=== PATIENT | female | born 1960 | race Caucasian/White ===

== ENCOUNTER 2022-01-10 19:00 | Inpatient (IN) | payer MEDICAID ==
[~2022-01-10] VITALS: Ht 154.9 cm; Wt 60.8 kg
[~2022-01-10 19:00] MED LIST: AMLO5TAB PO; ASPI-1071 PO; ATOR40TA71 PO; CALC-492 PO; CHOL10006 PO; DIVA-81 PO; LACT-237 PO; LISI40TA13 PO; NICO-687 TOP; OLAN10TA73 PO; PANT-47 PO; SERT-434 PO; TRAM50TA2 PO; TRAZ-251 PO
[2022-01-11 08:00] VITALS: BP 135/74
[2022-01-11] MEDS ORDERED: mag hydrox/Alum hydrox/simeth 30ml oral suspension PO PRN (09:50)
[2022-01-11] MEDS ORDERED: magnesium hydroxide 30ml (MOM) UD suspension PO PRN (09:50)
[2022-01-11] MEDS ORDERED: loperamide 2mg capsule PO PRN (09:50)
[2022-01-11] MEDS ORDERED: acetaminophen 325mg tablet PO PRN ×3 (09:50→20:40)
--- NOTE | 2022-01-11 10:05 | NUR ---
ADMIT NOTE 61 y/o F, originally admitted to [facility] on a 5150 in May 2021 for GD and then LPS conserved. Patient went from ambulatory to a 2 person assist. MRI obtained and recent TIA's and acute infarct were discovered. Patient then transferred to PCU in [facility] so she would be transferred to [facility] for possible shunt placement. Patient returned after all care considered to be outpatient. Patient returned to [facility] 01/10/22. [facility] continues to seek placement. Patient HX: Schizoaffective D/O, ETOH and substance use disorder.
[2022-01-11] MEDS ORDERED: atorvastatin 20mg tablet PO SCH (10:20)
[2022-01-11] MEDS ORDERED: aspirin 81mg, enteric-coated 1 TAB TABLET.DR PO SCH (10:21)
[2022-01-11] MEDS ORDERED: nicotine 21mg patch - 24 hr TD SCH (10:22)
[2022-01-11] MEDS ORDERED: lisinopril 20mg tablet PO SCH (10:23)
[2022-01-11] MEDS ORDERED: cholecalciferol (vitamin D3) 1,000 unit (25mcg) tablet PO SCH (10:24)
[2022-01-11] MEDS: divalproex sod 250mg ER (24-hour) tablet PO SCH ×2 (10:34→20:52)
[2022-01-11] MEDS: calcium carbonate 500mg chew tablet PO SCH ×2 (10:35→20:53)
[2022-01-11] MEDS: pantoprazole 40mg Tablet.DR PO SCH ×2 (10:35→20:52)
[2022-01-11] MEDS: lactose-reduced food (Ensure Enlive) - 237ml bottle PO SCH ×2 (13:44→18:01)
--- NOTE | 2022-01-11 17:10 | NUR ---
Nursing Progress Note: Josey Problem: Pt. is 61 y/o female, originally admitted to [facility] on a 5150 in May 2021 for GD and then LPS conserved. Patient HX: Schizoaffective D/O, ETOH and substance use disorder. Patient went from ambulatory to a 2 person assist. MRI obtained and recent TIA's and acute infarct were discovered. Patient then transferred to PCU in [facility] so she would be transferred to [facility] for possible shunt placement. Patient returned after all care considered to be outpatient. Patient returned to [facility] 01/10/22. Interventions: Medication administration. Maintained a safe and supportive environment, provided clear and simple instructions, provided direction and encouragement regarding performance of ADLs, monitored behaviors and maintained clear boundaries, provided positive reinforcement, and maintained Q15 minute safety checks. Response: Pt. received sleeping, woke to give her medication, but she refused stating, tired Pt. was later awoken with provider at the bedside, she continues to present as lethargic, fatigued, not herself. Pt. has a low grade temp intermittently under 100.0 this shift, poor appetite, and incontinent. Pt. refused wanting to get OOB this shift and was provided extensive assistance with ADLs and required feeding assistance. Pt. took her medications and has been given supplemental fluids and encouraged to eat snacks in between her meals. Pt. has been incontinent her urine is yellow, no odor observed, no c/o dysuria or polyuria found. Plan: Pt needs crisis interruption and stabilization with medication adjustment and monitoring in a safe and therapeutic environment, county currently looking for placement.
[2022-01-11 17:43] LABS: BASOPHILS % (AUTO) 0.5 % (0-1); EOSINOPHILS % (AUTO) 0.1 % (0-6); HEMATOCRIT 38.4 % (35.0-45.0); LYMPHOCYTES # (AUTO) 1.2 X10'3 (1.1-4.8); MEAN CORPUSCULAR HEMOGLOBIN 31.4 PG (27.0-31.0); MEAN CORPUSCULAR VOLUME 92.4 FL (78-98); MEAN PLATELET VOLUME 9.2 FL (7.4-10.4); MONOCYTES # (AUTO) 0.9 X10'3 (0-0.9); NEUTROPHILS # (AUTO) 4.2 X10'3 (1.8-7.7); NEUTROPHILS % (AUTO) 66.4 % (42-75); PLATELET COUNT 236 X10'3 (140-440); RED BLOOD COUNT 4.16 X10'6 (4.20-5.60); RED CELL DISTRIBUTION WIDTH 12.7 % (11.5-14.5); WHITE BLOOD COUNT 6.4 X10'3 (4.5-11.0)
[2022-01-11 18:04] LABS: ALANINE AMINOTRANSFERASE 14 U/L (12-78); ALBUMIN 3.2 G/DL (3.4-5.0); ALBUMIN/GLOBULIN RATIO 0.8 (1.1-1.5); ALKALINE PHOSPHATASE 68 IU/L (46-116); ANION GAP 9 (8-16); ASPARTATE AMINO TRANSFERASE 31 U/L (10-37); BILIRUBIN,TOTAL 0.3 MG/DL (0.1-1.0); BLOOD UREA NITROGEN 35 MG/DL (7-18); BUN/CREATININE RATIO 40.7 (6.6-38.0); CALCIUM 9.8 MG/DL (8.5-10.1); CHLORIDE 99 MMOL/L (99-107); CREATININE 0.86 MG/DL (0.40-0.90); GLUCOSE 99 MG/DL (70-104); POTASSIUM 4.1 MMOL/L (3.5-5.1); SODIUM 137 MMOL/L (135-145); TOTAL CARBON DIOXIDE 29.4 MMOL/L (24-32); TOTAL PROTEIN 7.4 G/DL (6.4-8.2); eGFR 67 ML/MIN
[2022-01-11] MEDS ORDERED: LIDOcaine 2% 10ml TOPICAL JELLY (Urojet) TP ONE (18:45)
[2022-01-11 20:00] VITALS: BP 127/79
[2022-01-11] MEDS ORDERED: ringers solution, lacted 1,000 ML IV ONE (20:40)
[2022-01-11] MEDS ORDERED: ringers solution, lacted 1,000 ML IV SCH (20:40)
[2022-01-11] MEDS ORDERED: CefTRIAXone/D5W-Rocephin 1gm 50 ML IV SCH (20:45)
[2022-01-11] MEDS ORDERED: olanzapine 10mg tablet PO SCH (21:00)
[2022-01-11] MEDS ORDERED: amLODIPine 5mg tablet PO SCH (21:00)
[2022-01-11 21:27] LABS: CREATINE KINASE 351 U/L (26-192); LIPASE 114 U/L (73-393); PHOSPHORUS 4.1 MG/DL (2.3-4.5); VALPROATE 53 UG/ML (50-100)
[2022-01-11 21:51] LABS: COLOR,URINE YELLOW (Yellow); GLUCOSE, URINE NEGATIVE (Neg); KETONES,URINE NEGATIVE (Neg); LEUKOCYTE ESTERASE ,URINE NEGATIVE (Neg); NITRITES, URINE NEGATIVE (Neg); OCCULT BLOOD,URINE MODERATE (Neg); PH,URINE 5.5 (4.8-8.0); PROTEIN,URINE NEGATIVE (Neg); UROBILINOGEN,URINE 0.2 E.U/dL (0.2-1.0)
[2022-01-11 21:57] LABS: UA COLLECTION TYPE FOLEY CATH
--- NOTE | 2022-01-11 21:57 | NUR ---
Pt has had a change in condition, O2 sat 87%, pt weak, unable to stand, positive cough, poor oral intake, hospitalist contacted ordered, stat Cxray, cath placement to obtain U/A and monitor output, Dr Reeder contacted with lab results and he ordered further labs, and bolus 1000ml of lactated ringers, IV was placed in R arm. Pt came back positive for Covid, Dr Reeder ordered to transfer patient to medical floor, nursing wall mirror department supervisor notified.
[2022-01-11 22:01] LABS: BACTERIA,URINE 1+ /HPF (Neg); SQUAMOUS EPITHELIAL CELL,UR FEW /LPF (FEW)
[2022-01-11 22:03] LABS: CLARITY,URINE SLIGHTLY CLOUDY (Clear); MUCUS STRANDS FEW /LPF (Neg); TRANSITIONAL EPI CELLS,URINE FEW /HPF
[2022-01-11 22:40] VITALS: BP 127/79
--- NOTE | 2022-01-12 01:15 | NUR ---
Pt being transferred to surgical at this time, sent with all belongings, message left for conservators office to notify them of transfer.
[2022-01-12] MEDS ORDERED: mineral oil 133ml enema RC PRN (01:20)
[2022-01-12] MEDS ORDERED: ALBUTEROL INHALER 1 PUFF/90 MCG INHALation IH PRN (01:20)
[2022-01-12] MEDS ORDERED: lactulose 20gm/30ml cup PO PRN (01:20)
[2022-01-12] MEDS ORDERED: dexamethasone 4mg/ml inj IV SCH (08:00)
[2022-01-12] MEDS ORDERED: enoxaparin 30mg/0.3ml syringe SUBCUT SCH (08:00)
[2022-01-12] MEDS ORDERED: polyethylene glycol 3350 17gm powd pack PO SCH (21:00)
[2022-01-16] MEDS ORDERED: LOP25T PO (17:07)
[2022-01-16] MEDS ORDERED: APIX5TAB3 PO (17:07)
== END 2022-01-12 01:15 | disposition short-term general hospital (02) | DRG 750 ==
LOC: ADULT MH 19:00
PROVIDERS: ADMIT Psychiatry & Neurology Psychiatry; ATTEND Psychiatry & Neurology Psychiatry
DX: F25.0 Schizoaffective disorder, bipolar type (principal); U07.1 COVID-19; G91.2 (Idiopathic) normal pressure hydrocephalus; E78.5 Hyperlipidemia, unspecified; F17.210 Nicotine dependence, cigarettes, uncomplicated; I10 Essential (primary) hypertension; F12.90 Cannabis use, unspecified, uncomplicated; R50.9 Fever, unspecified; J44.9 Chronic obstructive pulmonary disease, unspecified; K21.9 Gastro-esophageal reflux disease without esophagitis; K59.00 Constipation, unspecified; M85.80 Other specified disorders of bone density and structure, unspecified site; Z59.00 Homelessness unspecified; Z79.899 Other long term (current) drug therapy; Z90.710 Acquired absence of both cervix and uterus; Z91.81 History of falling; Z28.310 Unvaccinated for COVID-19
CPT/HCPCS: 36415; 71045; 80053; 80164; 81001; 82550; 83605; 83690; 84100; 85025; 87040; 87088; 87635; A4314; A4615; C1758; J7120

== ENCOUNTER 2022-01-17 09:44 | Inpatient (IN) | payer MEDICAID ==
[~2022-01-17] VITALS: Ht 160 cm; Wt 67.4 kg
[~2022-01-17 09:44] MED LIST changes: +APIX5TAB3 PO; +LOP25T PO
[2022-01-17 11:15] VITALS: BP 144/66
[2022-01-17] MEDS ORDERED: loperamide 2mg capsule PO PRN (11:15)
[2022-01-17] MEDS ORDERED: mag hydrox/Alum hydrox/simeth 30ml oral suspension PO PRN (11:15)
[2022-01-17] MEDS ORDERED: acetaminophen 325mg tablet PO PRN (11:15)
[2022-01-17] MEDS ORDERED: APIX5TAB3 PO (11:51)
[2022-01-17] MEDS ORDERED: LOP25T PO (11:51)
--- NOTE | 2022-01-17 12:13 | NUR ---
Admit note: Pt admitted today on LPS conservatorship from Telemetry at 1115. Pt is awaiting placement. PT has history of schizoaffective.
[2022-01-17] MEDS: traMADol 50MG tablet PO PRN (12:16)
[2022-01-17] MEDS: lactose-reduced food (Ensure Enlive) - 237ml bottle PO SCH ×2 (12:27→17:59)
[2022-01-17] MEDS: acetaminophen 325mg tablet PO PRN (14:00)
[2022-01-17 19:34] VITALS: BP 98/56
[2022-01-17] MEDS ORDERED: metoprolol tartrate 25mg tablet PO SCH (20:00)
[2022-01-17] MEDS ORDERED: apixaban 5mg tablet PO SCH (20:00)
[2022-01-17] MEDS: calcium carbonate 500mg chew tablet PO SCH (20:00)
[2022-01-17] MEDS: metoprolol tartrate 25mg tablet PO SCH (20:00)
[2022-01-17] MEDS: divalproex sod 250mg ER (24-hour) tablet PO SCH (20:14)
[2022-01-17] MEDS: olanzapine 10mg tablet PO SCH (20:14)
[2022-01-17] MEDS: traZODone 50mg tablet PO PRN (20:14)
[2022-01-17] MEDS: apixaban 5mg tablet PO SCH (20:15)
[2022-01-17] MEDS: pantoprazole 40mg Tablet.DR PO SCH (20:15)
[2022-01-17] MEDS: sertraline 50mg tablet PO SCH (20:15)
[2022-01-17] MEDS: nystatin 15 GM powder TP SCH (20:24)
[2022-01-17] MEDS: amLODIPine 5mg tablet PO SCH (20:26)
[2022-01-17] MEDS: magnesium hydroxide 30ml (MOM) UD suspension PO PRN (20:33)
--- NOTE | 2022-01-18 02:42 | NUR ---
Nursing Progress Note: Problem: Pt admitted on LPS conservatorship from Telemetry. Pt is awaiting placement. PT has history of schizoaffective. Interventions: Medication administration, maintained a safe and supportive environment, provided clear and simple instructions, provided encouragement regarding performance of ADLs, monitored behaviors and maintained clear boundaries, maintained Q15 minute safety checks. Response: Patient is labile and resistive to care at times; compliant with most medication. Amlodipine and Metoprolol held for decreased BP. She refused scheduled Tums and only took half of MOM provided.; patient is unaware of last BM and bowels sounds are hypoactive. She remained in bed throughout this shift; reports feeling upset d/t "being locked up." She is observed sleeping and does not appear to be having difficulty. Plan: Patient requires a safe and supportive environment. No viable plan for discharge at this time; patient is conserved.
--- NOTE | 2022-01-18 07:32 | NUR ---
Malnutrition consult: Pt has been monitored by [facility] since May of this year. She currently does not meet criteria for malnutrition given her PO intake and wt hx since May. Addendum: 01/18/22 at [address] Amended: Links added.
[2022-01-18 07:55] VITALS: BP 110/62
[2022-01-18 08:00] VITALS: BP 122/52
[2022-01-18] MEDS: lisinopril 20mg tablet PO SCH (08:00)
[2022-01-18] MEDS: metoprolol tartrate 25mg tablet PO SCH ×2 (08:00→20:27)
[2022-01-18] MEDS: calcium carbonate 500mg chew tablet PO SCH ×2 (08:00→20:00)
[2022-01-18] MEDS: nystatin 15 GM powder TP SCH ×2 (08:00→20:29)
[2022-01-18] MEDS: lactose-reduced food (Ensure Enlive) - 237ml bottle PO SCH ×3 (08:00→09:59)
[2022-01-18] MEDS: nicotine 21mg patch - 24 hr TD SCH (08:00)
[2022-01-18] MEDS: divalproex sod 250mg ER (24-hour) tablet PO SCH ×2 (09:34→20:27)
[2022-01-18] MEDS: cholecalciferol (vitamin D3) 1,000 unit (25mcg) tablet PO SCH (09:34)
[2022-01-18] MEDS: atorvastatin 20mg tablet PO SCH (09:34)
[2022-01-18] MEDS: apixaban 5mg tablet PO SCH ×2 (09:35→20:27)
[2022-01-18] MEDS: pantoprazole 40mg Tablet.DR PO SCH ×2 (09:35→20:27)
[2022-01-18] MEDS: aspirin 81mg, enteric-coated 1 TAB TABLET.DR PO SCH (09:35)
[2022-01-18] MEDS: traMADol 50MG tablet PO PRN (11:47)
--- NOTE | 2022-01-18 16:34 | NUR ---
Nursing Progress Note: Tamara Problem: Pt admitted on LPS conservatorship from Telemetry. Pt is awaiting placement. PT has history of schizoaffective. Interventions: Medication administration, maintained a safe and supportive environment, provided clear and simple instructions, provided encouragement regarding performance of ADLs, monitored behaviors and maintained clear boundaries, maintained Q15 minute safety checks. Response: Patient received sleeping and woke late this morning. Pt. refused to participate in 1:1 assessment and was extremely labile, and yelling at staff. She was found to have an incontinent episode of a loose BM and required extensive assistance. Pt. was showered and presents with MASD around her rectum and lower vaginal area; barrier cream continues to be applied and pt. is kept clean, dry, and repositioned. She presents as delusional stating I know your screwing his She is hesitant to take her medication and refused some medications randomly. She is agitated and refuses care intermittently. Pt. was given PRN Tramadol for pain with effective results. Pt. continues with generalized weakness BLE and requires a sit to stand lift for all transfers. Pt. continues to have labile outburst toward staff. BP medications were held d/t parameters; Pulse under 60, provider notified. Plan: Patient requires a safe and supportive environment. No viable plan for discharge at this time; patient is conserved.
[2022-01-18 19:23] VITALS: BP 120/87
[2022-01-18] MEDS: olanzapine 10mg tablet PO SCH (20:27)
[2022-01-18] MEDS: traZODone 50mg tablet PO PRN (20:27)
[2022-01-18] MEDS: sertraline 50mg tablet PO SCH (20:27)
[2022-01-18] MEDS: amLODIPine 5mg tablet PO SCH (20:28)
--- NOTE | 2022-01-19 05:27 | NUR ---
Nursing Progress Note: Problem: Pt admitted on LPS conservatorship from Telemetry. Pt is awaiting placement. PT has history of schizoaffective. Interventions: Medication administration, maintained a safe and supportive environment, provided clear and simple instructions, provided encouragement regarding performance of ADLs, monitored behaviors and maintained clear boundaries, maintained Q15 minute safety checks. Response: Patient is pleasant and cooperative with care; compliant with medication. Refused Tums again this shift; PRN Trazodone provided. She remains isolative to her room. Patient requires assistance with restroom needs and brief changes per soiling. She was provided coffee in her room and she refused snacks; observed sleeping and does not appear to be having difficulty. Plan: Patient requires a safe and supportive environment. No viable plan for discharge at this time; patient is conserved.
[2022-01-19] MEDS: divalproex sod 250mg ER (24-hour) tablet PO SCH ×2 (07:50→20:36)
[2022-01-19] MEDS: calcium carbonate 500mg chew tablet PO SCH ×2 (07:50→20:35)
[2022-01-19] MEDS: aspirin 81mg, enteric-coated 1 TAB TABLET.DR PO SCH (07:50)
[2022-01-19] MEDS: apixaban 5mg tablet PO SCH ×2 (07:50→20:36)
[2022-01-19] MEDS: pantoprazole 40mg Tablet.DR PO SCH ×2 (07:50→20:37)
[2022-01-19] MEDS: cholecalciferol (vitamin D3) 1,000 unit (25mcg) tablet PO SCH (07:50)
[2022-01-19] MEDS: nicotine 21mg patch - 24 hr TD SCH (07:51)
[2022-01-19] MEDS: atorvastatin 20mg tablet PO SCH (07:51)
[2022-01-19 08:00] VITALS: BP 125/67
[2022-01-19] MEDS: metoprolol tartrate 25mg tablet PO SCH ×2 (08:00→20:36)
[2022-01-19] MEDS: nystatin 15 GM powder TP SCH ×2 (08:00→20:40)
[2022-01-19] MEDS: lisinopril 20mg tablet PO SCH (08:00)
[2022-01-19] MEDS: lactose-reduced food (Ensure Enlive) - 237ml bottle PO SCH ×3 (08:03→18:41)
[2022-01-19] MEDS: traMADol 50MG tablet PO PRN (10:46)
--- NOTE | 2022-01-19 16:48 | NUR ---
Nursing Progress Note: Tamara Problem: Pt admitted on LPS conservatorship from Telemetry. Pt is awaiting placement. PT has history of schizoaffective. Interventions: Medication administration, maintained a safe and supportive environment, provided clear and simple instructions, provided encouragement regarding performance of ADLs, monitored behaviors and maintained clear boundaries, maintained Q15 minute safety checks. Response: Patient received sleeping and woke for breakfast. Pt. presents upbeat and is cooperative with staff and took her medications without hesitation. Pt. was awake most of the morning and ate breakfast in her room per her request. She denies SI, HI, A/VH and minimizes MH needs. She was OOB most of the morning and became labile, and yelling at staff, she reported pain in her back PRN Tramadol given. Pt. refused to get up or sit up for lunch reporting a lack of appetite. AT 1600 pt. awake and OOB watching tv until dinner was served. BP medications were held d/t parameters; Pulse under 60, provider notified. Plan: Patient requires a safe and supportive environment. No viable plan for discharge at this time; patient is conserved.
[2022-01-19] MEDS: amLODIPine 5mg tablet PO SCH (20:35)
[2022-01-19] MEDS: sertraline 50mg tablet PO SCH (20:35)
[2022-01-19] MEDS: olanzapine 10mg tablet PO SCH (20:36)
[2022-01-19 20:53] VITALS: BP 102/81
--- NOTE | 2022-01-20 04:40 | NUR ---
Nursing Progress Note: Tamara Problem: Pt admitted on LPS conservatorship from Telemetry. Pt is awaiting placement. PT has history of schizoaffective. Interventions: Medication administration, maintained a safe and supportive environment, provided clear and simple instructions, provided encouragement regarding performance of ADLs, monitored behaviors and maintained clear boundaries, maintained Q15 minute safety checks. Response: Patient was received sitting in hallway in wheelchair complaining about having to be up. Patient stated the staff was lying on her and she had been up all day. Patient was returned to bed. Nurse offered to assist patient in getting back up for snack but patient refused saying she was tired and wanted to go back to sleep. Patient was readjusted and offered night time medications. Patient took all medications without issue and returned to bed. Plan: Patient requires a safe and supportive environment. No viable plan for discharge at this time; patient is conserved.
[2022-01-20 08:00] VITALS: BP 154/78
[2022-01-20] MEDS: lactose-reduced food (Ensure Enlive) - 237ml bottle PO SCH ×3 (08:00→18:18)
[2022-01-20] MEDS: nystatin 15 GM powder TP SCH ×2 (08:00→20:25)
[2022-01-20] MEDS: nicotine 21mg patch - 24 hr TD SCH (08:00)
[2022-01-20] MEDS: atorvastatin 20mg tablet PO SCH (08:14)
[2022-01-20] MEDS: calcium carbonate 500mg chew tablet PO SCH ×2 (08:15→20:24)
[2022-01-20] MEDS: aspirin 81mg, enteric-coated 1 TAB TABLET.DR PO SCH (08:15)
[2022-01-20] MEDS: divalproex sod 250mg ER (24-hour) tablet PO SCH ×2 (08:16→20:24)
[2022-01-20] MEDS: cholecalciferol (vitamin D3) 1,000 unit (25mcg) tablet PO SCH (08:16)
[2022-01-20] MEDS: pantoprazole 40mg Tablet.DR PO SCH ×2 (08:16→20:23)
[2022-01-20] MEDS: apixaban 5mg tablet PO SCH ×2 (08:16→20:22)
[2022-01-20] MEDS: metoprolol tartrate 25mg tablet PO SCH ×2 (08:16→20:24)
[2022-01-20] MEDS: lisinopril 20mg tablet PO SCH (08:17)
--- NOTE | 2022-01-20 16:46 | NUR ---
Nursing Progress Note: Tamara Problem: Pt admitted on LPS conservatorship from Telemetry. Pt is awaiting placement. PT has history of schizoaffective. Interventions: Medication administration, maintained a safe and supportive environment, provided clear and simple instructions, provided encouragement regarding performance of ADLs, monitored behaviors and maintained clear boundaries, maintained Q15 minute safety checks. Response: Patient received sleeping and awoke to get ready for breakfast. Pt. yelled out obscenities at staff while care was being provided. Pt. took her medications without hesitation and ate breakfast in the dining room with cohorts. She spent most of the day OOB with minimal outburst to staff. Pt. was assisted back to bed and continues to rely on sit to stand device for transformation. Pt. is easily agitated and has limited tolerance. She is slightly disheveled, hygiene is fair, and wearing street clothes. Plan: Patient requires a safe and supportive environment. No viable plan for discharge at this time; patient is conserved.
[2022-01-20 19:00] VITALS: BP 103/59
[2022-01-20] MEDS: olanzapine 10mg tablet PO SCH (20:23)
[2022-01-20] MEDS: sertraline 50mg tablet PO SCH (20:23)
[2022-01-20] MEDS: amLODIPine 5mg tablet PO SCH (20:25)
--- NOTE | 2022-01-21 04:57 | NUR ---
Nursing Progress Note: Tamara Problem: Pt admitted on LPS conservatorship from Telemetry. Pt is awaiting placement. PT has history of schizoaffective. Interventions: Medication administration, maintained a safe and supportive environment, provided clear and simple instructions, provided encouragement regarding performance of ADLs, monitored behaviors and maintained clear boundaries, maintained Q15 minute safety checks. Response: Patient was found siting in community room. Patient stated she was going to get up and walk her wheelchair back to her room. Patient attempted to stand and nurse assisted patient back into chair. Nurse assisted patient back to room and into bed. Patient made it clear she was going to start walking and get out of here. Patient refused to get out of bed for snack stating she had been up all day and was very tired. Patient had snack in bed and took all night medications without issue. Patient continues to be incontinent and requires rosy care and assistance turning in bed. Plan: Patient requires a safe and supportive environment. No viable plan for discharge at this time; patient is conserved.
[2022-01-21] MEDS: lactose-reduced food (Ensure Enlive) - 237ml bottle PO SCH ×3 (08:00→18:15)
[2022-01-21] MEDS: nystatin 15 GM powder TP SCH ×2 (08:00→20:00)
[2022-01-21] MEDS: aspirin 81mg, enteric-coated 1 TAB TABLET.DR PO SCH (09:04)
[2022-01-21] MEDS: pantoprazole 40mg Tablet.DR PO SCH ×2 (09:04→20:43)
[2022-01-21] MEDS: apixaban 5mg tablet PO SCH ×2 (09:04→20:43)
[2022-01-21] MEDS: divalproex sod 250mg ER (24-hour) tablet PO SCH ×2 (09:04→20:43)
[2022-01-21] MEDS: calcium carbonate 500mg chew tablet PO SCH ×2 (09:05→20:43)
[2022-01-21] MEDS: atorvastatin 20mg tablet PO SCH (09:05)
[2022-01-21] MEDS: cholecalciferol (vitamin D3) 1,000 unit (25mcg) tablet PO SCH (09:05)
[2022-01-21] MEDS: metoprolol tartrate 25mg tablet PO SCH ×2 (09:59→20:00)
[2022-01-21] MEDS: lisinopril 20mg tablet PO SCH (09:59)
[2022-01-21] MEDS: nicotine 21mg patch - 24 hr TD SCH (10:00)
--- NOTE | 2022-01-21 17:48 | NUR ---
Nursing Progress Note: Problem: Pt admitted on LPS conservatorship from Telemetry. Pt is awaiting placement. PT has history of schizoaffective. Interventions: Medication administration, maintained a safe and supportive environment, provided clear and simple instructions, provided encouragement regarding performance of ADLs, monitored behaviors and maintained clear boundaries, maintained Q15 minute safety checks. Response: Received Pt in bed sleeping w/o distress. Pt woke and was cooperative with vitals and returned to sleeping. Pt woke again for breakfast and ate well, and took AM meds w/o issue. Pt was incontinent of stool and urine this AM and was cleaned and placed in chair. Pt spent time in the community room in AM and afternoon. Pt was pleasant and in a complimentary mood for most of the day. Pt spent time in community room sitting and intermittently talking with other Pts around a board game. Pt navigates [id number] well. Pt up to toilet throughout the day w/o incontinence. Plan: Patient requires a safe and supportive environment. No viable plan for discharge at this time; patient is conserved.
[2022-01-21 20:00] VITALS: BP 104/74
[2022-01-21] MEDS: olanzapine 10mg tablet PO SCH (20:43)
[2022-01-21] MEDS: sertraline 50mg tablet PO SCH (20:43)
[2022-01-21] MEDS: amLODIPine 5mg tablet PO SCH (21:00)
--- NOTE | 2022-01-22 03:25 | NUR ---
Nursing Progress Note: Josey Problem: Pt admitted on LPS conservatorship from Telemetry. Pt is awaiting placement. PT has history of schizoaffective. Interventions: Medication administration, maintained a safe and supportive environment, provided clear and simple instructions, provided encouragement regarding performance of ADLs, monitored behaviors and maintained clear boundaries, maintained Q15 minute safety checks. Response: Received Pt in bed awake and smiling. She states she feels confused and not happy. Pt repositioned in bed and kept clean and dry throughout shift. Pt initially wanted to refuse medications however took all HS medications without difficulty. Pt refused snacks and fell asleep shortly after med pass. Held Lopressor and Norvasc for decreased HR. Plan: Patient requires a safe and supportive environment. No viable plan for discharge at this time; patient is conserved.
--- NOTE | 2022-01-22 07:41 | NUR ---
Initial: Pt back in [facility] having been treated for recent Covid per EMR. Currently on Regular diet w/ avg intake 65% of meals, Ensure Enlive TID has also been ordered w/ avg intake 45% of ONS. Overall meeting est needs. Recommend decreasing frequency of ONS to once daily. [facility] 01/21. Will continue to monitor. Recs; 1. Continue regular diet as tolerated 2. Ensure Enlive TID; decrease to Once daily vs d/c 3. Bowel care PRN 4. Weekly wts Addendum: 01/22/22 at [address] Amended: Links added.
[2022-01-22] MEDS: lactose-reduced food (Ensure Enlive) - 237ml bottle PO SCH ×3 (07:57→17:38)
[2022-01-22] MEDS: apixaban 5mg tablet PO SCH ×2 (07:57→19:52)
[2022-01-22] MEDS: aspirin 81mg, enteric-coated 1 TAB TABLET.DR PO SCH (07:57)
[2022-01-22] MEDS: atorvastatin 20mg tablet PO SCH (07:57)
[2022-01-22] MEDS: pantoprazole 40mg Tablet.DR PO SCH ×2 (07:57→19:54)
[2022-01-22] MEDS: cholecalciferol (vitamin D3) 1,000 unit (25mcg) tablet PO SCH (07:57)
[2022-01-22] MEDS: calcium carbonate 500mg chew tablet PO SCH ×2 (07:57→19:54)
[2022-01-22] MEDS: divalproex sod 250mg ER (24-hour) tablet PO SCH ×2 (07:57→19:54)
[2022-01-22] MEDS: nicotine 21mg patch - 24 hr TD SCH (07:59)
[2022-01-22 08:00] VITALS: BP 120/75
[2022-01-22] MEDS: lisinopril 20mg tablet PO SCH (08:00)
[2022-01-22] MEDS: metoprolol tartrate 25mg tablet PO SCH ×2 (08:00→19:53)
[2022-01-22] MEDS: nystatin 15 GM powder TP SCH ×2 (08:02→20:14)
--- NOTE | 2022-01-22 17:55 | NUR ---
Nursing Progress Note: Problem: Pt admitted on LPS conservatorship from Telemetry. Pt is awaiting placement. PT has history of schizoaffective. Interventions: Medication administration, maintained a safe and supportive environment, provided clear and simple instructions, provided encouragement regarding performance of ADLs, monitored behaviors and maintained clear boundaries, maintained Q15 minute safety checks. Response: Patient received resting quietly in bed. Awakened for labs. Patient refuses and yells at the lab staff. Joins her peers in the community room for meals and socializes with select peers. Mood is labile and will go from smiling and laughing to yelling at staff if not given her way. Requires assistance for transfers and ADLs. Requires a wheel chair to propel on the unit and is only able to propel herself short distances requiring staff assistance. Refuses Tums. Cooperative with parts of the 1:1 assessment but becomes uncooperative and irritable. Patient spends time watching football in the community room. Patient will frequently demand to be helped to bed then immediately demand to get back up. She does this many times and requires education and redirection. Plan: Patient requires a safe and supportive environment. No viable plan for discharge at this time; patient is conserved.
[2022-01-22 19:27] VITALS: BP 123/88
[2022-01-22] MEDS: sertraline 50mg tablet PO SCH (19:53)
[2022-01-22] MEDS: traZODone 50mg tablet PO PRN (19:53)
[2022-01-22] MEDS: olanzapine 10mg tablet PO SCH (19:53)
[2022-01-22] MEDS: amLODIPine 5mg tablet PO SCH (19:54)
--- NOTE | 2022-01-23 05:03 | NUR ---
Nursing Progress Note: Problem: Pt admitted on LPS conservatorship from Telemetry. Pt is awaiting placement. PT has history of schizoaffective. Interventions: Medication administration, maintained a safe and supportive environment, provided clear and simple instructions, provided encouragement regarding performance of ADLs, monitored behaviors, maintained Q15 minute safety checks. Response: Patient is pleasant and cooperative with care; compliant with medication. PRN Trazodone provided. Nicotine patch removed. She denies SI, HI, A/VH; no apparent delusions expressed. Patient is making restroom needs known this shift and polite while assistance provided. Patient appeared happy as she was smiling and joking with business writer with each interaction. She was provided HS snack but remained in her room this shift; observed sleeping and does not appear to be having difficulty. Plan: Patient requires a safe and supportive environment. No viable plan for discharge at this time; patient is conserved.
[2022-01-23] MEDS: nicotine 21mg patch - 24 hr TD SCH (07:55)
[2022-01-23] MEDS: nystatin 15 GM powder TP SCH ×2 (07:55→20:21)
[2022-01-23] MEDS: pantoprazole 40mg Tablet.DR PO SCH ×2 (07:56→20:08)
[2022-01-23] MEDS: cholecalciferol (vitamin D3) 1,000 unit (25mcg) tablet PO SCH (07:56)
[2022-01-23] MEDS: divalproex sod 250mg ER (24-hour) tablet PO SCH ×2 (07:56→20:08)
[2022-01-23] MEDS: atorvastatin 20mg tablet PO SCH (07:56)
[2022-01-23] MEDS: apixaban 5mg tablet PO SCH ×2 (07:56→20:08)
[2022-01-23] MEDS: aspirin 81mg, enteric-coated 1 TAB TABLET.DR PO SCH (07:57)
[2022-01-23] MEDS: calcium carbonate 500mg chew tablet PO SCH ×2 (07:57→20:08)
[2022-01-23 08:00] VITALS: BP 126/68
[2022-01-23] MEDS: metoprolol tartrate 25mg tablet PO SCH ×2 (08:00→20:08)
[2022-01-23] MEDS: lisinopril 20mg tablet PO SCH (08:00)
[2022-01-23] MEDS: lactose-reduced food (Ensure Enlive) - 237ml bottle PO SCH ×3 (08:00→18:00)
--- NOTE | 2022-01-23 12:39 | NUR ---
Nursing Progress Note: Problem: Pt admitted on LPS conservatorship from Telemetry. Pt is awaiting placement. PT has history of schizoaffective. Interventions: Medication administration, maintained a safe and supportive environment, provided clear and simple instructions, provided encouragement regarding performance of ADLs, monitored behaviors and maintained clear boundaries, maintained Q15 minute safety checks. Response: Patient was asleep at change of shift and slept through breakfast. Patient was awake and sitting up in bed. Patient smiled and took her medication without any problems. Patient is incontinent and uses diapers. Patient asked if suicidal. Patient denies. RN asked patient if she heard voices "Of course not!" Patient states she is doing okay and said I with I had gotten up for breakfast. Patient is unable to walk and does bear weight for a very short time. Plan: Patient requires a safe and supportive environment. No viable plan for discharge at this time; patient is conserved.
[2022-01-23 19:41] VITALS: BP 105/66
[2022-01-23] MEDS: sertraline 50mg tablet PO SCH (20:07)
[2022-01-23] MEDS: olanzapine 10mg tablet PO SCH (20:08)
[2022-01-23] MEDS: amLODIPine 5mg tablet PO SCH (20:08)
[2022-01-23] MEDS: traZODone 50mg tablet PO PRN (20:08)
--- NOTE | 2022-01-24 04:08 | NUR ---
Nursing Progress Note: Problem: Pt admitted on LPS conservatorship from Telemetry. Pt is awaiting placement. PT has history of schizoaffective. Interventions: Medication administration, maintained a safe and supportive environment, provided clear and simple instructions, provided encouragement regarding performance of ADLs, monitored behaviors, maintained Q15 minute safety checks. Response: Patient is pleasant and cooperative with care; compliant with medication. PRN Trazodone provided. Nicotine patch removed. She is smiling and joking with staff; appears happy. She continues to make restroom needs known; some incontinence but making it to the restroom more often. She remained in her room this shift and provided HS snack; observed sleeping and does not appear to be having difficulty. Plan: Patient requires a safe and supportive environment. No viable plan for discharge at this time; patient is conserved.
[2022-01-24 08:00] VITALS: BP 137/56
[2022-01-24] MEDS: cholecalciferol (vitamin D3) 1,000 unit (25mcg) tablet PO SCH (08:28)
[2022-01-24] MEDS: pantoprazole 40mg Tablet.DR PO SCH ×2 (08:28→19:57)
[2022-01-24] MEDS: calcium carbonate 500mg chew tablet PO SCH ×2 (08:29→19:57)
[2022-01-24] MEDS: apixaban 5mg tablet PO SCH ×2 (08:29→19:58)
[2022-01-24] MEDS: lisinopril 20mg tablet PO SCH (08:29)
[2022-01-24] MEDS: atorvastatin 20mg tablet PO SCH (08:29)
[2022-01-24] MEDS: aspirin 81mg, enteric-coated 1 TAB TABLET.DR PO SCH (08:30)
[2022-01-24] MEDS: divalproex sod 250mg ER (24-hour) tablet PO SCH ×2 (08:30→19:57)
[2022-01-24] MEDS: metoprolol tartrate 25mg tablet PO SCH ×2 (08:30→19:57)
[2022-01-24] MEDS: nystatin 15 GM powder TP SCH ×2 (08:31→20:08)
[2022-01-24] MEDS: lactose-reduced food (Ensure Enlive) - 237ml bottle PO SCH ×3 (08:31→18:26)
[2022-01-24] MEDS: nicotine 21mg patch - 24 hr TD SCH (08:31)
--- NOTE | 2022-01-24 16:43 | NUR ---
Nursing Progress Note: Problem: Pt admitted on LPS conservatorship from Telemetry. Pt is awaiting placement. PT has history of schizoaffective. Interventions: Provided 1:1 assessment with therapeutic communication and active listening. Assisted pt to the BR via Mikey lift, assisted pt to her WC via HL and transported to Community . Medication administration and monitoring for adverse effects. Linens changed as needed. Kassandra care performed w/toileting. Monitored behaviors and maintained clear boundaries, maintained Q15 minute safety checks. Response: Pt denies SI/HI or A/V/H. She reports, "I sleep fine." Pt up in the community room for 2-3 hours at a time socializing with peers. Plan: Patient requires a safe and supportive environment. No viable plan for discharge at this time; patient is conserved.
[2022-01-24 19:34] VITALS: BP 121/61
[2022-01-24] MEDS: sertraline 50mg tablet PO SCH (19:57)
[2022-01-24] MEDS: olanzapine 10mg tablet PO SCH (19:57)
[2022-01-24] MEDS: traZODone 50mg tablet PO PRN (19:58)
[2022-01-24] MEDS: amLODIPine 5mg tablet PO SCH (19:58)
--- NOTE | 2022-01-25 05:40 | NUR ---
Nursing Progress Note: Problem: Pt admitted on LPS conservatorship from Telemetry. Pt is awaiting placement. PT has history of schizoaffective. Interventions: Medication administration, maintained a safe and supportive environment, provided clear and simple instructions, provided encouragement regarding performance of ADLs, monitored behaviors, maintained Q15 minute safety checks. Response: Patient is pleasant and cooperative with care; compliant with medication. [employer] Machine Assembler was unable to locate Nicotine patch. PRN Trazodone provided. She remained in her room this shift but social with staff; smiling and joking. Patient was provided HS snack and observed sleeping without difficulties. Plan: Patient requires a safe and supportive environment. No viable plan for discharge at this time; patient is conserved.
[2022-01-25 07:30] VITALS: BP 129/70
[2022-01-25] MEDS: pantoprazole 40mg Tablet.DR PO SCH ×2 (07:47→20:37)
[2022-01-25] MEDS: cholecalciferol (vitamin D3) 1,000 unit (25mcg) tablet PO SCH (07:47)
[2022-01-25] MEDS: calcium carbonate 500mg chew tablet PO SCH ×2 (07:47→20:38)
[2022-01-25] MEDS: atorvastatin 20mg tablet PO SCH (07:47)
[2022-01-25] MEDS: aspirin 81mg, enteric-coated 1 TAB TABLET.DR PO SCH (07:47)
[2022-01-25] MEDS: divalproex sod 250mg ER (24-hour) tablet PO SCH ×2 (07:48→20:37)
[2022-01-25] MEDS: apixaban 5mg tablet PO SCH ×2 (07:48→20:37)
[2022-01-25] MEDS: lisinopril 20mg tablet PO SCH (07:48)
[2022-01-25] MEDS: metoprolol tartrate 25mg tablet PO SCH ×2 (08:00→20:37)
[2022-01-25] MEDS: nystatin 15 GM powder TP SCH ×2 (08:00→20:38)
[2022-01-25] MEDS: lactose-reduced food (Ensure Enlive) - 237ml bottle PO SCH ×3 (08:02→18:19)
[2022-01-25] MEDS: nicotine 21mg patch - 24 hr TD SCH (08:38)
[2022-01-25] MEDS: traMADol 50MG tablet PO PRN (13:49)
--- NOTE | 2022-01-25 17:42 | NUR ---
Nursing Progress Note: Problem: Pt admitted on LPS conservatorship from Telemetry. Pt is awaiting placement. PT has history of schizoaffective. Interventions: Provided 1:1 assessment with therapeutic communication and active listening. Assisted pt to the BR via Mikey lift, assisted pt to her WC via HL and transported to Community . Medication administration and monitoring for adverse effects. Linens changed as needed. Kassandra care performed w/toileting. Monitored behaviors and maintained clear boundaries, maintained Q15 minute safety checks. Response: RN received pt. asleep in bed at start of shift. Pt. awoke before breakfast and requesting to be up in her chair. Pt. was incontinent of urine and changed. Barrier cream applied to bottom. Pt. refused foot care. Pt. up and drinking coffee and watching TV in community room before breakfast. Pt. took all medications. Pt. eating all her meals. After breakfast pt. was irritable demanding to be put back in bed. Pt. toileted and put back in bed. Pt. slept most of the AM. Pt. encouraged to be up in her chair during the afternoon. Pt. frequently asks to be placed back in bed. Pt. eventually put back in bed but then on the call-light c/o urinary incontinence. Pt. changed and encouraged to stay up. Pt. agreed and placed in the community room, watching TV and socializing with peers. Pt. attempts to get peers to bring her back to her room. 1:1 done at bedside. Pt. denies SI/HI, A/V hallucinations. Pt. reports she wants to be discharged, but otherwise feels good. Pt. states, some people here dont like me. RN encouraged pt. to reframe her interactions with some of the staff and attempted to help pt. get insight into some of her behaviors. Pt. c/o of bilateral arm pain rated 10/10 and received Ultram 25mg po with good effect. Plan: Patient requires a safe and supportive environment. No viable plan for discharge at this time; patient is conserved.
[2022-01-25 19:58] VITALS: BP 116/66
[2022-01-25] MEDS: traZODone 50mg tablet PO PRN (20:37)
[2022-01-25] MEDS: sertraline 50mg tablet PO SCH (20:37)
[2022-01-25] MEDS: amLODIPine 5mg tablet PO SCH (20:37)
[2022-01-25] MEDS: olanzapine 10mg tablet PO SCH (20:37)
--- NOTE | 2022-01-26 05:16 | NUR ---
Nursing Progress Note: Problem: Pt admitted on LPS conservatorship from Telemetry. Pt is awaiting placement. PT has history of schizoaffective. Interventions: Medication administration, maintained a safe and supportive environment, provided clear and simple instructions, provided encouragement regarding performance of ADLs, monitored behaviors, maintained Q15 minute safety checks. Response: Patient is pleasant and cooperative with care; compliant with medication. PRN Trazodone provided and Nicotine patch removed. She expressed delusional thought content about her son's ballots being filled out by someone else and that the person responsible had changed the address for both, patient and her son, so that they no longer receive them. Patient is making needs known. Appears to be having frequent urges to use the restroom but denies pain/discomfort with urination, stated, "it's a relief." Patient provided HS snack; observed sleeping and does not appear to be having difficulty. Plan: Patient requires a safe and supportive environment. No viable plan for discharge at this time; patient is conserved.
[2022-01-26 08:00] VITALS: BP 121/53
[2022-01-26] MEDS: lactose-reduced food (Ensure Enlive) - 237ml bottle PO SCH ×3 (08:00→18:32)
[2022-01-26] MEDS: metoprolol tartrate 25mg tablet PO SCH ×2 (08:00→19:54)
[2022-01-26] MEDS: nystatin 15 GM powder TP SCH ×2 (08:00→20:02)
[2022-01-26] MEDS: apixaban 5mg tablet PO SCH ×2 (09:55→19:54)
[2022-01-26] MEDS: divalproex sod 250mg ER (24-hour) tablet PO SCH ×2 (09:55→19:53)
[2022-01-26] MEDS: aspirin 81mg, enteric-coated 1 TAB TABLET.DR PO SCH (09:55)
[2022-01-26] MEDS: nicotine 21mg patch - 24 hr TD SCH (09:55)
[2022-01-26] MEDS: calcium carbonate 500mg chew tablet PO SCH ×2 (09:56→19:53)
[2022-01-26] MEDS: cholecalciferol (vitamin D3) 1,000 unit (25mcg) tablet PO SCH (09:56)
[2022-01-26] MEDS: atorvastatin 20mg tablet PO SCH (09:56)
[2022-01-26] MEDS: pantoprazole 40mg Tablet.DR PO SCH ×2 (09:57→19:53)
[2022-01-26] MEDS: lisinopril 20mg tablet PO SCH (10:13)
[2022-01-26] MEDS: traMADol 50MG tablet PO PRN (14:12)
[2022-01-26] MEDS: acetaminophen 325mg tablet PO PRN (16:15)
--- NOTE | 2022-01-26 17:41 | NUR ---
Nursing Progress Note: Problem: Pt admitted on LPS conservatorship from Telemetry. Pt is awaiting placement. PT has history of schizoaffective. Interventions: Medication administration, maintained a safe and supportive environment, provided clear and simple instructions, provided encouragement regarding performance of ADLs, monitored behaviors, maintained Q15 minute safety checks. Response: Patient slept through breakfast, but was up soon after to eat. She was pleasant and cooperative. Patient is compliant with care and medications. She continues to have urgency with urination, but was not incontinent today. She did have a BM today and was incontinent, which was a good time for barrier cream. She c/o significant pain to her neck and shoulders, which makes her want be up and down out of her bed, hoping for relief. She was medicated with both Tramadol and Tylenol x1 today, but reports little relief. Patient was up for all meals, but eats little. She does drink all of her Ensures with encouragement. Patient made no delusional statements today and was not observed responding to IS. Plan: Patient requires a safe and supportive environment. No viable plan for discharge at this time; patient is conserved.
[2022-01-26 19:41] VITALS: BP 132/69
[2022-01-26] MEDS: amLODIPine 5mg tablet PO SCH (19:53)
[2022-01-26] MEDS: olanzapine 10mg tablet PO SCH (19:53)
[2022-01-26] MEDS: sertraline 50mg tablet PO SCH (19:54)
[2022-01-26] MEDS: traZODone 50mg tablet PO PRN (19:54)
--- NOTE | 2022-01-27 05:35 | NUR ---
Nursing Progress Note: Problem: Pt admitted on LPS conservatorship from Telemetry. Pt is awaiting placement. PT has history of schizoaffective. Interventions: Medication administration, maintained a safe and supportive environment, provided clear and simple instructions, provided encouragement regarding performance of ADLs, monitored behaviors, maintained Q15 minute safety checks. Response: Patient is pleasant and cooperative with care; compliant with medication. PRN Trazodone provided and Nicotine patch removed. She continues to appear bright and socializing with staff. She continues to require assistance with ADLs but making needs known. Patient provided HS snack prior to bed; observed sleeping without difficulty. Plan: Patient requires a safe and supportive environment. No viable plan for discharge at this time; patient is conserved.
[2022-01-27 08:00] VITALS: BP 140/74
[2022-01-27] MEDS: nystatin 15 GM powder TP SCH ×2 (08:00→20:24)
[2022-01-27] MEDS: calcium carbonate 500mg chew tablet PO SCH ×2 (08:00→20:23)
[2022-01-27] MEDS: lactose-reduced food (Ensure Enlive) - 237ml bottle PO SCH ×3 (08:00→18:00)
--- NOTE | 2022-01-27 08:39 | NUR ---
PLACEMENT Sent updated notes to [facility] for placement purposes (01/20-01/26). ZACH Das
[2022-01-27] MEDS: cholecalciferol (vitamin D3) 1,000 unit (25mcg) tablet PO SCH (10:19)
[2022-01-27] MEDS: atorvastatin 20mg tablet PO SCH (10:20)
[2022-01-27] MEDS: aspirin 81mg, enteric-coated 1 TAB TABLET.DR PO SCH (10:20)
[2022-01-27] MEDS: pantoprazole 40mg Tablet.DR PO SCH ×2 (10:20→20:23)
[2022-01-27] MEDS: metoprolol tartrate 25mg tablet PO SCH ×2 (10:20→20:00)
[2022-01-27] MEDS: apixaban 5mg tablet PO SCH ×2 (10:20→20:23)
[2022-01-27] MEDS: divalproex sod 250mg ER (24-hour) tablet PO SCH ×2 (10:20→20:23)
[2022-01-27] MEDS: nicotine 21mg patch - 24 hr TD SCH (10:21)
[2022-01-27] MEDS: lisinopril 20mg tablet PO SCH (10:22)
[2022-01-27] MEDS: traMADol 50MG tablet PO PRN (15:36)
[2022-01-27] MEDS: acetaminophen 325mg tablet PO PRN (15:37)
--- NOTE | 2022-01-27 18:39 | NUR ---
For a copy in chart of Tamara's sister Kendra phone number-
[2022-01-27 19:00] VITALS: BP 93/49
--- NOTE | 2022-01-27 19:02 | NUR ---
Nursing Progress Note: Problem: Pt admitted on LPS conservatorship from Telemetry. Pt is awaiting placement. PT has history of schizoaffective. Interventions: Medication administration, maintained a safe and supportive environment, provided clear and simple instructions, provided encouragement regarding performance of ADLs, monitored behaviors, maintained Q15 minute safety checks. Response: Patient slept through breakfast today. She missed her tray, but was provided sufficient snacks. She reports feeling tired, and wants to nap. Patient continues to be compliant with medications. During transfers, she has been showing a little more strength by grabbing rails and holding herself up. She tires quickly. In late afternoon she required Tylenol and Tramadol, which had good results. Patient has not had any adverse behaviors today, but does anger easily. No delusional statements were made. Plan: Patient requires a safe and supportive environment. No viable plan for discharge at this time; patient is conserved.
[2022-01-27] MEDS: sertraline 50mg tablet PO SCH (20:23)
[2022-01-27] MEDS: olanzapine 10mg tablet PO SCH (20:23)
[2022-01-27] MEDS: traZODone 50mg tablet PO PRN (20:23)
[2022-01-27] MEDS: amLODIPine 5mg tablet PO SCH (20:24)
--- NOTE | 2022-01-28 05:53 | NUR ---
Nursing Progress Note: Problem: Pt admitted on LPS conservatorship from Telemetry. Pt is awaiting placement. PT has history of schizoaffective. Interventions: Medication administration, maintained a safe and supportive environment, provided clear and simple instructions, provided encouragement regarding performance of ADLs, monitored behaviors, maintained Q15 minute safety checks. Response: Patient is pleasant and cooperative with care; compliant with medication. PRN Trazodone provided and Nicotine patch removed. Amlodipine and Metoprolol were held for decreased BP this shift; she was encouraged to hydrate. Patient continues to struggle with frequent urination but making it known when she needs the restroom. Patient provided HS snack; observed sleeping and does not appear to be having difficulty. Plan: Patient requires a safe and supportive environment. No viable plan for discharge at this time; patient is conserved.
[2022-01-28 08:00] VITALS: BP 136/60
[2022-01-28] MEDS: divalproex sod 250mg ER (24-hour) tablet PO SCH ×2 (08:52→20:23)
[2022-01-28] MEDS: cholecalciferol (vitamin D3) 1,000 unit (25mcg) tablet PO SCH (08:52)
[2022-01-28] MEDS: apixaban 5mg tablet PO SCH ×2 (08:52→20:23)
[2022-01-28] MEDS: pantoprazole 40mg Tablet.DR PO SCH ×2 (08:52→20:22)
[2022-01-28] MEDS: atorvastatin 20mg tablet PO SCH (08:53)
[2022-01-28] MEDS: metoprolol tartrate 25mg tablet PO SCH ×2 (08:53→20:23)
[2022-01-28] MEDS: aspirin 81mg, enteric-coated 1 TAB TABLET.DR PO SCH (08:53)
[2022-01-28] MEDS: lisinopril 20mg tablet PO SCH (08:54)
[2022-01-28] MEDS: calcium carbonate 500mg chew tablet PO SCH ×2 (08:54→20:00)
[2022-01-28] MEDS: lactose-reduced food (Ensure Enlive) - 237ml bottle PO SCH ×4 (08:55→18:00)
[2022-01-28] MEDS: nystatin 15 GM powder TP SCH ×2 (08:55→20:22)
[2022-01-28] MEDS: nicotine 21mg patch - 24 hr TD SCH (08:58)
--- NOTE | 2022-01-28 15:22 | NUR ---
Nursing Progress Note Problem: Pt admitted on LPS conservatorship from Telemetry. Pt is awaiting placement. PT has history of schizoaffective. Interventions: Medication administration, maintained a safe and supportive environment, provided clear and simple instructions, provided encouragement regarding performance of ADLs, monitored behaviors and maintained clear boundaries, maintained Q15 minute safety checks. Response: Received Pt in bed sleeping w/o distress. Pt woke and was cooperative with vitals and returned to sleeping. Pt woke again for breakfast and ate well, and took AM meds w/o issue. Pt toileted using [id number] in AM and napped in the morning. Pt pleasant and in thankful mood most of the day. Ate lunch well and stayed in community room for a few hours before returning to bed and is resting. Pt denies SI/HI, AV/Hs at this time. Plan: Patient requires a safe and supportive environment. No viable plan for discharge at this time; patient is conserved.
[2022-01-28] MEDS: traMADol 50MG tablet PO PRN (16:14)
[2022-01-28] MEDS: acetaminophen 325mg tablet PO PRN (18:56)
[2022-01-28 20:00] VITALS: BP 133/69
[2022-01-28] MEDS: amLODIPine 5mg tablet PO SCH (20:22)
[2022-01-28] MEDS: sertraline 50mg tablet PO SCH (20:23)
[2022-01-28] MEDS: olanzapine 10mg tablet PO SCH (20:23)
--- NOTE | 2022-01-28 22:12 | NUR ---
Nursing Progress Note Problem: Pt admitted on LPS conservatorship from Telemetry. Pt is awaiting placement. PT has history of schizoaffective. Interventions: Medication administration, maintained a safe and supportive environment, provided clear and simple instructions, provided encouragement regarding performance of ADLs, monitored behaviors and maintained clear boundaries, maintained Q15 minute safety checks. Response: Received Pt in community room finishing dinner. Pt returned to her room and was pleasant and used toilet. Pt was cooperative with vitals and returned to bed. She had snack and took meds w/o issue. She engaged well in toby assessments. Pt still denies SI/HI, AV/Hs at this time. Pt sleeping w/o distress at this time. Plan: Patient requires a safe and supportive environment. No viable plan for discharge at this time; patient is conserved.
--- NOTE | 2022-01-29 07:31 | NUR ---
Reassessment: Pt continues on Regular diet w/ avg intake 50-75% of meals, and 75-100% of ONS. Overall meeting est needs. Recommend decreasing frequency of ONS to once daily. [facility] 01/27. Will continue to monitor. Recs; 1. Continue regular diet as tolerated 2. Ensure Enlive TID; decrease to Once daily vs d/c 3. Bowel care PRN 4. Weekly wts Addendum: 01/29/22 at [address] Amended: Links added.
[2022-01-29 08:00] VITALS: BP 160/85
[2022-01-29] MEDS: nystatin 15 GM powder TP SCH ×2 (08:00→20:27)
[2022-01-29] MEDS: metoprolol tartrate 25mg tablet PO SCH ×2 (08:00→20:20)
[2022-01-29] MEDS: lactose-reduced food (Ensure Enlive) - 237ml bottle PO SCH ×3 (08:00→18:00)
[2022-01-29] MEDS: calcium carbonate 500mg chew tablet PO SCH ×2 (08:00→20:19)
[2022-01-29] MEDS: lisinopril 20mg tablet PO SCH (08:00)
[2022-01-29] MEDS: apixaban 5mg tablet PO SCH ×2 (08:16→20:20)
[2022-01-29] MEDS: aspirin 81mg, enteric-coated 1 TAB TABLET.DR PO SCH (08:16)
[2022-01-29] MEDS: atorvastatin 20mg tablet PO SCH (08:16)
[2022-01-29] MEDS: divalproex sod 250mg ER (24-hour) tablet PO SCH ×2 (08:16→20:19)
[2022-01-29] MEDS: cholecalciferol (vitamin D3) 1,000 unit (25mcg) tablet PO SCH (08:16)
[2022-01-29] MEDS: pantoprazole 40mg Tablet.DR PO SCH ×2 (08:19→20:19)
[2022-01-29] MEDS: nicotine 21mg patch - 24 hr TD SCH (08:19)
[2022-01-29] MEDS: traMADol 50MG tablet PO PRN (12:03)
--- NOTE | 2022-01-29 16:59 | NUR ---
Nursing Progress Note: Problem: Pt admitted on LPS conservatorship from Telemetry. Pt is awaiting placement. PT has history of schizoaffective. Interventions: Medication administration, maintained a safe and supportive environment, provided clear and simple instructions, provided encouragement regarding performance of ADLs, monitored behaviors, maintained Q15 minute safety checks. Response: Patient was up at COS this morning. She was incontinent and needed a bed change, so stayed up. Patient was compliant with medications, and seems to be at baseline. She has showered today and is in a good mood. Patient loves to watch football, and has spent the day in the group room watching and socializing. She appears to be getting stronger, and patient transfers get easier as a result. More physical therapy is being considered, and patient has agreed. She denies MH symptoms and none have been observed. Plan: Patient requires a safe and supportive environment. No viable plan for discharge at this time; patient is conserved.
[2022-01-29 19:58] VITALS: BP 119/65
[2022-01-29] MEDS: olanzapine 10mg tablet PO SCH (20:19)
[2022-01-29] MEDS: amLODIPine 5mg tablet PO SCH (20:19)
[2022-01-29] MEDS: sertraline 50mg tablet PO SCH (20:19)
[2022-01-29] MEDS: traZODone 50mg tablet PO PRN (20:20)
--- NOTE | 2022-01-30 05:34 | NUR ---
Nursing Progress Note: Problem: Pt admitted on LPS conservatorship from Telemetry. Pt is awaiting placement. PT has history of schizoaffective. Interventions: Medication administration, maintained a safe and supportive environment, provided clear and simple instructions, provided encouragement regarding performance of ADLs, monitored behaviors, maintained Q15 minute safety checks. Response: Patient is pleasant and cooperative with care; compliant with medication. PRN Trazodone provided and Nicotine patch removed. No apparent delusions expressed this shift. She isolated to her room but social with staff. snack provided and observed sleeping without difficulty. Plan: Patient requires a safe and supportive environment. No viable plan for discharge at this time; patient is conserved.
[2022-01-30 07:30] VITALS: BP 143/73
[2022-01-30] MEDS: nicotine 21mg patch - 24 hr TD SCH (08:00)
[2022-01-30] MEDS: lactose-reduced food (Ensure Enlive) - 237ml bottle PO SCH ×3 (08:00→18:00)
[2022-01-30] MEDS: nystatin 15 GM powder TP SCH ×2 (08:00→20:15)
[2022-01-30] MEDS: calcium carbonate 500mg chew tablet PO SCH ×2 (08:00→20:12)
[2022-01-30] MEDS: atorvastatin 20mg tablet PO SCH (08:39)
[2022-01-30] MEDS: pantoprazole 40mg Tablet.DR PO SCH ×2 (08:39→20:12)
[2022-01-30] MEDS: aspirin 81mg, enteric-coated 1 TAB TABLET.DR PO SCH (08:39)
[2022-01-30] MEDS: apixaban 5mg tablet PO SCH ×2 (08:39→20:12)
[2022-01-30] MEDS: divalproex sod 250mg ER (24-hour) tablet PO SCH ×2 (08:40→20:12)
[2022-01-30] MEDS: cholecalciferol (vitamin D3) 1,000 unit (25mcg) tablet PO SCH (08:40)
[2022-01-30] MEDS: lisinopril 20mg tablet PO SCH (10:08)
[2022-01-30] MEDS: metoprolol tartrate 25mg tablet PO SCH ×2 (10:08→20:14)
[2022-01-30] MEDS: traMADol 50MG tablet PO PRN ×2 (10:17→20:12)
[2022-01-30] MEDS: acetaminophen 325mg tablet PO PRN (12:27)
[2022-01-30] MEDS: magnesium hydroxide 30ml (MOM) UD suspension PO PRN (17:06)
--- NOTE | 2022-01-30 17:57 | NUR ---
Nursing Progress Note Problem: Pt admitted on LPS conservatorship from Telemetry. Pt is awaiting placement. PT has history of schizoaffective. Interventions: Medication administration, maintained a safe and supportive environment, provided clear and simple instructions, provided encouragement regarding performance of ADLs, monitored behaviors and maintained clear boundaries, maintained Q15 minute safety checks. Response: RN received pt. asleep in bed at start of shift. Pt. woke up late and took medications and ate of her breakfast. Pt. was not incontinent this AM 1:1 done at bedside, pt. denies all psych symptoms. Pt. ate all of her lunch and took a nap afterward. Pt. was incontinent of urine when she awoke. 1:1 done at bedside, pt. denies all psych symptoms, focused on getting discharged. Pt. brought out to community room in the afternoon but immediately c/o of needing the toilet. Pt. reports she feels constipated. Pt. given milk of magnesia and started on Colace 100mg BID. Plan: Patient requires a safe and supportive environment. No viable plan for discharge at this time; patient is conserved.
[2022-01-30] MEDS: traZODone 50mg tablet PO PRN (20:11)
[2022-01-30] MEDS: docusate sod 100mg capsule PO SCH (20:11)
[2022-01-30] MEDS: olanzapine 10mg tablet PO SCH (20:12)
[2022-01-30] MEDS: sertraline 50mg tablet PO SCH (20:12)
[2022-01-30] MEDS: amLODIPine 5mg tablet PO SCH (20:15)
[2022-01-30 20:49] VITALS: BP 124/56
--- NOTE | 2022-01-31 05:38 | NUR ---
Nursing Progress Note Problem: Pt admitted on LPS conservatorship from Telemetry. Pt is awaiting placement. PT has history of schizoaffective. Interventions: Medication administration, maintained a safe and supportive environment, provided clear and simple instructions, provided encouragement regarding performance of ADLs, monitored behaviors and maintained clear boundaries, maintained Q15 minute safety checks. Response: Pt was in her room at change of shift, Pt is pleasant but restless. Pt repeatedly pushing call light to readjust her bed. Pt says she feels "good" and smiles. Pt had snacks in her room. Pt requesting prn for "general all over body pain." Pt was given prn ultram and trazodone for sleep at HS. Pt took meds and slept well during the night. Pt had episode of urine incontinence this morning when waking. Plan: Patient requires a safe and supportive environment. No viable plan for discharge at this time; patient is conserved.
[2022-01-31 07:48] VITALS: BP 139/69
[2022-01-31] MEDS: docusate sod 100mg capsule PO SCH ×2 (07:54→20:20)
[2022-01-31] MEDS: cholecalciferol (vitamin D3) 1,000 unit (25mcg) tablet PO SCH (07:54)
[2022-01-31] MEDS: divalproex sod 250mg ER (24-hour) tablet PO SCH ×2 (07:54→20:17)
[2022-01-31] MEDS: atorvastatin 20mg tablet PO SCH (07:54)
[2022-01-31] MEDS: pantoprazole 40mg Tablet.DR PO SCH ×2 (07:54→20:17)
[2022-01-31] MEDS: aspirin 81mg, enteric-coated 1 TAB TABLET.DR PO SCH (07:54)
[2022-01-31] MEDS: apixaban 5mg tablet PO SCH ×2 (07:54→20:18)
[2022-01-31] MEDS: nicotine 21mg patch - 24 hr TD SCH (07:59)
[2022-01-31] MEDS: calcium carbonate 500mg chew tablet PO SCH ×2 (08:00→20:20)
[2022-01-31] MEDS: metoprolol tartrate 25mg tablet PO SCH ×2 (08:00→20:19)
[2022-01-31] MEDS: nystatin 15 GM powder TP SCH ×2 (08:00→20:27)
[2022-01-31] MEDS: lisinopril 20mg tablet PO SCH (08:00)
[2022-01-31] MEDS: lactose-reduced food (Ensure Enlive) - 237ml bottle PO SCH ×4 (08:00→19:18)
--- NOTE | 2022-01-31 15:51 | NUR ---
[employer] Client attended group. Group focus was resilience and responding to change, specifically psychosocial education about change-related anxiety, and coping mechanisms. Group was a peer discussion, sharing ideas. Peer ideas included smells (essential oils, things that smell like peppermint), talking to someone, walking, hydrating and eating, trying to get good sleep, and avoiding using substances specifically alcohol to try to get some sleep. Client shared coffee calms her down. Client appeared relaxed as evidenced by smile, soft answers, participation.
--- NOTE | 2022-01-31 17:30 | NUR ---
Nursing Progress Note Problem: Pt admitted on LPS conservatorship from Telemetry. Pt is awaiting placement. PT has history of schizoaffective. Interventions: Medication administration, maintained a safe and supportive environment, provided clear and simple instructions, provided encouragement regarding performance of ADLs, monitored behaviors and maintained clear boundaries, maintained Q15 minute safety checks. Response: RN received pt. asleep in bed at start of shift. Per reports pt. was incontinent during the night and changed. Pt. got up for breakfast and took all medications. Pt. went back to her room after breakfast and napped until lunch time. 1:1 done at bedside, pt. denies all psych symptoms but reports she feels upset that she was woken up for lunch. Pt. states, I dont like you because you didnt let me sleep through lunch. Plan: Patient requires a safe and supportive environment. No viable plan for discharge at this time; patient is conserved.
[2022-01-31 19:13] VITALS: BP 148/65
[2022-01-31] MEDS: traMADol 50MG tablet PO PRN (19:14)
[2022-01-31] MEDS: olanzapine 10mg tablet PO SCH (20:17)
[2022-01-31] MEDS: sertraline 50mg tablet PO SCH (20:18)
[2022-01-31] MEDS: amLODIPine 5mg tablet PO SCH (20:19)
--- NOTE | 2022-02-01 05:08 | NUR ---
Nursing Progress Note Problem: Pt admitted on LPS conservatorship from Telemetry. Pt is awaiting placement. PT has history of schizoaffective. Interventions: Medication administration, maintained a safe and supportive environment, provided clear and simple instructions, provided encouragement regarding performance of ADLs, monitored behaviors and maintained clear boundaries, maintained Q15 minute safety checks. Response: Patient was received sitting in wheelchair eating a snack at change of shift. Patient was assisted into bed and requested pain medication for shoulder. Patient was given tramadol and went to sleep. Patient woke up asking for coffee and snack. Patient took all night medication and returned to bed. Plan: Patient requires a safe and supportive environment. No viable plan for discharge at this time; patient is conserved.
[2022-02-01 07:37] VITALS: BP 108/54
[2022-02-01] MEDS: docusate sod 100mg capsule PO SCH ×2 (07:57→20:07)
[2022-02-01] MEDS: apixaban 5mg tablet PO SCH ×2 (07:57→20:07)
[2022-02-01] MEDS: pantoprazole 40mg Tablet.DR PO SCH ×2 (07:57→20:07)
[2022-02-01] MEDS: atorvastatin 20mg tablet PO SCH (07:57)
[2022-02-01] MEDS: divalproex sod 250mg ER (24-hour) tablet PO SCH ×2 (07:57→20:07)
[2022-02-01] MEDS: aspirin 81mg, enteric-coated 1 TAB TABLET.DR PO SCH (07:58)
[2022-02-01] MEDS: cholecalciferol (vitamin D3) 1,000 unit (25mcg) tablet PO SCH (07:58)
[2022-02-01] MEDS: nicotine 21mg patch - 24 hr TD SCH (08:00)
[2022-02-01] MEDS: lisinopril 20mg tablet PO SCH (08:00)
[2022-02-01] MEDS: metoprolol tartrate 25mg tablet PO SCH ×2 (08:00→20:00)
[2022-02-01] MEDS: nystatin 15 GM powder TP SCH ×2 (08:00→20:00)
[2022-02-01] MEDS: calcium carbonate 500mg chew tablet PO SCH ×2 (08:00→20:00)
[2022-02-01] MEDS: lactose-reduced food (Ensure Enlive) - 237ml bottle PO SCH ×2 (13:34→18:10)
[2022-02-01] MEDS: traMADol 50MG tablet PO PRN (17:10)
--- NOTE | 2022-02-01 18:03 | NUR ---
Nursing Progress Note Problem: Pt admitted on [facility] conservatorship from Telemetry. Pt is awaiting placement. PT has history of schizoaffective. Interventions: Medication administration, maintained a safe and supportive environment, provided clear and simple instructions, provided encouragement regarding performance of ADLs, monitored behaviors and maintained clear boundaries, maintained Q15 minute safety checks. Response: RN received pt. asleep in bed at start of shift. Pt. woke up late and took medications and ate of her breakfast. Pt. was not incontinent this AM 1:1 done at bedside, pt. denies all psych symptoms. Pt. ate all protein on her lunch tray and took a nap afterward. Pt. was incontinent of urine when she awoke. Pt. asked to go to the community room to watch TV and eat snack. Pt. requested to go back her bed. Pt. taken back to her bed, 10 minutes later pt. hit call light, when asked what she needed, pt. states, I dont know. 10 minutes later pt. hit call light again and asking to go back to community room. Pt. had large formed BM today. Plan: Patient requires a safe and supportive environment. No viable plan for discharge at this time; patient is conserved. Addendum: 02/01/22 at 1805 by Michael Ragsdale RN Pt.'s heart rate was 46 this AM. Pt.'s Metoprolol and Lisinopril were held and provider informed. EKG ordered and provider informed of results.
[2022-02-01 20:00] VITALS: BP 138/60
[2022-02-01] MEDS: olanzapine 10mg tablet PO SCH (20:07)
[2022-02-01] MEDS: traZODone 50mg tablet PO PRN (20:07)
[2022-02-01] MEDS: sertraline 50mg tablet PO SCH (20:07)
[2022-02-01] MEDS: amLODIPine 5mg tablet PO SCH (20:09)
--- NOTE | 2022-02-02 01:53 | NUR ---
Nursing Progress Note Josey Problem: Pt admitted on LPS conservatorship from Telemetry. Pt is awaiting placement. PT has history of schizoaffective. Interventions: Medication administration, maintained a safe and supportive environment, provided clear and simple instructions, provided encouragement regarding performance of ADLs, monitored behaviors and maintained clear boundaries, maintained Q15 minute safety checks. Response: RN received pt. sitting up in bed awake. Pt smiling and cooperative with care. Pt states she is doing OK and shes doing the best she can right now. Pt had a snack and took all HS medications without issue. Pt had no complaints this evening and fell asleep shortly after med pass. Lopressor and Norvasc held due to low HR. Plan: Patient requires a safe and supportive environment. No viable plan for discharge at this time; patient is conserved.
[2022-02-02 08:00] VITALS: BP 128/70
[2022-02-02] MEDS: metoprolol tartrate 25mg tablet PO SCH ×2 (08:00→20:26)
[2022-02-02] MEDS: lisinopril 20mg tablet PO SCH (08:00)
[2022-02-02] MEDS: atorvastatin 20mg tablet PO SCH (08:11)
[2022-02-02] MEDS: nicotine 21mg patch - 24 hr TD SCH (08:11)
[2022-02-02] MEDS: cholecalciferol (vitamin D3) 1,000 unit (25mcg) tablet PO SCH (08:13)
[2022-02-02] MEDS: aspirin 81mg, enteric-coated 1 TAB TABLET.DR PO SCH (08:13)
[2022-02-02] MEDS: divalproex sod 250mg ER (24-hour) tablet PO SCH ×2 (08:13→20:25)
[2022-02-02] MEDS: docusate sod 100mg capsule PO SCH ×2 (08:13→20:26)
[2022-02-02] MEDS: calcium carbonate 500mg chew tablet PO SCH ×2 (08:13→20:26)
[2022-02-02] MEDS: pantoprazole 40mg Tablet.DR PO SCH ×2 (08:14→20:26)
[2022-02-02] MEDS: apixaban 5mg tablet PO SCH ×2 (08:14→20:25)
[2022-02-02] MEDS: lactose-reduced food (Ensure Enlive) - 237ml bottle PO SCH ×3 (08:20→17:52)
[2022-02-02] MEDS: nystatin 15 GM powder TP SCH ×2 (08:21→20:31)
--- NOTE | 2022-02-02 14:57 | NUR ---
Public Guardian Contact: Florence Medina is the new contact for Public Guardian. ZACH Das
--- NOTE | 2022-02-02 18:10 | NUR ---
Nursing Progress Note Problem: Pt admitted on LPS conservatorship from Telemetry. Pt is awaiting placement. PT has history of schizoaffective. Interventions: Medication administration, maintained a safe and supportive environment, provided clear and simple instructions, provided encouragement regarding performance of ADLs, monitored behaviors and maintained clear boundaries, maintained Q15 minute safety checks. Response: Patient received resting quietly in bed. Requires staff assistance for ADLs and transfers. Patient uses call hilario when needed and also when not needed. Education is provided conventions assistant hilario use. Patient requests to go to bed then immediately get up again several times. She becomes irritable when she does not get her way but she is able to be redirected. Spends time in the community room watching TV and sitting in front of the nurses station talking with staff. Denies any mental health symptoms at this time. Plan: Patient requires a safe and supportive environment. No viable plan for discharge at this time; patient is conserved.
[2022-02-02] MEDS: traMADol 50MG tablet PO PRN (19:02)
[2022-02-02 19:53] VITALS: BP 140/73
[2022-02-02] MEDS: sertraline 50mg tablet PO SCH (20:25)
[2022-02-02] MEDS: amLODIPine 5mg tablet PO SCH (20:25)
[2022-02-02] MEDS: olanzapine 10mg tablet PO SCH (20:26)
[2022-02-02] MEDS: acetaminophen 325mg tablet PO PRN (22:01)
[2022-02-02] MEDS: traZODone 50mg tablet PO PRN (22:01)
--- NOTE | 2022-02-03 05:17 | NUR ---
Nursing Progress Note Problem: Pt admitted on LPS conservatorship from Telemetry. Pt is awaiting placement. PT has history of schizoaffective. Interventions: Medication administration, maintained a safe and supportive environment, provided clear and simple instructions, provided encouragement regarding performance of ADLs, monitored behaviors and maintained clear boundaries, maintained Q15 minute safety checks. Response: Patient was assisted back into bed at change of shift. Patient requested prn tramadol and for shoulder pain. Patient was helped with shaving and attempted to sleep. Patient took all night medication without issue and had to be assisted to the bathroom.Patient later requested trazodone and Tylenol to help her sleep and to help with her shoulder. Patient was encouraged to sleep on her other side. Plan: Patient requires a safe and supportive environment. No viable plan for discharge at this time; patient is conserved.
[2022-02-03] MEDS: nicotine 21mg patch - 24 hr TD SCH (08:18)
[2022-02-03] MEDS: divalproex sod 250mg ER (24-hour) tablet PO SCH ×2 (08:19→20:21)
[2022-02-03] MEDS: atorvastatin 20mg tablet PO SCH (08:19)
[2022-02-03] MEDS: cholecalciferol (vitamin D3) 1,000 unit (25mcg) tablet PO SCH (08:19)
[2022-02-03] MEDS: apixaban 5mg tablet PO SCH ×2 (08:19→20:23)
[2022-02-03] MEDS: pantoprazole 40mg Tablet.DR PO SCH ×2 (08:20→20:22)
[2022-02-03] MEDS: calcium carbonate 500mg chew tablet PO SCH ×2 (08:20→20:22)
[2022-02-03] MEDS: docusate sod 100mg capsule PO SCH ×2 (08:20→20:24)
[2022-02-03] MEDS: aspirin 81mg, enteric-coated 1 TAB TABLET.DR PO SCH (08:20)
[2022-02-03] MEDS: metoprolol tartrate 25mg tablet PO SCH ×2 (08:30→20:00)
[2022-02-03] MEDS: lisinopril 20mg tablet PO SCH (08:30)
[2022-02-03] MEDS: lactose-reduced food (Ensure Enlive) - 237ml bottle PO SCH ×3 (08:34→18:12)
[2022-02-03] MEDS: nystatin 15 GM powder TP SCH ×2 (08:34→20:30)
[2022-02-03] MEDS: traMADol 50MG tablet PO PRN ×2 (11:08→20:23)
[2022-02-03] MEDS: acetaminophen 325mg tablet PO PRN (11:09)
--- NOTE | 2022-02-03 13:17 | NUR ---
PLACEMENT UPDATE Sent updated notes to [facility] for placement purposes. ZACH Das
--- NOTE | 2022-02-03 18:10 | NUR ---
Problem: Pt admitted on LPS conservatorship from Telemetry. Pt is awaiting placement. PT has history of schizoaffective. Interventions: Medication administration, maintained a safe and supportive environment, provided clear and simple instructions, provided encouragement regarding performance of ADLs, monitored behaviors and maintained clear boundaries, maintained Q15 minute safety checks. Response: Patient was up for breakfast and AM med pass. She was compliant with medications and stayed in the group room. She socializes with anybody that sits down. Her mood is good, she smiles a lot today, and laughs at appropriate times. Patient spends most of the day in community room. She played [employer] in group. She happily won some gloves to keep her hands warm. Later she worked with PT in hopes of increasing her strength. Patient denies MH symptoms and none were observed. No behaviors or outbursts today. . Plan: Patient requires a safe and supportive environment. No viable plan for discharge at this time; patient is conserved.
[2022-02-03 19:56] VITALS: BP 98/54
[2022-02-03] MEDS: sertraline 50mg tablet PO SCH (20:21)
[2022-02-03] MEDS: traZODone 50mg tablet PO PRN (20:21)
[2022-02-03] MEDS: olanzapine 10mg tablet PO SCH (20:23)
[2022-02-03] MEDS: amLODIPine 5mg tablet PO SCH (20:30)
--- NOTE | 2022-02-04 05:21 | NUR ---
Nursing Progress Note Problem: Pt admitted on LPS conservatorship from Telemetry. Pt is awaiting placement. PT has history of schizoaffective. Interventions: Medication administration, maintained a safe and supportive environment, provided clear and simple instructions, provided encouragement regarding performance of ADLs, monitored behaviors and maintained clear boundaries, maintained Q15 minute safety checks. Response: Patient was found sitting in community room at beginning of shift. Patient was assisted onto toilet and then back into bed. Patient was friendly and cooperative. Patient actually requested to get back out of bed in order to participate in snack time. Patient requested prn tramadol for shoulder and later prn trazodone to help her go to sleep. Patient took all night medications without issue and was help back in to bed. Patient had no difficulty sleeping. Plan: Patient requires a safe and supportive environment. No viable plan for discharge at this time; patient is conserved.
[2022-02-04 08:00] VITALS: BP 139/45
[2022-02-04] MEDS: calcium carbonate 500mg chew tablet PO SCH ×2 (08:00→20:01)
[2022-02-04] MEDS: nystatin 15 GM powder TP SCH ×2 (08:00→20:01)
[2022-02-04] MEDS: metoprolol tartrate 25mg tablet PO SCH ×2 (08:00→20:00)
[2022-02-04] MEDS: lactose-reduced food (Ensure Enlive) - 237ml bottle PO SCH ×3 (08:00→18:14)
[2022-02-04] MEDS: docusate sod 100mg capsule PO SCH ×2 (11:54→20:00)
[2022-02-04] MEDS: lisinopril 20mg tablet PO SCH (11:55)
[2022-02-04] MEDS: apixaban 5mg tablet PO SCH ×2 (11:55→20:01)
[2022-02-04] MEDS: cholecalciferol (vitamin D3) 1,000 unit (25mcg) tablet PO SCH (11:55)
[2022-02-04] MEDS: atorvastatin 20mg tablet PO SCH (11:55)
[2022-02-04] MEDS: pantoprazole 40mg Tablet.DR PO SCH ×2 (11:55→20:00)
[2022-02-04] MEDS: aspirin 81mg, enteric-coated 1 TAB TABLET.DR PO SCH (11:55)
[2022-02-04] MEDS: nicotine 21mg patch - 24 hr TD SCH (11:56)
[2022-02-04] MEDS: divalproex sod 250mg ER (24-hour) tablet PO SCH ×2 (11:57→20:00)
[2022-02-04] MEDS: traMADol 50MG tablet PO PRN ×2 (12:00→16:22)
[2022-02-04] MEDS: acetaminophen 325mg tablet PO PRN (16:17)
--- NOTE | 2022-02-04 17:16 | NUR ---
Nursing Progress Note: Problem: Pt admitted on LPS conservatorship from Telemetry. Pt is awaiting placement. PT has history of schizoaffective. Interventions: Medication administration, maintained a safe and supportive environment, provided clear and simple instructions, provided encouragement regarding performance of ADLs, monitored behaviors and maintained clear boundaries, maintained Q15 minute safety checks. Response: Patient slept late today. She seemed almost sedated, but no, Im just real tired today. Her breakfast had been saved, and she ate it when she got up. She stayed up after that. Patient was grumpy when she got up, but is in much better mood late in afternoon. She socializes as best she can, but she has trouble following conversations, and I hate when they put that stupid [employer] show on TV. She continues to be compliant with medications, and continues to deny MH symptoms. Patient has not had any adverse behaviors today. There were no outbursts or yelling. She continues to await placement. Plan: Patient requires a safe and supportive environment. No viable plan for discharge at this time; patient is conserved.
[2022-02-04 19:00] VITALS: BP 110/70
[2022-02-04] MEDS: traZODone 50mg tablet PO PRN (20:00)
[2022-02-04] MEDS: olanzapine 10mg tablet PO SCH (20:00)
[2022-02-04] MEDS: sertraline 50mg tablet PO SCH (20:00)
[2022-02-04] MEDS: amLODIPine 5mg tablet PO SCH (20:01)
--- NOTE | 2022-02-05 03:34 | NUR ---
Nursing Progress Note: Problem: Pt admitted on LPS conservatorship from Telemetry. Pt is awaiting placement. PT has history of schizoaffective. Interventions: Medication administration, maintained a safe and supportive environment, provided clear and simple instructions, provided encouragement regarding performance of ADLs, monitored behaviors and maintained clear boundaries, maintained Q15 minute safety checks. Response: Patient is pleasant and cooperative with care; compliant with medication. PRN Trazodone provided and Nicotine patch removed. No negative behaviors presented this shift. She continues to use call light when assistance is needed; transferring as needed to the restroom. Patient provided HS snack; observed sleeping and does not appear to be having difficulty. Plan: Patient requires a safe and supportive environment. No viable plan for discharge at this time; patient is conserved.
--- NOTE | 2022-02-05 07:34 | NUR ---
Reassessment: Pt continues on Regular diet w/ avg intake 50-75% of meals, and 50-75% of ONS. Overall meeting est needs. Recommend decreasing frequency of ONS to once daily. [facility] 02/02. Will continue to monitor. Recs; 1. Continue regular diet as tolerated 2. Ensure Enlive TID; decrease to Once daily vs d/c 3. Bowel care PRN 4. Weekly wts Addendum: 02/05/22 at [address] Amended: Links added.
[2022-02-05 08:00] VITALS: BP 113/63
[2022-02-05] MEDS: docusate sod 100mg capsule PO SCH ×2 (08:22→20:34)
[2022-02-05] MEDS: aspirin 81mg, enteric-coated 1 TAB TABLET.DR PO SCH (08:22)
[2022-02-05] MEDS: pantoprazole 40mg Tablet.DR PO SCH ×2 (08:23→20:34)
[2022-02-05] MEDS: divalproex sod 250mg ER (24-hour) tablet PO SCH ×2 (08:23→20:34)
[2022-02-05] MEDS: apixaban 5mg tablet PO SCH ×2 (08:23→20:34)
[2022-02-05] MEDS: atorvastatin 20mg tablet PO SCH (08:23)
[2022-02-05] MEDS: lactose-reduced food (Ensure Enlive) - 237ml bottle PO SCH ×3 (08:23→18:07)
[2022-02-05] MEDS: lisinopril 20mg tablet PO SCH (08:24)
[2022-02-05] MEDS: metoprolol tartrate 25mg tablet PO SCH ×2 (08:24→20:36)
[2022-02-05] MEDS: calcium carbonate 500mg chew tablet PO SCH ×2 (08:24→20:34)
[2022-02-05] MEDS: cholecalciferol (vitamin D3) 1,000 unit (25mcg) tablet PO SCH (08:24)
[2022-02-05] MEDS: nicotine 21mg patch - 24 hr TD SCH (08:25)
[2022-02-05] MEDS: nystatin 15 GM powder TP SCH ×2 (08:29→20:35)
--- NOTE | 2022-02-05 15:29 | NUR ---
Nursing Progress Note Problem: Pt admitted on LPS conservatorship from Telemetry. Pt is awaiting placement. PT has history of schizoaffective. Interventions: Medication administration, maintained a safe and supportive environment, provided clear and simple instructions, provided encouragement regarding performance of ADLs, monitored behaviors and maintained clear boundaries, maintained Q15 minute safety checks. Response: Received Pt in bed sleeping w/o distress. Pt woke and was cooperative with vitals and returned to sleeping. Pt woke again for breakfast and ate well in community room. She took AM meds w/o issue. Pt toileted with pivot assist in AM and napped in the morning. Pt pleasant and tired today. Smiling at times and joked with staff. Pt ate lunch, needing assistance to cut meat and open packages. Pt to toilet for BM in afternoon and spent time in community room watching TV. Pt denies SI/HI, AV/Hs at this time. Plan: Patient requires a safe and supportive environment. No viable plan for discharge at this time; patient is conserved.
[2022-02-05 20:09] VITALS: BP 142/70
[2022-02-05] MEDS: olanzapine 10mg tablet PO SCH (20:34)
[2022-02-05] MEDS: sertraline 50mg tablet PO SCH (20:35)
[2022-02-05] MEDS: amLODIPine 5mg tablet PO SCH (20:35)
--- NOTE | 2022-02-06 01:31 | NUR ---
Nursing Progress Note: Problem: Pt admitted on LPS conservatorship from Telemetry. Pt is awaiting placement. PT has history of schizoaffective. Interventions: Medication administration, maintained a safe and supportive environment, provided clear and simple instructions, provided encouragement regarding performance of ADLs, monitored behaviors and maintained clear boundaries, maintained Q15 minute safety checks. Response: Pt finished dinner and was getting into bed at change of shift. Pt pleasant and cooperative and spoke about her children and loss of a son. Pt ate a snack and took meds w/o issue. Pt was pleased with her walking (approx.. 8 ft) today and attempts to wheel down phillips. Pt appreciative of staff efforts. Pt did not display any outbursts or yelling on this shift. Pt sleeping w/o distress at this time. Plan: Patient requires a safe and supportive environment. No viable plan for discharge at this time; patient is conserved.
[2022-02-06 07:30] VITALS: BP 147/89
[2022-02-06] MEDS: nicotine 21mg patch - 24 hr TD SCH (08:00)
[2022-02-06] MEDS: nystatin 15 GM powder TP SCH ×2 (08:00→20:54)
[2022-02-06] MEDS: calcium carbonate 500mg chew tablet PO SCH ×2 (08:00→20:53)
[2022-02-06] MEDS: lactose-reduced food (Ensure Enlive) - 237ml bottle PO SCH ×3 (08:00→18:24)
[2022-02-06] MEDS: docusate sod 100mg capsule PO SCH ×2 (08:51→20:53)
[2022-02-06] MEDS: apixaban 5mg tablet PO SCH ×2 (08:51→20:54)
[2022-02-06] MEDS: cholecalciferol (vitamin D3) 1,000 unit (25mcg) tablet PO SCH (08:51)
[2022-02-06] MEDS: divalproex sod 250mg ER (24-hour) tablet PO SCH ×2 (08:51→20:53)
[2022-02-06] MEDS: atorvastatin 20mg tablet PO SCH (08:51)
[2022-02-06] MEDS: pantoprazole 40mg Tablet.DR PO SCH ×2 (08:51→20:53)
[2022-02-06] MEDS: aspirin 81mg, enteric-coated 1 TAB TABLET.DR PO SCH (08:51)
[2022-02-06] MEDS: lisinopril 20mg tablet PO SCH (10:03)
[2022-02-06] MEDS: metoprolol tartrate 25mg tablet PO SCH ×2 (10:03→20:53)
[2022-02-06] MEDS: traMADol 50MG tablet PO PRN (13:44)
--- NOTE | 2022-02-06 15:35 | NUR ---
Nursing Progress Note Problem: Pt admitted on LPS conservatorship from Telemetry. Pt is awaiting placement. PT has history of schizoaffective. Interventions: Medication administration, maintained a safe and supportive environment, provided clear and simple instructions, provided encouragement regarding performance of ADLs, monitored behaviors and maintained clear boundaries, maintained Q15 minute safety checks. Response: RN received pt. asleep in bed at start of shift. Pt. awoke shortly after shift change c/o of urinary incontinence. Pt. was heavily soaked in urine. Pt. changed and moisture barrier applied. Pt. requested to go back to bed and slept. Pt. awoke for breakfast late and took medications. Pt. c/o of pain 8/10 bilaterally in shoulders and received Tramadol 25mg with minimal effect. Pt. requested to go back to bed and remained in bed until lunch. Pt. ate lunch and requested to go back to bed but RN encouraged pt. to remain in milieu. Pt. was showered with 2 staff assist, however, pt. was irritable towards staff, yelling, I dont like you!. In afternoon pt. sat in part of group but did not participate. Pt. c/o of bilateral shoulder pain and received Ultram 25mg po with minimal effect. 1:1 assessment done at bedside, pt. denies all psych symptoms. Pt. states, "I want to leave here soon". Physical therapy came to work with pt. but pt. refused, stating, "Get away from me, I'm hurting too much!". Pt. had received PRN Tramadol 45min prior to working with PT. Plan: Patient requires a safe and supportive environment. No viable plan for discharge at this time; patient is conserved.
[2022-02-06 19:00] VITALS: BP 148/73
[2022-02-06] MEDS: sertraline 50mg tablet PO SCH (20:53)
[2022-02-06] MEDS: olanzapine 10mg tablet PO SCH (20:53)
[2022-02-06] MEDS: traZODone 50mg tablet PO PRN (20:53)
[2022-02-06] MEDS: amLODIPine 5mg tablet PO SCH (20:54)
--- NOTE | 2022-02-07 05:11 | NUR ---
Nursing Progress Note: Problem: Pt admitted on LPS conservatorship from Telemetry. Pt is awaiting placement. PT has history of schizoaffective. Interventions: Medication administration, maintained a safe and supportive environment, provided clear and simple instructions, provided encouragement regarding performance of ADLs, monitored behaviors and maintained clear boundaries, maintained Q15 minute safety checks. Response: Patient is pleasant and cooperative with care; compliant with medication. PRN Trazodone provided. Nicotine patch removed. No negative behaviors presented this shift. She is making needs known by using her call light and transferring to toilet with staff assistance without difficulty. She was provided HS snack prior to bed; observed sleeping and does not appear to be having difficulty. Plan: Patient requires a safe and supportive environment. No viable plan for discharge at this time; patient is conserved.
[2022-02-07] MEDS: divalproex sod 250mg ER (24-hour) tablet PO SCH ×2 (07:29→20:37)
[2022-02-07] MEDS: pantoprazole 40mg Tablet.DR PO SCH ×2 (07:29→20:38)
[2022-02-07] MEDS: docusate sod 100mg capsule PO SCH ×2 (07:29→20:37)
[2022-02-07] MEDS: aspirin 81mg, enteric-coated 1 TAB TABLET.DR PO SCH (07:29)
[2022-02-07] MEDS: calcium carbonate 500mg chew tablet PO SCH ×2 (07:29→20:37)
[2022-02-07] MEDS: cholecalciferol (vitamin D3) 1,000 unit (25mcg) tablet PO SCH (07:29)
[2022-02-07] MEDS: atorvastatin 20mg tablet PO SCH (07:30)
[2022-02-07] MEDS: lisinopril 20mg tablet PO SCH (07:30)
[2022-02-07] MEDS: apixaban 5mg tablet PO SCH ×2 (07:30→20:38)
[2022-02-07] MEDS: metoprolol tartrate 25mg tablet PO SCH ×2 (07:30→20:38)
[2022-02-07] MEDS: nystatin 15 GM powder TP SCH ×2 (07:31→20:40)
[2022-02-07] MEDS: nicotine 21mg patch - 24 hr TD SCH (07:31)
[2022-02-07 08:00] VITALS: BP 130/65
[2022-02-07] MEDS: lactose-reduced food (Ensure Enlive) - 237ml bottle PO SCH ×3 (08:17→17:54)
--- NOTE | 2022-02-07 16:06 | NUR ---
DESCRIPTION Daily therapeutic groups supporting the crisis-recovery environment, and to meet medical necessity aligned with the acuity of clients. TOPIC Goals to hang on to, and describing goals. INTERVENTION Therapeutic communication, active listening, redirection as needed, introduction of peer support, validation by peers, coping skills and psychosocial education. Secondarily: intellectual and physical activity, peer and staff companionship, alleviating and discouraging isolation. RESPONSE Pt engaged in group as evidenced by listening and chiming in several times. Client was relaxed as evidenced by tone of voice, smiles, and choice of words. Client shared her t-shirt of a rock band. Client stated her t-shirt sings to her, always the same song, she likes it -- and she sang several stanzas of the song. TREATMENT Until stable, client requires time in a safe and therapeutic environment that employs a multidisciplinary approach to care (psychiatry, specialized nursing, social work, 1:1 support, therapeutic groups, and peer support).
[2022-02-07] MEDS: traMADol 50MG tablet PO PRN (16:45)
--- NOTE | 2022-02-07 16:55 | NUR ---
Nursing Progress Note: Tamara Problem: Pt admitted on LPS conservatorship from Telemetry. Pt is awaiting placement. PT has history of schizoaffective. Interventions: Medication administration, maintained a safe and supportive environment, provided clear and simple instructions, provided encouragement regarding performance of ADLs, monitored behaviors and maintained clear boundaries, maintained Q15 minute safety checks. Response: Pt. received sleeping and awoke early requesting to get OOB for breakfast. Pt. ate breakfast in the dining room and took her medications without hesitation. She was up and socializing with cohorts and returned to her room for a nap before lunch. Pt. continues to require extensive assistance with ADLs and transfers. She has been both continent and incontinent. Pt. refused to get up for lunch, but later requested to get up, and stayed OOB until dinner. Pt. has been in a good mood, calm, and joking around. She did well and worked with PT today. Before dinner she reported 7/10 Rt. Arm pain ; PRN Tramadol given. Plan: Patient requires a safe and supportive environment. No viable plan for discharge at this time; patient is conserved.
[2022-02-07 19:57] VITALS: BP 116/69
[2022-02-07] MEDS: sertraline 50mg tablet PO SCH (20:37)
[2022-02-07] MEDS: amLODIPine 5mg tablet PO SCH (20:38)
[2022-02-07] MEDS: olanzapine 10mg tablet PO SCH (20:38)
[2022-02-07] MEDS: traZODone 50mg tablet PO PRN (20:38)
--- NOTE | 2022-02-08 04:52 | NUR ---
Nursing Progress Note: Problem: Pt admitted on LPS conservatorship from Telemetry. Pt is awaiting placement. PT has history of schizoaffective. Interventions: Medication administration, maintained a safe and supportive environment, provided clear and simple instructions, provided encouragement regarding performance of ADLs, monitored behaviors and maintained clear boundaries, maintained Q15 minute safety checks. Response: Patient is pleasant and cooperative; compliant with medication. PRN Trazodone provided and Nicotine patch removed. No negative behaviors presented and smiling/social with staff. She continues to make needs known with her call light and transferring to the restroom while she is awake. Patient provided HS snack prior to bed; observed sleeping and does not appear to be having difficulty. Plan: Patient requires a safe and supportive environment. No viable plan for discharge at this time; patient is conserved.
[2022-02-08 08:00] VITALS: BP 113/50
[2022-02-08] MEDS: nystatin 15 GM powder TP SCH ×2 (08:00→20:06)
[2022-02-08] MEDS: lisinopril 20mg tablet PO SCH (08:05)
[2022-02-08] MEDS: calcium carbonate 500mg chew tablet PO SCH ×2 (08:05→20:06)
[2022-02-08] MEDS: apixaban 5mg tablet PO SCH ×2 (08:05→20:06)
[2022-02-08] MEDS: atorvastatin 20mg tablet PO SCH (08:05)
[2022-02-08] MEDS: docusate sod 100mg capsule PO SCH ×2 (08:05→20:06)
[2022-02-08] MEDS: aspirin 81mg, enteric-coated 1 TAB TABLET.DR PO SCH (08:05)
[2022-02-08] MEDS: cholecalciferol (vitamin D3) 1,000 unit (25mcg) tablet PO SCH (08:05)
[2022-02-08] MEDS: pantoprazole 40mg Tablet.DR PO SCH ×2 (08:05→20:06)
[2022-02-08] MEDS: divalproex sod 250mg ER (24-hour) tablet PO SCH ×2 (08:05→20:06)
[2022-02-08] MEDS: nicotine 21mg patch - 24 hr TD SCH (08:06)
[2022-02-08] MEDS: metoprolol tartrate 25mg tablet PO SCH ×2 (08:06→20:00)
[2022-02-08] MEDS: lactose-reduced food (Ensure Enlive) - 237ml bottle PO SCH ×3 (08:12→18:08)
--- NOTE | 2022-02-08 16:26 | NUR ---
Nursing Progress Note: Tamara Problem: Pt admitted on LPS conservatorship from Telemetry. Pt is awaiting placement. PT has history of schizoaffective. Interventions: Medication administration, maintained a safe and supportive environment, provided clear and simple instructions, provided encouragement regarding performance of ADLs, monitored behaviors and maintained clear boundaries, maintained Q15 minute safety checks. Response: Pt. received sleeping and awoke for breakfast. Pt. continues to require extensive assist. with ADLs and transfers. Pt. remains continent, incontinent and uses a WC for transportation on the unit. She denies all mental health symptoms and is not responding to IS. Pt. is upbeat and pleasant to staff. She takes her medications without hesitation and is cooperative. She ate all meals in the dining room with cohorts and observed socializing. Pt. refused a shower offered by staff. Her hygiene fair, hair combed, and is wearing street clothes. Plan: Patient requires a safe and supportive environment. No viable plan for discharge at this time; patient is conserved.
[2022-02-08 20:00] VITALS: BP 121/62
[2022-02-08] MEDS: sertraline 50mg tablet PO SCH (20:06)
[2022-02-08] MEDS: traZODone 50mg tablet PO PRN (20:06)
[2022-02-08] MEDS: olanzapine 10mg tablet PO SCH (20:06)
[2022-02-08] MEDS: amLODIPine 5mg tablet PO SCH (20:07)
--- NOTE | 2022-02-09 05:11 | NUR ---
Nursing Progress Note: Problem: Pt admitted on LPS conservatorship from Telemetry. Pt is awaiting placement. PT has history of schizoaffective. Interventions: Medication administration, maintained a safe and supportive environment, provided clear and simple instructions, provided encouragement regarding performance of ADLs, monitored behaviors and maintained clear boundaries, maintained Q15 minute safety checks. Response: Patient is pleasant and cooperative with care; compliant with medication. PRN Trazodone provided. Nicotine patch removed. No negative behaviors presented and making needs known with use of call light. She is social with staff and ate HS snack prior to bed; observed sleeping and does not appear to be having difficulty. Plan: Patient requires a safe and supportive environment. No viable plan for discharge at this time; patient is conserved.
[2022-02-09] MEDS: atorvastatin 20mg tablet PO SCH (07:59)
[2022-02-09] MEDS: apixaban 5mg tablet PO SCH ×2 (07:59→20:13)
[2022-02-09] MEDS: pantoprazole 40mg Tablet.DR PO SCH ×2 (07:59→20:14)
[2022-02-09] MEDS: nicotine 21mg patch - 24 hr TD SCH (07:59)
[2022-02-09 08:00] VITALS: BP 115/63
[2022-02-09] MEDS: calcium carbonate 500mg chew tablet PO SCH ×2 (08:00→20:14)
[2022-02-09] MEDS: docusate sod 100mg capsule PO SCH ×2 (08:00→20:13)
[2022-02-09] MEDS: cholecalciferol (vitamin D3) 1,000 unit (25mcg) tablet PO SCH (08:00)
[2022-02-09] MEDS: lisinopril 20mg tablet PO SCH (08:00)
[2022-02-09] MEDS: metoprolol tartrate 25mg tablet PO SCH ×2 (08:00→20:00)
[2022-02-09] MEDS: aspirin 81mg, enteric-coated 1 TAB TABLET.DR PO SCH (08:00)
[2022-02-09] MEDS: divalproex sod 250mg ER (24-hour) tablet PO SCH ×2 (08:00→20:13)
[2022-02-09] MEDS: lactose-reduced food (Ensure Enlive) - 237ml bottle PO SCH ×3 (08:01→18:00)
[2022-02-09] MEDS: nystatin 15 GM powder TP SCH ×2 (08:01→20:15)
--- NOTE | 2022-02-09 17:05 | NUR ---
Nursing Progress Note: Problem: Pt admitted on LPS conservatorship from Telemetry. Pt is awaiting placement. PT has history of schizoaffective. Interventions: Medication administration, maintained a safe and supportive environment, provided clear and simple instructions, provided encouragement regarding performance of ADLs, monitored behaviors and maintained clear boundaries, maintained Q15 minute safety checks. Response: Patient received resting quietly in bed. Patient sleeps in through breakfast. Cooperative with assessment and medications. Isolates to her room in the morning. In the afternoon patient spends time in the community room. Attempts to self-transfer and falls on the floor. No injury is noted. Patient denies any fall related pain. Patient denies any mental health symptoms at this time. Mood is generally pleasant but irritable at times. Plan: Patient requires a safe and supportive environment. No viable plan for discharge at this time; patient is conserved.
[2022-02-09 19:00] VITALS: BP 159/69
--- NOTE | 2022-02-09 19:57 | NUR ---
Held BP medication. Amlodipine and Metoprolol held for low pulse: Machine read 57 and manual count 53.
[2022-02-09] MEDS: olanzapine 10mg tablet PO SCH (20:13)
[2022-02-09] MEDS: sertraline 50mg tablet PO SCH (20:13)
[2022-02-09] MEDS: traZODone 50mg tablet PO PRN (20:14)
[2022-02-09] MEDS: amLODIPine 5mg tablet PO SCH (20:16)
--- NOTE | 2022-02-10 05:05 | NUR ---
Nursing Progress Note: Problem: Pt admitted on LPS conservatorship from Telemetry. Pt is awaiting placement. PT has history of schizoaffective. Interventions: Medication administration, maintained a safe and supportive environment, provided clear and simple instructions, provided encouragement regarding performance of ADLs, monitored behaviors and maintained clear boundaries, maintained Q15 minute safety checks. Response: Patient is pleasant and cooperative with care; compliant with medication. PRN Trazodone provided. Nicotine patch removed. No negative behaviors presented. She used call light to make needs known and transferring with staff assistance. She was provided HS snack prior to bed; observed sleeping and does not appear to be having difficulty. Plan: Patient requires a safe and supportive environment. No viable plan for discharge at this time; patient is conserved.
[2022-02-10] MEDS: nicotine 21mg patch - 24 hr TD SCH (07:57)
[2022-02-10 08:00] VITALS: BP 113/69
[2022-02-10] MEDS: apixaban 5mg tablet PO SCH ×2 (08:16→21:09)
[2022-02-10] MEDS: lisinopril 20mg tablet PO SCH (08:16)
[2022-02-10] MEDS: cholecalciferol (vitamin D3) 1,000 unit (25mcg) tablet PO SCH (08:16)
[2022-02-10] MEDS: metoprolol tartrate 25mg tablet PO SCH (08:16)
[2022-02-10] MEDS: docusate sod 100mg capsule PO SCH ×2 (08:16→21:10)
[2022-02-10] MEDS: calcium carbonate 500mg chew tablet PO SCH ×2 (08:17→21:09)
[2022-02-10] MEDS: divalproex sod 250mg ER (24-hour) tablet PO SCH ×2 (08:17→21:10)
[2022-02-10] MEDS: atorvastatin 20mg tablet PO SCH (08:17)
[2022-02-10] MEDS: aspirin 81mg, enteric-coated 1 TAB TABLET.DR PO SCH (08:17)
[2022-02-10] MEDS: nystatin 15 GM powder TP SCH ×2 (08:18→20:00)
[2022-02-10] MEDS: lactose-reduced food (Ensure Enlive) - 237ml bottle PO SCH ×3 (08:18→17:19)
[2022-02-10] MEDS: pantoprazole 40mg Tablet.DR PO SCH ×2 (08:25→21:09)
[2022-02-10 09:35] VITALS: BP 113/69
--- NOTE | 2022-02-10 12:38 | NUR ---
Sent updated notes to [facility] for placement purposes. ZACH Das
[2022-02-10] MEDS: acetaminophen 325mg tablet PO PRN (15:48)
--- NOTE | 2022-02-10 17:50 | NUR ---
Nursing Progress Note: Problem: Pt admitted on LPS conservatorship from Telemetry. Pt is awaiting placement. PT has history of schizoaffective. Interventions: Medication administration, maintained a safe and supportive environment, provided clear and simple instructions, provided encouragement regarding performance of ADLs, monitored behaviors and maintained clear boundaries, maintained Q15 minute safety checks. Response: Patient received resting quietly in bed. Cooperative with 1:1 assessment and medications. Patient has urinary incontinence and wears a brief. Requires extensive assist by 1-2 staff for ADLs and transfers. Patient requires reminders to wait for help and not to self-transfer due to high fall risk. Patient denies any mental health symptoms at this time. Mood is generally pleasant but she is easily irritated when she does not get her way. Plan: Patient requires a safe and supportive environment. No viable plan for discharge at this time; patient is conserved.
[2022-02-10 19:00] VITALS: BP 159/66
[2022-02-10] MEDS: metoprolol tartrate 12.5mg (1/2 tablet) PO SCH (20:00)
[2022-02-10] MEDS: amLODIPine 5mg tablet PO SCH (21:09)
[2022-02-10] MEDS: sertraline 50mg tablet PO SCH (21:09)
[2022-02-10] MEDS: olanzapine 10mg tablet PO SCH (21:10)
[2022-02-10] MEDS: traZODone 50mg tablet PO PRN (21:10)
--- NOTE | 2022-02-11 05:37 | NUR ---
Nursing Progress Note: Problem: Pt admitted on LPS conservatorship from Telemetry. Pt is awaiting placement. PT has history of schizoaffective. Interventions: Medication administration, maintained a safe and supportive environment, provided clear and simple instructions, provided encouragement regarding performance of ADLs, monitored behaviors and maintained clear boundaries, maintained Q15 minute safety checks. Response: Patient is pleasant and cooperative with care; compliant with medication. PRN Trazodone provided and Nicotine patch removed. Patient appears to be having delusional thought content about her mother dying and her siblings not wanting to tell her. She was tearful d/t believing her mother has and she was unable to help her mom. Patient continues to transfer with staff assistance and using call light prior to needing to. She was provided HS snack and made phone calls before bed; observed having some difficulty getting to sleep this shift. Plan: Patient requires a safe and supportive environment. No viable plan for discharge at this time; patient is conserved.
[2022-02-11] MEDS: aspirin 81mg, enteric-coated 1 TAB TABLET.DR PO SCH (08:01)
[2022-02-11] MEDS: pantoprazole 40mg Tablet.DR PO SCH ×2 (08:01→20:59)
[2022-02-11] MEDS: metoprolol tartrate 12.5mg (1/2 tablet) PO SCH ×2 (08:01→20:00)
[2022-02-11] MEDS: divalproex sod 250mg ER (24-hour) tablet PO SCH ×2 (08:01→20:59)
[2022-02-11] MEDS: docusate sod 100mg capsule PO SCH ×2 (08:01→20:59)
[2022-02-11] MEDS: nicotine 21mg patch - 24 hr TD SCH (08:01)
[2022-02-11] MEDS: calcium carbonate 500mg chew tablet PO SCH ×2 (08:02→21:00)
[2022-02-11] MEDS: atorvastatin 20mg tablet PO SCH (08:02)
[2022-02-11] MEDS: nystatin 15 GM powder TP SCH ×2 (08:02→20:00)
[2022-02-11] MEDS: lactose-reduced food (Ensure Enlive) - 237ml bottle PO SCH ×3 (08:02→17:20)
[2022-02-11] MEDS: apixaban 5mg tablet PO SCH ×2 (08:02→21:00)
[2022-02-11] MEDS: cholecalciferol (vitamin D3) 1,000 unit (25mcg) tablet PO SCH (08:02)
[2022-02-11] MEDS: lisinopril 20mg tablet PO SCH (08:02)
--- NOTE | 2022-02-11 17:33 | NUR ---
Nursing Progress Note: Problem: Pt admitted on LPS conservatorship from Telemetry. Pt is awaiting placement. PT has history of schizoaffective. Interventions: Medication administration, maintained a safe and supportive environment, provided clear and simple instructions, provided encouragement regarding performance of ADLs, monitored behaviors and maintained clear boundaries, maintained Q15 minute safety checks. Response: Patient received resting quietly in bed. Requires extensive assist of 1-2 staff for ADLs and transfers. Patient uses call button appropriately. Cooperative with assessment and medications. Requires a wheel chair and staff assist to propel herself on the unit. She requests to walk in the early afternoon but is only able to take a few steps before she has to sit down. Denies any SI/ HI or any hallucinations. Patient naps off and on during the day. Also assisted to make phone calls to various family members which the patient appears to enjoy. Plan: Patient requires a safe and supportive environment. No viable plan for discharge at this time; patient is conserved.
[2022-02-11 19:00] VITALS: BP_SYST 110; BP_SYST 89; BP_DIAS 59; BP_DIAS 69
[2022-02-11] MEDS: traZODone 50mg tablet PO PRN (20:59)
[2022-02-11] MEDS: sertraline 50mg tablet PO SCH (20:59)
[2022-02-11] MEDS: olanzapine 10mg tablet PO SCH (20:59)
[2022-02-11] MEDS: amLODIPine 5mg tablet PO SCH (21:00)
[2022-02-11] MEDS: acetaminophen 325mg tablet PO PRN (21:44)
--- NOTE | 2022-02-12 06:10 | NUR ---
Nursing Progress Note: Problem: Pt admitted on LPS conservatorship from Telemetry. Pt is awaiting placement. PT has history of schizoaffective. Interventions: Medication administration, maintained a safe and supportive environment, provided clear and simple instructions, provided encouragement regarding performance of ADLs, monitored behaviors and maintained clear boundaries, maintained Q15 minute safety checks. Response: Patient is pleasant and cooperative with care; compliant with medication. Metoprolol held for decreased pulse. Nicotine patch removed. PRN Trazodone and Tylenol provided. She appeared bright; smiling and joking with staff. She was observed talking on the phone with her sister and phone called appeared to go well. Patient participated in HS snack in the community room prior to bed; observed sleeping and does not appear to be having difficulty. Plan: Patient requires a safe and supportive environment. No viable plan for discharge at this time; patient is conserved.
--- NOTE | 2022-02-12 07:23 | NUR ---
Reassessment: Pt continues on Regular diet w/ avg intake 50-75% of meals, and 50-75% of ONS. Overall meeting est needs. Recommend decreasing frequency of ONS to once daily. [facility] 02/10. Will continue to monitor. Recs; 1. Continue regular diet as tolerated 2. Ensure Enlive TID; decrease to Once daily vs d/c 3. Bowel care PRN 4. Weekly wts Addendum: 02/12/22 at [address] Amended: Links added.
[2022-02-12 07:46] VITALS: BP 146/81
[2022-02-12] MEDS: calcium carbonate 500mg chew tablet PO SCH ×2 (08:00→20:34)
[2022-02-12] MEDS: metoprolol tartrate 12.5mg (1/2 tablet) PO SCH (08:00)
[2022-02-12] MEDS: divalproex sod 250mg ER (24-hour) tablet PO SCH ×2 (08:30→20:35)
[2022-02-12] MEDS: atorvastatin 20mg tablet PO SCH (08:31)
[2022-02-12] MEDS: pantoprazole 40mg Tablet.DR PO SCH ×2 (08:31→20:35)
[2022-02-12] MEDS: apixaban 5mg tablet PO SCH ×2 (08:31→20:35)
[2022-02-12] MEDS: docusate sod 100mg capsule PO SCH ×2 (08:32→20:34)
[2022-02-12] MEDS: nicotine 21mg patch - 24 hr TD SCH (08:32)
[2022-02-12] MEDS: lisinopril 20mg tablet PO SCH (08:32)
[2022-02-12] MEDS: nystatin 15 GM powder TP SCH ×2 (08:33→20:36)
[2022-02-12] MEDS: aspirin 81mg, enteric-coated 1 TAB TABLET.DR PO SCH (08:33)
[2022-02-12] MEDS: lactose-reduced food (Ensure Enlive) - 237ml bottle PO SCH ×3 (08:33→18:28)
[2022-02-12] MEDS: cholecalciferol (vitamin D3) 1,000 unit (25mcg) tablet PO SCH (08:33)
--- NOTE | 2022-02-12 17:12 | NUR ---
Nursing Progress Note: Problem: Pt admitted on LPS conservatorship from Telemetry. Pt is awaiting placement. PT has history of schizoaffective. Interventions: Medication administration, maintained a safe and supportive environment, provided clear and simple instructions, provided encouragement regarding performance of ADLs, monitored behaviors and maintained clear boundaries, maintained Q15 minute safety checks. Response: Patient sleeping in bed at change of shift. Patient awakens and joins her peers in the dining room, and takes her medications without complication. Patients pulse was 58, and her Lopressor was held, patient refused her Tums. JOVITA Cornejo notified. Patient stayed up in the dining room all day with peers watching Sunday football, socializing selectively with peers. At one point, she started yelling at a MHT, but was remedied within a few minutes. Another patient was pushing Josey around in her wheelchair, where RN then took over pushing her in hallway to dining room, back to the football game. Plan: Patient requires a safe and supportive environment. No viable plan for discharge at this time; patient is conserved.
[2022-02-12 19:00] VITALS: BP 169/86
[2022-02-12] MEDS: olanzapine 10mg tablet PO SCH (20:34)
[2022-02-12] MEDS: traZODone 50mg tablet PO PRN (20:35)
[2022-02-12] MEDS: sertraline 50mg tablet PO SCH (20:35)
[2022-02-12] MEDS: amLODIPine 5mg tablet PO SCH (20:36)
--- NOTE | 2022-02-13 05:45 | NUR ---
Nursing Progress Note: Problem: Pt admitted on LPS conservatorship from Telemetry. Pt is awaiting placement. PT has history of schizoaffective. Interventions: Medication administration, maintained a safe and supportive environment, provided clear and simple instructions, provided encouragement regarding performance of ADLs, monitored behaviors and maintained clear boundaries, maintained Q15 minute safety checks. Response: Patient is pleasant and cooperative with care; compliant with medication. PRN Trazodone provided and Nicotine patch removed. No negative behaviors present and social this shift. She watched football, called her sister and participated in HS snack prior to bed; observed sleeping and does not appear to be having difficulty. Plan: Patient requires a safe and supportive environment. No viable plan for discharge at this time; patient is conserved.
[2022-02-13 07:30] VITALS: BP 143/72
[2022-02-13] MEDS: calcium carbonate 500mg chew tablet PO SCH ×2 (08:36→20:32)
[2022-02-13] MEDS: nystatin 15 GM powder TP SCH ×2 (08:36→20:32)
[2022-02-13] MEDS: apixaban 5mg tablet PO SCH ×2 (08:37→20:31)
[2022-02-13] MEDS: aspirin 81mg, enteric-coated 1 TAB TABLET.DR PO SCH (08:37)
[2022-02-13] MEDS: docusate sod 100mg capsule PO SCH ×2 (08:37→20:30)
[2022-02-13] MEDS: atorvastatin 20mg tablet PO SCH (08:37)
[2022-02-13] MEDS: divalproex sod 250mg ER (24-hour) tablet PO SCH ×2 (08:37→20:37)
[2022-02-13] MEDS: lisinopril 20mg tablet PO SCH (08:37)
[2022-02-13] MEDS: cholecalciferol (vitamin D3) 1,000 unit (25mcg) tablet PO SCH (08:37)
[2022-02-13] MEDS: lactose-reduced food (Ensure Enlive) - 237ml bottle PO SCH ×3 (08:37→18:18)
[2022-02-13] MEDS: pantoprazole 40mg Tablet.DR PO SCH ×2 (08:37→20:31)
[2022-02-13] MEDS: nicotine 21mg patch - 24 hr TD SCH (08:38)
--- NOTE | 2022-02-13 16:15 | NUR ---
PATIENT REFUSED 1300 BARRIER CREAM. Addendum: 02/13/22 at 1616 by Zara Lange RN Amended: Links added.
--- NOTE | 2022-02-13 17:10 | NUR ---
NURSING PROGRESS NOTE Problem: Pt admitted on LPS conservatorship from Telemetry. Pt is awaiting placement. PT has history of schizoaffective. Interventions: Medication administration, maintained a safe and supportive environment, provided clear and simple instructions, provided encouragement regarding performance of ADLs, monitored behaviors and maintained clear boundaries, maintained Q15 minute safety checks. Response: Received patient sleeping at shift change, no distress noted. Pt was assisted to the bathroom where she had a BM, then to group room for breakfast. Pt ate all meals with peers. Medication was administered without issue. Pt was verbally abusive when being taken back to the bathroom per her request. Pt later calmed down and was apologetic. Pt was able to identify that her behavior was inappropriate. Pt watched T.V I need a nap, then I can stay up and watch football tonight. Pt refused her 1300 barrier cream. Pt states I dont like that, it makes me uncomfortable. [employer] said I have know you for a long time, pt responded not long enough for barrier cream. Patient later agreed for cream to be applied. Mild erythema noted in rosy-area. No c/o pain or itching. Plan: Pt is conserved and awaiting placement.
[2022-02-13 20:00] VITALS: BP 143/71
[2022-02-13] MEDS: sertraline 50mg tablet PO SCH (20:30)
[2022-02-13] MEDS: olanzapine 10mg tablet PO SCH (20:30)
[2022-02-13] MEDS: traZODone 50mg tablet PO PRN (20:30)
[2022-02-13] MEDS: amLODIPine 5mg tablet PO SCH (20:31)
--- NOTE | 2022-02-14 04:47 | NUR ---
Nursing Progress Note: Problem: Pt admitted on LPS conservatorship from Telemetry. Pt is awaiting placement. PT has history of schizoaffective. Interventions: Medication administration, maintained a safe and supportive environment, provided clear and simple instructions, provided encouragement regarding performance of ADLs, monitored behaviors and maintained clear boundaries, maintained Q15 minute safety checks. Response: Patient is pleasant and cooperative; compliant with medication. PRN Trazodone provided and Nicotine patch removed. No negative behaviors presented. She is social with staff and peers. Patient watched football with peers and HS snack provided prior to bed; observed sleeping and does not appear to be having difficulty. Patient continues to let staff know when she is ready to transfer; no attempts to get up without assistance. Plan: Patient requires a safe and supportive environment. No viable plan for discharge at this time; patient is conserved.
[2022-02-14 08:02] VITALS: BP 106/50
[2022-02-14] MEDS: apixaban 5mg tablet PO SCH ×2 (08:41→20:21)
[2022-02-14] MEDS: aspirin 81mg, enteric-coated 1 TAB TABLET.DR PO SCH (08:41)
[2022-02-14] MEDS: atorvastatin 20mg tablet PO SCH (08:41)
[2022-02-14] MEDS: pantoprazole 40mg Tablet.DR PO SCH ×2 (08:41→20:21)
[2022-02-14] MEDS: nicotine 21mg patch - 24 hr TD SCH (08:41)
[2022-02-14] MEDS: calcium carbonate 500mg chew tablet PO SCH ×2 (08:41→20:21)
[2022-02-14] MEDS: cholecalciferol (vitamin D3) 1,000 unit (25mcg) tablet PO SCH (08:41)
[2022-02-14] MEDS: lisinopril 20mg tablet PO SCH (08:42)
[2022-02-14] MEDS: divalproex sod 250mg ER (24-hour) tablet PO SCH ×2 (08:42→20:21)
[2022-02-14] MEDS: nystatin 15 GM powder TP SCH ×2 (08:43→20:21)
[2022-02-14] MEDS: docusate sod 100mg capsule PO SCH ×2 (08:43→20:21)
[2022-02-14] MEDS: lactose-reduced food (Ensure Enlive) - 237ml bottle PO SCH ×3 (08:43→18:00)
[2022-02-14] MEDS: traMADol 50MG tablet PO PRN (08:45)
--- NOTE | 2022-02-14 13:35 | NUR ---
PLACEMENT UPDATE Tamara has a FaceTime interview tomorrow at 2 PM with Eri from [place] [facility] [place]. upkeep worker will assist with interview. ZACH Das
--- NOTE | 2022-02-14 17:46 | NUR ---
NURSING PROGRESS NOTE Problem: Pt admitted on LPS conservatorship from Telemetry. Pt is awaiting placement. PT has history of schizoaffective. Interventions: Medication administration, maintained a safe and supportive environment, provided clear and simple instructions, provided encouragement regarding performance of ADLs, monitored behaviors and maintained clear boundaries, maintained Q15 minute safety checks. Response: Received patient sleeping in bed at change of shift. Patient awakens and is assisted to the restroom and diaper was changed as she had become incontinent during night. Patient was taken down to the dining room for breakfast where she communicates with her peers and staff. Patient went back to bed at approximately 9:30 and said she was exhausted and in pain. Patient has spent the last two days watching football. Ultram given with good effect. There have been no instances of mood instability this shift. Plan: Pt is conserved and awaiting placement.
[2022-02-14 19:00] VITALS: BP 113/69
[2022-02-14] MEDS: amLODIPine 5mg tablet PO SCH (20:21)
[2022-02-14] MEDS: traZODone 50mg tablet PO PRN (20:21)
[2022-02-14] MEDS: sertraline 50mg tablet PO SCH (20:21)
[2022-02-14] MEDS: olanzapine 10mg tablet PO SCH (20:21)
--- NOTE | 2022-02-15 04:41 | NUR ---
Nursing Progress Note: Problem: Pt admitted on LPS conservatorship from Telemetry. Pt is awaiting placement. PT has history of schizoaffective. Interventions: Medication administration, maintained a safe and supportive environment, provided clear and simple instructions, provided encouragement regarding performance of ADLs, monitored behaviors and maintained clear boundaries, maintained Q15 minute safety checks. Response: Patient is pleasant and cooperative with care; compliant with medication. PRN Trazodone provided and Nicotine patch removed. Patient self applied barrier cream per her request and reported feeling like she's got diaper rash on her upper thighs. No negative behaviors presented and no attempts to transfer without self assistance; using call light when she has needs to be met. Patient provided HS snack prior to bed; observed sleeping and does not appear to be having difficulty. Plan: Patient requires a safe and supportive environment. No viable plan for discharge at this time; patient is conserved.
[2022-02-15 07:00] VITALS: BP 142/89
[2022-02-15] MEDS: lactose-reduced food (Ensure Enlive) - 237ml bottle PO SCH ×3 (08:00→18:24)
[2022-02-15] MEDS: nystatin 15 GM powder TP SCH ×2 (08:00→20:00)
[2022-02-15 09:11] VITALS: BP 142/89
[2022-02-15] MEDS: lisinopril 20mg tablet PO SCH (09:14)
[2022-02-15] MEDS: calcium carbonate 500mg chew tablet PO SCH ×2 (09:14→20:00)
[2022-02-15] MEDS: aspirin 81mg, enteric-coated 1 TAB TABLET.DR PO SCH (09:14)
[2022-02-15] MEDS: divalproex sod 250mg ER (24-hour) tablet PO SCH ×2 (09:14→20:06)
[2022-02-15] MEDS: cholecalciferol (vitamin D3) 1,000 unit (25mcg) tablet PO SCH (09:15)
[2022-02-15] MEDS: atorvastatin 20mg tablet PO SCH (09:15)
[2022-02-15] MEDS: pantoprazole 40mg Tablet.DR PO SCH ×2 (09:15→20:06)
[2022-02-15] MEDS: docusate sod 100mg capsule PO SCH ×2 (09:15→20:06)
[2022-02-15] MEDS: apixaban 5mg tablet PO SCH ×2 (09:15→20:06)
[2022-02-15] MEDS: nicotine 21mg patch - 24 hr TD SCH (09:16)
[2022-02-15] MEDS: traMADol 50MG tablet PO PRN (12:02)
--- NOTE | 2022-02-15 18:26 | NUR ---
NURSING PROGRESS NOTE Problem: Pt admitted on LPS conservatorship from Telemetry. Pt is awaiting placement. PT has history of schizoaffective. Interventions: Medication administration, maintained a safe and supportive environment, provided clear and simple instructions, provided encouragement regarding performance of ADLs, monitored behaviors and maintained clear boundaries, maintained Q15 minute safety checks. Response: Received patient sleeping in bed at change of shift. Patient sleeps in until 09:00, and then is toileted and wheeled into the dining room for breakfast. Patient became irritable with MHTs and boundaries were set with patient, to not be rude to staff that are assisting her. Patient from that time was on her call light every five minutes. Instructed patient that she could not be on her call light every five minutes and she agreed. Physical therapy came and assisted patient with walking, they were playing Card[employer] and patient was doing very well walking. RN said look at you go and patient got the biggest smile on her face and was so bright. After that she was in hallway in wheelchair, and she said, did you notice I havent been on my call light? I gave her positive reinforcement for her effort. Patient had an interview for placement today, and she seemed pretty positive that she did well. Plan: Pt is conserved and awaiting placement.
[2022-02-15 20:00] VITALS: BP 138/90
[2022-02-15] MEDS: sertraline 50mg tablet PO SCH (20:06)
[2022-02-15] MEDS: olanzapine 10mg tablet PO SCH (20:06)
[2022-02-15] MEDS: traZODone 50mg tablet PO PRN (20:06)
[2022-02-15] MEDS: diphenhydrAMINE 25mg capsule PO PRN (20:06)
[2022-02-15] MEDS: amLODIPine 5mg tablet PO SCH (20:07)
[2022-02-15] MEDS: acetaminophen 325mg tablet PO PRN (20:46)
--- NOTE | 2022-02-15 23:48 | NUR ---
NURSING PROGRESS NOTE: Josey Problem: Pt admitted on LPS conservatorship from Telemetry. Pt is awaiting placement. PT has history of schizoaffective. Interventions: Medication administration, maintained a safe and supportive environment, provided clear and simple instructions, provided encouragement regarding performance of ADLs, monitored behaviors and maintained clear boundaries, maintained Q15 minute safety checks. Response: Received patient sitting in the community room with peers, smiling. She states she might be leaving in 2-3 weeks and is excited about it. Pt wheeled back to her room and was toileted and cleaned. Pt c/o dry itchy eyes and PRN Benadryl given with good effect. Pt provided coffee at snack time and took all HS medications. A while later, PCT came to this RN and stated that the pt was complaining of right arm pit pain 5/10. Pt provided PRN Tylenol with good effect. Pt went to sleep shortly after medications were given. Patient had an interview for placement today, and she seemed pretty positive that she did well. Plan: Pt is conserved and awaiting placement.
[2022-02-16 08:00] VITALS: BP 115/83
[2022-02-16] MEDS: calcium carbonate 500mg chew tablet PO SCH ×3 (08:00→20:03)
[2022-02-16] MEDS: docusate sod 100mg capsule PO SCH ×2 (08:51→20:03)
[2022-02-16] MEDS: divalproex sod 250mg ER (24-hour) tablet PO SCH ×2 (08:52→20:03)
[2022-02-16] MEDS: pantoprazole 40mg Tablet.DR PO SCH ×2 (08:52→20:03)
[2022-02-16] MEDS: lactose-reduced food (Ensure Enlive) - 237ml bottle PO SCH ×3 (08:52→18:02)
[2022-02-16] MEDS: atorvastatin 20mg tablet PO SCH (08:52)
[2022-02-16] MEDS: apixaban 5mg tablet PO SCH ×2 (08:52→20:03)
[2022-02-16] MEDS: cholecalciferol (vitamin D3) 1,000 unit (25mcg) tablet PO SCH (08:52)
[2022-02-16] MEDS: aspirin 81mg, enteric-coated 1 TAB TABLET.DR PO SCH (08:52)
[2022-02-16] MEDS: lisinopril 20mg tablet PO SCH (08:53)
[2022-02-16] MEDS: nicotine 21mg patch - 24 hr TD SCH (08:53)
[2022-02-16] MEDS: nystatin 15 GM powder TP SCH ×2 (08:59→20:07)
--- NOTE | 2022-02-16 13:10 | NUR ---
Pt. attended group today. We did an Arts and Crafts exercise where we colored leaves and then labeled them with the things that were are grateful for. Josey did not write down or color her leaves, she observed her peers and socialized with this Travel Administrator and her peers. At one point in the group she became agitated because she wanted the break on her wheelchair removed so she could leave the room. She fixated on this until her nurse came in to engage with her around the issue. NICKOLAS ParisiW
[2022-02-16] MEDS: traMADol 50MG tablet PO PRN (15:32)
--- NOTE | 2022-02-16 16:38 | NUR ---
Nursing Progress Note: Problem : Pt admitted on LPS conservatorship from Telemetry. Pt is awaiting placement. PT has history of schizoaffective. Interventions : Maintained a safe and supportive environment, ensured contract for safety, provided clear and simple instructions, encouraged participation on the unit, provided needed assistance with ADLs and maintained fall precautions, and maintained Q 15min safety checks. Response : Received pt. sleeping in bed at the beginning of the shift, she awoke to attend breakfast and continues to require moderate assistance to transfer to her w/c r/t generalized weakness. Afterwards, pt. sat up for a time watching TV with others before returning back to bed. 1:1 was completed at bedside, pt. presents as cooperative, fatigued, restless, and slightly irritable at times. She reports some ongoing depression and anxiety r/t to her desire to to discharge, but states her interview went well yesterday and she is hoping to get to leave soon. No delusional statements were made and pt. does not appear to be internally preoccupied. Pt. jokes with this board writer, stating, "Tel the doctor I'm a pain in the neck!" Pt. attended Group, and napped intermittently during the day. She c/o knee pain and PRN Tramadol was administered with effectiveness. Plan : Pt. continues to require a safe and supportive environment and is awaiting placement.
[2022-02-16 19:00] VITALS: BP 125/73
[2022-02-16] MEDS: olanzapine 10mg tablet PO SCH (20:02)
[2022-02-16] MEDS: amLODIPine 5mg tablet PO SCH (20:02)
[2022-02-16] MEDS: sertraline 50mg tablet PO SCH (20:03)
--- NOTE | 2022-02-17 05:27 | NUR ---
Nursing Progress Note: Problem : Pt admitted on LPS conservatorship from Telemetry. Pt is awaiting placement. PT has history of schizoaffective. Interventions : Maintained a safe and supportive environment, ensured contract for safety, provided clear and simple instructions, encouraged participation on the unit, provided needed assistance with ADLs and maintained fall precautions, and maintained Q 15min safety checks. Response : Patient was observed sitting in the middle of hallway talking to staff at change of shift. Patient was assisted back to room and back into wheelchair. Patient called shortly to be placed in the bathroom. Patient proceeded to push call light multiple times for bathroom or random request. Patient took all night medications without issue and participated in snack. Patient continued to call for different things until eventually falling asleep. Patient was incontinent throughout shift. Plan : Pt. continues to require a safe and supportive environment and is awaiting placement.
[2022-02-17 07:30] VITALS: BP 145/78
[2022-02-17] MEDS: aspirin 81mg, enteric-coated 1 TAB TABLET.DR PO SCH (08:29)
[2022-02-17] MEDS: apixaban 5mg tablet PO SCH ×2 (08:29→20:38)
[2022-02-17] MEDS: calcium carbonate 500mg chew tablet PO SCH ×2 (08:29→20:37)
[2022-02-17] MEDS: divalproex sod 250mg ER (24-hour) tablet PO SCH ×2 (08:29→20:36)
[2022-02-17] MEDS: docusate sod 100mg capsule PO SCH ×2 (08:29→20:38)
[2022-02-17] MEDS: atorvastatin 20mg tablet PO SCH (08:30)
[2022-02-17] MEDS: pantoprazole 40mg Tablet.DR PO SCH ×2 (08:30→20:37)
[2022-02-17] MEDS: cholecalciferol (vitamin D3) 1,000 unit (25mcg) tablet PO SCH (08:30)
[2022-02-17] MEDS: nystatin 15 GM powder TP SCH ×2 (08:31→20:45)
[2022-02-17] MEDS: nicotine 21mg patch - 24 hr TD SCH (08:31)
[2022-02-17] MEDS: lisinopril 20mg tablet PO SCH (08:31)
[2022-02-17] MEDS: lactose-reduced food (Ensure Enlive) - 237ml bottle PO SCH ×4 (08:37→19:29)
--- NOTE | 2022-02-17 13:06 | NUR ---
Nursing Progress Note: Problem : Pt admitted on LPS conservatorship from Telemetry. Pt is awaiting placement. PT has history of schizoaffective. Interventions : Maintained a safe and supportive environment, ensured contract for safety, provided clear and simple instructions, encouraged participation on the unit, provided needed assistance with ADLs and maintained fall precautions, and maintained Q 15min safety checks. Response : Received pt. sleeping in bed at the beginning of the shift, she was awoken by staff to attend breakfast and continues to require moderate assistance to transfer to her w/c r/t generalized weakness. After breakfast, staff provided pt. assistance to shave and shower. Pt. continues to have occasional incontinent episodes, however she is able to make her needs known to staff. 1:1 was completed, pt. continues to present as slightly restless and irritable at times r/t her perseveration on her desire to discharge, but she is able to be redirected. No delusional statements were made and pt. does not appear to be internally preoccupied. Pt. interacted appropriately with others during the shift, and again participated in Group. Plan : Per JOVITA Carpio, pt. is at baseline and continues to require a safe and supportive environment. She is awaiting placement.
--- NOTE | 2022-02-17 13:30 | NUR ---
THERAPEUTIC GROUP INTERVENTION Therapeutic communication, active listening, redirection as needed, introduction of peer support, validation by peers, coping skills and psychosocial education. Secondarily: intellectual and physical activity, peer and staff companionship, alleviating and discouraging isolation. Modality: CBT/strengths-based. Process: Group was a [facility]-created exercise focusing on positive self-talk/resilience: Straight Up Good. Utilizing worksheets (visual), coloring (tactile), and talk (verbal/cognitive), clients discussed or presented the following: The thing I like most about myself____, 3 unusual things about me____, I feel proud of myself when ____. Peer discussion of how positive self-talk assists when clients are experiencing negative self-talk. Group wrapped up with lightening the mood reminding clients' of their uniqueness by discussing our dream car. RESPONSE Client came into group room, ambulating in a wheelchair. Client gave pleasant, one word answers. TREATMENT Until stable, client requires time in a safe and therapeutic environment that employs a multidisciplinary approach, including therapeutic groups with peers.
[2022-02-17] MEDS ORDERED: albuterol 2.5 MG/3 ML nebule NEB PRN ×2 (14:20→14:50)
--- NOTE | 2022-02-17 14:20 | NUR ---
Pt. c/o SOB, oxygen SAT on R/A was 97% and lung sounds clear bilaterally to auscultation. However, pt. continued to perseverate on the need for a PRN breathing tx which she used to receive. Obtained order from JOVITA Carpio for Albuterol Q4 hr. PRN, will continue to monitor pt. closely.
[2022-02-17] MEDS: diphenhydrAMINE 25mg capsule PO PRN (16:59)
[2022-02-17 20:00] VITALS: BP 143/66
[2022-02-17] MEDS: amLODIPine 5mg tablet PO SCH (20:37)
[2022-02-17] MEDS: sertraline 50mg tablet PO SCH (20:38)
[2022-02-17] MEDS: olanzapine 10mg tablet PO SCH (20:38)
--- NOTE | 2022-02-18 05:27 | NUR ---
Nursing Progress Note: Problem : Pt admitted on LPS conservatorship from Telemetry. Pt is awaiting placement. PT has history of schizoaffective. Interventions : Maintained a safe and supportive environment, ensured contract for safety, provided clear and simple instructions, encouraged participation on the unit, provided needed assistance with ADLs and maintained fall precautions, and maintained Q 15min safety checks. Response : Patient was found sitting in hallway yelling at tech to push her down the hallway back to room. Patient was assisted back into bed. Patient shortly after called to be assisted to the bathroom. Patient was assisted to the restroom 2 more times. Patient was continent all shift. Patient took all night medications without issue and participated in snack. Patient was not found repeatedly pushing call light for random things or nonsensical request. Plan : Per JOVITA Carpio, pt. is at baseline and continues to require a safe and supportive environment. She is awaiting placement.
[2022-02-18 08:00] VITALS: BP 141/71
[2022-02-18] MEDS: calcium carbonate 500mg chew tablet PO SCH ×3 (08:00→20:16)
[2022-02-18] MEDS: docusate sod 100mg capsule PO SCH ×2 (08:23→20:16)
[2022-02-18] MEDS: cholecalciferol (vitamin D3) 1,000 unit (25mcg) tablet PO SCH (08:23)
[2022-02-18] MEDS: divalproex sod 250mg ER (24-hour) tablet PO SCH ×2 (08:23→20:16)
[2022-02-18] MEDS: atorvastatin 20mg tablet PO SCH (08:23)
[2022-02-18] MEDS: apixaban 5mg tablet PO SCH ×2 (08:23→20:16)
[2022-02-18] MEDS: pantoprazole 40mg Tablet.DR PO SCH ×2 (08:23→20:16)
[2022-02-18] MEDS: aspirin 81mg, enteric-coated 1 TAB TABLET.DR PO SCH (08:23)
[2022-02-18] MEDS: nicotine 21mg patch - 24 hr TD SCH (08:24)
[2022-02-18] MEDS: lisinopril 20mg tablet PO SCH (08:24)
[2022-02-18] MEDS: nystatin 15 GM powder TP SCH ×2 (08:24→20:17)
[2022-02-18] MEDS: traMADol 50MG tablet PO PRN ×2 (08:25→20:18)
[2022-02-18] MEDS: lactose-reduced food (Ensure Enlive) - 237ml bottle PO SCH ×2 (13:43→18:04)
--- NOTE | 2022-02-18 17:00 | NUR ---
Nursing Progress Note: Problem : Pt admitted on LPS conservatorship from Telemetry. Pt is awaiting placement. PT has history of schizoaffective. Interventions : Maintained a safe and supportive environment, ensured contract for safety, provided clear and simple instructions, encouraged participation on the unit, provided needed assistance with ADLs and maintained fall precautions, and maintained Q 15min safety checks. Response : Received pt. sleeping in bed at the beginning of the shift, she awoke with an incontinent episode and continues to require moderate assistance to transfer to her w/c r/t generalized weakness. Pt. was assisted to change into dry clothing by staff. She c/o back and neck pain and PRN Ultram was administered with effectiveness. Pt. again c/o some SOB and stated in what appeared to be a delusional manner, "Get me black coffee that will take care of it." A PRN breathing treatment was administered with effectiveness. After breakfast, pt. appeared fatigued with increased irritability and was assisted back to bed. She awoke later from a nap and reported feeling refreshed. Pt. was observed to be up at meals interacting appropriately with others, and was able to wheel herself custodial back to her room from the dining room. Positive encouragement r/t the performance of her ADLs and gaining increased strength was provided and pt. reported contentment. Plan : Per JOVITA Carpio, pt. is at baseline and continues to require a safe and supportive environment. She is awaiting placement.
[2022-02-18 20:00] VITALS: BP 130/60
[2022-02-18] MEDS: amLODIPine 5mg tablet PO SCH (20:17)
[2022-02-18] MEDS: olanzapine 10mg tablet PO SCH (20:17)
[2022-02-18] MEDS: sertraline 50mg tablet PO SCH (20:17)
--- NOTE | 2022-02-19 02:09 | NUR ---
Nursing Progress Note: Problem : Pt admitted on LPS conservatorship from Telemetry. Pt is awaiting placement. PT has history of schizoaffective. Interventions : Maintained a safe and supportive environment, ensured contract for safety, provided clear and simple instructions, encouraged participation on the unit, provided needed assistance with ADLs and maintained fall precautions, and maintained Q 15min safety checks. Response : Received pt. up in the Group Room eating dinner at the beginning of the shift, she requested to go to bed shortly after this, and continues to require moderate assistance to transfer r/t generalized weakness. Pt. c/o bilateral arm pain, and PRN Ultram was administered with effectiveness. 1:1 was completed at bedside, and pt. was pleasant and thanked this typewriter repairer and other staff for all of their help. Pt. stated with a smile, "It was a good day." No delusional statements were made this shift and pt. does not appear to be internally preoccupied. Pt. accepted a snack and then fell asleep, she appears to be resting comfortably. Plan : Per JOVITA Carpio, pt. is at baseline and continues to require a safe and supportive environment. She is awaiting placement.
--- NOTE | 2022-02-19 07:16 | NUR ---
Reassessment: Pt continues on Regular diet w/ avg intake ~75% of meals, and 50-75% of ONS. Overall exceeding est needs. Recommend decreasing frequency of ONS to once daily. [facility] 02/18. Will continue to monitor. Recs; 1. Continue regular diet as tolerated 2. Ensure Enlive TID; decrease to Once daily vs d/c 3. Bowel care PRN 4. Weekly wts Addendum: 02/19/22 at [address] Amended: Links added.
[2022-02-19] MEDS: lactose-reduced food (Ensure Enlive) - 237ml bottle PO SCH ×3 (08:00→18:00)
[2022-02-19] MEDS: nystatin 15 GM powder TP SCH ×2 (08:00→20:30)
[2022-02-19] MEDS: divalproex sod 250mg ER (24-hour) tablet PO SCH ×2 (09:49→20:29)
[2022-02-19] MEDS: docusate sod 100mg capsule PO SCH ×2 (09:49→20:30)
[2022-02-19] MEDS: pantoprazole 40mg Tablet.DR PO SCH ×2 (09:50→20:30)
[2022-02-19] MEDS: cholecalciferol (vitamin D3) 1,000 unit (25mcg) tablet PO SCH (09:50)
[2022-02-19] MEDS: aspirin 81mg, enteric-coated 1 TAB TABLET.DR PO SCH (09:50)
[2022-02-19] MEDS: calcium carbonate 500mg chew tablet PO SCH ×2 (09:50→20:29)
[2022-02-19] MEDS: apixaban 5mg tablet PO SCH ×2 (09:50→20:30)
[2022-02-19] MEDS: atorvastatin 20mg tablet PO SCH (09:50)
[2022-02-19] MEDS: nicotine 21mg patch - 24 hr TD SCH (09:51)
[2022-02-19] MEDS: lisinopril 20mg tablet PO SCH (12:57)
--- NOTE | 2022-02-19 17:44 | NUR ---
Nursing Progress Note: Problem : Pt admitted on LPS conservatorship from Telemetry. Pt is awaiting placement. PT has history of schizoaffective. Interventions : Maintained a safe and supportive environment, ensured contract for safety, provided clear and simple instructions, encouraged participation on the unit, provided needed assistance with ADLs and maintained fall precautions, and maintained Q 15min safety checks. Response : Patient was asleep at shift change. She was not up for breakfast, so her tray was saved. Patient was assisted to get up after breakfast. She then ate her breakfast and accepted her AM meds. She continues to be compliant with all medications. Due to her general weakness, patient requires assistance with all transfers. She gets upset, due to her inability to perform her own ADLs. She needs encouragement and positive reinforcement to continue trying. Patient denies all MH symptoms, and none are observed. Plan : Per JOVITA Carpio, pt. is at baseline and continues to require a safe and supportive environment. She is awaiting placement.
[2022-02-19 19:00] VITALS: BP 140/85
[2022-02-19] MEDS: sertraline 50mg tablet PO SCH (20:29)
[2022-02-19] MEDS: olanzapine 10mg tablet PO SCH (20:29)
[2022-02-19] MEDS: traZODone 50mg tablet PO PRN (20:30)
[2022-02-19] MEDS: amLODIPine 5mg tablet PO SCH (20:30)
[2022-02-19] MEDS: diphenhydrAMINE 25mg capsule PO PRN (20:38)
--- NOTE | 2022-02-20 05:53 | NUR ---
Nursing Progress Note: Problem : Pt admitted on LPS conservatorship from Telemetry. Pt is awaiting placement. PT has history of schizoaffective. Interventions : Maintained a safe and supportive environment, ensured contract for safety, provided clear and simple instructions, encouraged participation on the unit, provided needed assistance with ADLs and maintained fall precautions, and maintained Q 15min safety checks. Response : Patient is pleasant and cooperative with care; compliant with medication. PRN Trazodone and Benadryl provided. She c/o "itchiness all over" and states she has seasonal allergies. Nicotine patch removed. No negative behaviors presented and making needs known. Compliant with using calling when transfers required. She was provided HS snack and social with staff prior to bed; observed sleeping and does not appear to be having difficulty. Plan : Per JOVITA Carpio, pt. is at baseline and continues to require a safe and supportive environment. She is awaiting placement.
[2022-02-20] MEDS: cholecalciferol (vitamin D3) 1,000 unit (25mcg) tablet PO SCH (07:54)
[2022-02-20] MEDS: calcium carbonate 500mg chew tablet PO SCH ×3 (07:54→20:57)
[2022-02-20] MEDS: nicotine 21mg patch - 24 hr TD SCH (07:54)
[2022-02-20] MEDS: aspirin 81mg, enteric-coated 1 TAB TABLET.DR PO SCH (07:54)
[2022-02-20] MEDS: apixaban 5mg tablet PO SCH ×2 (07:54→20:57)
[2022-02-20] MEDS: docusate sod 100mg capsule PO SCH ×2 (07:54→20:56)
[2022-02-20] MEDS: atorvastatin 20mg tablet PO SCH (07:55)
[2022-02-20] MEDS: divalproex sod 250mg ER (24-hour) tablet PO SCH ×2 (07:55→20:56)
[2022-02-20] MEDS: pantoprazole 40mg Tablet.DR PO SCH ×2 (07:56→20:56)
[2022-02-20 08:00] VITALS: BP 112/64
[2022-02-20] MEDS: lisinopril 20mg tablet PO SCH (08:07)
[2022-02-20] MEDS: lactose-reduced food (Ensure Enlive) - 237ml bottle PO SCH ×3 (08:14→18:00)
--- NOTE | 2022-02-20 17:05 | NUR ---
Nursing Progress Note: Problem : Pt admitted on LPS conservatorship from Telemetry. Pt is awaiting placement. PT has history of schizoaffective. Interventions : Maintained a safe and supportive environment, ensured contract for safety, provided clear and simple instructions, encouraged participation on the unit, provided needed assistance with ADLs and maintained fall precautions, and maintained Q 15min safety checks. Response : Pt gets up for breakfast before it arrived. Pt is pleasant and cooperative in the morning. PT then requests to go to bed, get back up, go back to bed over and over. Pt spends all day pushing her call light. Pt no longer has any rash needing Nystatin. Nystatin discontinued. Plan : Per JOVITA Carpio, pt. is at baseline and continues to require a safe and supportive environment. She is awaiting placement.
[2022-02-20 19:39] VITALS: BP 118/16
[2022-02-20] MEDS: traZODone 50mg tablet PO PRN (20:56)
[2022-02-20] MEDS: olanzapine 10mg tablet PO SCH (20:57)
[2022-02-20] MEDS: sertraline 50mg tablet PO SCH (20:57)
[2022-02-20] MEDS: amLODIPine 5mg tablet PO SCH (20:57)
--- NOTE | 2022-02-21 05:09 | NUR ---
Nursing Progress Note: Problem : Pt admitted on LPS conservatorship from Telemetry. Pt is awaiting placement. PT has history of schizoaffective. Interventions : Maintained a safe and supportive environment, ensured contract for safety, provided clear and simple instructions, encouraged participation on the unit, provided needed assistance with ADLs and maintained fall precautions, and maintained Q 15min safety checks. Response : Patient is pleasant and cooperative with care; compliant with medication. PRN Trazodone provided. Nicotine patch removed. No negative behaviors presented. She watched football and social with peers in the community room. She continues to cooperate and notify staff when needing to transfer and toileting. She was provided HS snack prior to bed; observed having some difficulty getting to sleep this shift. Plan : Per JOVITA Carpio, pt. is at baseline and continues to require a safe and supportive environment. She is awaiting placement.
[2022-02-21 08:00] VITALS: BP 159/82
[2022-02-21] MEDS: calcium carbonate 500mg chew tablet PO SCH ×2 (08:00→20:54)
[2022-02-21] MEDS: lactose-reduced food (Ensure Enlive) - 237ml bottle PO SCH ×3 (09:00→18:57)
[2022-02-21] MEDS: cholecalciferol (vitamin D3) 1,000 unit (25mcg) tablet PO SCH (09:00)
[2022-02-21] MEDS: pantoprazole 40mg Tablet.DR PO SCH ×2 (09:00→20:54)
[2022-02-21] MEDS: atorvastatin 20mg tablet PO SCH (09:01)
[2022-02-21] MEDS: apixaban 5mg tablet PO SCH ×2 (09:02→20:54)
[2022-02-21] MEDS: docusate sod 100mg capsule PO SCH ×2 (09:02→20:54)
[2022-02-21] MEDS: divalproex sod 250mg ER (24-hour) tablet PO SCH ×2 (09:02→20:54)
[2022-02-21] MEDS: aspirin 81mg, enteric-coated 1 TAB TABLET.DR PO SCH (09:02)
[2022-02-21] MEDS: nicotine 21mg patch - 24 hr TD SCH (09:03)
[2022-02-21] MEDS: lisinopril 20mg tablet PO SCH (09:06)
[2022-02-21 19:52] VITALS: BP 96/66
[2022-02-21 20:15] VITALS: BP 110/70
[2022-02-21] MEDS: olanzapine 10mg tablet PO SCH (20:54)
[2022-02-21] MEDS: traZODone 50mg tablet PO PRN (20:54)
[2022-02-21] MEDS: amLODIPine 5mg tablet PO SCH (20:54)
[2022-02-21] MEDS: sertraline 50mg tablet PO SCH (20:54)
--- NOTE | 2022-02-22 04:04 | NUR ---
Nursing Progress Note: Problem : Pt admitted on LPS conservatorship from Telemetry. Pt is awaiting placement. PT has history of schizoaffective. Interventions : Maintained a safe and supportive environment, ensured contract for safety, provided clear and simple instructions, encouraged participation on the unit, provided needed assistance with ADLs and maintained fall precautions, and maintained Q 15min safety checks. Response : Patient is pleasant and cooperative with care; compliant with medication. PRN Trazodone provided and Nicotine patch removed. No negative behaviors and continues to use call light to make needs known. Patient talked on the phone with her sister, social with staff and provided HS snack prior to bed; observed sleeping and does not appear to be having difficulty. Plan : Per JOVITA Carpio, pt. is at baseline and continues to require a safe and supportive environment. She is awaiting placement.
[2022-02-22 08:00] VITALS: BP 148/68
[2022-02-22] MEDS: lisinopril 20mg tablet PO SCH (08:00)
[2022-02-22] MEDS: lactose-reduced food (Ensure Enlive) - 237ml bottle PO SCH ×3 (08:00→18:00)
[2022-02-22] MEDS: atorvastatin 20mg tablet PO SCH (10:11)
[2022-02-22] MEDS: cholecalciferol (vitamin D3) 1,000 unit (25mcg) tablet PO SCH (10:12)
[2022-02-22] MEDS: divalproex sod 250mg ER (24-hour) tablet PO SCH ×2 (10:15→21:19)
[2022-02-22] MEDS: pantoprazole 40mg Tablet.DR PO SCH ×2 (10:16→21:19)
[2022-02-22] MEDS: apixaban 5mg tablet PO SCH ×2 (10:16→21:19)
[2022-02-22] MEDS: aspirin 81mg, enteric-coated 1 TAB TABLET.DR PO SCH (10:16)
[2022-02-22] MEDS: docusate sod 100mg capsule PO SCH ×2 (10:17→21:19)
[2022-02-22] MEDS: calcium carbonate 500mg chew tablet PO SCH ×2 (10:19→21:19)
[2022-02-22] MEDS: nicotine 21mg patch - 24 hr TD SCH (10:21)
--- NOTE | 2022-02-22 17:39 | NUR ---
Nursing Progress Note: Tamara Problem: Pt admitted on LPS conservatorship from Telemetry. Pt is awaiting placement. PT has history of schizoaffective. Interventions: Medication administration, 1:1 MH assessment, maintained a safe and supportive environment, provided clear and simple instructions, provided encouragement regarding performance of ADLs, monitored behaviors and maintained clear boundaries, maintained Q15 minute safety checks. Response: Pt. received sleeping and awoke later in the morning for breakfast. She denies all MH symptoms and took her medications without hesitation. Pt. continues to require assist. With transfers and set up of meals. Pt. has been continent/ incontinent today. She ate most her meals in the dining room but struggled to tolerate an intrusive female cohort and finished her meal in her room. Pt. socializes with cohorts at times, is cooperative and has no signs of responding to IS. Pt. has fair hygiene and is wearing pink and green street clothes. Plan: Patient requires a safe and supportive environment. No viable plan for discharge at this time; patient is conserved.
[2022-02-22 19:00] VITALS: BP 118/72
[2022-02-22] MEDS: traZODone 50mg tablet PO PRN (21:19)
[2022-02-22] MEDS: sertraline 50mg tablet PO SCH (21:19)
[2022-02-22] MEDS: olanzapine 10mg tablet PO SCH (21:19)
[2022-02-22] MEDS: amLODIPine 5mg tablet PO SCH (21:21)
--- NOTE | 2022-02-23 03:35 | NUR ---
Nursing Progress Note: Problem : Pt admitted on LPS conservatorship from Telemetry. Pt is awaiting placement. PT has history of schizoaffective. Interventions : Maintained a safe and supportive environment, ensured contract for safety, provided clear and simple instructions, encouraged participation on the unit, provided needed assistance with ADLs and maintained fall precautions, and maintained Q 15min safety checks. Response : Patient is pleasant and cooperative with care; compliant with medication. PRN Trazodone provided. Nicotine patch removed. No negative behaviors and social. She continues to call for assistance for restroom needs and transferring (no attempts to transfer on her own). Patient participated in HS snack in the community room prior to bed; observed sleeping and does not appear to be having difficulty. Plan : Per JOVITA Carpio, pt. is at baseline and continues to require a safe and supportive environment. She is awaiting placement.
[2022-02-23 08:00] VITALS: BP 110/50
[2022-02-23] MEDS: divalproex sod 250mg ER (24-hour) tablet PO SCH ×2 (08:05→21:17)
[2022-02-23] MEDS: docusate sod 100mg capsule PO SCH ×2 (08:05→21:17)
[2022-02-23] MEDS: cholecalciferol (vitamin D3) 1,000 unit (25mcg) tablet PO SCH (08:05)
[2022-02-23] MEDS: pantoprazole 40mg Tablet.DR PO SCH ×2 (08:05→21:41)
[2022-02-23] MEDS: atorvastatin 20mg tablet PO SCH (08:05)
[2022-02-23] MEDS: apixaban 5mg tablet PO SCH ×2 (08:05→21:17)
[2022-02-23] MEDS: calcium carbonate 500mg chew tablet PO SCH ×2 (08:06→21:18)
[2022-02-23] MEDS: aspirin 81mg, enteric-coated 1 TAB TABLET.DR PO SCH (08:06)
[2022-02-23] MEDS: lisinopril 20mg tablet PO SCH (08:08)
[2022-02-23] MEDS: lactose-reduced food (Ensure Enlive) - 237ml bottle PO SCH ×3 (08:18→18:05)
[2022-02-23] MEDS: nicotine 21mg patch - 24 hr TD SCH (08:40)
--- NOTE | 2022-02-23 13:00 | NUR ---
THERAPEUTIC GROUP DESCRIPTION Daily therapeutic groups support [facility] crisis-recovery environment, and meet medical necessity given acuity of client symptoms. Topic: self-soothing -- focusing on a happy and neutral thing (dream car, dream location, details of car). INTERVENTION Therapeutic communication, active listening, redirection as needed, peer support, validation by peers, coping skills and psychosocial education. Secondarily: alleviating and discouraging isolation. RESPONSE Client sat in group room, stated her dream car is still the 1983 Camaro she once had. Client engaged verbally-- appropriate and pleasant. TREATMENT Until stable, client requires time in a safe and therapeutic environment employing multidisciplinary treatments, including therapeutic groups.
--- NOTE | 2022-02-23 16:45 | NUR ---
Nursing Progress Note: Tamara Problem: Pt admitted on LPS conservatorship from Telemetry. Pt is awaiting placement. PT has history of schizoaffective. Interventions: Medication administration, 1:1 MH assessment, maintained a safe and supportive environment, provided clear and simple instructions, provided encouragement regarding performance of ADLs, monitored behaviors and maintained clear boundaries, maintained Q15 minute safety checks. Response: Pt. received sleeping and awoke to take her medications which she took without hesitation. Pt. denies all MH symptoms and is not responding to IS. Pt. continues to require assistance with transfers and set up of all meals. Pt. remains continent/ incontinent this shift. She ate all meals in the dining room and socializes with female cohorts. She is cooperative and has been pleasant with staff. Pt. has fair hygiene and is wearing unit scrubs and a sweater. Plan: Patient requires a safe and supportive environment. No viable plan for discharge at this time; patient is conserved.
[2022-02-23 20:00] VITALS: BP 129/78
[2022-02-23] MEDS: olanzapine 10mg tablet PO SCH (21:17)
[2022-02-23] MEDS: traZODone 50mg tablet PO PRN (21:17)
[2022-02-23] MEDS: sertraline 50mg tablet PO SCH (21:17)
[2022-02-23] MEDS: amLODIPine 5mg tablet PO SCH (21:18)
[2022-02-23] MEDS: diphenhydrAMINE 25mg capsule PO PRN (21:43)
--- NOTE | 2022-02-24 06:04 | NUR ---
Nursing Progress Note: Problem : Pt admitted on LPS conservatorship from Telemetry. Pt is awaiting placement. PT has history of schizoaffective. Interventions : Maintained a safe and supportive environment, ensured contract for safety, provided clear and simple instructions, encouraged participation on the unit, provided needed assistance with ADLs and maintained fall precautions, and maintained Q 15min safety checks. Response : Patient is pleasant and cooperative with care; compliant with medication. PRN Trazodone and Benadryl provided. Nicotine patch removed. No negative behaviors. She participated in HS snack and continues to communicate needs; observed sleeping and does not appear to be having difficulty. Plan : Per JOVITA Carpio, pt. is at baseline and continues to require a safe and supportive environment. She is awaiting placement.
[2022-02-24 08:00] VITALS: BP 121/56
[2022-02-24] MEDS: lisinopril 20mg tablet PO SCH (08:00)
[2022-02-24] MEDS: atorvastatin 20mg tablet PO SCH (08:00)
[2022-02-24] MEDS: divalproex sod 250mg ER (24-hour) tablet PO SCH ×2 (08:00→20:48)
[2022-02-24] MEDS: pantoprazole 40mg Tablet.DR PO SCH ×2 (08:00→20:47)
[2022-02-24] MEDS: cholecalciferol (vitamin D3) 1,000 unit (25mcg) tablet PO SCH (08:00)
[2022-02-24] MEDS: lactose-reduced food (Ensure Enlive) - 237ml bottle PO SCH ×3 (08:00→18:03)
[2022-02-24] MEDS: apixaban 5mg tablet PO SCH ×2 (08:00→20:48)
[2022-02-24] MEDS: nicotine 21mg patch - 24 hr TD SCH (08:00)
[2022-02-24] MEDS: calcium carbonate 500mg chew tablet PO SCH ×2 (08:00→20:47)
[2022-02-24] MEDS: aspirin 81mg, enteric-coated 1 TAB TABLET.DR PO SCH (08:00)
[2022-02-24] MEDS: docusate sod 100mg capsule PO SCH ×2 (10:13→20:48)
[2022-02-24] MEDS: traMADol 50MG tablet PO PRN (11:34)
--- NOTE | 2022-02-24 16:49 | NUR ---
Nursing Progress Note: Tamara Problem: Pt admitted on LPS conservatorship from Telemetry. Pt is awaiting placement. PT has history of schizoaffective. Interventions: Medication administration, 1:1 MH assessment, maintained a safe and supportive environment, provided clear and simple instructions, provided encouragement regarding performance of ADLs, monitored behaviors and maintained clear boundaries, maintained Q15 minute safety checks. Response: Pt. received asleep and awoke later in the morning. She ate her breakfast in her room per her request. She denies SI, HI, A/VH and is upbeat reporting I talked to my sister yesterday, it was nice Pt. OOB and interacting with cohorts playing Monopoly. She remained in her WC up till dinner, and is cooperative, with no sx of IS. She continues to need assistance with ADLs, uses a sit to stand for transfers, and is continent/incontinent. Pt. c/o low back pain and was given PRN Tramadol with effectiveness. She is dressed in street clothes and sits in a WC. Plan: Patient requires a safe and supportive environment. No viable plan for discharge at this time; patient is conserved.
[2022-02-24 19:55] VITALS: BP 108/72
[2022-02-24] MEDS: olanzapine 10mg tablet PO SCH (20:47)
[2022-02-24] MEDS: sertraline 50mg tablet PO SCH (20:47)
[2022-02-24] MEDS: traZODone 50mg tablet PO PRN (20:47)
[2022-02-24] MEDS: amLODIPine 5mg tablet PO SCH (20:48)
--- NOTE | 2022-02-25 05:33 | NUR ---
Nursing Progress Note: Problem : Pt admitted on LPS conservatorship from Telemetry. Pt is awaiting placement. PT has history of schizoaffective. Interventions : Maintained a safe and supportive environment, ensured contract for safety, provided clear and simple instructions, encouraged participation on the unit, provided needed assistance with ADLs and maintained fall precautions, and maintained Q 15min safety checks. Response : Patient is pleasant and cooperative with care; compliant with medication. PRN Trazodone provided and Nicotine patch removed. No negative behaviors and continues to wait for staff assistance to transfer. Patient provided HS snack prior to bed; observed sleeping and does not appear to be having difficulty. Plan : Per JOVITA Carpio, pt. is at baseline and continues to require a safe and supportive environment. She is awaiting placement.
[2022-02-25 07:30] VITALS: BP 131/77
[2022-02-25] MEDS: lisinopril 20mg tablet PO SCH (07:44)
[2022-02-25] MEDS: docusate sod 100mg capsule PO SCH ×2 (07:44→21:16)
[2022-02-25] MEDS: nicotine 21mg patch - 24 hr TD SCH (07:44)
[2022-02-25] MEDS: calcium carbonate 500mg chew tablet PO SCH ×3 (07:45→21:17)
[2022-02-25] MEDS: atorvastatin 20mg tablet PO SCH (07:45)
[2022-02-25] MEDS: divalproex sod 250mg ER (24-hour) tablet PO SCH ×2 (07:45→21:16)
[2022-02-25] MEDS: pantoprazole 40mg Tablet.DR PO SCH ×2 (07:45→21:16)
[2022-02-25] MEDS: apixaban 5mg tablet PO SCH ×2 (07:45→21:17)
[2022-02-25] MEDS: cholecalciferol (vitamin D3) 1,000 unit (25mcg) tablet PO SCH (07:45)
[2022-02-25] MEDS: aspirin 81mg, enteric-coated 1 TAB TABLET.DR PO SCH (07:45)
[2022-02-25] MEDS: lactose-reduced food (Ensure Enlive) - 237ml bottle PO SCH ×3 (08:00→18:25)
--- NOTE | 2022-02-25 14:22 | NUR ---
Nursing Progress Note: Problem : Pt admitted on LPS conservatorship from Telemetry. Pt is awaiting placement. PT has history of schizoaffective. Interventions : Maintained a safe and supportive environment, ensured contract for safety, provided clear and simple instructions, encouraged participation on the unit, provided needed assistance with ADLs and maintained fall precautions, and maintained Q 15min safety checks. Response : Patient was asleep at shift change. She was up for breakfast and took her medications without hesitation. Pt up periodically throughout the day watching football. Due to her general weakness, patient requires assistance with all transfers and was received incontinent or urine and was incontinent a second time after lunch. Pt says, "I'm very depressed. It seems like we have to compete for attention here" She needs encouragement and positive reinforcement. Patient denies all other MH symptoms, and none are observed. Plan : Per JOVITA Carpio, pt. is at baseline and continues to require a safe and supportive environment. She is awaiting placement.
[2022-02-25] MEDS: traMADol 50MG tablet PO PRN (17:49)
[2022-02-25 19:00] VITALS: BP 129/62
[2022-02-25] MEDS: diphenhydrAMINE 25mg capsule PO PRN (21:16)
[2022-02-25] MEDS: sertraline 50mg tablet PO SCH (21:17)
[2022-02-25] MEDS: olanzapine 10mg tablet PO SCH (21:17)
[2022-02-25] MEDS: traZODone 50mg tablet PO PRN (21:17)
[2022-02-25] MEDS: amLODIPine 5mg tablet PO SCH (21:17)
--- NOTE | 2022-02-26 05:51 | NUR ---
Nursing Progress Note: Problem : Pt admitted on LPS conservatorship from Telemetry. Pt is awaiting placement. PT has history of schizoaffective. Interventions : Maintained a safe and supportive environment, ensured contract for safety, provided clear and simple instructions, encouraged participation on the unit, provided needed assistance with ADLs and maintained fall precautions, and maintained Q 15min safety checks. Response : Patient is pleasant and cooperative with care; compliant with medication. PRN Trazodone and Benadryl provided this shift. Nicotine patch removed. No negative behaviors presented and waiting for staff assistance prior to transferring. Patient watched football and participated in HS snack prior to bed; observed sleeping and does not appear to be having difficulty. Plan : Per JOVITA Carpio, pt. is at baseline and continues to require a safe and supportive environment. She is awaiting placement.
[2022-02-26 08:00] VITALS: BP 124/79
[2022-02-26] MEDS: lactose-reduced food (Ensure Enlive) - 237ml bottle PO SCH ×3 (08:00→18:06)
[2022-02-26] MEDS: nicotine 21mg patch - 24 hr TD SCH (08:00)
[2022-02-26] MEDS: calcium carbonate 500mg chew tablet PO SCH ×2 (09:13→20:54)
[2022-02-26] MEDS: atorvastatin 20mg tablet PO SCH (09:13)
[2022-02-26] MEDS: docusate sod 100mg capsule PO SCH ×2 (09:13→20:54)
[2022-02-26] MEDS: pantoprazole 40mg Tablet.DR PO SCH ×2 (09:13→20:54)
[2022-02-26] MEDS: apixaban 5mg tablet PO SCH ×2 (09:13→20:54)
[2022-02-26] MEDS: aspirin 81mg, enteric-coated 1 TAB TABLET.DR PO SCH (09:13)
[2022-02-26] MEDS: cholecalciferol (vitamin D3) 1,000 unit (25mcg) tablet PO SCH (09:13)
[2022-02-26] MEDS: lisinopril 20mg tablet PO SCH (09:14)
[2022-02-26] MEDS: divalproex sod 250mg ER (24-hour) tablet PO SCH ×2 (09:15→20:54)
--- NOTE | 2022-02-26 15:51 | NUR ---
Nursing Progress Note Problem: Pt admitted on LPS conservatorship from Telemetry. Pt is awaiting placement. PT has history of schizoaffective. Interventions: Medication administration, maintained a safe and supportive environment, provided clear and simple instructions, provided encouragement regarding performance of ADLs, monitored behaviors and maintained clear boundaries, maintained Q15 minute safety checks. Response: Received Pt in bed sleeping w/o distress. Pt woke and was cooperative with vitals and returned to sleeping. Pt woke again for breakfast and ate well in community room. She took AM meds w/o issue. Pt toileted with pivot assist in AM and in afternoon. She napped in the morning and spent time in both AM and PM watching football with others. Pt pleasant, lethargic and tired today. Pt denies SI/HI, AV/Hs at this time. Pt spent time talking with staff at nurses station. [facility] Plan: Patient requires a safe and supportive environment. No viable plan for discharge at this time; patient is conserved.
[2022-02-26 19:55] VITALS: BP 110/63
[2022-02-26] MEDS: amLODIPine 5mg tablet PO SCH (20:54)
[2022-02-26] MEDS: sertraline 50mg tablet PO SCH (20:54)
[2022-02-26] MEDS: olanzapine 10mg tablet PO SCH (20:54)
[2022-02-26] MEDS: traZODone 50mg tablet PO PRN (20:54)
--- NOTE | 2022-02-27 05:22 | NUR ---
Nursing Progress Note: Problem : Pt admitted on LPS conservatorship from Telemetry. Pt is awaiting placement. PT has history of schizoaffective. Interventions : Maintained a safe and supportive environment, ensured contract for safety, provided clear and simple instructions, encouraged participation on the unit, provided needed assistance with ADLs and maintained fall precautions, and maintained Q 15min safety checks. Response : Patient is pleasant and cooperative with care; compliant with medication. Nicotine was unable to be located. PRN Trazodone provided. No negative behaviors and alerting staff when needs to be met. Patient participated in HS snack in the community room prior to bed; observed sleeping and does not appear to be having difficulty. Plan : Per JOVITA Carpio, pt. is at baseline and continues to require a safe and supportive environment. She is awaiting placement.
--- NOTE | 2022-02-27 06:59 | NUR ---
Reassessment: Pt continues on Regular diet w/ avg intake ~75% of meals, and 75-100% of ONS. Overall exceeding est needs. Recommend decreasing frequency of ONS to once daily. [facility] 02/25. Will continue to monitor. Recs; 1. Continue regular diet as tolerated 2. Ensure Enlive TID; decrease to Once daily vs d/c 3. Bowel care PRN 4. Weekly wts Addendum: 02/27/22 at [address] Amended: Links added.
[2022-02-27 08:00] VITALS: BP 129/67
[2022-02-27] MEDS: lactose-reduced food (Ensure Enlive) - 237ml bottle PO SCH ×3 (08:00→18:00)
[2022-02-27] MEDS: calcium carbonate 500mg chew tablet PO SCH ×2 (08:00→20:49)
[2022-02-27] MEDS: docusate sod 100mg capsule PO SCH ×2 (08:39→20:49)
[2022-02-27] MEDS: pantoprazole 40mg Tablet.DR PO SCH ×2 (08:40→20:49)
[2022-02-27] MEDS: cholecalciferol (vitamin D3) 1,000 unit (25mcg) tablet PO SCH (08:40)
[2022-02-27] MEDS: apixaban 5mg tablet PO SCH ×2 (08:40→20:49)
[2022-02-27] MEDS: aspirin 81mg, enteric-coated 1 TAB TABLET.DR PO SCH (08:40)
[2022-02-27] MEDS: divalproex sod 250mg ER (24-hour) tablet PO SCH ×2 (08:40→20:49)
[2022-02-27] MEDS: atorvastatin 20mg tablet PO SCH (08:40)
[2022-02-27] MEDS: nicotine 21mg patch - 24 hr TD SCH (08:41)
[2022-02-27] MEDS: lisinopril 20mg tablet PO SCH (08:51)
--- NOTE | 2022-02-27 11:40 | NUR ---
[facility] Called [facility] (ph# [phone]) to follow up on referral. Was informed that the referral was denied due to "lack of capacity". ZACH Das
--- NOTE | 2022-02-27 11:50 | NUR ---
Completed and sent 602 to Eri at [place]. Called Eri (ph#[phone]) to inquire about an admit date. 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 ZACH Das
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
[2022-02-27 19:53] VITALS: BP 101/59
[2022-02-27] MEDS: traZODone 50mg tablet PO PRN (20:49)
[2022-02-27] MEDS: olanzapine 10mg tablet PO SCH (20:49)
[2022-02-27] MEDS: sertraline 50mg tablet PO SCH (20:50)
[2022-02-27] MEDS: amLODIPine 5mg tablet PO SCH (20:50)
--- NOTE | 2022-02-28 05:01 | NUR ---
Nursing Progress Note: Problem : Pt admitted on LPS conservatorship from Telemetry. Pt is awaiting placement. PT has history of schizoaffective. Interventions : Maintained a safe and supportive environment, ensured contract for safety, provided clear and simple instructions, encouraged participation on the unit, provided needed assistance with ADLs and maintained fall precautions, and maintained Q 15min safety checks. Response : Patient is pleasant and cooperative with care; compliant with medication. PRN Trazodone provided and Nicotine patch removed. She reported feeling happy with two facilities considering her. No negative behaviors and continues to request assistance when needed. Patient provided HS snack prior to bed; observed sleeping and does not appear to be having difficulty. Plan : Per JOVITA Carpio, pt. is at baseline and continues to require a safe and supportive environment. She is awaiting placement.
[2022-02-28 08:00] VITALS: BP 136/58
[2022-02-28] MEDS: calcium carbonate 500mg chew tablet PO SCH ×2 (08:00→20:29)
[2022-02-28] MEDS: apixaban 5mg tablet PO SCH ×2 (08:37→20:29)
[2022-02-28] MEDS: pantoprazole 40mg Tablet.DR PO SCH ×2 (08:37→20:30)
[2022-02-28] MEDS: aspirin 81mg, enteric-coated 1 TAB TABLET.DR PO SCH (08:37)
[2022-02-28] MEDS: cholecalciferol (vitamin D3) 1,000 unit (25mcg) tablet PO SCH (08:37)
[2022-02-28] MEDS: atorvastatin 20mg tablet PO SCH (08:37)
[2022-02-28] MEDS: docusate sod 100mg capsule PO SCH ×2 (08:37→20:27)
[2022-02-28] MEDS: lisinopril 20mg tablet PO SCH (08:37)
[2022-02-28] MEDS: divalproex sod 250mg ER (24-hour) tablet PO SCH ×2 (08:37→20:28)
[2022-02-28] MEDS: nicotine 21mg patch - 24 hr TD SCH (08:38)
[2022-02-28] MEDS: lactose-reduced food (Ensure Enlive) - 237ml bottle PO SCH ×3 (08:40→18:07)
[2022-02-28] MEDS: traMADol 50MG tablet PO PRN ×2 (14:54→20:28)
--- NOTE | 2022-02-28 15:25 | NUR ---
Sent updated notes (02/10-02/27) to [facility]. ZACH Das
--- NOTE | 2022-02-28 16:39 | NUR ---
Nursing Progress Note Problem: Pt admitted on LPS conservatorship from Telemetry. Pt is awaiting placement. PT has history of schizoaffective. Interventions: Medication administration, maintained a safe and supportive environment, provided clear and simple instructions, provided encouragement regarding performance of ADLs, monitored behaviors and maintained clear boundaries, maintained Q15 minute safety checks. Response: Received patient asleep in bed at change of shift. Medications administered and 1:1 complete. Denies AH/VH as well as SI/HI. Pt has been pleasant this shift, making jokes with staff and smiling. Pt attended breakfast/lunch and group. Pt had a large BM this shift. PRN tramadol administered at 1450 for pain to bottom from sitting in her wheelchair today with effective results. Plan: Patient requires a safe and supportive environment. No viable plan for discharge at this time; patient is conserved.
[2022-02-28 19:00] VITALS: BP 122/66
[2022-02-28] MEDS: sertraline 50mg tablet PO SCH (20:28)
[2022-02-28] MEDS: traZODone 50mg tablet PO PRN (20:29)
[2022-02-28] MEDS: diphenhydrAMINE 25mg capsule PO PRN (20:29)
[2022-02-28] MEDS: amLODIPine 5mg tablet PO SCH (20:29)
[2022-02-28] MEDS: olanzapine 10mg tablet PO SCH (20:30)
--- NOTE | 2022-03-01 04:58 | NUR ---
Nursing Progress Note: Problem : Pt admitted on LPS conservatorship from Telemetry. Pt is awaiting placement. PT has history of schizoaffective. Interventions : Maintained a safe and supportive environment, ensured contract for safety, provided clear and simple instructions, encouraged participation on the unit, provided needed assistance with ADLs and maintained fall precautions, and maintained Q 15min safety checks. Response : Patient is pleasant and cooperative with care; compliant with medication. PRN Trazodone, Benadryl for c/o itchiness and Tramadol for c/o arm pain provided this shift. Nicotine patch was removed. She appeared to be happy; social with her roommate and ate HS snack with peers prior to bed. Patient observed sleeping and does not appear to be having difficulty. Plan : Per JOVITA Carpio, pt. is at baseline and continues to require a safe and supportive environment. She is awaiting placement.
[2022-03-01 08:00] VITALS: BP 99/49
[2022-03-01] MEDS: lisinopril 20mg tablet PO SCH (08:00)
[2022-03-01] MEDS: atorvastatin 20mg tablet PO SCH (08:00)
[2022-03-01] MEDS: pantoprazole 40mg Tablet.DR PO SCH ×2 (08:42→21:27)
[2022-03-01] MEDS: nicotine 21mg patch - 24 hr TD SCH ×2 (08:42→10:50)
[2022-03-01] MEDS: docusate sod 100mg capsule PO SCH ×2 (08:43→21:27)
[2022-03-01] MEDS: divalproex sod 250mg ER (24-hour) tablet PO SCH ×2 (08:43→21:27)
[2022-03-01] MEDS: apixaban 5mg tablet PO SCH ×2 (08:43→21:27)
[2022-03-01] MEDS: aspirin 81mg, enteric-coated 1 TAB TABLET.DR PO SCH (08:43)
[2022-03-01] MEDS: calcium carbonate 500mg chew tablet PO SCH ×2 (08:44→21:27)
[2022-03-01] MEDS: cholecalciferol (vitamin D3) 1,000 unit (25mcg) tablet PO SCH (08:44)
[2022-03-01] MEDS: lactose-reduced food (Ensure Enlive) - 237ml bottle PO SCH ×3 (08:44→18:12)
--- NOTE | 2022-03-01 17:43 | NUR ---
Nursing Progress Note Problem: Pt admitted on LPS conservatorship from Telemetry. Pt is awaiting placement. PT has history of schizoaffective. Interventions: Medication administration, maintained a safe and supportive environment, provided clear and simple instructions, provided encouragement regarding performance of ADLs, monitored behaviors and maintained clear boundaries, maintained Q15 minute safety checks. Response: Received patient sleeping in bed at change of shift. Patient slept in late, and her tray was saved for her when she awakened at approximately 9:30. Vitals were taken and medications were administered late due to sleeping. Patient stayed up in the dining room until 12:30 and then wanted to be put back to bed and did not want to eat her lunch. Patient is sleeping soundly at this time. Patient appears to be excessively drowsy this shift. Will continue to monitor. Plan: Patient requires a safe and supportive environment. No viable plan for discharge at this time; patient is conserved.
[2022-03-01] MEDS: magnesium hydroxide 30ml (MOM) UD suspension PO PRN (19:17)
[2022-03-01 20:01] VITALS: BP 121/56
[2022-03-01] MEDS: sertraline 50mg tablet PO SCH (21:27)
[2022-03-01] MEDS: olanzapine 10mg tablet PO SCH (21:27)
[2022-03-01] MEDS: traZODone 50mg tablet PO PRN (21:27)
[2022-03-01] MEDS: amLODIPine 5mg tablet PO SCH (21:29)
--- NOTE | 2022-03-02 05:48 | NUR ---
Nursing Progress Note: Problem : Pt admitted on LPS conservatorship from Telemetry. Pt is awaiting placement. PT has history of schizoaffective. Interventions : Maintained a safe and supportive environment, ensured contract for safety, provided clear and simple instructions, encouraged participation on the unit, provided needed assistance with ADLs and maintained fall precautions, and maintained Q 15min safety checks. Response : Patient is pleasant and cooperative with care; compliant with medication. PRN Trazodone provided and Nicotine patch removed. No negative behaviors, continues to make needs known and wait for assistance if needed. Patient shaved and ate HS snack prior to bed; observed sleeping and does not appear to be having difficulty. Plan : Per JOVITA Carpio, pt. is at baseline and continues to require a safe and supportive environment. She is awaiting placement.
[2022-03-02 07:30] VITALS: BP 149/70
[2022-03-02] MEDS: lactose-reduced food (Ensure Enlive) - 237ml bottle PO SCH ×3 (08:00→18:12)
[2022-03-02] MEDS: calcium carbonate 500mg chew tablet PO SCH ×2 (08:00→21:09)
[2022-03-02] MEDS: aspirin 81mg, enteric-coated 1 TAB TABLET.DR PO SCH (09:22)
[2022-03-02] MEDS: pantoprazole 40mg Tablet.DR PO SCH ×2 (09:22→21:09)
[2022-03-02] MEDS: apixaban 5mg tablet PO SCH ×2 (09:22→21:08)
[2022-03-02] MEDS: cholecalciferol (vitamin D3) 1,000 unit (25mcg) tablet PO SCH (09:22)
[2022-03-02] MEDS: docusate sod 100mg capsule PO SCH ×2 (09:23→21:09)
[2022-03-02] MEDS: lisinopril 20mg tablet PO SCH (09:23)
[2022-03-02] MEDS: atorvastatin 20mg tablet PO SCH (09:23)
[2022-03-02] MEDS: divalproex sod 250mg ER (24-hour) tablet PO SCH ×2 (09:23→21:09)
[2022-03-02] MEDS: traMADol 50MG tablet PO PRN ×2 (09:25→16:24)
--- NOTE | 2022-03-02 09:46 | NUR ---
Pt. attended group today. Today with did an Art Expression group called Healing Symbols. The goal was to find strength in their own symbol which can feel empowering. We discussed if anything emerged in their art that surprised them and how they could incorporate their symbol into their day. Pt. was displaying agitation today as she reported that she was in pain in her back. She did not engage in the group activity. She perseverated on wanting to go back to her room to lay down. She stayed for the entire group. Once group was over she went back to her room. Skylar Guerrero LCSW
--- NOTE | 2022-03-02 17:57 | NUR ---
Nursing Progress Note Problem: Pt admitted on LPS conservatorship from Telemetry. Pt is awaiting placement. PT has history of schizoaffective. Interventions: Medication administration, maintained a safe and supportive environment, provided clear and simple instructions, provided encouragement regarding performance of ADLs, monitored behaviors and maintained clear boundaries, maintained Q15 minute safety checks. Response: RN received pt. asleep in bed at start of shift. Pt. awoke and took medications. Pt. requested toileting and had a large formed bowel movement. Pt. took short nap after breakfast. Pt. denies SI/HI, A/V hallucinations. Pt. reports she feels good about possibly discharging next week. Pt. reports shes been accepted to two different facilities. Pt. took nap after lunch and awoke due to urine incontinence. Pt. changed. Pt. asked to walk from her bed to the toilet and did so with two person assist. Pt. up and watching TV in the afternoon. Plan: Patient requires a safe and supportive environment. No viable plan for discharge at this time; patient is conserved.
[2022-03-02 19:00] VITALS: BP 112/64
[2022-03-02] MEDS: sertraline 50mg tablet PO SCH (21:09)
[2022-03-02] MEDS: olanzapine 10mg tablet PO SCH (21:09)
[2022-03-02] MEDS: amLODIPine 5mg tablet PO SCH (21:10)
--- NOTE | 2022-03-03 04:48 | NUR ---
Nursing Progress Note Problem: Pt admitted on LPS conservatorship from Telemetry. Pt is awaiting placement. PT has history of schizoaffective. Interventions: Medication administration, maintained a safe and supportive environment, provided clear and simple instructions, provided encouragement regarding performance of ADLs, monitored behaviors and maintained clear boundaries, maintained Q15 minute safety checks. Response: Pt in wheelchair in the phillips at start of shift. Pt denies SI/AH/VH. When asked how she is doing pt states depressed, not disappointed. RN asked if she wants to talk about it. Pt states no, but then started to express that she wanted to watch the [employer] vs [employer] game. Pt was on the phone in her room, she said she was talking to her sister. Pt states I would like to shower tomorrow." HS meds administered. Pt slept through the night. Plan: Patient requires a safe and supportive environment. No viable plan for discharge at this time; patient is conserved.
[2022-03-03] MEDS: divalproex sod 250mg ER (24-hour) tablet PO SCH ×2 (07:38→20:53)
[2022-03-03] MEDS: apixaban 5mg tablet PO SCH ×2 (07:40→20:54)
[2022-03-03] MEDS: lisinopril 20mg tablet PO SCH (07:40)
[2022-03-03] MEDS: pantoprazole 40mg Tablet.DR PO SCH ×2 (07:40→20:54)
[2022-03-03] MEDS: atorvastatin 20mg tablet PO SCH (07:41)
[2022-03-03] MEDS: cholecalciferol (vitamin D3) 1,000 unit (25mcg) tablet PO SCH (07:42)
[2022-03-03] MEDS: aspirin 81mg, enteric-coated 1 TAB TABLET.DR PO SCH (07:42)
[2022-03-03] MEDS: nicotine 21mg patch - 24 hr TD SCH (07:43)
[2022-03-03] MEDS: calcium carbonate 500mg chew tablet PO SCH ×2 (07:45→20:54)
[2022-03-03] MEDS: docusate sod 100mg capsule PO SCH ×2 (07:49→20:54)
[2022-03-03 07:54] VITALS: BP 128/65
[2022-03-03] MEDS: lactose-reduced food (Ensure Enlive) - 237ml bottle PO SCH ×3 (08:21→18:17)
--- NOTE | 2022-03-03 08:53 | NUR ---
pt refused to have her vitals checked. Addendum: 03/03/22 at 0853 by Kj Vergara RT Amended: Links added.
--- NOTE | 2022-03-03 17:43 | NUR ---
Nursing Progress Note Problem: Pt admitted on LPS conservatorship from Telemetry. Pt is awaiting placement. PT has history of schizoaffective and normal pressure hydrocephalus. Interventions: Medication administration, maintained a safe and supportive environment, provided clear and simple instructions, provided encouragement regarding performance of ADLs, monitored behaviors and maintained clear boundaries, maintained Q15 minute safety checks. Response: [employer] received pt. asleep in bed at start of shift. Transferred to W/ and spent AM in community room. Medications given with no ASE noted. Continent/incontinent of urine, lg continent of BM. Pt. received shower, [employer] assisted, became increasingly agitated and attempted to transfer from shower chair to wheelchair unassisted, demonstrating poor safety awareness. Pt. refused physical assessment from both [employer] and medical MD stating, I dont want you assessing anything. Slept throughout late morning/afternoon, and refused lunch. Pt. denies SI/HI, A/V hallucinations. Pt. reports she is in good spirits regarding possible discharge next week. Pt. reports shes been accepted to two different facilities. Pt. up and watching TV in the afternoon and accepted snack. Pt. reports pain to bilateral upper shoulders and neck has improved from yesterday. Plan: Patient requires a safe and supportive environment. No viable plan for discharge at this time; patient is conserved.
[2022-03-03 19:00] VITALS: BP 128/57
[2022-03-03] MEDS: sertraline 50mg tablet PO SCH (20:53)
[2022-03-03] MEDS: amLODIPine 5mg tablet PO SCH (20:53)
[2022-03-03] MEDS: olanzapine 10mg tablet PO SCH (20:54)
--- NOTE | 2022-03-04 05:04 | NUR ---
Nursing Progress Note Problem: Pt admitted on LPS conservatorship from Telemetry. Pt is awaiting placement. PT has history of schizoaffective and normal pressure hydrocephalus. Interventions: Medication administration, maintained a safe and supportive environment, provided clear and simple instructions, provided encouragement regarding performance of ADLs, monitored behaviors and maintained clear boundaries, maintained Q15 minute safety checks. Response: Pt sitting in wheelchair at start of shift near nurses station. Pt asked staff to help her to bed. When asked how she is doing tonight pt states Im doing good, I got a shower today thank you. Pt denies SI/AH/VH. Pt states Im glad to be going home next week, Esther been here way too long. Pt reports pain to neck/shoulders 4/10 but did not want any PRN pain meds. Pt had one incontinence episode this shift. Barrier cream applied to perianal to prevent skin breakdown and pt was not pleased with staff for applying it. Pt slept through the night. Plan: Patient requires a safe and supportive environment. No viable plan for discharge at this time; patient is conserved.
[2022-03-04 07:22] VITALS: BP 130/90
[2022-03-04] MEDS: lactose-reduced food (Ensure Enlive) - 237ml bottle PO SCH ×3 (08:00→18:05)
[2022-03-04] MEDS: nicotine 21mg patch - 24 hr TD SCH (08:13)
[2022-03-04] MEDS: calcium carbonate 500mg chew tablet PO SCH ×2 (08:14→20:00)
[2022-03-04] MEDS: divalproex sod 250mg ER (24-hour) tablet PO SCH ×2 (08:14→19:53)
[2022-03-04] MEDS: cholecalciferol (vitamin D3) 1,000 unit (25mcg) tablet PO SCH (08:14)
[2022-03-04] MEDS: docusate sod 100mg capsule PO SCH ×2 (08:14→19:54)
[2022-03-04] MEDS: lisinopril 20mg tablet PO SCH (08:14)
[2022-03-04] MEDS: aspirin 81mg, enteric-coated 1 TAB TABLET.DR PO SCH (08:14)
[2022-03-04] MEDS: pantoprazole 40mg Tablet.DR PO SCH ×2 (08:15→19:53)
[2022-03-04] MEDS: atorvastatin 20mg tablet PO SCH (08:15)
[2022-03-04] MEDS: apixaban 5mg tablet PO SCH ×2 (08:15→19:53)
--- NOTE | 2022-03-04 17:27 | NUR ---
Nursing Progress Note: Taamra Problem: Pt admitted on LPS conservatorship from Telemetry. Pt is awaiting placement. PT has history of schizoaffective and normal pressure hydrocephalus. Interventions: Medication administration, maintained a safe and supportive environment, provided clear and simple instructions, provided encouragement regarding performance of ADLs, monitored behaviors and maintained clear boundaries, maintained Q15 minute safety checks. Response: Patient received resting quietly in bed. Joins her peers in the dining room for meals and interacts appropriately. Requires 1-2 person assist for ADLs and transfers. Able to propel herself short distances in her wheel chair but generally requires staff assist. Incontinent of urine and wears a brief. Kassandra care is provided. Patient denies any mental health symptoms at this time. Naps off and on during the day. Noted watching TV in the community room and socializing with select peers. Plan: Patient requires a safe and supportive environment. No viable plan for discharge at this time; patient is conserved.
[2022-03-04 19:34] VITALS: BP 124/68
[2022-03-04] MEDS: diphenhydrAMINE 25mg capsule PO PRN (19:52)
[2022-03-04] MEDS: olanzapine 10mg tablet PO SCH (19:53)
[2022-03-04] MEDS: sertraline 50mg tablet PO SCH (19:53)
[2022-03-04] MEDS: amLODIPine 5mg tablet PO SCH (19:53)
[2022-03-04] MEDS: traZODone 50mg tablet PO PRN (19:59)
--- NOTE | 2022-03-04 23:32 | NUR ---
Nursing Progress Note: Tamara Problem: Pt admitted on LPS conservatorship from Telemetry. Pt is awaiting placement. PT has history of schizoaffective and normal pressure hydrocephalus. Interventions: Medication administration, maintained a safe and supportive environment, provided clear and simple instructions, provided encouragement regarding performance of ADLs, monitored behaviors and maintained clear boundaries, maintained Q15 minute safety checks. Response: Patient received sitting in the community room watching TV and using the phone. Interacting appropriately with staff and peers. Cooperative with 1:1 assessment and medication. Requires 1-2 person assist for ADLs and transfers. Requires staff assist to propel her in the wheel chair. Incontinent of urine. Kassandra care provided. Patient talks on the phone with her sister, participates in snack then goes to bed. Plan: Patient requires a safe and supportive environment. No viable plan for discharge at this time; patient is conserved.
[2022-03-05 08:00] VITALS: BP 144/93
[2022-03-05] MEDS: calcium carbonate 500mg chew tablet PO SCH ×3 (08:00→20:49)
[2022-03-05] MEDS: lactose-reduced food (Ensure Enlive) - 237ml bottle PO SCH ×3 (08:00→18:02)
[2022-03-05] MEDS: docusate sod 100mg capsule PO SCH ×3 (08:19→20:49)
[2022-03-05] MEDS: aspirin 81mg, enteric-coated 1 TAB TABLET.DR PO SCH (08:19)
[2022-03-05] MEDS: atorvastatin 20mg tablet PO SCH (08:19)
[2022-03-05] MEDS: pantoprazole 40mg Tablet.DR PO SCH ×3 (08:19→20:48)
[2022-03-05] MEDS: apixaban 5mg tablet PO SCH ×3 (08:19→20:48)
[2022-03-05] MEDS: cholecalciferol (vitamin D3) 1,000 unit (25mcg) tablet PO SCH (08:19)
[2022-03-05] MEDS: divalproex sod 250mg ER (24-hour) tablet PO SCH ×3 (08:19→20:49)
[2022-03-05] MEDS: lisinopril 20mg tablet PO SCH (08:19)
[2022-03-05] MEDS: nicotine 21mg patch - 24 hr TD SCH (08:20)
--- NOTE | 2022-03-05 17:00 | NUR ---
Nursing Progress Note: Tamara Problem: Pt admitted on LPS conservatorship from Telemetry. Pt is awaiting placement. PT has history of schizoaffective. Interventions: Medication administration, 1:1 MH assessment, maintained a safe and supportive environment, provided clear and simple instructions, provided encouragement regarding performance of ADLs, monitored behaviors and maintained clear boundaries, maintained Q15 minute safety checks. Response: Pt. received awake and OOB socializing. Pt. took her medications without hesitation, and denies SI, HI, A/VH and is not responding to IS. Pt. is pleasant, and accepting all care provided. She continues to require assistance with ADLs and transfers. Pt. was found to have 1-2+edema around the Rt. ankle area; provider ordered Doppler; results pending. Pt. awake and in the tv room most of the shift watching football. DC plan: pending admit date from soon to be placement. Plan: Patient requires a safe and supportive environment. No viable plan for discharge at this time; patient is conserved.
[2022-03-05 20:12] VITALS: BP 105/58
[2022-03-05] MEDS: sertraline 50mg tablet PO SCH ×2 (20:48→21:00)
[2022-03-05] MEDS: olanzapine 10mg tablet PO SCH ×2 (20:49→21:00)
[2022-03-05] MEDS: amLODIPine 5mg tablet PO SCH ×2 (20:50→21:00)
--- NOTE | 2022-03-05 22:57 | NUR ---
Nursing Progress Note: Tamara Problem: Pt admitted on LPS conservatorship from Telemetry. Pt is awaiting placement. PT has history of schizoaffective. Interventions: Medication administration, 1:1 MH assessment, maintained a safe and supportive environment, provided clear and simple instructions, provided encouragement regarding performance of ADLs, monitored behaviors and maintained clear boundaries, maintained Q15 minute safety checks. Response: Pt was put in bed at change of shift and fell asleep. Pt was difficult to wake for assessment and again at meds pass. Attempted to give patient meds again and she became agitated refusing meds. Pt states "great you woke me up and now I'll never go back to sleep! I dont want meds in the middle of the night!" Attempted to explain it is not the middle of the night and pt began snoring. Meds held tonight. Plan: Patient requires a safe and supportive environment. No viable plan for discharge at this time; patient is conserved.
[2022-03-06] MEDS: diphenhydrAMINE 25mg capsule PO PRN ×2 (06:17→20:11)
[2022-03-06 08:00] VITALS: BP 141/77
[2022-03-06] MEDS: calcium carbonate 500mg chew tablet PO SCH ×2 (08:00→20:11)
[2022-03-06] MEDS: divalproex sod 250mg ER (24-hour) tablet PO SCH ×2 (08:27→20:10)
[2022-03-06] MEDS: apixaban 5mg tablet PO SCH ×2 (08:27→20:10)
[2022-03-06] MEDS: pantoprazole 40mg Tablet.DR PO SCH ×2 (08:27→20:10)
[2022-03-06] MEDS: atorvastatin 20mg tablet PO SCH (08:27)
[2022-03-06] MEDS: docusate sod 100mg capsule PO SCH ×2 (08:27→20:10)
[2022-03-06] MEDS: aspirin 81mg, enteric-coated 1 TAB TABLET.DR PO SCH (08:27)
[2022-03-06] MEDS: lisinopril 20mg tablet PO SCH (08:28)
[2022-03-06] MEDS: lactose-reduced food (Ensure Enlive) - 237ml bottle PO SCH ×3 (08:28→18:18)
[2022-03-06] MEDS: cholecalciferol (vitamin D3) 1,000 unit (25mcg) tablet PO SCH (08:28)
[2022-03-06] MEDS: nicotine 21mg patch - 24 hr TD SCH (08:31)
--- NOTE | 2022-03-06 15:50 | NUR ---
Nursing Progress Note Problem: Pt admitted on LPS conservatorship from Telemetry. Pt is awaiting placement. PT has history of schizoaffective. Interventions: Medication administration, maintained a safe and supportive environment, provided clear and simple instructions, provided encouragement regarding performance of ADLs, monitored behaviors and maintained clear boundaries, maintained Q15 minute safety checks. Response: Received Pt in bed sleeping w/o distress. Pt woke and was cooperative with vitals and returned to sleeping. Pt woke again for breakfast and was assisted to toilet and brought to community room. Pt ate meals well around others and was appreciative of care today. She took AM meds w/o issue. And was active in AM assessments. Pt toileted with pivot assist before lunch after a morning nap. Pt also napped for short time after lunch. Pt pleasant yet tired today. Pt denies SI/HI, AV/Hs at this time. She engaged well with staff in conversation and asked for her needs appropriately and pleasantly. [facility] Plan: Patient requires a safe and supportive environment. Patient is conserved and waiting [facility].
[2022-03-06] MEDS: sertraline 50mg tablet PO SCH (20:10)
[2022-03-06] MEDS: olanzapine 10mg tablet PO SCH (20:10)
[2022-03-06] MEDS: amLODIPine 5mg tablet PO SCH (20:10)
[2022-03-06 20:41] VITALS: BP 129/74
[2022-03-06] MEDS: traZODone 50mg tablet PO PRN (22:25)
--- NOTE | 2022-03-06 22:34 | NUR ---
Nursing Progress Note Problem: Pt admitted on [facility] conservatorship from Telemetry. Pt is awaiting placement. PT has history of schizoaffective. Interventions: Medication administration, maintained a safe and supportive environment, provided clear and simple instructions, provided encouragement regarding performance of ADLs, monitored behaviors and maintained clear boundaries, maintained Q15 minute safety checks. Response: Pt was sitting in the community room at change of shift. Pt requested to use the toilet and c/o having wet pants. Pt was assisted to the toilet and was cleaned and changed prior to being assisted back to bed. Pt is in a pleasant mood, spent time talking w/her sister on the phone and states she is looking forward to placement next week. Pt c/o having difficulty breathing while talking on the phone with her sister. RT was notified and pt was provided a breathing treatment. Pt took HS meds and had trouble sleeping. PRN trazodone provided and pt went to sleep. Plan: Patient requires a safe and supportive environment. Patient is conserved and waiting placement by [facility]. Addendum: 03/06/22 at 5308 by Connie Wright RN nicotine patch removed. Pt is c/o of feeling uncomfortable all over. Reports feeling like she is breathing better since breathing treatment. pt given prn ultram.
[2022-03-06] MEDS: albuterol 2.5 MG/3 ML nebule NEB PRN (22:38)
[2022-03-07 08:00] VITALS: BP 160/69
[2022-03-07] MEDS: atorvastatin 20mg tablet PO SCH (08:13)
[2022-03-07] MEDS: cholecalciferol (vitamin D3) 1,000 unit (25mcg) tablet PO SCH (08:13)
[2022-03-07] MEDS: divalproex sod 250mg ER (24-hour) tablet PO SCH ×2 (08:13→20:32)
[2022-03-07] MEDS: apixaban 5mg tablet PO SCH ×2 (08:14→20:32)
[2022-03-07] MEDS: pantoprazole 40mg Tablet.DR PO SCH ×2 (08:14→20:32)
[2022-03-07] MEDS: aspirin 81mg, enteric-coated 1 TAB TABLET.DR PO SCH (08:14)
[2022-03-07] MEDS: docusate sod 100mg capsule PO SCH ×2 (08:14→20:32)
[2022-03-07] MEDS: acetaminophen 325mg tablet PO PRN (08:15)
[2022-03-07] MEDS: calcium carbonate 500mg chew tablet PO SCH ×2 (08:15→20:00)
[2022-03-07] MEDS: lisinopril 20mg tablet PO SCH (08:28)
[2022-03-07] MEDS: nicotine 21mg patch - 24 hr TD SCH (08:30)
[2022-03-07] MEDS: lactose-reduced food (Ensure Enlive) - 237ml bottle PO SCH (08:32)
[2022-03-07] MEDS: diphenhydrAMINE 25mg capsule PO PRN ×2 (08:32→20:30)
--- NOTE | 2022-03-07 08:53 | NUR ---
F/u 03/07: Pt continues on Regular diet w/ PO 75-100% avg meals meeting needs without inclusion of 75-100% Ensure Enlive TID. Overall exceeding est needs; YO d/w RN regarding stopping ONS if MD agreeable as PO acceptable to meet needs. LBM 03/05. Will continue to monitor. Recs; 1. Continue regular diet 2. Ensure Enlive TID; d/c if MD agreeable given adequate meal intake 3. Bowel care PRN 4. Weekly wts Addendum: 03/07/22 at [address] Amended: Links added.
--- NOTE | 2022-03-07 14:00 | NUR ---
Nursing Progress Note Problem: Pt admitted on [facility] conservatorship from Telemetry. Pt is awaiting placement. PT has history of schizoaffective. Interventions: 1:1 assessment, therapeutic conversation, active listening, medication administration/education/monitoring, ADL assist of 1-2 people using mechanical lift for toileting, transfers, and bathing. Encouraged pt participation as able with ADLs, Fall prevention, encouragement to attend group, provided distraction, direction, positive reinforcement, and maintained Q15 minute safety checks. Response: Pt was up for breakfast. Pt was cooperative with medications. Pt had some moderate general pain this morning and was medicated with PRN Tylenol 650 mg at 0815 with good effect. Pt requested Benadryl for "itching" and allergy symptoms and was given Benadryl 25 mg at 0832 with good effect. Pt's Ensure was D/c'd per the methods time analyst's recommendations as pt's PO meal intake has been good. Pt was toileted at regular intervals throughout the shift, barrier cream applied to bottom. Skin is intact. Pt denied AH/VH/SI/HI. Pt is looking forward to finding placement and is hopeful she may be transferred to another facility next week. Plan: Patient requires a safe and supportive environment. Patient is conserved and waiting placement by [facility]. Addendum: 03/07/22 at 1558 by Clara Healy RN (Lee) Pt has a new order for Claritin 10 mg PO daily, her nicotine patch was decreased from 21 mg to 14 mg.
[2022-03-07 20:00] VITALS: BP 138/64
[2022-03-07] MEDS: albuterol 2.5 MG/3 ML nebule NEB PRN (20:17)
[2022-03-07] MEDS: amLODIPine 5mg tablet PO SCH (20:31)
[2022-03-07] MEDS: olanzapine 10mg tablet PO SCH (20:31)
[2022-03-07] MEDS: traZODone 50mg tablet PO PRN (20:32)
[2022-03-07] MEDS: sertraline 50mg tablet PO SCH (20:32)
--- NOTE | 2022-03-08 01:43 | NUR ---
Nursing Progress Note Problem: Pt admitted on LPS conservatorship from Telemetry. Pt is awaiting placement. PT has history of schizoaffective. Interventions: One to one with the patient to complete physical assessment and severity of thought disorder. She is assisted with toileting and hygiene. She was given prn benadryl per her request. She is on 15 minute safety checks. Response: The patient was upset at the change of shift. She suddenly became tearful and stated that she had been unable to contact her son and it was getting close to [place] and she missed him. She verbalized that she is tired of being in the hospital. Later in the evening she was in better spirits and was stating her family on the phone, "You know mom invented [employer] [place]" She is using her call light appropriately and she is encouraged to use the call light any time that she needs to use the bathroom. While getting ready for bed she was mildly short of breath and requested/received a breathing treatment. Plan: Continue with assessment of patient every shift and prn and asses for any increased fall risk.
[2022-03-08 07:00] VITALS: BP 122/72
[2022-03-08] MEDS: calcium carbonate 500mg chew tablet PO SCH ×2 (08:00→20:00)
[2022-03-08] MEDS: loratadine 10mg tablet PO SCH (08:02)
[2022-03-08] MEDS: divalproex sod 250mg ER (24-hour) tablet PO SCH ×2 (08:03→20:03)
[2022-03-08] MEDS: docusate sod 100mg capsule PO SCH ×2 (08:03→19:57)
[2022-03-08] MEDS: apixaban 5mg tablet PO SCH ×2 (08:03→20:03)
[2022-03-08] MEDS: aspirin 81mg, enteric-coated 1 TAB TABLET.DR PO SCH (08:03)
[2022-03-08] MEDS: atorvastatin 20mg tablet PO SCH (08:04)
[2022-03-08] MEDS: pantoprazole 40mg Tablet.DR PO SCH ×2 (08:04→20:03)
[2022-03-08] MEDS: cholecalciferol (vitamin D3) 1,000 unit (25mcg) tablet PO SCH (08:05)
[2022-03-08] MEDS: nicotine 14mg patch - 24hr TD SCH (08:06)
[2022-03-08] MEDS: lisinopril 20mg tablet PO SCH (08:43)
[2022-03-08] MEDS: traMADol 50MG tablet PO PRN ×2 (14:13→20:02)
--- NOTE | 2022-03-08 14:14 | NUR ---
Sent updated notes to [facility] for placement purposes (02/28-03/07) ZACH Das
--- NOTE | 2022-03-08 17:35 | NUR ---
Nursing Progress Note Problem: Pt admitted on LPS conservatorship from Telemetry. Pt is awaiting placement. PT has history of schizoaffective and normal pressure hydrocephalus. Interventions: Medication administration, maintained a safe and supportive environment, provided clear and simple instructions, provided encouragement regarding performance of ADLs, monitored behaviors and maintained clear boundaries, maintained Q15 minute safety checks, fall prevention, skin care, transferring assistance, toileting and rosy-care assistance. Response: PACKING SUPERVISOR received pt. asleep in bed at start of shift. Transferred to / and spent AM in community room. Medications given with no ASE noted. Continent/incontinent of urine. Slept throughout late morning/afternoon. Appears older than stated age. Mod weakness, 1-2 person transfer. Slow rate/soft speech. Pt. denies SI/HI, A/V hallucinations. Reports improvement of depressive symptoms, no anxiety symptoms at this time. Pt requested shave, this nurse completed task. Pt. reports she is in good spirits regarding possible discharge this week. Pt. reports shes been accepted to two different facilities. Pt. reports pain to bilateral upper shoulders and neck, declined PRN pain medications initially stating, I was born before you, I remember the time that Tylenol was poisoned. Pt did accept PRN Ultram stating 10/10 pain to neck and bilateral shoulders. Woke up from afternoon nap, pleasant. Lg continent BM. Watched TV and socialized in community room at end of shift. Plan: Patient requires a safe and supportive environment. No viable plan for discharge at this time; patient is conserved.
[2022-03-08] MEDS: albuterol 2.5 MG/3 ML nebule NEB PRN (19:58)
[2022-03-08 20:00] VITALS: BP 111/57
[2022-03-08] MEDS: diphenhydrAMINE 25mg capsule PO PRN (20:01)
[2022-03-08] MEDS: amLODIPine 5mg tablet PO SCH (20:03)
[2022-03-08] MEDS: sertraline 50mg tablet PO SCH (20:03)
[2022-03-08] MEDS: olanzapine 10mg tablet PO SCH (20:08)
[2022-03-08] MEDS: traZODone 50mg tablet PO PRN (20:13)
--- NOTE | 2022-03-09 04:32 | NUR ---
Nursing Progress Note Problem: Pt admitted on LPS conservatorship from Telemetry. Pt is awaiting placement. PT has history of schizoaffective and normal pressure hydrocephalus. Interventions: Medication administration, maintained a safe and supportive environment, provided clear and simple instructions, provided encouragement regarding performance of ADLs, monitored behaviors and maintained clear boundaries, maintained Q15 minute safety checks, fall prevention, skin care, transferring assistance, toileting and rosy-care assistance. Response: Pt resting in bed at start of shift. When asked how she is doing pt states excited to get out of here. Pt. denies SI/HI, A/V hallucinations. Pt. reports she is happy of the possible discharge this week. Pt states been accepted to two different facilities. Pt. c/o of pain to bilateral upper shoulders and neck, PRN Ultram administered for 10/10 pain to neck and bilateral shoulders. HS meds administered, non-admin tums pt refused. Pt requested a breathing tx, respiratory was paged and performed. PRN Benadryl administered for itchiness and PRN trazodone given. Pt had snack and went to sleep. Pt slept through the night. Plan: Patient requires a safe and supportive environment. No viable plan for discharge at this time; patient is conserved.
[2022-03-09 08:00] VITALS: BP 138/68
[2022-03-09] MEDS: calcium carbonate 500mg chew tablet PO SCH ×3 (08:00→21:06)
[2022-03-09] MEDS: apixaban 5mg tablet PO SCH ×2 (08:02→21:07)
[2022-03-09] MEDS: docusate sod 100mg capsule PO SCH ×2 (08:02→21:06)
[2022-03-09] MEDS: cholecalciferol (vitamin D3) 1,000 unit (25mcg) tablet PO SCH (08:02)
[2022-03-09] MEDS: pantoprazole 40mg Tablet.DR PO SCH ×2 (08:02→21:06)
[2022-03-09] MEDS: aspirin 81mg, enteric-coated 1 TAB TABLET.DR PO SCH (08:02)
[2022-03-09] MEDS: divalproex sod 250mg ER (24-hour) tablet PO SCH ×2 (08:02→21:06)
[2022-03-09] MEDS: loratadine 10mg tablet PO SCH (08:03)
[2022-03-09] MEDS: atorvastatin 20mg tablet PO SCH (08:03)
[2022-03-09] MEDS: nicotine 14mg patch - 24hr TD SCH (08:03)
[2022-03-09] MEDS: lisinopril 20mg tablet PO SCH (08:09)
--- NOTE | 2022-03-09 09:18 | NUR ---
Called Eri (#[phone]) to check on admit date. Left message requesting a call back. ZACH Das
[2022-03-09] MEDS: albuterol 2.5 MG/3 ML nebule NEB PRN (15:36)
--- NOTE | 2022-03-09 16:53 | NUR ---
Nursing Progress Note Problem: Pt admitted on LPS conservatorship from Telemetry. Pt is awaiting placement. PT has history of schizoaffective and normal pressure hydrocephalus. Interventions: Medication administration, maintained a safe and supportive environment, provided clear and simple instructions, provided encouragement regarding performance of ADLs, monitored behaviors and maintained clear boundaries, maintained Q15 minute safety checks, fall prevention, skin care, transferring assistance, toileting and rosy-care assistance. Response: Pt asleep at change of shift. Met with RN for 1:1 assessment at the bedside. Pt is in a good mood today, receptive to assistance. She denies A/VH, denies S/I. She slept off an on throughout the morning. One episode of incontinence of urine this shift, voided multiple times and had a BM on the toilet. Watched TV and socialized in community room at end of shift. Plan: Patient requires a safe and supportive environment. Awaiting placement facility to give a date for transfer.
[2022-03-09 19:00] VITALS: BP 155/65
[2022-03-09] MEDS: amLODIPine 5mg tablet PO SCH (21:06)
[2022-03-09] MEDS: olanzapine 10mg tablet PO SCH (21:06)
[2022-03-09] MEDS: sertraline 50mg tablet PO SCH (21:06)
--- NOTE | 2022-03-10 03:26 | NUR ---
Nursing Progress Note Problem: Pt admitted on LPS conservatorship from Telemetry. Pt is awaiting placement. PT has history of schizoaffective and normal pressure hydrocephalus. Interventions: Medication administration, maintained a safe and supportive environment, provided clear and simple instructions, provided encouragement regarding performance of ADLs, monitored behaviors and maintained clear boundaries, maintained Q15 minute safety checks, fall prevention, skin care, transferring assistance, toileting and rosy-care assistance. Response: Patient interviewed 1:1 in her room. Patient is cooperative and smiling. Medication compliant. Patient denies S/I, H/I, or any hallucinations. Patient is in an optimistic mood about future placement. Plan: Patient requires a safe and supportive environment. Awaiting placement facility to give a date for transfer.
[2022-03-10 08:00] VITALS: BP 133/79
[2022-03-10] MEDS: calcium carbonate 500mg chew tablet PO SCH ×2 (08:00→19:53)
[2022-03-10] MEDS: divalproex sod 250mg ER (24-hour) tablet PO SCH ×2 (08:07→19:53)
[2022-03-10] MEDS: aspirin 81mg, enteric-coated 1 TAB TABLET.DR PO SCH (08:07)
[2022-03-10] MEDS: cholecalciferol (vitamin D3) 1,000 unit (25mcg) tablet PO SCH (08:07)
[2022-03-10] MEDS: pantoprazole 40mg Tablet.DR PO SCH ×2 (08:07→19:54)
[2022-03-10] MEDS: atorvastatin 20mg tablet PO SCH (08:08)
[2022-03-10] MEDS: apixaban 5mg tablet PO SCH ×2 (08:08→19:53)
[2022-03-10] MEDS: lisinopril 20mg tablet PO SCH (08:08)
[2022-03-10] MEDS: loratadine 10mg tablet PO SCH (08:08)
[2022-03-10] MEDS: docusate sod 100mg capsule PO SCH ×2 (08:08→19:53)
[2022-03-10] MEDS: nicotine 7mg patch - 24hr TD SCH (08:09)
[2022-03-10] MEDS: traMADol 50MG tablet PO PRN (09:11)
--- NOTE | 2022-03-10 13:39 | NUR ---
Nursing Progress Note: Problem : Pt admitted on LPS conservatorship from Telemetry. Pt is awaiting placement. PT has history of schizoaffective. Interventions : Maintained a safe and supportive environment, ensured contract for safety, provided clear and simple instructions, provided medication education, encouraged participation on the unit, provided needed assistance with ADLs and maintained fall precautions, and maintained Q 15min safety checks. Response : Received pt. sleeping in bed at the beginning of the shift, she continues to require assistance with transfers, toileting, and the performance of ADLs r/t generalized weakness. Pt. c/o upper and lower back pain and PRN Ultram was administered with effectiveness. She refused her ordered Tums despite provided medication education stating, "I don't need it." Pt. returned back to bed after breakfast and napped until lunch. She awoke with an incontinent episode and assistance was provided by staff to change into dry clothes using the [id number] which pt. is able to pull herself to a standing position with. 1:1 was completed at bedside, pt. denies all MH s/s, however makes what appears to be a delusional statement stating, "I have a smaller wheel chair upstairs." Pt. continues to attend all meals in the Group Room in her wheel chair, and is observed to be interacting appropriately with others. Plan : Per JOVITA Carpio, pt. is at baseline and continues to require a safe and supportive environment. She is awaiting placement.
[2022-03-10] MEDS: acetaminophen 325mg tablet PO PRN ×2 (16:26→19:56)
[2022-03-10 19:00] VITALS: BP 121/77
[2022-03-10] MEDS: olanzapine 10mg tablet PO SCH (19:53)
[2022-03-10] MEDS: traZODone 50mg tablet PO PRN (19:53)
[2022-03-10] MEDS: amLODIPine 5mg tablet PO SCH (19:54)
[2022-03-10] MEDS: sertraline 50mg tablet PO SCH (19:54)
--- NOTE | 2022-03-11 02:51 | NUR ---
Nursing Progress Note: Problem : Pt admitted on LPS conservatorship from Telemetry. Pt is awaiting placement. PT has history of schizoaffective. Interventions : Maintained a safe and supportive environment, ensured contract for safety, provided clear and simple instructions, provided medication education, encouraged participation on the unit, provided needed assistance with ADLs and maintained fall precautions, and maintained Q 15min safety checks. Response : Patient is pleasant and cooperative with care; compliant with medication. PRN Trazodone and Tylenol provided. Nicotine patch removed. No negative behaviors presented and requesting staff assistance prior to transfers. Patient provided HS snack prior to bed; observed sleeping and does not appear to be having difficulty. Plan : Per JOVITA Carpio, pt. is at baseline and continues to require a safe and supportive environment. She is awaiting placement.
[2022-03-11 08:00] VITALS: BP 117/70
[2022-03-11] MEDS: pantoprazole 40mg Tablet.DR PO SCH ×2 (08:40→19:57)
[2022-03-11] MEDS: docusate sod 100mg capsule PO SCH ×2 (08:40→19:56)
[2022-03-11] MEDS: calcium carbonate 500mg chew tablet PO SCH ×2 (08:40→19:56)
[2022-03-11] MEDS: divalproex sod 250mg ER (24-hour) tablet PO SCH ×2 (08:40→19:56)
[2022-03-11] MEDS: aspirin 81mg, enteric-coated 1 TAB TABLET.DR PO SCH (08:40)
[2022-03-11] MEDS: lisinopril 20mg tablet PO SCH (08:40)
[2022-03-11] MEDS: atorvastatin 20mg tablet PO SCH (08:40)
[2022-03-11] MEDS: apixaban 5mg tablet PO SCH ×2 (08:40→19:56)
[2022-03-11] MEDS: loratadine 10mg tablet PO SCH (08:40)
[2022-03-11] MEDS: cholecalciferol (vitamin D3) 1,000 unit (25mcg) tablet PO SCH (08:41)
[2022-03-11] MEDS: nicotine 7mg patch - 24hr TD SCH (08:41)
[2022-03-11] MEDS: traMADol 50MG tablet PO PRN (08:42)
--- NOTE | 2022-03-11 15:30 | NUR ---
Nursing Progress Note: Problem : Pt admitted on LPS conservatorship from Telemetry. Pt is awaiting placement. PT has history of schizoaffective. Interventions : Maintained a safe and supportive environment, ensured contract for safety, provided clear and simple instructions, provided medication education, encouraged participation on the unit, provided needed assistance with ADLs and maintained fall precautions, and maintained Q 15min safety checks. Response : Received pt. sleeping in bed at the beginning of the shift, she continues to require assistance with transfers, toileting, and the performance of ADLs r/t generalized weakness. Pt. again c/o upper and lower back pain and PRN Ultram was administered with effectiveness. Pt. continues to have intermittent incontinent episodes and assistance was provided by staff to change into dry clothes using the [id number] which pt. is able to pull herself to a standing position with. Pt. showered today with moderate assistance from staff. She continues to rest in bed between meals, which she attends in her w/c. Plan : Per JOVITA Carpio, pt. is at baseline and continues to require a safe and supportive environment. She has been accepted at [facility].
[2022-03-11 19:47] VITALS: BP 117/58
[2022-03-11] MEDS: olanzapine 10mg tablet PO SCH (19:56)
[2022-03-11] MEDS: sertraline 50mg tablet PO SCH (19:56)
[2022-03-11] MEDS: traZODone 50mg tablet PO PRN (19:56)
[2022-03-11] MEDS: amLODIPine 5mg tablet PO SCH (19:57)
--- NOTE | 2022-03-12 01:49 | NUR ---
Nursing Progress Note: Problem : Pt admitted on LPS conservatorship from Telemetry. Pt is awaiting placement. PT has history of schizoaffective. Interventions : Maintained a safe and supportive environment, ensured contract for safety, provided clear and simple instructions, provided medication education, encouraged participation on the unit, provided needed assistance with ADLs and maintained fall precautions, and maintained Q 15min safety checks. Response : Patient is pleasant and cooperative with care; compliant with medication. PRN Trazodone provided and Nicotine patch removed. Patient was found trying to get out of her W/C alone; agreed to let keno writer know when she needed to transfer and no further incidents at this time. Patient incontinent of urine x2 d/t urgency. She was provided HS snack and repositioned to be off her backside prior to bed; observed sleeping and does not appear to be having difficulty. Plan : Per JOVITA Carpio, pt. is at baseline and continues to require a safe and supportive environment. She is awaiting placement.
[2022-03-12 08:00] VITALS: BP 109/71
[2022-03-12] MEDS: calcium carbonate 500mg chew tablet PO SCH ×2 (08:00→20:26)
[2022-03-12] MEDS: loratadine 10mg tablet PO SCH (08:28)
[2022-03-12] MEDS: atorvastatin 20mg tablet PO SCH (08:28)
[2022-03-12] MEDS: aspirin 81mg, enteric-coated 1 TAB TABLET.DR PO SCH (08:28)
[2022-03-12] MEDS: apixaban 5mg tablet PO SCH ×2 (08:28→20:22)
[2022-03-12] MEDS: docusate sod 100mg capsule PO SCH ×2 (08:28→20:21)
[2022-03-12] MEDS: divalproex sod 250mg ER (24-hour) tablet PO SCH ×2 (08:28→20:22)
[2022-03-12] MEDS: cholecalciferol (vitamin D3) 1,000 unit (25mcg) tablet PO SCH (08:29)
[2022-03-12] MEDS: lisinopril 20mg tablet PO SCH (08:29)
[2022-03-12] MEDS: pantoprazole 40mg Tablet.DR PO SCH ×2 (08:29→20:21)
[2022-03-12] MEDS: nicotine 7mg patch - 24hr TD SCH (08:30)
[2022-03-12] MEDS: traMADol 50MG tablet PO PRN ×2 (15:24→21:59)
--- NOTE | 2022-03-12 16:27 | NUR ---
Nursing Progress Note Problem: Pt admitted on LPS conservatorship from Telemetry. Pt is awaiting placement. PT has history of schizoaffective. Interventions: Medication administration, maintained a safe and supportive environment, provided clear and simple instructions, provided encouragement regarding performance of ADLs, monitored behaviors and maintained clear boundaries, maintained Q15 minute safety checks. Response: Received Pt in bed sleeping w/o distress. Pt woke and was cooperative with vitals and returned to sleeping. Pt woke again for breakfast and was brought to community room where she ate breakfast well, and all meals. Pt interacted well with assessments and cooperative and pleasant. She returned to bed for a nap and got up to toilet and community room for lunch. Pt watched football in afternoon and interacted with another Pt. She took AM meds w/o issue. Pt denies SI/HI, AV/Hs at this time. She was overall pleasant and cooperative today. Pt received ultram for pain in afternoon with good effect. Pt [facility]. Plan: Patient requires a safe and supportive environment. Patient is conserved and waiting placement by [facility].
[2022-03-12 19:37] VITALS: BP 113/67
[2022-03-12] MEDS: olanzapine 10mg tablet PO SCH (20:21)
[2022-03-12] MEDS: traZODone 50mg tablet PO PRN (20:22)
[2022-03-12] MEDS: amLODIPine 5mg tablet PO SCH (20:22)
[2022-03-12] MEDS: sertraline 50mg tablet PO SCH (20:26)
--- NOTE | 2022-03-13 02:51 | NUR ---
Nursing Progress Note: Problem : Pt admitted on LPS conservatorship from Telemetry. Pt is awaiting placement. PT has history of schizoaffective. Interventions : Maintained a safe and supportive environment, ensured contract for safety, provided clear and simple instructions, provided medication education, encouraged participation on the unit, provided needed assistance with ADLs and maintained fall precautions, and maintained Q 15min safety checks. Response : Patient is pleasant and cooperative (little impatient) with care; compliant with medication. PRN Trazodone and Tramadol provided. Nicotine patch removed. No negative behaviors and waiting for staff assistance before transfers. Patient provided HS snack prior to bed; observed sleeping and does not appear to be having difficulty. Plan : Per JOVITA Carpio, pt. is at baseline and continues to require a safe and supportive environment. She is awaiting placement.
--- NOTE | 2022-03-13 07:20 | NUR ---
Reassessment: Pt continues on Regular diet w/ PO 75-100% avg meals meeting needs LB 03/09. No new nutrition interventions implemented at this time. Will continue to monitor. Recs; 1. Continue regular diet 2. Bowel care PRN 3. Weekly wts Addendum: 03/13/22 at [address] Amended: Links added.
[2022-03-13 08:00] VITALS: BP 139/67
[2022-03-13] MEDS: aspirin 81mg, enteric-coated 1 TAB TABLET.DR PO SCH (08:17)
[2022-03-13] MEDS: apixaban 5mg tablet PO SCH ×2 (08:17→20:01)
[2022-03-13] MEDS: cholecalciferol (vitamin D3) 1,000 unit (25mcg) tablet PO SCH (08:17)
[2022-03-13] MEDS: pantoprazole 40mg Tablet.DR PO SCH ×2 (08:17→20:01)
[2022-03-13] MEDS: atorvastatin 20mg tablet PO SCH (08:17)
[2022-03-13] MEDS: loratadine 10mg tablet PO SCH (08:17)
[2022-03-13] MEDS: divalproex sod 250mg ER (24-hour) tablet PO SCH ×2 (08:17→20:01)
[2022-03-13] MEDS: docusate sod 100mg capsule PO SCH ×2 (08:17→20:01)
[2022-03-13] MEDS: calcium carbonate 500mg chew tablet PO SCH ×2 (08:17→20:01)
[2022-03-13] MEDS: acetaminophen 325mg tablet PO PRN ×2 (08:18→18:06)
[2022-03-13] MEDS: lisinopril 20mg tablet PO SCH (08:18)
[2022-03-13] MEDS: nicotine 7mg patch - 24hr TD SCH (08:31)
--- NOTE | 2022-03-13 14:21 | NUR ---
Nursing Progress Note Problem: Pt admitted on LPS conservatorship from Telemetry. Pt is awaiting placement. PT has history of schizoaffective. Interventions: 1:1 assessment, therapeutic conversation, active listening, medication administration/education/monitoring, ADL assist of 1-2 people using mechanical lift for toileting, transfers, and bathing. Encouraged pt participation as able with ADLs, Fall prevention, encouragement to attend group, provided distraction, direction, positive reinforcement, and maintained Q15 minute safety checks. Response: Pt was up for breakfast and cooperative with medications. Pt c/o 6/10 arm pain and was medicated with PRN Tylenol 650 mg at 0818 with good effect. Pt denies SI/HI/AH/VH. Pt continues to require extensive assist of one for transfers and toileting, pt does not propel her own wheelchair. Pt is A/O X 4 and able to make her needs known. Plan: Patient requires a safe and supportive environment. Patient is conserved and waiting placement by [facility].
[2022-03-13 19:47] VITALS: BP 119/59
[2022-03-13] MEDS: traZODone 50mg tablet PO PRN (20:01)
[2022-03-13] MEDS: sertraline 50mg tablet PO SCH (20:01)
[2022-03-13] MEDS: olanzapine 10mg tablet PO SCH (20:01)
[2022-03-13] MEDS: amLODIPine 5mg tablet PO SCH (20:03)
--- NOTE | 2022-03-14 04:28 | NUR ---
Nursing Progress Note: Problem : Pt admitted on LPS conservatorship from Telemetry. Pt is awaiting placement. PT has history of schizoaffective. Interventions : Maintained a safe and supportive environment, ensured contract for safety, provided clear and simple instructions, provided medication education, encouraged participation on the unit, provided needed assistance with ADLs and maintained fall precautions, and maintained Q 15min safety checks. Response : Patient is pleasant and cooperative with care; compliant with medication. PRN Trazodone provided and Nicotine patch removed. No negative behaviors and waiting staff assistance to help transfers. Patient provided HS snack prior to bed; observed sleeping and does not appear to be having difficulty. Plan : Per JOVITA Carpio, pt. is at baseline and continues to require a safe and supportive environment. She is awaiting placement.
[2022-03-14] MEDS: docusate sod 100mg capsule PO SCH ×2 (07:46→20:27)
[2022-03-14] MEDS: loratadine 10mg tablet PO SCH (07:46)
[2022-03-14] MEDS: aspirin 81mg, enteric-coated 1 TAB TABLET.DR PO SCH (07:46)
[2022-03-14] MEDS: divalproex sod 250mg ER (24-hour) tablet PO SCH ×2 (07:47→20:27)
[2022-03-14] MEDS: cholecalciferol (vitamin D3) 1,000 unit (25mcg) tablet PO SCH (07:47)
[2022-03-14] MEDS: apixaban 5mg tablet PO SCH ×2 (07:47→20:27)
[2022-03-14] MEDS: lisinopril 20mg tablet PO SCH (07:47)
[2022-03-14] MEDS: atorvastatin 20mg tablet PO SCH (07:47)
[2022-03-14] MEDS: pantoprazole 40mg Tablet.DR PO SCH ×2 (07:47→20:27)
[2022-03-14] MEDS: calcium carbonate 500mg chew tablet PO SCH ×2 (07:47→20:27)
[2022-03-14] MEDS: nicotine 7mg patch - 24hr TD SCH (07:48)
[2022-03-14 08:00] VITALS: BP 128/82
[2022-03-14] MEDS: traMADol 50MG tablet PO PRN ×2 (10:17→20:34)
--- NOTE | 2022-03-14 11:35 | NUR ---
Sent updated notes to [facility] (03/07-03/14) and to Eri with the [facility] who has accepted Kathleen. Winston Goodman LMFT
[2022-03-14] MEDS: albuterol 2.5 MG/3 ML nebule NEB PRN (12:21)
--- NOTE | 2022-03-14 17:10 | NUR ---
Nursing Progress Note Problem: Pt admitted on LPS conservatorship from Telemetry. Pt is awaiting placement. PT has history of schizoaffective and normal pressure hydrocephalus. Interventions: Medication administration, maintained a safe and supportive environment, provided clear and simple instructions, provided encouragement regarding performance of ADLs, monitored behaviors and maintained clear boundaries, maintained Q15 minute safety checks, fall prevention, skin care, transferring assistance, toileting and rosy-care assistance. Response: HYDROELECTRIC STATION OPERATOR received pt. asleep in bed at start of shift. Transferred to W/C and spent AM in community room. Medications given with no ASE noted. Continent/incontinent of urine. Slept throughout late morning/afternoon. Appears older than stated age. Mod weakness, 1-2 person transfer. Slow rate/soft speech. Pt. denies SI/HI, A/V hallucinations. Reports improvement of depressive symptoms, no anxiety symptoms at this time. Pt requested shave, this nurse completed task. C/O SOB. Wheezing heard in upper lobes, PRN breathing treatment/albuterol given by RT with good effect. Pt. reports she is in good spirits regarding possible discharge this week. Pt reports acceptance to "[facility]". Pt. reports pain to bilateral upper shoulders and neck, PRN Ultram stating 6/10 pain to neck and bilateral shoulders, with good affect. Woke up from afternoon nap, pleasant. Lg continent BM. Watched TV and socialized in community room at end of shift. Plan: Patient requires a safe and supportive environment. No viable plan for discharge at this time; patient is conserved.
[2022-03-14 19:49] VITALS: BP 103/73
[2022-03-14] MEDS: traZODone 50mg tablet PO PRN (20:27)
[2022-03-14] MEDS: olanzapine 10mg tablet PO SCH (20:27)
[2022-03-14] MEDS: sertraline 50mg tablet PO SCH (20:27)
[2022-03-14] MEDS: amLODIPine 5mg tablet PO SCH (20:28)
--- NOTE | 2022-03-15 02:24 | NUR ---
Nursing Progress Note: Problem : Pt admitted on LPS conservatorship from Telemetry. Pt is awaiting placement. PT has history of schizoaffective. Interventions : Maintained a safe and supportive environment, ensured contract for safety, provided clear and simple instructions, provided medication education, encouraged participation on the unit, provided needed assistance with ADLs and maintained fall precautions, and maintained Q 15min safety checks. Response : Patient is pleasant and cooperative with care; compliant with medication. PRNs Tramadol and Trazodone. Nicotine patch removed. No negative behaviors presented and waits for assistance prior to transfer. Patient provided HS snack prior to bed; observed sleeping and does not appear to be having difficulty. Plan : Per JOVITA Carpio, pt. is at baseline and continues to require a safe and supportive environment. She is awaiting placement.
[2022-03-15 07:26] VITALS: BP 107/83
[2022-03-15] MEDS: nicotine 7mg patch - 24hr TD SCH (08:00)
[2022-03-15] MEDS: pantoprazole 40mg Tablet.DR PO SCH ×2 (08:03→19:58)
[2022-03-15] MEDS: atorvastatin 20mg tablet PO SCH (08:03)
[2022-03-15] MEDS: docusate sod 100mg capsule PO SCH ×2 (08:03→19:58)
[2022-03-15] MEDS: aspirin 81mg, enteric-coated 1 TAB TABLET.DR PO SCH (08:04)
[2022-03-15] MEDS: apixaban 5mg tablet PO SCH ×2 (08:04→19:57)
[2022-03-15] MEDS: divalproex sod 250mg ER (24-hour) tablet PO SCH ×2 (08:04→19:57)
[2022-03-15] MEDS: loratadine 10mg tablet PO SCH (08:04)
[2022-03-15] MEDS: cholecalciferol (vitamin D3) 1,000 unit (25mcg) tablet PO SCH (08:04)
[2022-03-15] MEDS: calcium carbonate 500mg chew tablet PO SCH ×2 (08:04→19:58)
[2022-03-15] MEDS: lisinopril 20mg tablet PO SCH (08:04)
[2022-03-15] MEDS: traMADol 50MG tablet PO PRN ×2 (08:08→19:57)
--- NOTE | 2022-03-15 18:03 | NUR ---
Nursing Progress Note Problem: Pt admitted on LPS conservatorship from Telemetry. Pt is awaiting placement. PT has history of schizoaffective. Interventions: 1:1 assessment, therapeutic conversation, active listening, medication administration/education/monitoring, ADL assist of 1-2 people using mechanical lift for toileting, transfers, and bathing. Encouraged pt participation as able with ADLs, Fall prevention, encouragement to attend group, provided distraction, direction, positive reinforcement, and maintained Q15 minute safety checks. Response: RN received pt. asleep in bed at start of shift. Pt. awoke for breakfast and took all medication. Pt. had no bouts of incontinence all day. Pt. napped in the AM for approx. 3 hours. Pt. up in the afternoon and watching TV. Pt. went back to bed after lunch and napped for approx. 1.5 hrs. 1:1 done at bedside, pt. denies all psych symptoms, and states, Im really hoping to get out of here soon. Plan: Patient requires a safe and supportive environment. Patient is conserved and waiting placement by [facility].
[2022-03-15 19:33] VITALS: BP 147/66
[2022-03-15] MEDS: traZODone 50mg tablet PO PRN (19:58)
[2022-03-15] MEDS: sertraline 50mg tablet PO SCH (19:58)
[2022-03-15] MEDS: amLODIPine 5mg tablet PO SCH (19:58)
[2022-03-15] MEDS: olanzapine 10mg tablet PO SCH (19:58)
--- NOTE | 2022-03-16 02:28 | NUR ---
Nursing Progress Note: Problem : Pt admitted on LPS conservatorship from Telemetry. Pt is awaiting placement. PT has history of schizoaffective. Interventions : Maintained a safe and supportive environment, ensured contract for safety, provided clear and simple instructions, provided medication education, encouraged participation on the unit, provided needed assistance with ADLs and maintained fall precautions, and maintained Q 15min safety checks. Response : Patient is pleasant and cooperative with care; compliant with medication. PRNs Trazodone and Tramadol provided. Nicotine patch removed. No negative behaviors presented and making needs known. Patient social with staff, made phone calls and participated in HS snack prior to bed; observed sleeping and does not appear to be having difficulty. Plan : Per JOVITA Carpio, pt. is at baseline and continues to require a safe and supportive environment. She is awaiting placement. Addendum: 03/16/22 at 0239 by Qi Parks RN Patient appeared to have a difficult BM but refused MOM.
[2022-03-16 08:00] VITALS: BP 138/58
[2022-03-16] MEDS: pantoprazole 40mg Tablet.DR PO SCH ×2 (08:00→20:24)
[2022-03-16] MEDS: calcium carbonate 500mg chew tablet PO SCH ×2 (08:00→20:24)
[2022-03-16] MEDS: divalproex sod 250mg ER (24-hour) tablet PO SCH ×2 (08:00→20:24)
[2022-03-16] MEDS: atorvastatin 20mg tablet PO SCH (08:00)
[2022-03-16] MEDS: apixaban 5mg tablet PO SCH ×2 (08:00→20:24)
[2022-03-16] MEDS: cholecalciferol (vitamin D3) 1,000 unit (25mcg) tablet PO SCH (08:00)
[2022-03-16] MEDS: aspirin 81mg, enteric-coated 1 TAB TABLET.DR PO SCH (08:00)
[2022-03-16] MEDS: docusate sod 100mg capsule PO SCH ×2 (08:00→20:24)
[2022-03-16] MEDS: loratadine 10mg tablet PO SCH (08:00)
[2022-03-16] MEDS: lisinopril 20mg tablet PO SCH (08:01)
[2022-03-16] MEDS: nicotine 7mg patch - 24hr TD SCH (08:55)
--- NOTE | 2022-03-16 17:37 | NUR ---
Nursing Progress Note Problem: Pt admitted on LPS conservatorship from Telemetry. Pt is awaiting placement. PT has history of schizoaffective. Interventions: 1:1 assessment, therapeutic conversation, active listening, medication administration/education/monitoring, ADL assist of 1-2 people using mechanical lift for toileting, transfers, and bathing. Encouraged pt participation as able with ADLs, Fall prevention, encouragement to attend group, provided distraction, direction, positive reinforcement, and maintained Q15 minute safety checks. Response: RN received pt. asleep in bed at start of shift. Pt. awoke for breakfast and took all medication. Pt. had 3 bouts of incontinence during the day and was cleaned and dressed each time. Pt. napped intermittently throughout the day. 1:1 done at bedside, pt. denies all psych symptoms. Pt. reports she feels concerned about her sister who is not responding to her phone calls. Pt. encouraged to stay up out of bed during the day. Plan: Patient requires a safe and supportive environment. Patient is conserved and waiting placement by [facility].
[2022-03-16 19:58] VITALS: BP 142/91
[2022-03-16] MEDS: olanzapine 10mg tablet PO SCH (20:24)
[2022-03-16] MEDS: traZODone 50mg tablet PO PRN (20:24)
[2022-03-16] MEDS: sertraline 50mg tablet PO SCH (20:24)
[2022-03-16] MEDS: amLODIPine 5mg tablet PO SCH (20:24)
[2022-03-16 20:45] LABS: CLARITY,URINE CLEAR (Clear); COLOR,URINE STRAW (Yellow); GLUCOSE, URINE NEGATIVE (Neg); KETONES,URINE NEGATIVE (Neg); LEUKOCYTE ESTERASE ,URINE NEGATIVE (Neg); NITRITES, URINE NEGATIVE (Neg); OCCULT BLOOD,URINE SMALL (Neg); PROTEIN,URINE NEGATIVE (Neg); UROBILINOGEN,URINE 0.2 E.U/dL (0.2-1.0)
[2022-03-16 20:50] LABS: UA COLLECTION TYPE CLN CATCH MIDSTREAM
[2022-03-16 21:04] LABS: BACTERIA,URINE NONE SEEN /HPF (Neg); SQUAMOUS EPITHELIAL CELL,UR FEW /LPF (FEW)
[2022-03-16 21:05] LABS: WBC,URINE 0-4 /HPF (0-4)
--- NOTE | 2022-03-17 05:51 | NUR ---
Nursing Progress Note: Problem : Pt admitted on LPS conservatorship from Telemetry. Pt is awaiting placement. PT has history of schizoaffective. Interventions : Maintained a safe and supportive environment, ensured contract for safety, provided clear and simple instructions, provided medication education, encouraged participation on the unit, provided needed assistance with ADLs and maintained fall precautions, and maintained Q 15min safety checks. Response : Patient is pleasant and cooperative with care; compliant with medication. PRN Trazodone provided and Nicotine patch removed. UA completed this shift; no infection noted. Patient continues to alert staff when transfers needed and no negative behaviors presented. She was provided HS snack prior to bed; observed sleeping and does not appear to be having difficulty. Plan : Per JOVITA Carpio, pt. is at baseline and continues to require a safe and supportive environment. She is awaiting placement.
[2022-03-17] MEDS: nicotine 7mg patch - 24hr TD SCH (07:51)
[2022-03-17] MEDS: apixaban 5mg tablet PO SCH ×2 (07:52→20:09)
[2022-03-17] MEDS: aspirin 81mg, enteric-coated 1 TAB TABLET.DR PO SCH (07:52)
[2022-03-17] MEDS: loratadine 10mg tablet PO SCH (07:52)
[2022-03-17] MEDS: pantoprazole 40mg Tablet.DR PO SCH ×2 (07:52→20:10)
[2022-03-17] MEDS: divalproex sod 250mg ER (24-hour) tablet PO SCH ×2 (07:52→20:10)
[2022-03-17] MEDS: docusate sod 100mg capsule PO SCH ×2 (07:52→20:09)
[2022-03-17] MEDS: cholecalciferol (vitamin D3) 1,000 unit (25mcg) tablet PO SCH (07:52)
[2022-03-17] MEDS: atorvastatin 20mg tablet PO SCH (07:52)
[2022-03-17] MEDS: lisinopril 20mg tablet PO SCH (07:54)
[2022-03-17] MEDS: calcium carbonate 500mg chew tablet PO SCH ×2 (07:58→20:09)
[2022-03-17 08:28] VITALS: BP 137/86
[2022-03-17] MEDS: acetaminophen 325mg tablet PO PRN (15:14)
[2022-03-17] MEDS: traMADol 50MG tablet PO PRN ×2 (15:15→20:09)
--- NOTE | 2022-03-17 17:24 | NUR ---
Nursing Progress Note: Problem : Pt admitted on LPS conservatorship from Telemetry. Pt is awaiting placement. PT has history of schizoaffective. Interventions : Maintained a safe and supportive environment, ensured contract for safety, provided clear and simple instructions, provided medication education, encouraged participation on the unit, provided needed assistance with ADLs and maintained fall precautions, and maintained Q 15min safety checks. Response : Patient was up for breakfast in the dining room. She accepted her AM meds with compliance. Patient took a nap after breakfast, but was up for lunch meal. She went back to bed, but was woke up by a phone call from her sister and cousin, Im ecstatic, on top of the world. She denies all MH symptoms, and there has been no mood lability or adverse behaviors noted. Patients physical status is two-person transfers that is total assist. Her strength does not improve in any meaningful way. She seems to have no concept of time, and wants to get up, as soon as she is laid down. She seems to find no comfort in any positions. Plan : Per JOVITA Carpio, pt. is at baseline and continues to require a safe and supportive environment. She is awaiting placement.
[2022-03-17 19:39] VITALS: BP 160/75
[2022-03-17] MEDS: olanzapine 10mg tablet PO SCH (20:10)
[2022-03-17] MEDS: amLODIPine 5mg tablet PO SCH (20:10)
[2022-03-17] MEDS: traZODone 50mg tablet PO PRN (20:10)
[2022-03-17] MEDS: sertraline 50mg tablet PO SCH (20:11)
--- NOTE | 2022-03-18 05:17 | NUR ---
Nursing Progress Note: Problem : Pt admitted on LPS conservatorship from Telemetry. Pt is awaiting placement. PT has history of schizoaffective. Interventions : Maintained a safe and supportive environment, ensured contract for safety, provided clear and simple instructions, provided medication education, encouraged participation on the unit, provided needed assistance with ADLs and maintained fall precautions, and maintained Q 15min safety checks. Response: Patient is pleasant and cooperative with care; compliant with medication. PRN Tramadol and Trazodone provided. Nicotine patch removed. No negative behaviors presented and communicating when she needs to transfer. Patient participated in HS snack in the community room and social with peers prior to bed; observed sleeping and does not appear to be having difficulty. Plan : Per JOVITA Carpio, pt. is at baseline and continues to require a safe and supportive environment. She is awaiting placement.
[2022-03-18] MEDS: lisinopril 20mg tablet PO SCH (08:00)
[2022-03-18] MEDS: calcium carbonate 500mg chew tablet PO SCH ×2 (08:00→20:45)
[2022-03-18] MEDS: nicotine 7mg patch - 24hr TD SCH (08:05)
[2022-03-18] MEDS: pantoprazole 40mg Tablet.DR PO SCH ×2 (08:06→20:45)
[2022-03-18] MEDS: divalproex sod 250mg ER (24-hour) tablet PO SCH ×2 (08:06→20:45)
[2022-03-18] MEDS: docusate sod 100mg capsule PO SCH ×2 (08:06→20:45)
[2022-03-18] MEDS: atorvastatin 20mg tablet PO SCH (08:06)
[2022-03-18] MEDS: apixaban 5mg tablet PO SCH ×2 (08:06→20:45)
[2022-03-18] MEDS: aspirin 81mg, enteric-coated 1 TAB TABLET.DR PO SCH (08:07)
[2022-03-18] MEDS: loratadine 10mg tablet PO SCH (08:07)
[2022-03-18] MEDS: cholecalciferol (vitamin D3) 1,000 unit (25mcg) tablet PO SCH (08:07)
[2022-03-18] MEDS: acetaminophen 325mg tablet PO PRN (14:44)
[2022-03-18] MEDS: traMADol 50MG tablet PO PRN ×2 (14:45→20:48)
--- NOTE | 2022-03-18 17:25 | NUR ---
Nursing Progress Note: Problem: Pt admitted on LPS conservatorship from Telemetry. Pt is awaiting placement. PT has history of schizoaffective. Interventions: Maintained a safe and supportive environment, ensured contract for safety, provided clear and simple instructions, provided medication education, encouraged participation on the unit, provided needed assistance with ADLs and maintained fall precautions, and maintained Q 15min safety checks. Response: Patient slept through breakfast, but was up afterwards. She continues to have mobility issues that require 2 persons for ambulation and transfers. She still reports depression related to her mobility, still being here, and not being able to locate family. She denies other MH symptoms. Patient has significant frustration due to pain and her inability to function independently anymore. Yesterday was good for her, due to a couple phone calls from family members, but she has not had a single visitor her whole time hereespecially her and son. Plan: Per JOVITA Carpio, pt. is at baseline and continues to require a safe and supportive environment. She is awaiting placement.
[2022-03-18 19:00] VITALS: BP 128/70
[2022-03-18] MEDS: albuterol 2.5 MG/3 ML nebule NEB PRN (19:40)
[2022-03-18] MEDS: amLODIPine 5mg tablet PO SCH (20:45)
[2022-03-18] MEDS: olanzapine 10mg tablet PO SCH (20:45)
[2022-03-18] MEDS: sertraline 50mg tablet PO SCH (20:45)
[2022-03-18] MEDS: traZODone 50mg tablet PO PRN (20:45)
--- NOTE | 2022-03-19 03:06 | NUR ---
Nursing Progress Note: Problem : Pt admitted on LPS conservatorship from Telemetry. Pt is awaiting placement. PT has history of schizoaffective. Interventions : Maintained a safe and supportive environment, ensured contract for safety, provided clear and simple instructions, provided medication education, encouraged participation on the unit, provided needed assistance with ADLs and maintained fall precautions, and maintained Q 15min safety checks. Response: Patient is pleasant and cooperative with care; compliant with medication. PRN Trazodone and Tramadol provided. Nicotine patch removed. No negative behaviors presented and no attempts to stand without assistance. Patient provided HS snack prior to bed; observed sleeping and does not appear to be having difficulty. Plan : Per JOVITA Carpio, pt. is at baseline and continues to require a safe and supportive environment. She is awaiting placement.
[2022-03-19 08:01] VITALS: BP 151/88
[2022-03-19] MEDS: calcium carbonate 500mg chew tablet PO SCH ×2 (08:37→20:08)
[2022-03-19] MEDS: divalproex sod 250mg ER (24-hour) tablet PO SCH ×2 (08:37→20:07)
[2022-03-19] MEDS: cholecalciferol (vitamin D3) 1,000 unit (25mcg) tablet PO SCH (08:37)
[2022-03-19] MEDS: aspirin 81mg, enteric-coated 1 TAB TABLET.DR PO SCH (08:37)
[2022-03-19] MEDS: apixaban 5mg tablet PO SCH ×2 (08:37→20:07)
[2022-03-19] MEDS: pantoprazole 40mg Tablet.DR PO SCH ×2 (08:37→20:07)
[2022-03-19] MEDS: loratadine 10mg tablet PO SCH (08:38)
[2022-03-19] MEDS: docusate sod 100mg capsule PO SCH ×2 (08:38→20:07)
[2022-03-19] MEDS: atorvastatin 20mg tablet PO SCH (08:38)
[2022-03-19] MEDS: lisinopril 20mg tablet PO SCH (08:38)
[2022-03-19] MEDS: nicotine 7mg patch - 24hr TD SCH (08:40)
--- NOTE | 2022-03-19 16:25 | NUR ---
Nursing Progress Note: Problem : Pt admitted on LPS conservatorship from Telemetry. Pt is awaiting placement. PT has history of schizoaffective. Interventions : Maintained a safe and supportive environment, ensured contract for safety, provided clear and simple instructions, provided needed assistance with ADLs and maintained fall precautions, and maintained Q 15min safety checks. Response : Received pt. sleeping in bed at the beginning of the shift, she continues to require assistance with transfers, toileting, and the performance of ADLs r/t generalized weakness. She attended breakfast in the Group Room and afterward returned back to bed for a nap as is her routine. Pt. reported she is looking forward to her upcoming discharge. In the afternoon, pt. showered with total assistance from staff. During the shower she became agitated and stated in what appeared to be a delusional manner, "Everyone is telling the doctor that I have been in bed all day!" This adjusto writer operator attempted to provided education to pt. that this had not occurred, however pt. continued to fixated on this belief. She became increasingly agitated and yelled out, "I'm done! Get me out of here now!" She attempted to stand up from the shower chair on her own with bare feet on a wet floor which posed a safety risk. This adjusto writer operator called for help from another staff member and verbal redirection as well as two-person assistance in order to safely transfer was provided. Pt. continued to be agitated for a time, yelling agitatedly at staff, but later apologized to staff for her behaviors. Pt. attended the patio today with others and sat up in the Group Room in the afternoon watching football with others. Plan : Pt. continues to require a safe and supportive environment. She has been accepted at [facility].
[2022-03-19 19:47] VITALS: BP 139/85
[2022-03-19 19:49] VITALS: BP 139/85
[2022-03-19] MEDS: sertraline 50mg tablet PO SCH (20:08)
[2022-03-19] MEDS: amLODIPine 5mg tablet PO SCH (20:08)
[2022-03-19] MEDS: olanzapine 10mg tablet PO SCH (20:09)
[2022-03-19] MEDS: traZODone 50mg tablet PO PRN (20:09)
[2022-03-19] MEDS: traMADol 50MG tablet PO PRN (20:10)
--- NOTE | 2022-03-20 04:51 | NUR ---
Nursing Progress Note: Problem : Pt admitted on LPS conservatorship from Telemetry. Pt is awaiting placement. PT has history of schizoaffective. Interventions : Maintained a safe and supportive environment, ensured contract for safety, provided clear and simple instructions, provided medication education, encouraged participation on the unit, provided needed assistance with ADLs and maintained fall precautions, and maintained Q 15min safety checks. Response: Patient is pleasant and mostly cooperative with care; she refused her lab draw. She reported she'd only let Abdirizak do it or film writer needed to take her outside for a cigarette first. Patient is compliant with medication. PRN Trazodone and Tramadol provided. Nicotine patch removed. She was social with peers, watched football and provided HS snack prior to bed; observed sleeping and does not appear to be having difficulty. Plan : Per JOVITA Carpio, pt. is at baseline and continues to require a safe and supportive environment. She is awaiting placement.
--- NOTE | 2022-03-20 07:29 | NUR ---
Reassessment: Pt continues on Regular diet w/ PO 75-100% avg meals meeting needs LBM 03/19. No new nutrition interventions implemented at this time. Will continue to monitor. Recs; 1. Continue regular diet 2. Bowel care PRN 3. Weekly wts Addendum: 03/20/22 at [address] Amended: Links added.
[2022-03-20] MEDS: cholecalciferol (vitamin D3) 1,000 unit (25mcg) tablet PO SCH (07:59)
[2022-03-20] MEDS: loratadine 10mg tablet PO SCH (07:59)
[2022-03-20] MEDS: atorvastatin 20mg tablet PO SCH (07:59)
[2022-03-20] MEDS: docusate sod 100mg capsule PO SCH ×2 (07:59→20:48)
[2022-03-20] MEDS: apixaban 5mg tablet PO SCH ×2 (07:59→20:48)
[2022-03-20] MEDS: aspirin 81mg, enteric-coated 1 TAB TABLET.DR PO SCH (07:59)
[2022-03-20 08:00] VITALS: BP 138/68
[2022-03-20] MEDS: divalproex sod 250mg ER (24-hour) tablet PO SCH ×2 (08:00→20:48)
[2022-03-20] MEDS: calcium carbonate 500mg chew tablet PO SCH ×2 (08:00→20:48)
[2022-03-20] MEDS: nicotine 7mg patch - 24hr TD SCH (08:00)
[2022-03-20] MEDS: pantoprazole 40mg Tablet.DR PO SCH ×2 (08:00→20:48)
[2022-03-20] MEDS: lisinopril 20mg tablet PO SCH (08:07)
--- NOTE | 2022-03-20 15:05 | NUR ---
Nursing Progress Note Problem: Pt admitted on LPS conservatorship from Telemetry. Pt is awaiting placement. PT has history of schizoaffective. Interventions: Medication administration, maintained a safe and supportive environment, provided clear and simple instructions, provided encouragement regarding performance of ADLs, monitored behaviors and maintained clear boundaries, maintained Q15 minute safety checks. Response: Received Pt in bed sleeping w/o distress. Pt woke and was cooperative with vitals and returned to sleeping. Pt woke and was assisted to community room for breakfast. She ate breakfast and lunch well. Pt pleasant during assessments and cooperative. She took AM meds w/o issue. Pt denies SI/HI, AV/Hs at this time. Pt refused AM blood draw and stated I dont want to get needles, but Ill take the meds. Pt remains overall pleasant and cooperative. Pt tired and napped in afternoon as well. [facility] Plan: Patient requires a safe and supportive environment. Patient is conserved and waiting placement by [facility].
[2022-03-20] MEDS: diphenhydrAMINE 25mg capsule PO PRN (15:45)
[2022-03-20 19:00] VITALS: BP 122/77
[2022-03-20] MEDS: albuterol 2.5 MG/3 ML nebule NEB PRN (20:43)
[2022-03-20] MEDS: traZODone 50mg tablet PO PRN (20:48)
[2022-03-20] MEDS: olanzapine 10mg tablet PO SCH (20:48)
[2022-03-20] MEDS: sertraline 50mg tablet PO SCH (20:48)
[2022-03-20] MEDS: amLODIPine 5mg tablet PO SCH (20:50)
--- NOTE | 2022-03-21 04:24 | NUR ---
Nursing Progress Note: Problem : Pt admitted on LPS conservatorship from Telemetry. Pt is awaiting placement. PT has history of schizoaffective. Interventions : Maintained a safe and supportive environment, ensured contract for safety, provided clear and simple instructions, provided medication education, encouraged participation on the unit, provided needed assistance with ADLs and maintained fall precautions, and maintained Q 15min safety checks. Response: Patient is pleasant and (mostly) cooperative with care; compliant with medication. PRN Trazodone provided and Nicotine patch removed. She continues to refuse lab draw unless technical report writer takes her outside to have a cigarette. No negative behaviors expressed. She was joking with staff and provided HS snack prior to bed; observed sleeping and does not appear to be having difficulty. Plan : Per JOVITA Carpio, pt. is at baseline and continues to require a safe and supportive environment. She is awaiting placement.
[2022-03-21] MEDS: cholecalciferol (vitamin D3) 1,000 unit (25mcg) tablet PO SCH (07:53)
[2022-03-21] MEDS: divalproex sod 250mg ER (24-hour) tablet PO SCH ×2 (07:53→20:43)
[2022-03-21] MEDS: aspirin 81mg, enteric-coated 1 TAB TABLET.DR PO SCH (07:53)
[2022-03-21] MEDS: loratadine 10mg tablet PO SCH (07:53)
[2022-03-21] MEDS: pantoprazole 40mg Tablet.DR PO SCH ×2 (07:53→20:43)
[2022-03-21] MEDS: docusate sod 100mg capsule PO SCH ×2 (07:53→20:43)
[2022-03-21] MEDS: calcium carbonate 500mg chew tablet PO SCH ×2 (07:53→20:43)
[2022-03-21] MEDS: apixaban 5mg tablet PO SCH ×2 (07:53→20:43)
[2022-03-21] MEDS: lisinopril 20mg tablet PO SCH (07:54)
[2022-03-21] MEDS: nicotine 7mg patch - 24hr TD SCH (07:54)
[2022-03-21] MEDS: atorvastatin 20mg tablet PO SCH (07:54)
[2022-03-21 08:00] VITALS: BP 145/75
--- NOTE | 2022-03-21 17:06 | NUR ---
Nursing Progress Note: Tamara Problem: Pt admitted on LPS conservatorship from Telemetry. Pt is awaiting placement. PT has history of schizoaffective. Interventions: Medication administration, 1:1 MH assessment, maintained a safe and supportive environment, provided clear and simple instructions, provided encouragement regarding performance of ADLs, monitored behaviors and maintained clear boundaries, maintained Q15 minute safety checks. Response: Pt. received awake and OOB socializing. Pt. took her medications without hesitation, and denies SI, HI, AH, VH and is not responding to IS. Pt. is pleasant, and cooperative with care, but did refuse her labs today stating Esther been here for months my arms hurt She continues to require assistance with ADLs and transfers, but is continent of bowel and bladder. Pt. OOB and socializing with cohorts, attended group, and spent the remainder of the day watching tv in community room. Pt. has fair hygiene, well groomed, and wearing street clothes. Plan: Patient requires a safe and supportive environment. No viable plan for discharge at this time; patient is conserved.
[2022-03-21 19:54] VITALS: BP 135/96
[2022-03-21] MEDS: traZODone 50mg tablet PO PRN (20:43)
[2022-03-21] MEDS: olanzapine 10mg tablet PO SCH (20:43)
[2022-03-21] MEDS: amLODIPine 5mg tablet PO SCH (20:44)
[2022-03-21] MEDS: sertraline 50mg tablet PO SCH (20:44)
--- NOTE | 2022-03-22 05:36 | NUR ---
Nursing Progress Note: Problem : Pt admitted on LPS conservatorship from Telemetry. Pt is awaiting placement. PT has history of schizoaffective. Interventions : Maintained a safe and supportive environment, ensured contract for safety, provided clear and simple instructions, provided medication education, encouraged participation on the unit, provided needed assistance with ADLs and maintained fall precautions, and maintained Q 15min safety checks. Response: Patient is pleasant and cooperative with care; compliant with medication. PRN Trazodone provided and Nicotine patch removed. No negative behaviors and cooperative with using call light when needing to be transferred. Patient is social with staff; some delusional thought content expressed about famous people living on the streets at the same time as her and everyone having 10 people looking like them. Patient provided HS snack; observed sleeping and does not appear to be having difficulty. Plan : Per JOVITA Carpio, pt. is at baseline and continues to require a safe and supportive environment. She is awaiting placement.
[2022-03-22] MEDS: pantoprazole 40mg Tablet.DR PO SCH ×2 (07:37→19:38)
[2022-03-22] MEDS: divalproex sod 250mg ER (24-hour) tablet PO SCH ×2 (07:37→19:38)
[2022-03-22] MEDS: apixaban 5mg tablet PO SCH ×2 (07:37→19:38)
[2022-03-22] MEDS: cholecalciferol (vitamin D3) 1,000 unit (25mcg) tablet PO SCH (07:37)
[2022-03-22] MEDS: docusate sod 100mg capsule PO SCH ×2 (07:37→19:37)
[2022-03-22 07:38] VITALS: BP 146/67
[2022-03-22] MEDS: aspirin 81mg, enteric-coated 1 TAB TABLET.DR PO SCH (07:38)
[2022-03-22] MEDS: atorvastatin 20mg tablet PO SCH (07:38)
[2022-03-22] MEDS: loratadine 10mg tablet PO SCH (07:38)
[2022-03-22] MEDS: lisinopril 20mg tablet PO SCH (07:38)
[2022-03-22] MEDS: nicotine 7mg patch - 24hr TD SCH (08:00)
[2022-03-22] MEDS: calcium carbonate 500mg chew tablet PO SCH ×2 (08:00→19:39)
--- NOTE | 2022-03-22 16:51 | NUR ---
Nursing Progress Note: Tamara Problem: Pt admitted on LPS conservatorship from Telemetry. Pt is awaiting placement. PT has history of schizoaffective. Interventions: Medication administration, 1:1 MH assessment, maintained a safe and supportive environment, provided clear and simple instructions, provided encouragement regarding performance of ADLs, monitored behaviors and maintained clear boundaries, maintained Q15 minute safety checks. Response: Pt. received asleep and awoke to take her medications. Pt. denies SI, HI, AH, VH and did not appear to be responding to IS. Pt. continues to require assistance with transfers and accepts care offered. Pt. ate her meals in the ding room with cohorts, often socializing with the women at her table. Pt. did lay down for a nap after each meal, utilizing her call light for her needs. Pt. has remained continent of bowel and bladder and had zero c/o pain this shift. Pt. spent time in the tv room and sitting in her WC in the [place]. Her hygiene is fair, well groomed, and wears street clothes. Weekly weight 66.3kg Plan: Patient requires a safe and supportive environment. No viable plan for discharge at this time; patient is conserved.
[2022-03-22] MEDS: diphenhydrAMINE 25mg capsule PO PRN (19:38)
[2022-03-22 20:00] VITALS: BP 99/51
[2022-03-22] MEDS: sertraline 50mg tablet PO SCH (20:17)
[2022-03-22] MEDS: amLODIPine 5mg tablet PO SCH (20:17)
[2022-03-22] MEDS: olanzapine 10mg tablet PO SCH (20:17)
--- NOTE | 2022-03-23 05:18 | NUR ---
Nursing Progress Note: Problem : Pt admitted on LPS conservatorship from Telemetry. Pt is awaiting placement. PT has history of schizoaffective. Interventions : Maintained a safe and supportive environment, ensured contract for safety, provided clear and simple instructions, provided medication education, encouraged participation on the unit, provided needed assistance with ADLs and maintained fall precautions, and maintained Q 15min safety checks. Response: Patient is pleasant and cooperative with care; compliant with medication. PRN Benadryl given @ 1938 and Nicotine patch removed. Patient denies SI/HI, AV/H, depression and anxiety. No negative behaviors and cooperative with using call light when needing to be transferred. Patient is social with staff. Patient provided HS snack in bed; observed sleeping and does not appear to be having difficulty. Plan : Per JOVITA Carpio, pt. is at baseline and continues to require a safe and supportive environment. She is awaiting placement.
[2022-03-23] MEDS: calcium carbonate 500mg chew tablet PO SCH ×2 (08:00→20:40)
[2022-03-23] MEDS: cholecalciferol (vitamin D3) 1,000 unit (25mcg) tablet PO SCH (08:00)
[2022-03-23] MEDS: pantoprazole 40mg Tablet.DR PO SCH ×2 (08:29→20:40)
[2022-03-23] MEDS: divalproex sod 250mg ER (24-hour) tablet PO SCH ×2 (08:29→20:40)
[2022-03-23] MEDS: apixaban 5mg tablet PO SCH ×2 (08:29→20:39)
[2022-03-23] MEDS: aspirin 81mg, enteric-coated 1 TAB TABLET.DR PO SCH (08:29)
[2022-03-23] MEDS: docusate sod 100mg capsule PO SCH ×2 (08:30→20:40)
[2022-03-23] MEDS: atorvastatin 20mg tablet PO SCH (08:32)
[2022-03-23] MEDS: lisinopril 20mg tablet PO SCH (08:32)
[2022-03-23] MEDS: loratadine 10mg tablet PO SCH (08:32)
[2022-03-23] MEDS: nicotine 7mg patch - 24hr TD SCH (08:32)
[2022-03-23 08:39] VITALS: BP 132/59
--- NOTE | 2022-03-23 16:19 | NUR ---
Nursing Progress Note: Tamara Problem: Pt admitted on LPS conservatorship from Telemetry. Pt is awaiting placement. PT has history of schizoaffective. Interventions: Medication administration, 1:1 MH assessment, maintained a safe and supportive environment, provided clear and simple instructions, provided encouragement regarding performance of ADLs, monitored behaviors and maintained clear boundaries, maintained Q15 minute safety checks. Response: Pt. received asleep and awoke to have coffee. Pt. denies all MH symptoms. She ate all her meals in the dining room with cohorts and stayed OOB most of the day socializing with peers. She continues to require assistance with transfers and remains continent of B&B. Pt. has had no outburst and is not responding to IS, she has been cooperative with care. She has fair hygiene, hair is combed, and is wearing street clothes. Plan: Patient requires a safe and supportive environment. No viable plan for discharge at this time; patient is conserved.
[2022-03-23 20:00] VITALS: BP 135/86
[2022-03-23] MEDS: olanzapine 10mg tablet PO SCH (20:39)
[2022-03-23] MEDS: amLODIPine 5mg tablet PO SCH (20:39)
[2022-03-23] MEDS: sertraline 50mg tablet PO SCH (20:40)
[2022-03-23] MEDS: albuterol 2.5 MG/3 ML nebule NEB PRN (21:14)
[2022-03-23] MEDS: diphenhydrAMINE 25mg capsule PO PRN (21:34)
[2022-03-23] MEDS: traZODone 50mg tablet PO PRN (21:34)
[2022-03-24] MEDS: traZODone 50mg tablet PO PRN ×2 (02:12→20:33)
--- NOTE | 2022-03-24 03:43 | NUR ---
Nursing Progress Note: Problem: Pt admitted on LPS conservatorship from Telemetry. Pt is awaiting placement. PT has history of schizoaffective. Interventions: Medication administration, 1:1 MH assessment, maintained a safe and supportive environment, provided clear and simple instructions, provided encouragement regarding performance of ADLs, monitored behaviors and maintained clear boundaries, maintained Q15 minute safety checks. Response: Patient received up socializing in dining room with cohorts and staff. Able to make needs known. Appearance is clean and shes wearing regular clothing. Uses call light. Denies SI, AH & VH. When asked about her mood is states that she has, the blues, states, "I miss my son and he does not want anything to do with me." Acknowledge patient's feelings and affirmed that, that indeed would be difficult. Continues to require assistance with transfers to/from bed and bathroom. Wears depends and is continent most of the time. No agitation this shift, noted to have a pleasant and calm demeanor, soft spoken. Compliant with HS meds and requested a PRN Benadryl when she awoke from a bad dream. She states she screamed and awoke her neighbor and now was having trouble falling back asleep. Offered her PRN Trazodone in addition to the Benadryl, patient denied needing it at the time and medication was wasted. A few hours later, patient requested Trazodone PRN. Plan: Patient requires a safe and supportive environment. No viable plan for discharge at this time; patient is conserved.
[2022-03-24] MEDS: nicotine 7mg patch - 24hr TD SCH (08:00)
[2022-03-24] MEDS: lisinopril 20mg tablet PO SCH (08:38)
[2022-03-24] MEDS: atorvastatin 20mg tablet PO SCH (08:38)
[2022-03-24] MEDS: cholecalciferol (vitamin D3) 1,000 unit (25mcg) tablet PO SCH (08:39)
[2022-03-24] MEDS: divalproex sod 250mg ER (24-hour) tablet PO SCH ×2 (08:39→20:31)
[2022-03-24] MEDS: pantoprazole 40mg Tablet.DR PO SCH ×2 (08:39→20:31)
[2022-03-24] MEDS: apixaban 5mg tablet PO SCH ×2 (08:39→20:31)
[2022-03-24] MEDS: calcium carbonate 500mg chew tablet PO SCH ×2 (08:39→20:32)
[2022-03-24] MEDS: aspirin 81mg, enteric-coated 1 TAB TABLET.DR PO SCH (08:39)
[2022-03-24] MEDS: docusate sod 100mg capsule PO SCH ×2 (08:39→20:31)
[2022-03-24] MEDS: loratadine 10mg tablet PO SCH (08:39)
[2022-03-24 08:57] VITALS: BP 142/68
--- NOTE | 2022-03-24 18:02 | NUR ---
Nursing Progress Note: Problem: Pt admitted on LPS conservatorship from Telemetry. Pt is awaiting placement. PT has history of schizoaffective. Interventions: Medication administration, 1:1 MH assessment, maintained a safe and supportive environment, provided clear and simple instructions, provided encouragement regarding performance of ADLs, monitored behaviors and maintained clear boundaries, maintained Q15 minute safety checks. Response: Patient asleep, but wakes and comes to community room for breakfast. She is compliant with all AM meds. Patient stays and socializes with her peers. Patient stays OOB more when she has people to talk to on the unit. Patient denies all MH symptoms, and had no outbursts today. She continues to require total assist with transfers. She continues to be pleasant and cooperative with staff and peers. Plan: Patient requires a safe and supportive environment. No viable plan for discharge at this time; patient is conserved.
--- NOTE | 2022-03-24 19:09 | NUR ---
received report. went into patients room to introduce myself. She requested Benedryl for allergies, itching and asthma. I told her that I would bring it in with her other medications. No other needs at this time.
[2022-03-24 20:00] VITALS: BP 124/67
[2022-03-24] MEDS: amLODIPine 5mg tablet PO SCH (20:32)
[2022-03-24] MEDS: sertraline 50mg tablet PO SCH (20:33)
[2022-03-24] MEDS: olanzapine 10mg tablet PO SCH (20:33)
[2022-03-24] MEDS: diphenhydrAMINE 25mg capsule PO PRN (20:33)
--- NOTE | 2022-03-25 01:55 | NUR ---
Nursing Progress Note: Problem: Pt admitted on LPS conservatorship from Telemetry. Pt is awaiting placement. PT has history of schizoaffective. Interventions: Medication administration, 1:1 MH assessment, maintained a safe and supportive environment, provided clear and simple instructions, provided encouragement regarding performance of ADLs, monitored behaviors and maintained clear boundaries, maintained Q15 minute safety checks. Response: Patient was compliant with all PM meds. Patient had long conversation about being kidnapped, kept in jars and being pulled from her mothers womb. She states that this was in [place]. She states that she is "obsessed with polititians and that she needs to advocate for them, no matter what they believe in" She continues to require total assist with transfers. She continues to be pleasant and cooperative with staff and peers. Plan: Patient requires a safe and supportive environment. No viable plan for discharge at this time; patient is conserved.
[2022-03-25 07:24] VITALS: BP 131/71
[2022-03-25] MEDS: nicotine 7mg patch - 24hr TD SCH (07:54)
[2022-03-25] MEDS: docusate sod 100mg capsule PO SCH ×2 (07:55→20:33)
[2022-03-25] MEDS: apixaban 5mg tablet PO SCH ×2 (07:55→20:33)
[2022-03-25] MEDS: divalproex sod 250mg ER (24-hour) tablet PO SCH ×2 (07:55→20:32)
[2022-03-25] MEDS: lisinopril 20mg tablet PO SCH (07:55)
[2022-03-25] MEDS: calcium carbonate 500mg chew tablet PO SCH ×2 (07:55→20:32)
[2022-03-25] MEDS: pantoprazole 40mg Tablet.DR PO SCH ×2 (07:55→20:34)
[2022-03-25] MEDS: cholecalciferol (vitamin D3) 1,000 unit (25mcg) tablet PO SCH (07:55)
[2022-03-25] MEDS: aspirin 81mg, enteric-coated 1 TAB TABLET.DR PO SCH (07:55)
[2022-03-25] MEDS: loratadine 10mg tablet PO SCH (07:55)
[2022-03-25] MEDS: atorvastatin 20mg tablet PO SCH (07:56)
--- NOTE | 2022-03-25 17:53 | NUR ---
Nursing Progress Note: Problem: Pt admitted on LPS conservatorship from Telemetry. Pt is awaiting placement. PT has history of schizoaffective. Interventions: Medication administration, 1:1 MH assessment, maintained a safe and supportive environment, provided clear and simple instructions, provided encouragement regarding performance of ADLs, monitored behaviors and maintained clear boundaries, maintained Q15 minute safety checks. Response: Patient had an incontinent episode at change of shift, so was already up for breakfast. She ate, and accepted her AM medication. Patient stayed up and socialized with her peers for a while. She did not stay for [employer] group. She enjoys having other ladies on the unit that she can converse with. She denies MH symptoms, but continues to make delusional statements about her family. Patient continues to wait for placement. Plan: Patient requires a safe and supportive environment. No viable plan for discharge at this time; patient is conserved.
[2022-03-25 19:47] VITALS: BP 134/71
[2022-03-25] MEDS: amLODIPine 5mg tablet PO SCH (20:33)
[2022-03-25] MEDS: sertraline 50mg tablet PO SCH (20:33)
[2022-03-25] MEDS: olanzapine 10mg tablet PO SCH (20:34)
[2022-03-25] MEDS: diphenhydrAMINE 25mg capsule PO PRN (20:40)
--- NOTE | 2022-03-26 00:43 | NUR ---
Nursing Progress Note: Problem: Pt admitted on LPS conservatorship from Telemetry. Pt is awaiting placement. PT has history of schizoaffective. Interventions: Medication administration, 1:1 MH assessment, maintained a safe and supportive environment, provided clear and simple instructions, provided encouragement regarding performance of ADLs, monitored behaviors and maintained clear boundaries, maintained Q15 minute safety checks. Response: Pt up in a wheelchair in Group room socializing with other pts at start of shift. Pt stayed in group room for snack. Took all HS meds pleasant and cooperative. Denies MH symptoms no delusional statements mad this shift. Requested help getting back to bed, went to sleep. Plan: Patient requires a safe and supportive environment. No viable plan for discharge at this time; patient is conserved.
[2022-03-26 08:00] VITALS: BP 130/76
[2022-03-26] MEDS: loratadine 10mg tablet PO SCH (08:59)
[2022-03-26] MEDS: docusate sod 100mg capsule PO SCH ×2 (08:59→20:46)
[2022-03-26] MEDS: divalproex sod 250mg ER (24-hour) tablet PO SCH ×2 (08:59→20:53)
[2022-03-26] MEDS: atorvastatin 20mg tablet PO SCH (09:00)
[2022-03-26] MEDS: apixaban 5mg tablet PO SCH ×2 (09:00→20:46)
[2022-03-26] MEDS: pantoprazole 40mg Tablet.DR PO SCH ×2 (09:00→20:46)
[2022-03-26] MEDS: aspirin 81mg, enteric-coated 1 TAB TABLET.DR PO SCH (09:00)
[2022-03-26] MEDS: calcium carbonate 500mg chew tablet PO SCH ×2 (09:00→20:00)
[2022-03-26] MEDS: cholecalciferol (vitamin D3) 1,000 unit (25mcg) tablet PO SCH (09:00)
[2022-03-26] MEDS: nicotine 7mg patch - 24hr TD SCH (09:02)
[2022-03-26] MEDS: lisinopril 20mg tablet PO SCH (09:21)
--- NOTE | 2022-03-26 16:23 | NUR ---
Nursing Progress Note Problem: Pt admitted on LPS conservatorship from Telemetry. Pt is awaiting placement. PT has history of schizoaffective. Interventions: Medication administration, maintained a safe and supportive environment, provided clear and simple instructions, provided encouragement regarding performance of ADLs, monitored behaviors and maintained clear boundaries, maintained Q15 minute safety checks. Response: Received Pt in bed sleeping w/o distress. Pt woke and was assisted to community room for breakfast. Pt cooperative with vitals after breakfast. She ate breakfast and lunch well. Pt pleasant during assessments and cooperative. She took AM meds w/o issue. She was assisted with toileting and returned to community room. Pt denies SI/HI, AV/Hs at this time. Pt remains overall pleasant and cooperative. Pt napped in AM. [facility] Plan: Patient requires a safe and supportive environment. Patient is conserved and waiting placement [facility].
[2022-03-26 20:00] VITALS: BP 134/71
[2022-03-26] MEDS: diphenhydrAMINE 25mg capsule PO PRN (20:45)
[2022-03-26] MEDS: traMADol 50MG tablet PO PRN (20:46)
[2022-03-26] MEDS: olanzapine 10mg tablet PO SCH (20:46)
[2022-03-26] MEDS: sertraline 50mg tablet PO SCH (20:47)
[2022-03-26] MEDS: amLODIPine 5mg tablet PO SCH (20:48)
--- NOTE | 2022-03-27 02:09 | NUR ---
NURSING PROGRESS NOTE Problem : Pt admitted on 515 for grave disability from our ER. PT has decompensated off of her medications. Pt left her residence barefoot and was missing for over 8 hours. Pt was found in a business she had broken into, refused to leave and was throwing chairs. Pt reported she was a dog and barked at staff. Pt has history of DM II, [place], HTN, CVA, schizophrenia, Bipolar, depression. [facility]. Interventions : Maintained a safe and supportive environment, provided clear and simple instructions, oriented to reality, maintained clear boundaries and provided redirection as needed, provided active listening and positive encouragement, and maintained Q 15min safety checks. Response: Pt up in her W/C sitting at table in group room with 2 other female pts. Pt has a friendship with these 2 pts. She ate snack in the group room then asked to go to bed. She took all HS meds and PRN Benadryl and Tramadol. Pt believes that she has a placement in [place] of [place]. Though she said "I'll believe it when they pick me up" Pt denies MH s/s at this time. Went to sleep without difficulty, sleeping at this time. Plan : Patient is GD and unable to formulate and follow through on plans for food, fpc or clothing r/t severity of her mental illness. Conservatorship is being pursed for patient and will likely be discharged to an IMD.
[2022-03-27 07:20] VITALS: BP 134/64
[2022-03-27] MEDS: docusate sod 100mg capsule PO SCH ×2 (07:35→20:10)
[2022-03-27] MEDS: loratadine 10mg tablet PO SCH (07:35)
[2022-03-27] MEDS: pantoprazole 40mg Tablet.DR PO SCH ×2 (07:35→20:14)
[2022-03-27] MEDS: divalproex sod 250mg ER (24-hour) tablet PO SCH ×2 (07:35→20:10)
[2022-03-27] MEDS: aspirin 81mg, enteric-coated 1 TAB TABLET.DR PO SCH (07:35)
[2022-03-27] MEDS: cholecalciferol (vitamin D3) 1,000 unit (25mcg) tablet PO SCH (07:35)
[2022-03-27] MEDS: atorvastatin 20mg tablet PO SCH (07:36)
[2022-03-27] MEDS: apixaban 5mg tablet PO SCH ×2 (07:36→20:13)
[2022-03-27] MEDS: lisinopril 20mg tablet PO SCH (07:36)
[2022-03-27] MEDS: calcium carbonate 500mg chew tablet PO SCH ×2 (08:00→20:00)
[2022-03-27] MEDS: nicotine 7mg patch - 24hr TD SCH (08:00)
--- NOTE | 2022-03-27 16:46 | NUR ---
Nursing Progress Note: Tamara Problem: Pt admitted on LPS conservatorship from Telemetry. Pt is awaiting placement. PT has history of schizoaffective. Interventions: Medication administration, 1:1 MH assessment, maintained a safe and supportive environment, provided clear and simple instructions, provided encouragement regarding performance of ADLs, monitored behaviors and maintained clear boundaries, maintained Q15 minute safety checks. Response: Pt. received asleep and awoke to prepare for breakfast. Pt. continues to require assistance with ADLs and transfers. She took her medications without hesitation, and denies all MH symptoms. Pt. utilized call lights for assistance and remains continent of B&B this shift. Pt. ate all meals in the dining room with cohorts, often sitting with a few female peers conversing at length, and is not responding to IS. She has fair hygiene, hair is combed, and wears street clothes. Plan: Patient requires a safe and supportive environment. No viable plan for discharge at this time; patient is conserved.
[2022-03-27 19:45] VITALS: BP 135/80
[2022-03-27] MEDS: diphenhydrAMINE 25mg capsule PO PRN (20:11)
[2022-03-27] MEDS: amLODIPine 5mg tablet PO SCH (20:11)
[2022-03-27] MEDS: olanzapine 10mg tablet PO SCH (20:12)
[2022-03-27] MEDS: sertraline 50mg tablet PO SCH (20:13)
[2022-03-27] MEDS: traMADol 50MG tablet PO PRN (20:15)
--- NOTE | 2022-03-28 01:02 | NUR ---
NURSING PROGRESS NOTE Problem : Pt admitted on 5150 for grave disability from our ER. PT has decompensated off of her medications. Pt left her residence barefoot and was missing for over 8 hours. Pt was found in a business she had broken into, refused to leave and was throwing chairs. Pt reported she was a dog and barked at staff. Pt has history of DM II, PR, HTN, CVA, schizophrenia, Bipolar, depression. Pt was recently released from [facility] conservatorship. Interventions : Maintained a safe and supportive environment, provided clear and simple instructions, oriented to reality, maintained clear boundaries and provided redirection as needed, provided active listening and positive encouragement, and maintained Q 15min safety checks. Response: Pt up in her W/C sitting at table in group room at start of shift. Went back to room shortly after shift change and declined to get up for snack. She took all HS meds and PRN Benadryl and Tramadol. Pt. continues to require assistance with ADLs and transfers. She and denies all MH symptoms. Went to sleep without difficulty, sleeping at this time. Plan : Patient is GD and unable to formulate and follow through on plans for food, chcf or clothing r/t severity of her mental illness. Conservatorship is being pursed for patient and will likely be discharged to an IMD.
[2022-03-28] MEDS: docusate sod 100mg capsule PO SCH ×2 (07:15→20:19)
[2022-03-28] MEDS: apixaban 5mg tablet PO SCH ×2 (07:15→20:19)
[2022-03-28] MEDS: cholecalciferol (vitamin D3) 1,000 unit (25mcg) tablet PO SCH (07:16)
[2022-03-28] MEDS: pantoprazole 40mg Tablet.DR PO SCH ×2 (07:16→20:19)
[2022-03-28] MEDS: divalproex sod 250mg ER (24-hour) tablet PO SCH ×2 (07:16→20:19)
[2022-03-28] MEDS: atorvastatin 20mg tablet PO SCH (07:16)
[2022-03-28] MEDS: aspirin 81mg, enteric-coated 1 TAB TABLET.DR PO SCH (07:16)
[2022-03-28] MEDS: loratadine 10mg tablet PO SCH (07:16)
[2022-03-28] MEDS: lisinopril 20mg tablet PO SCH (07:19)
[2022-03-28] MEDS: nicotine 7mg patch - 24hr TD SCH (07:20)
[2022-03-28] MEDS: calcium carbonate 500mg chew tablet PO SCH ×2 (08:00→20:19)
[2022-03-28 09:01] VITALS: BP 154/64
[2022-03-28] MEDS: diphenhydrAMINE 25mg capsule PO PRN (16:39)
--- NOTE | 2022-03-28 17:09 | NUR ---
Nursing Progress Note: Tamara Problem: Pt admitted on LPS conservatorship from Telemetry. Pt is awaiting placement. PT has history of schizoaffective. Interventions: Medication administration, 1:1 MH assessment, maintained a safe and supportive environment, provided clear and simple instructions, provided encouragement regarding performance of ADLs, monitored behaviors and maintained clear boundaries, maintained Q15 minute safety checks. Response: Pt. received asleep and awoke in time for breakfast. Pt. denies SI, HI, AH, VH and reports I hope I get out of here one day She continues to require assistance with ADLs and transfers, but is cooperative with care. She took her medications without hesitation, and denies discomfort. Pt. continues to utilize the call light for assistance and remains continent of B&B. Pt. ate all meals in the dining room with cohorts, and spent some time chatting with another female peer. She took one nap today and socialized staff in the [place]ips for a period of time. She uses a WC to self-propel ad sushil. She has fair hygiene, combed hair, and wears street clothes. Plan: Patient requires a safe and supportive environment. No viable plan for discharge at this time; patient is conserved.
[2022-03-28] MEDS ORDERED: diphenhydrAMINE 25mg capsule PO ONE (18:45)
[2022-03-28 19:26] VITALS: BP 145/65
[2022-03-28] MEDS: amLODIPine 5mg tablet PO SCH (20:18)
[2022-03-28] MEDS: sertraline 50mg tablet PO SCH (20:18)
[2022-03-28] MEDS: traZODone 50mg tablet PO PRN (20:18)
[2022-03-28] MEDS: olanzapine 10mg tablet PO SCH (20:19)
--- NOTE | 2022-03-29 04:32 | NUR ---
Nursing Progress Note: Tamara Problem: Pt admitted on LPS conservatorship from Telemetry. Pt is awaiting placement. PT has history of schizoaffective. Interventions: Medication administration, 1:1 MH assessment, maintained a safe and supportive environment, provided clear and simple instructions, provided encouragement regarding performance of ADLs, monitored behaviors and maintained clear boundaries, maintained Q15 minute safety checks. Response: Patient is pleasant and cooperative with care; compliant with medication. PRN Benadryl and Trazodone provided. Nicotine patch removed. No negative behaviors and waiting for staff assistance for transfers. Patient provided HS snack prior to bed; observed sleeping and does not appear to be having difficulty. Plan: Patient requires a safe and supportive environment. No viable plan for discharge at this time; patient is conserved.
[2022-03-29 08:00] VITALS: BP 120/87
[2022-03-29] MEDS: calcium carbonate 500mg chew tablet PO SCH ×2 (08:00→19:47)
[2022-03-29] MEDS: divalproex sod 250mg ER (24-hour) tablet PO SCH ×2 (08:02→19:47)
[2022-03-29] MEDS: apixaban 5mg tablet PO SCH ×2 (08:02→19:47)
[2022-03-29] MEDS: docusate sod 100mg capsule PO SCH ×2 (08:02→19:47)
[2022-03-29] MEDS: loratadine 10mg tablet PO SCH (08:03)
[2022-03-29] MEDS: atorvastatin 20mg tablet PO SCH (08:03)
[2022-03-29] MEDS: pantoprazole 40mg Tablet.DR PO SCH ×2 (08:03→19:47)
[2022-03-29] MEDS: cholecalciferol (vitamin D3) 1,000 unit (25mcg) tablet PO SCH (08:03)
[2022-03-29] MEDS: aspirin 81mg, enteric-coated 1 TAB TABLET.DR PO SCH (08:03)
[2022-03-29] MEDS: lisinopril 20mg tablet PO SCH (08:04)
[2022-03-29] MEDS: nicotine 7mg patch - 24hr TD SCH (08:05)
--- NOTE | 2022-03-29 12:32 | NUR ---
Reassessment: Pt continues eating well, documented with mostly 75-100% PO intake on regular diet meeting needs. [facility] 03/28. No new nutrition intervention implemented at this time. Will continue to monitor. Recommendations: 1. Continue regular diet 2. Routine bowel care 3. Weekly scaled wts Addendum: 03/29/22 at [address] Amended: Links added.
--- NOTE | 2022-03-29 17:38 | NUR ---
Nursing Progress Note: Tamara Problem: Pt admitted on LPS conservatorship from Telemetry. Pt is awaiting placement. PT has history of schizoaffective. Interventions: Medication administration, 1:1 MH assessment, maintained a safe and supportive environment, provided clear and simple instructions, provided encouragement regarding performance of ADLs, monitored behaviors and maintained clear boundaries, maintained Q15 minute safety checks. Response: Pt. received asleep and awoke early. She took her medications without hesitation, and denies SI, HI, AH, VH, and doesnt appear to be responding to IS. She continues to require assistance with ADLs and transfers, is cooperative with care. Pt. was found to have increased edema bilateral ankles; nursing encouraged pt. to elevate while in bed and up in chair. She continues to utilize the call light for assistance and remains continent of B&B. Pt. ate all meals in the dining room with cohorts, and stayed to socialize with female peer. She uses a WC to self-propel ad sushil. She has fair hygiene, combed hair, and wears street clothes. Plan: Patient requires a safe and supportive environment. No viable plan for discharge at this time; patient is conserved.
[2022-03-29 19:48] VITALS: BP 139/73
[2022-03-29] MEDS: traZODone 50mg tablet PO PRN (19:48)
[2022-03-29] MEDS: traMADol 50MG tablet PO PRN (19:48)
[2022-03-29] MEDS: amLODIPine 5mg tablet PO SCH (20:38)
[2022-03-29] MEDS: olanzapine 10mg tablet PO SCH (20:39)
[2022-03-29] MEDS: sertraline 50mg tablet PO SCH (20:39)
[2022-03-29] MEDS: albuterol 2.5 MG/3 ML nebule NEB PRN (21:18)
--- NOTE | 2022-03-30 02:15 | NUR ---
Nursing Progress Note: Problem: Pt admitted on LPS conservatorship from Telemetry. Pt is awaiting placement. PT has history of schizoaffective. Interventions: Medication administration, 1:1 MH assessment, maintained a safe and supportive environment, provided clear and simple instructions, provided encouragement regarding performance of ADLs, monitored behaviors and maintained clear boundaries, maintained Q15 minute safety checks. Response: Patient is pleasant and cooperative with care; compliant with medication. PRN Ultram and Trazodone 1948 provided. Nicotine patch removed. Denied SI/HI, AV/H. No negative behaviors and waiting for staff assistance for transfers. Patient provided HS snack prior to bed; observed sleeping and does not appear to be having difficulty. Plan: Patient requires a safe and supportive environment. Per SS note, patient accepted at [facility], no date at this time; patient is conserved.
[2022-03-30 08:00] VITALS: BP 143/81
[2022-03-30] MEDS: apixaban 5mg tablet PO SCH ×2 (08:03→20:51)
[2022-03-30] MEDS: pantoprazole 40mg Tablet.DR PO SCH ×2 (08:03→20:51)
[2022-03-30] MEDS: atorvastatin 20mg tablet PO SCH (08:03)
[2022-03-30] MEDS: loratadine 10mg tablet PO SCH (08:03)
[2022-03-30] MEDS: divalproex sod 250mg ER (24-hour) tablet PO SCH ×2 (08:03→20:51)
[2022-03-30] MEDS: docusate sod 100mg capsule PO SCH ×2 (08:03→20:51)
[2022-03-30] MEDS: aspirin 81mg, enteric-coated 1 TAB TABLET.DR PO SCH (08:03)
[2022-03-30] MEDS: cholecalciferol (vitamin D3) 1,000 unit (25mcg) tablet PO SCH (08:03)
[2022-03-30] MEDS: lisinopril 20mg tablet PO SCH (08:04)
[2022-03-30] MEDS: calcium carbonate 500mg chew tablet PO SCH ×2 (08:04→20:00)
[2022-03-30] MEDS: nicotine 7mg patch - 24hr TD SCH (08:10)
--- NOTE | 2022-03-30 13:15 | NUR ---
Sent updated notes to [facility] for placement purposes (03/15-03/29). ZACH Das
--- NOTE | 2022-03-30 15:39 | NUR ---
Nursing Progress Note Problem: Pt admitted on LPS conservatorship from Telemetry. Pt is awaiting placement. PT has history of schizoaffective. Interventions: 1:1 assessment, therapeutic conversation, active listening, medication administration/education/monitoring, assistance with transfers and toileting, encouraged pt participation as able with ADLs, fall prevention, encouragement to attend group, provided distraction, direction, positive reinforcement, and maintained Q15 minute safety checks. Response: Pt was up for breakfast and cooperative with medications. Pt denies SI/HI/AH/VH. Pt was pleasant and cooperative with care. Pt spends time talking on the phone. No verbal outbursts or unsafe behaviors noted. Plan: Patient requires a safe and supportive environment. Patient is conserved and waiting placement.
[2022-03-30 20:00] VITALS: BP 146/79
[2022-03-30] MEDS: amLODIPine 5mg tablet PO SCH (20:52)
[2022-03-30] MEDS: sertraline 50mg tablet PO SCH (20:52)
[2022-03-30] MEDS: olanzapine 10mg tablet PO SCH (20:52)
[2022-03-30] MEDS: diphenhydrAMINE 25mg capsule PO PRN (20:53)
[2022-03-30] MEDS: traMADol 50MG tablet PO PRN (20:54)
--- NOTE | 2022-03-31 02:58 | NUR ---
Nursing Progress Note: Problem: Pt admitted on LPS conservatorship from Telemetry. Pt is awaiting placement. PT has history of schizoaffective. Interventions: Medication administration, 1:1 MH assessment, maintained a safe and supportive environment, provided clear and simple instructions, provided encouragement regarding performance of ADLs, monitored behaviors and maintained clear boundaries, maintained Q15 minute safety checks. Response: Patient is pleasant and cooperative with care; compliant with medication. PRN Ultram and Benadryl 2053 provided. Nicotine patch removed. Denied to this INTERNAL CONTROLS SPECIALIST SI/HI, AV/H. Denies depression/anxiety. Clear thought process. No negative behaviors and waiting for staff assistance for transfers. Patient provided HS snack prior to bed; observed sleeping and does not appear to be having difficulty. Plan: Patient requires a safe and supportive environment. Per SS note, patient accepted at [facility], no date at this time; patient is conserved.
[2022-03-31 07:35] VITALS: BP 123/65
[2022-03-31] MEDS: calcium carbonate 500mg chew tablet PO SCH ×2 (08:00→20:00)
[2022-03-31] MEDS: cholecalciferol (vitamin D3) 1,000 unit (25mcg) tablet PO SCH (08:15)
[2022-03-31] MEDS: atorvastatin 20mg tablet PO SCH (08:15)
[2022-03-31] MEDS: aspirin 81mg, enteric-coated 1 TAB TABLET.DR PO SCH (08:15)
[2022-03-31] MEDS: divalproex sod 250mg ER (24-hour) tablet PO SCH ×2 (08:15→20:57)
[2022-03-31] MEDS: pantoprazole 40mg Tablet.DR PO SCH ×2 (08:15→20:58)
[2022-03-31] MEDS: loratadine 10mg tablet PO SCH (08:15)
[2022-03-31] MEDS: apixaban 5mg tablet PO SCH ×2 (08:15→20:58)
[2022-03-31] MEDS: docusate sod 100mg capsule PO SCH ×2 (08:16→20:57)
[2022-03-31] MEDS: acetaminophen 325mg tablet PO PRN (08:16)
[2022-03-31] MEDS: lisinopril 20mg tablet PO SCH (08:16)
[2022-03-31] MEDS: nicotine 7mg patch - 24hr TD SCH (08:20)
[2022-03-31] MEDS: albuterol 2.5 MG/3 ML nebule NEB PRN (15:25)
--- NOTE | 2022-03-31 17:23 | NUR ---
Nursing Progress Note Problem: Pt admitted on LPS conservatorship from Telemetry. Pt is awaiting placement. PT has history of schizoaffective. Interventions: 1:1 assessment, therapeutic conversation, active listening, medication administration/education/monitoring, assistance with transfers and toileting, encouraged pt participation as able with ADLs, fall prevention, encouragement to attend group, provided distraction, direction, positive reinforcement, and maintained Q15 minute safety checks. Response: Pt was up for breakfast in the dining room. Pt was cooperative with all medications except her Tums which she refused. Pt states she doesn't need it. Observed a female diabetic peer say to Josey that she wanted her sugar back. Noted sweet and low on Josey's tray. It appeared that peer had taken Josey's regular sugar and replaced it with sweet and low. Josey stated "she's been taking food off my tray." This RN educated peer that it was not okay to take things off of other's trays. The peer stated, "that's okay we're friends." Josey again looked at this RN and said, "we're not friends." Pt c/o 5/10 neck pain and was given PRN Tylenol 650 mg at 0816 with good effect. Pt participated in afternoon group and unit activities. Pt c/o SOB around 1520 and requested a breathing treatment. RT was paged and she received PRN Proventil. Pt reported that the breathing treatment made the SOB worse but her coffee helped make it better. Pt's lungs are clear to auscultation. Plan: Patient requires a safe and supportive environment. Patient is conserved and waiting placement.
[2022-03-31 19:00] VITALS: BP 124/70
[2022-03-31] MEDS: traMADol 50MG tablet PO PRN (19:13)
[2022-03-31] MEDS: sertraline 50mg tablet PO SCH (20:59)
[2022-03-31] MEDS: amLODIPine 5mg tablet PO SCH (20:59)
[2022-03-31] MEDS: olanzapine 10mg tablet PO SCH (21:00)
[2022-03-31] MEDS: traZODone 50mg tablet PO PRN (21:00)
--- NOTE | 2022-04-01 03:11 | NUR ---
Nursing Progress Note: Problem: Pt admitted on LPS conservatorship from Telemetry. Pt is awaiting placement. PT has history of schizoaffective. Interventions: Medication administration, 1:1 MH assessment, maintained a safe and supportive environment, provided clear and simple instructions, provided encouragement regarding performance of ADLs, monitored behaviors and maintained clear boundaries, maintained Q15 minute safety checks. Response: Patient is pleasant and cooperative with care; compliant with medication. PRN Ultram and Trazodone provided. Nicotine patch removed. Denied to this JAVA WE[employer] USER INTERFACE DEVELOPER SI/HI, AV/H. Denies depression/anxiety. Clear thought process. No negative behaviors and waiting for staff assistance for transfers. Patient provided HS snack prior to bed; observed sleeping and does not appear to be having difficulty. Plan: Patient requires a safe and supportive environment. Per SS note, updated notes to [facility] for placement purposes (03/15-03/29).
[2022-04-01] MEDS: docusate sod 100mg capsule PO SCH ×2 (07:36→20:27)
[2022-04-01] MEDS: calcium carbonate 500mg chew tablet PO SCH ×2 (07:37→20:00)
[2022-04-01] MEDS: pantoprazole 40mg Tablet.DR PO SCH ×2 (07:37→20:28)
[2022-04-01] MEDS: divalproex sod 250mg ER (24-hour) tablet PO SCH ×2 (07:37→20:28)
[2022-04-01] MEDS: cholecalciferol (vitamin D3) 1,000 unit (25mcg) tablet PO SCH (07:37)
[2022-04-01] MEDS: apixaban 5mg tablet PO SCH ×2 (07:37→20:28)
[2022-04-01] MEDS: loratadine 10mg tablet PO SCH (07:37)
[2022-04-01] MEDS: atorvastatin 20mg tablet PO SCH (07:37)
[2022-04-01] MEDS: aspirin 81mg, enteric-coated 1 TAB TABLET.DR PO SCH (07:37)
[2022-04-01] MEDS: nicotine 7mg patch - 24hr TD SCH (07:38)
[2022-04-01] MEDS: lisinopril 20mg tablet PO SCH (07:38)
[2022-04-01 07:56] VITALS: BP 116/50
--- NOTE | 2022-04-01 16:28 | NUR ---
Nursing Progress Note Problem: Pt admitted on LPS conservatorship from Telemetry. Pt is awaiting placement. PT has history of schizoaffective. Interventions: Provided 1:1 assessment with therapeutic communication and active listening, medication administration/education/monitoring, assistance with transfers and toileting, encouraged pt participation as able with ADLs, fall prevention and maintained Q15 minute safety checks. Response: Pt is pleasant, calm and cooperative. In the afternoon she complained of a stomach ache relating to her bowels. Pt later reports she had a BM. Pt is up for meals and snacks. She watched some TV and visited with peers. Pt continues to wait for placement. Plan: Patient requires a safe and supportive environment. Patient is conserved and waiting placement.
[2022-04-01 19:00] VITALS: BP 143/74
[2022-04-01] MEDS: olanzapine 10mg tablet PO SCH (20:29)
[2022-04-01] MEDS: amLODIPine 5mg tablet PO SCH (20:29)
[2022-04-01] MEDS: sertraline 50mg tablet PO SCH (20:29)
--- NOTE | 2022-04-02 03:24 | NUR ---
Nursing Progress Note: Problem: Pt admitted on LPS conservatorship from Telemetry. Pt is awaiting placement. PT has history of schizoaffective. Interventions: Medication administration, 1:1 MH assessment, maintained a safe and supportive environment, provided clear and simple instructions, provided encouragement regarding performance of ADLs, monitored behaviors and maintained clear boundaries, maintained Q15 minute safety checks. Response: Patient is pleasant and cooperative with care; compliant with medication. No PRNs given this shift. Nicotine patch removed. Denied to this ELECTRICAL EQUIPMENT TESTER SI/HI, AV/H. Denies depression/anxiety. Appropriate demeanor. No negative behaviors and waiting for staff assistance for transfers. Patient provided HS snack in bed; patient in community room with peers watching [employer] celebration. Observed sleeping and does not appear to be having difficulty. Plan: Patient requires a safe and supportive environment. Per SS note, updated notes to [facility] for placement purposes (03/15-03/29).
[2022-04-02] MEDS: cholecalciferol (vitamin D3) 1,000 unit (25mcg) tablet PO SCH (07:30)
[2022-04-02] MEDS: atorvastatin 20mg tablet PO SCH (07:30)
[2022-04-02] MEDS: nicotine 7mg patch - 24hr TD SCH (07:30)
[2022-04-02] MEDS: pantoprazole 40mg Tablet.DR PO SCH ×2 (07:30→19:52)
[2022-04-02] MEDS: apixaban 5mg tablet PO SCH ×2 (07:30→19:52)
[2022-04-02] MEDS: loratadine 10mg tablet PO SCH (07:31)
[2022-04-02] MEDS: calcium carbonate 500mg chew tablet PO SCH ×2 (07:31→19:52)
[2022-04-02] MEDS: aspirin 81mg, enteric-coated 1 TAB TABLET.DR PO SCH (07:31)
[2022-04-02] MEDS: divalproex sod 250mg ER (24-hour) tablet PO SCH ×2 (07:31→19:52)
[2022-04-02] MEDS: docusate sod 100mg capsule PO SCH ×2 (07:32→19:57)
[2022-04-02] MEDS: lisinopril 20mg tablet PO SCH (07:35)
[2022-04-02 08:00] VITALS: BP 170/84
[2022-04-02] MEDS: traMADol 50MG tablet PO PRN (12:49)
--- NOTE | 2022-04-02 17:24 | NUR ---
Nursing Progress Note: Problem: Pt admitted on LPS conservatorship from Telemetry. Pt is awaiting placement. PT has history of schizoaffective. Interventions: Medication administration, 1:1 MH assessment, maintained a safe and supportive environment, provided clear and simple instructions, provided encouragement regarding performance of ADLs, monitored behaviors and maintained clear boundaries, maintained Q15 minute safety checks. Response: Patient awake at change of shift. She was in the bathroom with diarrhea. Patient given Imodium to help stop it. She was compliant with morning medications and ate her breakfast. Patient has stayed up to watch football with her peers. She has c/o neck pain that was mostly relieved by Tramadol. Patient denies MH symptoms and none were observed. She continues to be calm and cooperative with no behavioral issues. She has stayed up all day to watch football. There was only one episode of diarrhea today. She continues to wait for placement. Plan: Patient requires a safe and supportive environment. No viable plan for discharge at this time; patient is conserved.
[2022-04-02 19:01] VITALS: BP 116/68
[2022-04-02] MEDS: traZODone 50mg tablet PO PRN (19:52)
[2022-04-02] MEDS: olanzapine 10mg tablet PO SCH (19:52)
[2022-04-02] MEDS: amLODIPine 5mg tablet PO SCH (19:52)
[2022-04-02] MEDS: sertraline 50mg tablet PO SCH (19:52)
--- NOTE | 2022-04-03 03:42 | NUR ---
Nursing Progress Note: Problem: Pt admitted on LPS conservatorship from Telemetry. Pt is awaiting placement. PT has history of schizoaffective. Interventions: Medication administration, 1:1 MH assessment, maintained a safe and supportive environment, provided clear and simple instructions, provided encouragement regarding performance of ADLs, monitored behaviors and maintained clear boundaries, maintained Q15 minute safety checks. Response: Patient is pleasant and cooperative with care; compliant with medication. PRN Trazodone provided and Nicotine patch removed. Continues to wait for staff assistance for transfers and notifying staff when for restroom needs. No negative behaviors presented. Patient watched football game with peers in the recreation room and participated in HS snack prior to bed; observed sleeping and does not appear to be having difficulty. Plan: Patient requires a safe and supportive environment. Per SS note, updated notes to [facility] for placement purposes (03/15-03/29).
[2022-04-03 08:00] VITALS: BP 115/73
[2022-04-03] MEDS: loratadine 10mg tablet PO SCH (08:56)
[2022-04-03] MEDS: nicotine 7mg patch - 24hr TD SCH (08:56)
[2022-04-03] MEDS: aspirin 81mg, enteric-coated 1 TAB TABLET.DR PO SCH (08:57)
[2022-04-03] MEDS: pantoprazole 40mg Tablet.DR PO SCH ×2 (08:57→20:01)
[2022-04-03] MEDS: calcium carbonate 500mg chew tablet PO SCH ×2 (08:57→20:02)
[2022-04-03] MEDS: atorvastatin 20mg tablet PO SCH (08:57)
[2022-04-03] MEDS: apixaban 5mg tablet PO SCH ×2 (08:57→20:00)
[2022-04-03] MEDS: cholecalciferol (vitamin D3) 1,000 unit (25mcg) tablet PO SCH (08:57)
[2022-04-03] MEDS: docusate sod 100mg capsule PO SCH ×2 (08:57→20:02)
[2022-04-03] MEDS: divalproex sod 250mg ER (24-hour) tablet PO SCH ×2 (08:57→20:02)
[2022-04-03] MEDS: lisinopril 20mg tablet PO SCH (08:58)
--- NOTE | 2022-04-03 14:52 | NUR ---
Nursing Progress Note Problem: Pt admitted on LPS conservatorship from Telemetry. Pt is awaiting placement. PT has history of schizoaffective. Interventions: Medication administration, maintained a safe and supportive environment, provided clear and simple instructions, provided encouragement regarding performance of ADLs, monitored behaviors and maintained clear boundaries, maintained Q15 minute safety checks. Response: Received Pt in bed sleeping w/o distress. Pt woke and was cooperative with vitals and was assisted to community room for breakfast. She ate breakfast well and watched football in the morning. Pt pleasant during assessments and cooperative. She took AM meds w/o issue. She was assisted with shower in the morning and hygiene care. Pts hair braided and she liked it. Pt denies SI/HI, AV/Hs at this time. Pt remains overall pleasant and cooperative. Pt napped in afternoon. [facility] Plan: Patient requires a safe and supportive environment. Patient is conserved and waiting placement by [facility].
[2022-04-03 19:40] VITALS: BP 122/61
[2022-04-03] MEDS: traZODone 50mg tablet PO PRN (20:00)
[2022-04-03] MEDS: amLODIPine 5mg tablet PO SCH (20:01)
[2022-04-03] MEDS: olanzapine 10mg tablet PO SCH (20:02)
[2022-04-03] MEDS: sertraline 50mg tablet PO SCH (20:02)
--- NOTE | 2022-04-03 23:54 | NUR ---
Nursing Progress Note: Problem: Pt admitted on LPS conservatorship from Telemetry. Pt is awaiting placement. PT has history of schizoaffective. Interventions: Medication administration, 1:1 MH assessment, maintained a safe and supportive environment, provided clear and simple instructions, provided encouragement regarding performance of ADLs, monitored behaviors and maintained clear boundaries, maintained Q15 minute safety checks. Response: Patient awake and eating dinner in the community room at shift change. Patient is pleasant and voices her needs to staff. She was compliant with bedtime medications. Nicotine patch removed. No negative behaviors. Had bedtime snack and watched football. patient appears asleep in bed without difficulty. Uses the call hilario appropriately. Plan: Patient requires a safe and supportive environment. Per SS note, updated notes to [facility] for placement purposes (03/15-03/29).
[2022-04-04] MEDS: lisinopril 20mg tablet PO SCH (08:00)
[2022-04-04] MEDS: aspirin 81mg, enteric-coated 1 TAB TABLET.DR PO SCH (08:40)
[2022-04-04] MEDS: nicotine 7mg patch - 24hr TD SCH (08:40)
[2022-04-04] MEDS: cholecalciferol (vitamin D3) 1,000 unit (25mcg) tablet PO SCH (08:40)
[2022-04-04] MEDS: divalproex sod 250mg ER (24-hour) tablet PO SCH ×2 (08:41→20:18)
[2022-04-04] MEDS: loratadine 10mg tablet PO SCH (08:41)
[2022-04-04] MEDS: docusate sod 100mg capsule PO SCH ×2 (08:41→20:17)
[2022-04-04] MEDS: apixaban 5mg tablet PO SCH ×2 (08:41→20:17)
[2022-04-04] MEDS: atorvastatin 20mg tablet PO SCH (08:41)
[2022-04-04] MEDS: calcium carbonate 500mg chew tablet PO SCH ×2 (08:41→20:19)
[2022-04-04] MEDS: pantoprazole 40mg Tablet.DR PO SCH ×2 (08:41→20:17)
--- NOTE | 2022-04-04 17:05 | NUR ---
Nursing Progress Note Problem: Pt admitted on LPS conservatorship from Telemetry. Pt is awaiting placement. PT has history of schizoaffective. Interventions: Medication administration, maintained a safe and supportive environment, provided clear and simple instructions, provided encouragement regarding performance of ADLs, monitored behaviors and maintained clear boundaries, maintained Q15 minute safety checks. Response: Patient received resting quietly in bed. Awakened for breakfast then patient requests to return to bed. Cooperative with 1:1 assessment and medications. Naps off and on. Requires extensive assist of 1 staff for ADLs and transfers. Denies any mental health symptoms but appears internally occupied at times. Isolates to her room most of the day. Plan: Patient requires a safe and supportive environment. Patient is conserved and waiting placement.
[2022-04-04] MEDS: sertraline 50mg tablet PO SCH (20:17)
[2022-04-04] MEDS: olanzapine 10mg tablet PO SCH (20:18)
[2022-04-04] MEDS: amLODIPine 5mg tablet PO SCH (20:19)
[2022-04-04 20:20] VITALS: BP 124/73
--- NOTE | 2022-04-05 01:41 | NUR ---
Nursing Progress Note: Problem: Pt admitted on LPS conservatorship from Telemetry. Pt is awaiting placement. PT has history of schizoaffective. Interventions: Medication administration, 1:1 MH assessment, maintained a safe and supportive environment, provided clear and simple instructions, provided encouragement regarding performance of ADLs, monitored behaviors and maintained clear boundaries, maintained Q15 minute safety checks. Response: Patient is awake sitting in community room watching T.V. at shift change with peers. Patient is pleasant and often smiling. She is compliant with medications. No report of AH/VH. No PRN given on this shift. She is able to voice her needs. No behaviors on this shift. Uses call light appropriately. Call light is within reach. Patient appears to be sleeping without difficulty. Plan: Patient requires a safe and supportive environment. Per SS note, updated notes to [facility] for placement purposes (03/15-03/29). Addendum: 04/05/22 at 0552 by Lakisha Menjivar RN nicotine patch removed
[2022-04-05 07:48] VITALS: BP 132/53
[2022-04-05] MEDS: apixaban 5mg tablet PO SCH ×2 (08:12→21:08)
[2022-04-05] MEDS: loratadine 10mg tablet PO SCH (08:12)
[2022-04-05] MEDS: divalproex sod 250mg ER (24-hour) tablet PO SCH ×2 (08:12→21:08)
[2022-04-05] MEDS: aspirin 81mg, enteric-coated 1 TAB TABLET.DR PO SCH (08:12)
[2022-04-05] MEDS: atorvastatin 20mg tablet PO SCH (08:12)
[2022-04-05] MEDS: pantoprazole 40mg Tablet.DR PO SCH ×2 (08:12→21:08)
[2022-04-05] MEDS: cholecalciferol (vitamin D3) 1,000 unit (25mcg) tablet PO SCH (08:12)
[2022-04-05] MEDS: calcium carbonate 500mg chew tablet PO SCH ×2 (08:12→21:08)
[2022-04-05] MEDS: docusate sod 100mg capsule PO SCH ×2 (08:12→21:05)
[2022-04-05] MEDS: lisinopril 20mg tablet PO SCH (08:32)
[2022-04-05] MEDS: nicotine 7mg patch - 24hr TD SCH (08:32)
--- NOTE | 2022-04-05 15:51 | NUR ---
Nursing Progress Note Problem: Pt admitted on LPS conservatorship from Telemetry. Pt is awaiting placement. PT has history of schizoaffective. Interventions: Medication administration, maintained a safe and supportive environment, provided clear and simple instructions, provided encouragement regarding performance of ADLs, monitored behaviors and maintained clear boundaries, maintained Q15 minute safety checks. Response: Patient received resting quietly in bed. Requires 1 person assist for ADLs and transfers. Requires frequent reminders to ask for help to transfer. Cooperative with 1:1 assessment and medications. Denies any mental health symptoms. Does not appear internally occupied. Requires staff assist to propel in wheel chair. Joins her peers in the community room for meals and interacts appropriately with staff and peers. Watches TV and socializes for short periods of time. Noted napping in the afternoon. Plan: Patient requires a safe and supportive environment. Patient is conserved and waiting placement.
[2022-04-05 20:00] VITALS: BP 131/77
[2022-04-05] MEDS: sertraline 50mg tablet PO SCH (21:05)
[2022-04-05] MEDS: amLODIPine 5mg tablet PO SCH (21:07)
[2022-04-05] MEDS: traZODone 50mg tablet PO PRN (21:08)
[2022-04-05] MEDS: olanzapine 10mg tablet PO SCH (21:08)
--- NOTE | 2022-04-06 05:03 | NUR ---
Nursing Progress Note Problem: Pt admitted on LPS conservatorship from Telemetry. Pt is awaiting placement. PT has history of schizoaffective. Interventions: Medication administration, maintained a safe and supportive environment, provided clear and simple instructions, provided encouragement regarding performance of ADLs, monitored behaviors and maintained clear boundaries, maintained Q15 minute safety checks. Response: Patient was found sitting in community room waiting for someone to roll her back to her room. Patient was assisted to bathroom and placed in bed. Patient participated in snack in room and took night medications without difficulty. Patient was assisted to bathroom one more time before going to bed. Patient woke p when power went off due to her bed turning off and being locked in a high position. Tech was able to fix bed and lower position, patient returned to sleep. Plan: Patient requires a safe and supportive environment. Patient is conserved and waiting placement.
[2022-04-06] MEDS: nicotine 7mg patch - 24hr TD SCH (08:26)
[2022-04-06] MEDS: pantoprazole 40mg Tablet.DR PO SCH ×2 (08:27→21:50)
[2022-04-06] MEDS: docusate sod 100mg capsule PO SCH ×2 (08:27→21:49)
[2022-04-06] MEDS: apixaban 5mg tablet PO SCH ×2 (08:27→21:48)
[2022-04-06] MEDS: loratadine 10mg tablet PO SCH (08:27)
[2022-04-06] MEDS: lisinopril 20mg tablet PO SCH (08:27)
[2022-04-06] MEDS: aspirin 81mg, enteric-coated 1 TAB TABLET.DR PO SCH (08:27)
[2022-04-06] MEDS: calcium carbonate 500mg chew tablet PO SCH ×2 (08:27→21:50)
[2022-04-06] MEDS: divalproex sod 250mg ER (24-hour) tablet PO SCH ×2 (08:27→21:49)
[2022-04-06] MEDS: atorvastatin 20mg tablet PO SCH (08:27)
[2022-04-06] MEDS: cholecalciferol (vitamin D3) 1,000 unit (25mcg) tablet PO SCH (08:27)
--- NOTE | 2022-04-06 15:21 | NUR ---
Nursing Progress Note Problem: Pt admitted on LPS conservatorship from Telemetry. Pt is awaiting placement. PT has history of schizoaffective. Interventions: Medication administration, maintained a safe and supportive environment, provided clear and simple instructions, provided encouragement regarding performance of ADLs, monitored behaviors and maintained clear boundaries, maintained Q15 minute safety checks. Response: Patient received resting quietly in bed. Requires 1 staff assist for ADLs and transfers. Cooperative with assessment and medications. Denies any mental health symptoms at this time. Does not appear to be responding to internal stimuli. Eats meals in the community room and interacts appropriately with staff and peers. Participates in group. Patient takes a nap after breakfast then again after lunch. Plan: Patient requires a safe and supportive environment. Patient is conserved and waiting placement.
--- NOTE | 2022-04-06 15:35 | NUR ---
F/u 04/06: Pt continues eating well mostly ~75-100% PO intake on regular diet w/ occasional fluctuations but participating in snacks per EMR; meeting needs. LBM 04/04. No new nutrition intervention implemented at this time. Will continue to monitor. Recommendations: 1. Continue regular diet 2. Routine bowel care 3. Weekly scaled wts Addendum: 04/06/22 at [address] Amended: Links added.
[2022-04-06 19:00] VITALS: BP 132/76
[2022-04-06] MEDS: amLODIPine 5mg tablet PO SCH (21:49)
[2022-04-06] MEDS: olanzapine 10mg tablet PO SCH (21:49)
[2022-04-06] MEDS: sertraline 50mg tablet PO SCH (21:50)
[2022-04-06] MEDS: traZODone 50mg tablet PO PRN (21:51)
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
[2022-04-07 08:00] VITALS: BP 139/58
[2022-04-07] MEDS: calcium carbonate 500mg chew tablet PO SCH ×2 (08:00→20:33)
[2022-04-07] MEDS: docusate sod 100mg capsule PO SCH ×2 (08:13→20:33)
[2022-04-07] MEDS: loratadine 10mg tablet PO SCH (08:13)
[2022-04-07] MEDS: cholecalciferol (vitamin D3) 1,000 unit (25mcg) tablet PO SCH (08:13)
[2022-04-07] MEDS: lisinopril 20mg tablet PO SCH (08:13)
[2022-04-07] MEDS: aspirin 81mg, enteric-coated 1 TAB TABLET.DR PO SCH (08:13)
[2022-04-07] MEDS: atorvastatin 20mg tablet PO SCH (08:13)
[2022-04-07] MEDS: divalproex sod 250mg ER (24-hour) tablet PO SCH ×2 (08:13→20:33)
[2022-04-07] MEDS: apixaban 5mg tablet PO SCH ×2 (08:13→20:33)
[2022-04-07] MEDS: pantoprazole 40mg Tablet.DR PO SCH ×2 (08:13→20:33)
[2022-04-07] MEDS: acetaminophen 325mg tablet PO PRN ×2 (08:14→16:01)
[2022-04-07] MEDS: nicotine 7mg patch - 24hr TD SCH (08:14)
--- NOTE | 2022-04-07 13:34 | NUR ---
Sent updated notes (03/29/22-04/06/22) to [facility]. ZACH Das
--- NOTE | 2022-04-07 16:43 | NUR ---
Nursing Progress Note: Tamara Problem: Pt admitted on LPS conservatorship from Telemetry. Pt is awaiting placement. PT has history of schizoaffective. Interventions: Medication administration, 1:1 MH assessment, maintained a safe and supportive environment, provided clear and simple instructions, provided encouragement regarding performance of ADLs, monitored behaviors and maintained clear boundaries, maintained Q15 minute safety checks. Response: Pt. received asleep and awoke in time for breakfast. Pt. took her medications without hesitation, and denies all MH symptoms. She continues to require assistance with ADLs and transfers, but states she is eager to walk on my own This securities underwriter reviewed the importance of using the call light and requesting assistance. Pt. has poor safety awareness and found once this shift attempting to exit her W/C alone. She ate all meals in the main dining room and participated in snacks. She was incontinent and continent of B&B and had 2 med BMs after MOM this shift. Pt. has fair hygiene and requires prompting and encouragement to perform oral hygiene, hair combed, and wears street clothes Plan: Patient requires a safe and supportive environment. No viable plan for discharge at this time; patient is conserved.
[2022-04-07] MEDS: traMADol 50MG tablet PO PRN (18:49)
--- NOTE | 2022-04-07 18:58 | NUR ---
Nursing Progress Note Problem: Pt admitted on LPS conservatorship from Telemetry. Pt is awaiting placement. PT has history of schizoaffective. Interventions: Medication administration, maintained a safe and supportive environment, provided clear and simple instructions, provided encouragement regarding performance of ADLs, monitored behaviors and maintained clear boundaries, maintained Q15 minute safety checks. Response: Patient received Tramadol 25 mg PO for bilateral arm pain. She is being taken to shower. A 1:1 Interview was done in hallway. Patient tells this casualty underwriter her day was ok. She is using her wheel chair. Patient denies S/I, H/I or any hallucinations. Patient reminds this casualty underwriter that she is striving to begin ambulating soon. This patient is cooperative and upbeat.: Plan: Patient requires a safe and supportive environment. Patient is conserved and waiting placement.
[2022-04-07 20:00] VITALS: BP 131/98
[2022-04-07] MEDS: sertraline 50mg tablet PO SCH (20:33)
[2022-04-07] MEDS: olanzapine 10mg tablet PO SCH (20:33)
[2022-04-07] MEDS: traZODone 50mg tablet PO PRN (20:33)
[2022-04-07] MEDS: amLODIPine 5mg tablet PO SCH (20:34)
[2022-04-07] MEDS: diphenhydrAMINE 25mg capsule PO PRN (20:47)
[2022-04-08 08:00] VITALS: BP 122/57
[2022-04-08] MEDS: calcium carbonate 500mg chew tablet PO SCH ×2 (08:00→20:42)
[2022-04-08] MEDS: cholecalciferol (vitamin D3) 1,000 unit (25mcg) tablet PO SCH (08:20)
[2022-04-08] MEDS: aspirin 81mg, enteric-coated 1 TAB TABLET.DR PO SCH (08:20)
[2022-04-08] MEDS: apixaban 5mg tablet PO SCH ×2 (08:20→20:42)
[2022-04-08] MEDS: divalproex sod 250mg ER (24-hour) tablet PO SCH ×2 (08:20→20:42)
[2022-04-08] MEDS: loratadine 10mg tablet PO SCH (08:20)
[2022-04-08] MEDS: pantoprazole 40mg Tablet.DR PO SCH ×2 (08:20→20:42)
[2022-04-08] MEDS: docusate sod 100mg capsule PO SCH ×2 (08:20→20:44)
[2022-04-08] MEDS: atorvastatin 20mg tablet PO SCH (08:21)
[2022-04-08] MEDS: nicotine 7mg patch - 24hr TD SCH (08:22)
[2022-04-08] MEDS: lisinopril 20mg tablet PO SCH (08:22)
--- NOTE | 2022-04-08 16:37 | NUR ---
Nursing Progress Note: Tamara Problem: Pt admitted on LPS conservatorship from Telemetry. Pt is awaiting placement. PT has history of schizoaffective. Interventions: Medication administration, 1:1 MH assessment, maintained a safe and supportive environment, provided clear and simple instructions, provided encouragement regarding performance of ADLs, monitored behaviors and maintained clear boundaries, maintained Q15 minute safety checks. Response: Pt. received asleep and awoke to attend breakfast. Pt. took her medications without hesitation, and continues to deny all MH symptoms, and is not responding to IS. She continues to require assistance with ADLs and transfers, she has been continent of bowel and incontinent of bladder this shift. Pt. has poor safety awareness and is reeducated on the importance using call light and not attempting to self transfer. She ate all meals in the community room and participated in snacks. Pt. has fair hygiene and requires prompting and encouragement to perform oral hygiene, hair combed, and wears street clothes Plan: Patient requires a safe and supportive environment. No viable plan for discharge at this time; patient is conserved.
--- NOTE | 2022-04-08 17:28 | NUR ---
GIANNI this afternoon
[2022-04-08 19:00] VITALS: BP 122/63
[2022-04-08] MEDS: diphenhydrAMINE 25mg capsule PO PRN (20:42)
[2022-04-08] MEDS: olanzapine 10mg tablet PO SCH (20:42)
[2022-04-08] MEDS: amLODIPine 5mg tablet PO SCH (20:43)
[2022-04-08] MEDS: sertraline 50mg tablet PO SCH (20:43)
--- NOTE | 2022-04-09 03:03 | NUR ---
Nursing Progress Note Problem: Pt admitted on LPS conservatorship from Telemetry. Pt is awaiting placement. PT has history of schizoaffective. Interventions: Medication administration, maintained a safe and supportive environment, provided clear and simple instructions, provided encouragement regarding performance of ADLs, monitored behaviors and maintained clear boundaries, maintained Q15 minute safety checks. Response: This patient was socializing with others following shift change. Patient returned to her room where a 1:1 Interview was completed. Patient denies S/I, H/I or any hallucinations. Patient exhibits upbeat behavior. She expresses a want to begin ambulation therapy. Patient requested Benadryl and night time Trazadone too. She was medication compliant. Patient had been ushered back and forth on the unit with the use of a wheelchair. Plan: Patient requires a safe and supportive environment. Patient is conserved and waiting placement.
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
--- NOTE | 2022-04-09 04:15 | NUR ---
Ignore preceding note. Wrong patient.
[2022-04-09 08:00] VITALS: BP 139/70
[2022-04-09] MEDS: aspirin 81mg, enteric-coated 1 TAB TABLET.DR PO SCH (08:18)
[2022-04-09] MEDS: divalproex sod 250mg ER (24-hour) tablet PO SCH ×2 (08:18→20:32)
[2022-04-09] MEDS: loratadine 10mg tablet PO SCH (08:18)
[2022-04-09] MEDS: docusate sod 100mg capsule PO SCH ×2 (08:18→20:32)
[2022-04-09] MEDS: apixaban 5mg tablet PO SCH ×2 (08:18→20:32)
[2022-04-09] MEDS: cholecalciferol (vitamin D3) 1,000 unit (25mcg) tablet PO SCH (08:19)
[2022-04-09] MEDS: atorvastatin 20mg tablet PO SCH (08:19)
[2022-04-09] MEDS: pantoprazole 40mg Tablet.DR PO SCH ×2 (08:19→20:32)
[2022-04-09] MEDS: calcium carbonate 500mg chew tablet PO SCH ×2 (08:19→20:32)
[2022-04-09] MEDS: lisinopril 20mg tablet PO SCH (08:20)
[2022-04-09] MEDS: nicotine 7mg patch - 24hr TD SCH (08:20)
[2022-04-09] MEDS: traMADol 50MG tablet PO PRN (14:48)
--- NOTE | 2022-04-09 15:58 | NUR ---
Nursing Progress Note: Tamara Problem: Pt admitted on LPS conservatorship from Telemetry. Pt is awaiting placement. PT has history of schizoaffective. Interventions: Medication administration, 1:1 MH assessment, maintained a safe and supportive environment, provided clear and simple instructions, provided encouragement regarding performance of ADLs, monitored behaviors and maintained clear boundaries, maintained Q15 minute safety checks. Response: Pt. received asleep and awoke to attend breakfast. Compliant with medication administration. Pt expressed to this PERIOPERATIVE MANAGER during 1:1 SI/HI, -AV/H, denies all mental health diagnoses. Pt appears well groomed and with fair hygiene; fellow peer braided pts hair. She continues to require assistance with ADLs and transfers, she has been continent of bowel and both continent/incontinent of bladder this shift. Pt. has poor safety awareness and is reeducated on the importance using call light and not attempting to self-transfer. She ate all meals in the community room and participated in snacks. Attended groups and watched football in community room. Plan: Patient requires a safe and supportive environment. No viable plan for discharge at this time; patient is conserved.
[2022-04-09 20:13] VITALS: BP 155/83
[2022-04-09] MEDS: traZODone 50mg tablet PO PRN (20:32)
[2022-04-09] MEDS: olanzapine 10mg tablet PO SCH (20:32)
[2022-04-09] MEDS: amLODIPine 5mg tablet PO SCH (20:32)
[2022-04-09] MEDS: sertraline 50mg tablet PO SCH (20:32)
--- NOTE | 2022-04-10 01:26 | NUR ---
Nursing Progress Note: Tamara Problem: Pt admitted on LPS conservatorship from Telemetry. Pt is awaiting placement. PT has history of schizoaffective. Interventions: Medication administration, 1:1 MH assessment, maintained a safe and supportive environment, provided clear and simple instructions, provided encouragement regarding performance of ADLs, monitored behaviors and maintained clear boundaries, maintained Q15 minute safety checks. Response: Pt. received sitting up in bed smiling stating that she is getting old and needs a lot more sleep. She states she had a good day and was happy to have her hair braided. Pt denies MH symptoms. PCT brought pt coffee to her room, took all HS medications without issue. Pt did c/o of mild toothache, declined Tylenol and wants to see the dentist again. Plan: Patient requires a safe and supportive environment. No viable plan for discharge at this time; patient is conserved.
[2022-04-10] MEDS: docusate sod 100mg capsule PO SCH ×2 (07:37→20:13)
[2022-04-10] MEDS: cholecalciferol (vitamin D3) 1,000 unit (25mcg) tablet PO SCH (07:37)
[2022-04-10] MEDS: apixaban 5mg tablet PO SCH ×2 (07:37→20:14)
[2022-04-10] MEDS: divalproex sod 250mg ER (24-hour) tablet PO SCH ×2 (07:37→20:14)
[2022-04-10] MEDS: atorvastatin 20mg tablet PO SCH (07:37)
[2022-04-10] MEDS: pantoprazole 40mg Tablet.DR PO SCH ×2 (07:37→20:14)
[2022-04-10] MEDS: aspirin 81mg, enteric-coated 1 TAB TABLET.DR PO SCH (07:37)
[2022-04-10] MEDS: calcium carbonate 500mg chew tablet PO SCH ×2 (07:37→20:14)
[2022-04-10] MEDS: loratadine 10mg tablet PO SCH (07:38)
[2022-04-10] MEDS: lisinopril 20mg tablet PO SCH (07:38)
[2022-04-10 08:00] VITALS: BP 148/61
[2022-04-10] MEDS: nicotine 7mg patch - 24hr TD SCH (08:19)
--- NOTE | 2022-04-10 15:52 | NUR ---
Nursing Progress Note: Problem: Pt admitted on LPS conservatorship from Telemetry. Pt is awaiting placement. PT has history of schizoaffective. Interventions: Medication administration, 1:1 MH assessment, maintained a safe and supportive environment, provided clear and simple instructions, provided encouragement regarding performance of ADLs, monitored behaviors and maintained clear boundaries, maintained Q15 minute safety checks. Response: Patient received resting quietly in bed. Cooperative with 1:1 assessment and medications. Denies any mental health symptoms. Does not appear internally occupied. She is pleasant and cooperative. Joins her peers in the community room for meals and interacts appropriately. Spends time in the morning watching TV and socializing. Takes a long nap after lunch. Plan: Patient is conserved and awaiting placement.
[2022-04-10 20:00] VITALS: BP 109/68
[2022-04-10] MEDS: amLODIPine 5mg tablet PO SCH (20:14)
[2022-04-10] MEDS: traZODone 50mg tablet PO PRN (20:14)
[2022-04-10] MEDS: olanzapine 10mg tablet PO SCH (20:14)
[2022-04-10] MEDS: sertraline 50mg tablet PO SCH (20:15)
--- NOTE | 2022-04-11 02:12 | NUR ---
Nursing Progress Note: Tamara Problem: Pt admitted on LPS conservatorship from Telemetry. Pt is awaiting placement. PT has history of schizoaffective. Interventions: Medication administration, 1:1 MH assessment, maintained a safe and supportive environment, provided clear and simple instructions, provided encouragement regarding performance of ADLs, monitored behaviors and maintained clear boundaries, maintained Q15 minute safety checks. Response: Patient received resting quietly in bed. Cooperative with 1:1 assessment and medications. Denies any mental health symptoms. Does not appear internally occupied. She is pleasant and cooperative, smiling and stating she had a good day. Pt sat up for snack time and drank her coffee while visiting with her new roommate. Plan: Patient is conserved and awaiting placement.
[2022-04-11 08:00] VITALS: BP 137/73
[2022-04-11] MEDS: divalproex sod 250mg ER (24-hour) tablet PO SCH ×2 (08:56→20:04)
[2022-04-11] MEDS: docusate sod 100mg capsule PO SCH ×2 (08:56→20:04)
[2022-04-11] MEDS: loratadine 10mg tablet PO SCH (08:56)
[2022-04-11] MEDS: aspirin 81mg, enteric-coated 1 TAB TABLET.DR PO SCH (08:56)
[2022-04-11] MEDS: calcium carbonate 500mg chew tablet PO SCH ×2 (08:57→20:04)
[2022-04-11] MEDS: cholecalciferol (vitamin D3) 1,000 unit (25mcg) tablet PO SCH (08:57)
[2022-04-11] MEDS: atorvastatin 20mg tablet PO SCH (08:57)
[2022-04-11] MEDS: apixaban 5mg tablet PO SCH ×2 (08:57→20:05)
[2022-04-11] MEDS: pantoprazole 40mg Tablet.DR PO SCH ×2 (08:57→20:03)
[2022-04-11] MEDS: nicotine 7mg patch - 24hr TD SCH (08:58)
[2022-04-11] MEDS: lisinopril 20mg tablet PO SCH (09:21)
--- NOTE | 2022-04-11 18:17 | NUR ---
Nursing Progress Note Problem: Pt admitted on LPS conservatorship from Telemetry. Pt is awaiting placement. PT has history of schizoaffective. Interventions: Medication administration, maintained a safe and supportive environment, provided clear and simple instructions, provided encouragement regarding performance of ADLs, monitored behaviors and maintained clear boundaries, maintained Q15 minute safety checks. Response: Received Pt in bed sleeping w/o distress. Pt woke and was cooperative with vitals and was assisted to community room for breakfast. She ate breakfast and lunch well in community room with others. Pt pleasant during assessments and cooperative. She took AM meds w/o issue. She was assisted with toileting and hygiene care this morning and afternoon. Pt denies SI/HI, AV/Hs at this time. Pt remains overall pleasant and cooperative. Pt napped in AM. Pt still [facility]. Plan: Patient requires a safe and supportive environment. Patient is conserved and waiting placement by [facility].
[2022-04-11] MEDS: diphenhydrAMINE 25mg capsule PO PRN (19:15)
[2022-04-11] MEDS: albuterol 2.5 MG/3 ML nebule NEB PRN (19:38)
[2022-04-11 20:00] VITALS: BP 146/85
[2022-04-11] MEDS: olanzapine 10mg tablet PO SCH (20:03)
[2022-04-11] MEDS: sertraline 50mg tablet PO SCH (20:03)
[2022-04-11] MEDS: amLODIPine 5mg tablet PO SCH (20:05)
--- NOTE | 2022-04-12 02:06 | NUR ---
Nursing Progress Note: Tamara Problem: Pt admitted on LPS conservatorship from Telemetry. Pt is awaiting placement. PT has history of schizoaffective. Interventions: Medication administration, 1:1 MH assessment, maintained a safe and supportive environment, provided clear and simple instructions, provided encouragement regarding performance of ADLs, monitored behaviors and maintained clear boundaries, maintained Q15 minute safety checks. Response: Patient received sitting in the community room. Shortly after pt. is in the hallway asking staff to get her back to bed. She is pleasant and cooperative and often seen smiling when socializing with staff. Denies AH/VH. Patient Requested PRN Benadryl by another nurse and it was provided. She is compliant with bedtime medications. RT was paged for c/o SOB. Breathing treatment was effective. Nicotine patch is removed. No behaviors on this shift. Pt. appears to be sleeping at this time. Plan: Patient is conserved and awaiting placement.
[2022-04-12] MEDS: lisinopril 20mg tablet PO SCH (07:52)
[2022-04-12] MEDS: docusate sod 100mg capsule PO SCH ×2 (07:52→20:48)
[2022-04-12] MEDS: loratadine 10mg tablet PO SCH (07:53)
[2022-04-12] MEDS: divalproex sod 250mg ER (24-hour) tablet PO SCH ×2 (07:53→20:48)
[2022-04-12] MEDS: calcium carbonate 500mg chew tablet PO SCH ×2 (07:53→20:46)
[2022-04-12] MEDS: pantoprazole 40mg Tablet.DR PO SCH ×2 (07:53→20:48)
[2022-04-12] MEDS: aspirin 81mg, enteric-coated 1 TAB TABLET.DR PO SCH (07:53)
[2022-04-12] MEDS: apixaban 5mg tablet PO SCH ×2 (07:53→20:46)
[2022-04-12] MEDS: acetaminophen 325mg tablet PO PRN (07:53)
[2022-04-12] MEDS: cholecalciferol (vitamin D3) 1,000 unit (25mcg) tablet PO SCH (07:53)
[2022-04-12] MEDS: atorvastatin 20mg tablet PO SCH (07:53)
[2022-04-12] MEDS: nicotine 7mg patch - 24hr TD SCH (07:58)
[2022-04-12 08:00] VITALS: BP 154/67
[2022-04-12] MEDS: diphenhydrAMINE 25mg capsule PO PRN ×2 (14:04→21:11)
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
[2022-04-12 20:00] VITALS: BP 143/78
[2022-04-12] MEDS: amLODIPine 5mg tablet PO SCH (20:47)
[2022-04-12] MEDS: olanzapine 10mg tablet PO SCH (20:48)
[2022-04-12] MEDS: sertraline 50mg tablet PO SCH (20:48)
[2022-04-12] MEDS: albuterol 2.5 MG/3 ML nebule NEB PRN (21:00)
--- NOTE | 2022-04-13 01:12 | NUR ---
Nursing Progress Note Problem: Pt admitted on LPS conservatorship from Telemetry. Pt is awaiting placement. PT has history of schizoaffective. Interventions: 1:1 assessment, therapeutic conversation, active listening, medication administration/education/monitoring, assistance with transfers and toileting, encouraged pt participation as able with ADLs, fall prevention, encouragement to attend group, provided distraction, direction, positive reinforcement, and maintained Q15 minute safety checks. Response: recieved pt. laying in bed. Pt is pleasant and cooperative. Pt. is observed interacting with staff during vitals and 15min rounds.When asked about her day pt states "it's been better but not the worst it's been. Denies any MH symptoms. Compliant with medications and taken without difficulty. Nicotine patch removed. PRN Benadryl provided for itching and effective. RT was paged for c/o SOB. Pt. had snack in room. Went to bed shortly after. Uses call light appropriately. Appears to be sleeping at this time. Plan: Patient requires a safe and supportive environment. Patient is conserved and waiting placement.
[2022-04-13 07:12] VITALS: BP 125/86
[2022-04-13] MEDS: nicotine 7mg patch - 24hr TD SCH (07:49)
[2022-04-13] MEDS: calcium carbonate 500mg chew tablet PO SCH ×2 (07:50→20:29)
[2022-04-13] MEDS: docusate sod 100mg capsule PO SCH ×2 (07:50→20:28)
[2022-04-13] MEDS: divalproex sod 250mg ER (24-hour) tablet PO SCH ×2 (07:50→20:28)
[2022-04-13] MEDS: atorvastatin 20mg tablet PO SCH (07:50)
[2022-04-13] MEDS: lisinopril 20mg tablet PO SCH (07:50)
[2022-04-13] MEDS: loratadine 10mg tablet PO SCH (07:50)
[2022-04-13] MEDS: pantoprazole 40mg Tablet.DR PO SCH ×2 (07:50→20:29)
[2022-04-13] MEDS: apixaban 5mg tablet PO SCH ×2 (07:50→20:29)
[2022-04-13] MEDS: traMADol 50MG tablet PO PRN (07:51)
[2022-04-13] MEDS: cholecalciferol (vitamin D3) 1,000 unit (25mcg) tablet PO SCH (07:51)
[2022-04-13] MEDS: aspirin 81mg, enteric-coated 1 TAB TABLET.DR PO SCH (07:51)
--- NOTE | 2022-04-13 15:20 | NUR ---
Nursing Progress Note Problem: Pt admitted on LPS conservatorship from Telemetry. Pt is awaiting placement. PT has history of schizoaffective. Interventions: 1:1 assessment, therapeutic conversation, active listening, medication administration/education/monitoring, assistance with transfers and toileting, encouraged pt participation as able with ADLs, fall prevention, encouragement to attend group, provided distraction, direction, positive reinforcement, and maintained Q15 minute safety checks. Response: Patient is pleasant and cooperative with care; compliant with medication. PRN Tramadol provided. No negative behaviors presented and notifying staff for assistance as needed. Patient perseverated a little on contacting her son and and was briefly tearful; observed talking on the phone with her sister and appeared to be having a pleasant conversation. Patient up for meals, snacks and parts of groups. Plan: Patient requires a safe and supportive environment. Patient is conserved and waiting placement.
[2022-04-13] MEDS: olanzapine 10mg tablet PO SCH (20:29)
[2022-04-13] MEDS: diphenhydrAMINE 25mg capsule PO PRN (20:29)
[2022-04-13] MEDS: sertraline 50mg tablet PO SCH (20:30)
[2022-04-13] MEDS: amLODIPine 5mg tablet PO SCH (20:31)
[2022-04-13] MEDS: albuterol 2.5 MG/3 ML nebule NEB PRN (20:34)
[2022-04-13 20:40] VITALS: BP 120/66
--- NOTE | 2022-04-14 00:09 | NUR ---
Nursing Progress Note Problem: Pt admitted on LPS conservatorship from Telemetry. Pt is awaiting placement. PT has history of schizoaffective. Interventions: 1:1 assessment, therapeutic conversation, active listening, medication administration/education/monitoring, assistance with transfers and toileting, encouraged pt participation as able with ADLs, fall prevention, encouragement to attend group, provided distraction, direction, positive reinforcement, and maintained Q15 minute safety checks. Response: Received pt. in the hallway sitting in wheelchair. Staff assisted her back into bed per her request. She is pleasant and cooperative. Requested PRN Benadryl and breathing treatment, both were effective. Compliant with medications. She appears to be in good spirits and states "she had a good day". This ENVIRONMENTAL SERVICES TECH assisted her to make a phone call. No negative behaviors. Nicotine patch removed. Snack was provided to her in room. She is able to make needs known to staff. Uses call light appropriately. Appears to be sleeping at this time. Plan: Patient requires a safe and supportive environment. Patient is conserved and waiting placement.
[2022-04-14 07:15] VITALS: BP 125/76
[2022-04-14] MEDS: nicotine 7mg patch - 24hr TD SCH (07:28)
[2022-04-14] MEDS: apixaban 5mg tablet PO SCH ×2 (07:29→20:27)
[2022-04-14] MEDS: docusate sod 100mg capsule PO SCH ×2 (07:29→20:27)
[2022-04-14] MEDS: loratadine 10mg tablet PO SCH (07:29)
[2022-04-14] MEDS: divalproex sod 250mg ER (24-hour) tablet PO SCH ×2 (07:29→20:27)
[2022-04-14] MEDS: aspirin 81mg, enteric-coated 1 TAB TABLET.DR PO SCH (07:29)
[2022-04-14] MEDS: cholecalciferol (vitamin D3) 1,000 unit (25mcg) tablet PO SCH (07:30)
[2022-04-14] MEDS: pantoprazole 40mg Tablet.DR PO SCH ×2 (07:30→20:28)
[2022-04-14] MEDS: lisinopril 20mg tablet PO SCH (07:30)
[2022-04-14] MEDS: atorvastatin 20mg tablet PO SCH (07:30)
[2022-04-14] MEDS: calcium carbonate 500mg chew tablet PO SCH ×2 (08:00→20:28)
--- NOTE | 2022-04-14 11:05 | NUR ---
Sent updated notes to [facility] for placement purposes (04/07-04/13/22). ZACH Das
--- NOTE | 2022-04-14 12:37 | NUR ---
ursing Progress Note: Problem : Pt admitted on LPS conservatorship from Telemetry. Pt is awaiting placement. PT has history of schizoaffective. Interventions : Maintained a safe and supportive environment, ensured contract for safety, provided clear and simple instructions, provided needed assistance with ADLs and maintained fall precautions, and maintained Q 15min safety checks. Response : Received pt. sleeping in bed at the beginning of the shift, she continues to require assistance with transfers and toileting r/t generalized weakness. Pt. is able to use the [id number] with assistance from staff to pull herself to a standing position. 1:1 was completed at bedside, pt. continues to present as cooperative and is looking forward to discharge. No delusional statements were made and pt. does not appear to be responding to internal stimuli. Pt. continues to rest in bed between meals, which she attends in her w/c. Plan : Per JOVITA Carpio, pt. is at baseline and is awaiting placement at this time.
[2022-04-14 19:55] VITALS: BP 131/73
[2022-04-14] MEDS: sertraline 50mg tablet PO SCH (20:27)
[2022-04-14] MEDS: diphenhydrAMINE 25mg capsule PO PRN (20:27)
[2022-04-14] MEDS: traZODone 50mg tablet PO PRN (20:27)
[2022-04-14] MEDS: olanzapine 10mg tablet PO SCH (20:27)
[2022-04-14] MEDS: amLODIPine 5mg tablet PO SCH (20:28)
[2022-04-14] MEDS: traMADol 50MG tablet PO PRN (20:35)
--- NOTE | 2022-04-15 05:06 | NUR ---
Nursing Progress Note Problem: Pt admitted on LPS conservatorship from Telemetry. Pt is awaiting placement. PT has history of schizoaffective. Interventions: 1:1 assessment, therapeutic conversation, active listening, medication administration/education/monitoring, assistance with transfers and toileting, encouraged pt participation as able with ADLs, fall prevention, encouragement to attend group, provided distraction, direction, positive reinforcement, and maintained Q15 minute safety checks. Response: Patient is pleasant and cooperative with care; compliant with medication. PRNs Tramadol, Trazodone and Benadryl provided. Nicotine patch removed. No negative behaviors presented and waiting for staff to assist with transfers. She is social with staff and provided HS snack prior to bed; observed sleeping and does not appear to be having difficulty. Plan: Patient requires a safe and supportive environment. Patient is conserved and waiting placement.
[2022-04-15 08:00] VITALS: BP 136/73
[2022-04-15] MEDS: divalproex sod 250mg ER (24-hour) tablet PO SCH ×2 (08:03→20:33)
[2022-04-15] MEDS: docusate sod 100mg capsule PO SCH ×2 (08:03→20:33)
[2022-04-15] MEDS: loratadine 10mg tablet PO SCH (08:03)
[2022-04-15] MEDS: aspirin 81mg, enteric-coated 1 TAB TABLET.DR PO SCH (08:03)
[2022-04-15] MEDS: nicotine 7mg patch - 24hr TD SCH (08:03)
[2022-04-15] MEDS: pantoprazole 40mg Tablet.DR PO SCH ×2 (08:04→20:33)
[2022-04-15] MEDS: apixaban 5mg tablet PO SCH ×2 (08:04→20:33)
[2022-04-15] MEDS: lisinopril 20mg tablet PO SCH (08:04)
[2022-04-15] MEDS: calcium carbonate 500mg chew tablet PO SCH ×2 (08:04→20:33)
[2022-04-15] MEDS: atorvastatin 20mg tablet PO SCH (08:04)
[2022-04-15] MEDS: cholecalciferol (vitamin D3) 1,000 unit (25mcg) tablet PO SCH (08:04)
--- NOTE | 2022-04-15 14:55 | NUR ---
Nursing Progress Note: Problem : Pt admitted on LPS conservatorship from Telemetry. Pt is awaiting placement. PT has history of schizoaffective. Interventions : Maintained a safe and supportive environment, ensured contract for safety, provided clear and simple instructions, provided needed assistance with ADLs and maintained fall precautions, and maintained Q 15min safety checks. Response : Received pt. sleeping in bed at the beginning of the shift, she awoke and was cooperative and pleasant with care. Pt. napped intermittently during the shift as is her routine, and sat up in the afternoon watching football and interacting appropriately with others. Pt. continues to require assistance with transfers and toileting r/t generalized weakness. Pt. is able to use the [id number] with assistance from staff to pull herself to a standing position. No delusional statements were made, and pt. does not appear to be internally preoccupied. She continues to look forward to discharge. Plan : Pt. continues to require a safe and supportive environment.
[2022-04-15 19:54] VITALS: BP 142/55
[2022-04-15] MEDS: traZODone 50mg tablet PO PRN (20:33)
[2022-04-15] MEDS: olanzapine 10mg tablet PO SCH (20:33)
[2022-04-15] MEDS: sertraline 50mg tablet PO SCH (20:33)
[2022-04-15] MEDS: amLODIPine 5mg tablet PO SCH (20:33)
[2022-04-15] MEDS: diphenhydrAMINE 25mg capsule PO PRN (20:38)
[2022-04-15] MEDS: traMADol 50MG tablet PO PRN (20:39)
[2022-04-15] MEDS: albuterol 2.5 MG/3 ML nebule NEB PRN (20:47)
--- NOTE | 2022-04-16 05:43 | NUR ---
Nursing Progress Note Problem: Pt admitted on LPS conservatorship from Telemetry. Pt is awaiting placement. PT has history of schizoaffective. Interventions: 1:1 assessment, therapeutic conversation, active listening, medication administration/education/monitoring, assistance with transfers and toileting, encouraged pt participation as able with ADLs, fall prevention, encouragement to attend group, provided distraction, direction, positive reinforcement, and maintained Q15 minute safety checks. Response: Patient is pleasant and cooperative with care; compliant with medication. PRNs Tramadol, Trazodone and Benadryl provided. Nicotine patch removed. No negative behaviors and cooperative with staff for transfers. Patient briefly watched football in the community room, provided HS snack prior to bed; observed sleeping and does not appear to be having difficulty. Incontinent of urine while sleeping. Plan: Patient requires a safe and supportive environment. Patient is conserved and waiting placement.
[2022-04-16 07:00] VITALS: BP 142/65
[2022-04-16] MEDS: nicotine 7mg patch - 24hr TD SCH (08:10)
[2022-04-16] MEDS: traMADol 50MG tablet PO PRN (08:10)
[2022-04-16] MEDS: cholecalciferol (vitamin D3) 1,000 unit (25mcg) tablet PO SCH (08:10)
[2022-04-16] MEDS: lisinopril 20mg tablet PO SCH (08:11)
[2022-04-16] MEDS: atorvastatin 20mg tablet PO SCH (08:11)
[2022-04-16] MEDS: pantoprazole 40mg Tablet.DR PO SCH ×2 (08:11→20:14)
[2022-04-16] MEDS: loratadine 10mg tablet PO SCH (08:11)
[2022-04-16] MEDS: docusate sod 100mg capsule PO SCH ×2 (08:11→20:13)
[2022-04-16] MEDS: calcium carbonate 500mg chew tablet PO SCH ×2 (08:11→20:14)
[2022-04-16] MEDS: aspirin 81mg, enteric-coated 1 TAB TABLET.DR PO SCH (08:11)
[2022-04-16] MEDS: apixaban 5mg tablet PO SCH ×2 (08:11→20:14)
[2022-04-16] MEDS: divalproex sod 250mg ER (24-hour) tablet PO SCH ×2 (08:11→20:14)
--- NOTE | 2022-04-16 09:12 | NUR ---
F/u 04/16: Pt continues eating well mostly ~100% avg regular diet w/ occasional fluctuations but participating in snacks per EMR; meeting needs. LBM 04/14. No nutrition interventions at this time. Will continue to monitor. Recommendations: 1. Continue regular diet 2. Routine bowel care 3. Weekly scaled wts Addendum: 04/16/22 at [address] Amended: Links added.
--- NOTE | 2022-04-16 15:21 | NUR ---
Nursing Progress Note Problem: Pt admitted on LPS conservatorship from Telemetry. Pt is awaiting placement. PT has history of schizoaffective. Interventions: 1:1 assessment, therapeutic conversation, active listening, medication administration/education/monitoring, assistance with transfers and toileting, encouraged pt participation as able with ADLs, fall prevention, encouragement to attend group, provided distraction, direction, positive reinforcement, and maintained Q15 minute safety checks. Response: Patient is pleasant and cooperative with care; compliant with medication. PRN Tramadol provided. No negative behaviors presented and waits for staff assistance prior to transfers. Patient participated in meals, snacks and group. Also, watched football games with peers in the community room. Plan: Patient requires a safe and supportive environment. Patient is conserved and waiting placement.
--- NOTE | 2022-04-16 15:53 | NUR ---
Oyster Tonger attempted several times to have patient sign medical release for [facility] but she is refusing at this time; will continue to educate patient as she appears to be a little confused about procedure.
[2022-04-16 20:00] VITALS: BP 125/71
[2022-04-16] MEDS: amLODIPine 5mg tablet PO SCH (20:14)
[2022-04-16] MEDS: olanzapine 10mg tablet PO SCH (20:15)
[2022-04-16] MEDS: sertraline 50mg tablet PO SCH (20:15)
--- NOTE | 2022-04-17 02:09 | NUR ---
Nursing Progress Note Problem: Pt admitted on LPS conservatorship from Telemetry. Pt is awaiting placement. PT has history of schizoaffective. Interventions: 1:1 assessment, therapeutic conversation, active listening, medication administration/education/monitoring, assistance with transfers and toileting, encouraged pt participation as able with ADLs, fall prevention, encouragement to attend group, provided distraction, direction, positive reinforcement, and maintained Q15 minute safety checks. Response: Patient lying in bed at the start of the shift, I introduced myself as her nurse and she denied any immediate needs. I did give patient the handout on normal pressure hydrocephalus which she said she would review. She continues to decline to sign to consent for [facility]. Pts affect is bright, mood is good. Hygiene and grooming good. Took evening meds and has been sleeping well throughout the shift. Continues to require assistance with toileting, hits call light when she needs help. Plan: Patient requires a safe and supportive environment. Patient is conserved and waiting placement.
[2022-04-17 08:00] VITALS: BP 129/65
[2022-04-17] MEDS: calcium carbonate 500mg chew tablet PO SCH ×2 (08:00→20:18)
[2022-04-17] MEDS: lisinopril 20mg tablet PO SCH (08:00)
[2022-04-17] MEDS: aspirin 81mg, enteric-coated 1 TAB TABLET.DR PO SCH (09:24)
[2022-04-17] MEDS: apixaban 5mg tablet PO SCH ×2 (09:24→20:19)
[2022-04-17] MEDS: docusate sod 100mg capsule PO SCH ×2 (09:24→20:18)
[2022-04-17] MEDS: loratadine 10mg tablet PO SCH (09:24)
[2022-04-17] MEDS: divalproex sod 250mg ER (24-hour) tablet PO SCH ×2 (09:25→20:19)
[2022-04-17] MEDS: cholecalciferol (vitamin D3) 1,000 unit (25mcg) tablet PO SCH (09:25)
[2022-04-17] MEDS: pantoprazole 40mg Tablet.DR PO SCH ×2 (09:25→20:18)
[2022-04-17] MEDS: atorvastatin 20mg tablet PO SCH (09:25)
[2022-04-17] MEDS: nicotine 7mg patch - 24hr TD SCH (09:26)
[2022-04-17] MEDS: traMADol 50MG tablet PO PRN ×2 (14:09→20:19)
--- NOTE | 2022-04-17 16:21 | NUR ---
Nursing Progress Note: Tamara Problem: Pt admitted on LPS conservatorship from Telemetry. Pt is awaiting placement. PT has history of schizoaffective. Interventions: Medication administration, 1:1 MH assessment, maintained a safe and supportive environment, provided clear and simple instructions, provided encouragement regarding performance of ADLs, monitored behaviors and maintained clear boundaries, maintained Q15 minute safety checks. Response: Pt. received asleep and awoke to eat breakfast. Pt. took her medications without hesitation, and denies all MH symptoms, no signs of responding to IS. She requires assistance with ADLs and transfers, she has been continent [employer] but with some accidents while in route to the toilet. Pt. has utilized the call light for all her needs, and uses a WC for transportation on the unit. She presents as fatigued taking one hour nap today, and c/o neck pain; PRN Tramadol given with good results. She ate all meals in the community room and participated in snacks. Pt. has fair hygiene, hair is combed wears street clothes. Plan: Patient requires a safe and supportive environment. No viable plan for discharge at this time; patient is conserved.
[2022-04-17 19:30] VITALS: BP 151/78
[2022-04-17] MEDS: olanzapine 10mg tablet PO SCH (20:18)
[2022-04-17] MEDS: traZODone 50mg tablet PO PRN (20:18)
[2022-04-17] MEDS: amLODIPine 5mg tablet PO SCH (20:19)
[2022-04-17] MEDS: sertraline 50mg tablet PO SCH (20:19)
[2022-04-17] MEDS: albuterol 2.5 MG/3 ML nebule NEB PRN (20:55)
--- NOTE | 2022-04-18 06:02 | NUR ---
Nursing Progress Note Problem: Pt admitted on LPS conservatorship from Telemetry. Pt is awaiting placement. PT has history of schizoaffective. Interventions: 1:1 assessment, therapeutic conversation, active listening, medication administration/education/monitoring, assistance with transfers and toileting, encouraged pt participation as able with ADLs, fall prevention, encouragement to attend group, provided distraction, direction, positive reinforcement, and maintained Q15 minute safety checks. Response: Patient is pleasant and cooperative with care; compliant with medication. PRNs Tramadol and Trazodone provided. Nicotine patch removed. No negative behaviors presented and cooperative with waiting for staff assistance prior to transfers. Patient social with staff and peers; provided HS snack prior to bed. Observed sleeping and does not appear to be having difficulty. Plan: Patient requires a safe and supportive environment. Patient is conserved and waiting placement.
[2022-04-18] MEDS: divalproex sod 250mg ER (24-hour) tablet PO SCH ×2 (07:54→20:38)
[2022-04-18] MEDS: docusate sod 100mg capsule PO SCH ×2 (07:54→20:38)
[2022-04-18] MEDS: apixaban 5mg tablet PO SCH ×2 (07:54→20:38)
[2022-04-18] MEDS: loratadine 10mg tablet PO SCH (07:54)
[2022-04-18] MEDS: aspirin 81mg, enteric-coated 1 TAB TABLET.DR PO SCH (07:55)
[2022-04-18] MEDS: atorvastatin 20mg tablet PO SCH (07:55)
[2022-04-18] MEDS: lisinopril 20mg tablet PO SCH (07:55)
[2022-04-18] MEDS: cholecalciferol (vitamin D3) 1,000 unit (25mcg) tablet PO SCH (07:55)
[2022-04-18] MEDS: pantoprazole 40mg Tablet.DR PO SCH ×2 (07:55→20:38)
[2022-04-18] MEDS: nicotine 7mg patch - 24hr TD SCH (07:56)
[2022-04-18] MEDS: calcium carbonate 500mg chew tablet PO SCH ×2 (08:00→20:38)
[2022-04-18 08:02] VITALS: BP 124/65
--- NOTE | 2022-04-18 16:56 | NUR ---
Nursing Progress Note: Tamara Problem: Pt admitted on LPS conservatorship from Telemetry. Pt is awaiting placement. PT has history of schizoaffective. Interventions: Medication administration, 1:1 MH assessment, maintained a safe and supportive environment, provided clear and simple instructions, provided encouragement regarding performance of ADLs, monitored behaviors and maintained clear boundaries, maintained Q15 minute safety checks. Response: Pt. received asleep and awoke to take her medication, she takes her medications without hesitation. Pt. denies SI, HI, AH, VH and does not appear to be internally preoccupied. She continues to require assistance with ADLs and transfers, she has been continent B&B this shift. Pt. continues to utilize the call light for assistance and uses a WC for transportation on the unit. She took nap after each meal and continues to interact with cohorts appropriately. She ate all meals in the community room and participated in snacks. Pt. has fair hygiene, hair is combed wears street clothes. Plan: Patient requires a safe and supportive environment. No viable plan for discharge at this time; patient is conserved.
[2022-04-18] MEDS: albuterol 2.5 MG/3 ML nebule NEB PRN (19:05)
[2022-04-18 19:34] VITALS: BP 110/71
[2022-04-18] MEDS: olanzapine 10mg tablet PO SCH (20:38)
[2022-04-18] MEDS: sertraline 50mg tablet PO SCH (20:38)
[2022-04-18] MEDS: traZODone 50mg tablet PO PRN (20:38)
[2022-04-18] MEDS: amLODIPine 5mg tablet PO SCH (20:39)
[2022-04-18] MEDS: traMADol 50MG tablet PO PRN (20:39)
--- NOTE | 2022-04-19 05:20 | NUR ---
Nursing Progress Note Problem: Pt admitted on LPS conservatorship from Telemetry. Pt is awaiting placement. PT has history of schizoaffective. Interventions: 1:1 assessment, therapeutic conversation, active listening, medication administration/education/monitoring, assistance with transfers and toileting, encouraged pt participation as able with ADLs, fall prevention, encouragement to attend group, provided distraction, direction, positive reinforcement, and maintained Q15 minute safety checks. Response: Patient is pleasant and cooperative with care; compliant with medication. PRN Trazodone and Tramadol provided. Nicotine patch removed. No negative behaviors presented and notifying staff when assist for transfer is needed. Patient shaved, social with staff and provided HS snack prior to bed; observed sleeping and does not appear to be having difficulty. Plan: Patient requires a safe and supportive environment. Patient is conserved and waiting placement.
[2022-04-19 07:00] VITALS: BP 114/81
[2022-04-19] MEDS: docusate sod 100mg capsule PO SCH ×2 (08:30→20:22)
[2022-04-19] MEDS: pantoprazole 40mg Tablet.DR PO SCH ×2 (08:30→20:23)
[2022-04-19] MEDS: loratadine 10mg tablet PO SCH (08:30)
[2022-04-19] MEDS: lisinopril 20mg tablet PO SCH (08:32)
[2022-04-19] MEDS: divalproex sod 250mg ER (24-hour) tablet PO SCH ×2 (08:33→20:23)
[2022-04-19] MEDS: apixaban 5mg tablet PO SCH ×2 (08:33→20:23)
[2022-04-19] MEDS: atorvastatin 20mg tablet PO SCH (08:33)
[2022-04-19] MEDS: calcium carbonate 500mg chew tablet PO SCH ×2 (08:33→20:23)
[2022-04-19] MEDS: aspirin 81mg, enteric-coated 1 TAB TABLET.DR PO SCH (08:33)
[2022-04-19] MEDS: cholecalciferol (vitamin D3) 1,000 unit (25mcg) tablet PO SCH (08:33)
[2022-04-19] MEDS: nicotine 7mg patch - 24hr TD SCH (08:34)
[2022-04-19] MEDS: albuterol 2.5 MG/3 ML nebule NEB PRN ×2 (13:03→20:26)
[2022-04-19] MEDS: traMADol 50MG tablet PO PRN ×2 (14:35→20:22)
--- NOTE | 2022-04-19 15:53 | NUR ---
Therapeutic group Description: The therapeutic group program supports the Center's purpose of interrupting current crisis through encouraging peer and staff interaction, discouraging isolation, and skill building. Intervention Daily therapeutic group. Topic: self-concept, self-nurturing Response Client participated fully in the group, with attention. Client stated she feels her self-nurturing is showing care for others [this bond writer finds client consistently is helpful to peers during group]. Client left group due to neck pain, an RN was called. Treatment plan Continue clinical course of care and crisis intervention, including therapeutic groups.
--- NOTE | 2022-04-19 17:55 | NUR ---
Nursing Progress Note Problem: Pt admitted on LPS conservatorship from Telemetry. Pt is awaiting placement. PT has history of schizoaffective. Interventions: Medication administration, 1:1 MH assessment, maintained a safe and supportive environment, provided clear and simple instructions, provided encouragement regarding performance of ADLs, monitored behaviors and maintained clear boundaries, maintained Q15 minute safety checks. Response: Received patient sleeping at change of shift. Patient awakens and is toileted and taken to the dining room with her peers for breakfast. Patient takes medications as directed. Patient utilizes her wheelchair to go between her room and dining room. Patient complaining of 8/10 neck pain, Ultram given for pain with effectiveness. Patient has been calm and cooperative today. Plan: Patient requires a safe and supportive environment. No viable plan for discharge at this time; patient is conserved.
[2022-04-19 19:29] VITALS: BP 130/75
[2022-04-19] MEDS: olanzapine 10mg tablet PO SCH (20:22)
[2022-04-19] MEDS: amLODIPine 5mg tablet PO SCH (20:23)
[2022-04-19] MEDS: traZODone 50mg tablet PO PRN (20:23)
[2022-04-19] MEDS: sertraline 50mg tablet PO SCH (20:25)
--- NOTE | 2022-04-20 05:32 | NUR ---
Nursing Progress Note Problem: Pt admitted on LPS conservatorship from Telemetry. Pt is awaiting placement. PT has history of schizoaffective. Interventions: 1:1 assessment, therapeutic conversation, active listening, medication administration/education/monitoring, assistance with transfers and toileting, encouraged pt participation as able with ADLs, fall prevention, encouragement to attend group, provided distraction, direction, positive reinforcement, and maintained Q15 minute safety checks. Response: Patient is pleasant and cooperative with care; compliant with medication. PRNs Tramadol and Trazodone provided. Nicotine patch removed. No negative behaviors presented and continues to comply with staff assists for transfers. Patient provided HS snack prior to bed; observed sleeping and does not appear to be having difficulty. Plan: Patient requires a safe and supportive environment. Patient is conserved and waiting placement.
[2022-04-20 08:00] VITALS: BP 120/60
[2022-04-20] MEDS: docusate sod 100mg capsule PO SCH ×2 (08:17→20:49)
[2022-04-20] MEDS: cholecalciferol (vitamin D3) 1,000 unit (25mcg) tablet PO SCH (08:17)
[2022-04-20] MEDS: loratadine 10mg tablet PO SCH (08:17)
[2022-04-20] MEDS: divalproex sod 250mg ER (24-hour) tablet PO SCH ×2 (08:17→20:49)
[2022-04-20] MEDS: aspirin 81mg, enteric-coated 1 TAB TABLET.DR PO SCH (08:17)
[2022-04-20] MEDS: apixaban 5mg tablet PO SCH ×2 (08:17→20:50)
[2022-04-20] MEDS: atorvastatin 20mg tablet PO SCH (08:17)
[2022-04-20] MEDS: pantoprazole 40mg Tablet.DR PO SCH ×2 (08:17→20:50)
[2022-04-20] MEDS: lisinopril 20mg tablet PO SCH (08:18)
[2022-04-20] MEDS: acetaminophen 325mg tablet PO PRN (08:18)
[2022-04-20] MEDS: calcium carbonate 500mg chew tablet PO SCH ×2 (08:18→20:50)
[2022-04-20] MEDS: nicotine 7mg patch - 24hr TD SCH (08:22)
--- NOTE | 2022-04-20 14:59 | NUR ---
Nursing Progress Note Problem: Pt admitted on LPS conservatorship from Telemetry. Pt is awaiting placement. PT has history of schizoaffective. Interventions: 1:1 assessment, therapeutic conversation, active listening, medication administration/education/monitoring, assistance with transfers and toileting, encouraged pt participation as able with ADLs, fall prevention, encouragement to attend group, provided distraction, direction, positive reinforcement, and maintained Q15 minute safety checks. Response: Pt was up for breakfast. Pt was cooperative with medications. Pt participated in unit activities including going outside on the patio. Pt denied SI/HI/AH/VH. Pt was given PRN Tylenol 650 mg at 0818 for moderate generalized pain with good effect. Plan: Patient requires a safe and supportive environment. Patient is conserved and waiting placement.
[2022-04-20 19:00] VITALS: BP 129/67
[2022-04-20] MEDS: amLODIPine 5mg tablet PO SCH (20:50)
[2022-04-20] MEDS: traZODone 50mg tablet PO PRN (20:50)
[2022-04-20] MEDS: olanzapine 10mg tablet PO SCH (20:50)
[2022-04-20] MEDS: sertraline 50mg tablet PO SCH (20:50)
[2022-04-21] MEDS ORDERED: traZODone 50mg tablet PO ONE (00:40)
--- NOTE | 2022-04-21 05:23 | NUR ---
Nursing Progress Note Problem: Pt admitted on LPS conservatorship from Telemetry. Pt is awaiting placement. PT has history of schizoaffective. Interventions: 1:1 assessment, therapeutic conversation, active listening, medication administration/education/monitoring, assistance with transfers and toileting, encouraged pt participation as able with ADLs, fall prevention, encouragement to attend group, provided distraction, direction, positive reinforcement, and maintained Q15 minute safety checks. Response: Patient is pleasant and cooperative with care; compliant with medication. PRN Trazodone provided and Nicotine patch removed. No negative behaviors presented and continues to wait for staff to transfer. Patient showered and ate HS snack prior to bed. She is observed having difficulty sleeping and appears to be perseverating on the well being of her and son. Plan: Patient requires a safe and supportive environment. Patient is conserved and waiting placement.
[2022-04-21 08:00] VITALS: BP 109/70
[2022-04-21] MEDS: docusate sod 100mg capsule PO SCH ×2 (08:01→20:41)
[2022-04-21] MEDS: atorvastatin 20mg tablet PO SCH (08:01)
[2022-04-21] MEDS: cholecalciferol (vitamin D3) 1,000 unit (25mcg) tablet PO SCH (08:01)
[2022-04-21] MEDS: aspirin 81mg, enteric-coated 1 TAB TABLET.DR PO SCH (08:01)
[2022-04-21] MEDS: calcium carbonate 500mg chew tablet PO SCH ×2 (08:01→20:41)
[2022-04-21] MEDS: divalproex sod 250mg ER (24-hour) tablet PO SCH ×2 (08:01→20:41)
[2022-04-21] MEDS: pantoprazole 40mg Tablet.DR PO SCH ×2 (08:01→20:41)
[2022-04-21] MEDS: loratadine 10mg tablet PO SCH (08:01)
[2022-04-21] MEDS: apixaban 5mg tablet PO SCH ×2 (08:01→20:41)
[2022-04-21] MEDS: lisinopril 20mg tablet PO SCH (08:02)
[2022-04-21] MEDS: acetaminophen 325mg tablet PO PRN (08:02)
[2022-04-21] MEDS: nicotine 7mg patch - 24hr TD SCH (08:06)
--- NOTE | 2022-04-21 14:04 | NUR ---
Nursing Progress Note Problem: Pt admitted on LPS conservatorship from Telemetry. Pt is awaiting placement. PT has history of schizoaffective. Interventions: 1:1 assessment, therapeutic conversation, active listening, medication administration/education/monitoring, assistance with transfers and toileting, encouraged pt participation as able with ADLs, fall prevention, encouragement to attend group, provided distraction, direction, positive reinforcement, and maintained Q15 minute safety checks. Response: Pt was up for breakfast. Pt was reluctantly cooperative with medications. Pt stated that the medications ruin her breakfast. Pt stated that she was having trouble swallowing lately. Pt had no trouble swallowing all of her pills yesterday nearly all at once. This RN helped her take her pills a few at a time with a spoon. Pt spit the last spoonful of pills into her water stating she couldn't swallow them. Pills were retrieved from her water cup and given in applesauce. Pt swallowed the pills well in applesauce but denied being able to do so. Pt was irritable this morning. Pt c/o abdominal pain and cramping 09/09. Pt's last recorded BM was 3 days ago, suggested maybe she needed to have a bowel movement. Pt is on routine Colace. Pt was given PRN Tylenol 650 mg at 0802 with good effect. No bowel movement today as of yet. Plan: Patient requires a safe and supportive environment. Patient is conserved and waiting placement. Addendum: 04/21/22 at 8004 by Clara Healy RN (Lee) Tech reported that pt did have a BM today.
[2022-04-21] MEDS: albuterol 2.5 MG/3 ML nebule NEB PRN (18:59)
[2022-04-21 19:00] VITALS: BP 114/88
[2022-04-21] MEDS: olanzapine 10mg tablet PO SCH (20:39)
[2022-04-21] MEDS: traZODone 50mg tablet PO PRN (20:39)
[2022-04-21] MEDS: sertraline 50mg tablet PO SCH (20:40)
[2022-04-21] MEDS: amLODIPine 5mg tablet PO SCH (20:40)
--- NOTE | 2022-04-22 02:03 | NUR ---
Nursing Progress Note Problem: Pt admitted on LPS conservatorship from Telemetry. Pt is awaiting placement. PT has history of schizoaffective. Interventions: 1:1 assessment, therapeutic conversation, active listening, medication administration/education/monitoring, assistance with transfers and toileting, encouraged pt participation as able with ADLs, fall prevention, encouragement to attend group, provided distraction, direction, positive reinforcement, and maintained Q15 minute safety checks. Response: Patient is sitting in community room at shift change. Shortly , she is back in bed .She is pleasant and compliant with medication. PRN trazodone provided. No complaint of difficulty swallowing pills. Pt. requested breathing treatment. She states "when she is upset, her asthma kicks in, and she hates it". Respiratory was paged and breathing treatment administered with effectiveness. Denies MH symptoms. Says she is feeling fine. No negative behaviors noted on this shift. Nicotine patch is removed. Snack provided to her in room. Call light is within reach and able to voice needs to staff. Pt. is observed and appears to be sleeping. Plan: Patient requires a safe and supportive environment. Patient is conserved and waiting placement.
[2022-04-22 08:00] VITALS: BP 129/65
[2022-04-22] MEDS: cholecalciferol (vitamin D3) 1,000 unit (25mcg) tablet PO SCH (08:26)
[2022-04-22] MEDS: calcium carbonate 500mg chew tablet PO SCH ×2 (08:26→20:00)
[2022-04-22] MEDS: apixaban 5mg tablet PO SCH ×2 (08:26→21:00)
[2022-04-22] MEDS: divalproex sod 250mg ER (24-hour) tablet PO SCH ×2 (08:26→20:59)
[2022-04-22] MEDS: atorvastatin 20mg tablet PO SCH (08:26)
[2022-04-22] MEDS: aspirin 81mg, enteric-coated 1 TAB TABLET.DR PO SCH (08:26)
[2022-04-22] MEDS: pantoprazole 40mg Tablet.DR PO SCH ×2 (08:26→20:00)
[2022-04-22] MEDS: loratadine 10mg tablet PO SCH (08:26)
[2022-04-22] MEDS: lisinopril 20mg tablet PO SCH (08:27)
[2022-04-22] MEDS: acetaminophen 325mg tablet PO PRN (08:27)
[2022-04-22] MEDS: docusate sod 100mg capsule PO SCH ×2 (08:29→20:59)
[2022-04-22] MEDS: nicotine 7mg patch - 24hr TD SCH (08:36)
--- NOTE | 2022-04-22 16:23 | NUR ---
Nursing Progress Note Problem: Pt admitted on LPS conservatorship from Telemetry. Pt is awaiting placement. PT has history of schizoaffective. Interventions: 1:1 assessment, therapeutic conversation, active listening, medication administration/education/monitoring, assistance with transfers and toileting, encouraged pt participation as able with ADLs, fall prevention, encouragement to attend group, provided distraction, direction, positive reinforcement, and maintained Q15 minute safety checks. Response: Pt was up for breakfast. Pt was cooperative with her medications towards the end of breakfast. Pt did not have any difficulty swallowing her pills whole with water. Pt was pleasant with care, pt socializes with staff and peers. Pt watched football in the community room after lunch. Pt did not have any episodes of tearfulness or irritability today. Plan: Patient requires a safe and supportive environment. Patient is conserved and waiting placement.
--- NOTE | 2022-04-22 19:07 | NUR ---
Patient complains of generalized itching. Benadryl will be given.
[2022-04-22] MEDS: diphenhydrAMINE 25mg capsule PO PRN (19:10)
--- NOTE | 2022-04-22 19:23 | NUR ---
Nursing Progress Note Problem: Pt admitted on LPS conservatorship from Telemetry. Pt is awaiting placement. PT has history of schizoaffective. Interventions: 1:1 assessment, therapeutic conversation, active listening, medication administration/education/monitoring, assistance with transfers and toileting, encouraged pt participation as able with ADLs, fall prevention, encouragement to attend group, provided distraction, direction, positive reinforcement, and maintained Q15 minute safety checks. Response: Patient isolates in room following shift change. Some generalized itching, no rash noted. Patient requests Benadryl. Dr. Salinas contacted. PRN Benadryl ordered. Patient states she feels tired. She presents as less energetic than normal. Non ambulatory. Wheelchair is her transportation. Patient out of her room prior to shift change, she was reported to have been social. Patient has clear and equal lung sinclair with moderate tidal volume, no JVD at 45 degree angle. Patient does request a respiratory treatment. This will be ordered. Some pedal edema is present bilaterally. Patient denies S/I, H/I or any hallucinations. Plan: Patient requires a safe and supportive environment. Patient is conserved and waiting placement.
[2022-04-22 20:00] VITALS: BP 129/63
[2022-04-22] MEDS: olanzapine 10mg tablet PO SCH (20:59)
[2022-04-22] MEDS: traZODone 50mg tablet PO PRN (20:59)
[2022-04-22] MEDS: sertraline 50mg tablet PO SCH (21:00)
[2022-04-22] MEDS: amLODIPine 5mg tablet PO SCH (21:00)
[2022-04-23] MEDS: docusate sod 100mg capsule PO SCH ×2 (07:53→19:47)
[2022-04-23] MEDS: loratadine 10mg tablet PO SCH (07:53)
[2022-04-23] MEDS: divalproex sod 250mg ER (24-hour) tablet PO SCH ×2 (07:54→19:47)
[2022-04-23] MEDS: calcium carbonate 500mg chew tablet PO SCH ×2 (07:54→19:47)
[2022-04-23] MEDS: aspirin 81mg, enteric-coated 1 TAB TABLET.DR PO SCH (07:54)
[2022-04-23] MEDS: pantoprazole 40mg Tablet.DR PO SCH ×2 (07:54→19:47)
[2022-04-23] MEDS: apixaban 5mg tablet PO SCH ×2 (07:54→19:47)
[2022-04-23] MEDS: atorvastatin 20mg tablet PO SCH (07:54)
[2022-04-23] MEDS: lisinopril 20mg tablet PO SCH (07:55)
[2022-04-23] MEDS: cholecalciferol (vitamin D3) 1,000 unit (25mcg) tablet PO SCH (07:55)
[2022-04-23] MEDS: nicotine 7mg patch - 24hr TD SCH (07:55)
[2022-04-23 08:00] VITALS: BP 114/61
[2022-04-23] MEDS: albuterol 2.5 MG/3 ML nebule NEB PRN ×2 (08:58→19:22)
[2022-04-23] MEDS: traMADol 50MG tablet PO PRN ×2 (10:21→19:47)
[2022-04-23] MEDS ORDERED: albuterol 2.5 MG/3 ML nebule NEB ONE (10:50)
--- NOTE | 2022-04-23 16:40 | NUR ---
Nursing Progress Note Problem: Patient admitted on LPS conservatorship from Telemetry. Patient has history of schizoaffective. Interventions: Provide medication administration & medication management; Maintained a safe & supportive environment; Clear & simple instructions; Direction & encouragement regarding performance of ADLs; monitored behaviors & maintained clear boundaries; Patient physical assessment & 1:1 patient interview; Therapeutic conversation & active listening; Patient education & monitoring. Response: Received patient who was awake and sitting in the w/c in the Community Room watching TV this morning. Patient was drinking coffee and is alert & oriented x4. Patient is pleasant and cooperative throughout the day. Patient required assistance with toileting using the Sit to Stand equipment to get her back and forth to the toilet and then in and out of bed. Patient reports My armpits hurt from everyone pulling on them. Agreed with the patient. Patient denies SI/AV/VH and appears linear. Patient speaks in a soft voice and took her 0800 medications without hesitation. Patient was noted to have 1+ bilateral LE edema. Patient returned to bed at 0830 to take a nap then requested a RT Treatment at 0855 for c/o SOB. RT arrived by 0905 and gave patient a treatment with relief. Patient c/o Hurting all over, at approximately 1021 and received Ultram 25mg po with good relief. Patient spent much of the day in the Community Room watching football and had a BM today. Patient participated in snack and meal times and spent the afternoon watching the [employer] football game. Plan: Patient requires a safe and supportive environment. Patient is conserved and waiting placement.
[2022-04-23 19:25] VITALS: BP 133/76
[2022-04-23] MEDS: olanzapine 10mg tablet PO SCH (19:47)
[2022-04-23] MEDS: sertraline 50mg tablet PO SCH (19:47)
[2022-04-23] MEDS: traZODone 50mg tablet PO PRN (19:47)
[2022-04-23] MEDS: amLODIPine 5mg tablet PO SCH (19:49)
[2022-04-23] MEDS: diphenhydrAMINE 25mg capsule PO PRN (20:28)
--- NOTE | 2022-04-24 05:29 | NUR ---
Nursing Progress Note Problem: Pt admitted on LPS conservatorship from Telemetry. Pt is awaiting placement. PT has history of schizoaffective. Interventions: 1:1 assessment, therapeutic conversation, active listening, medication administration/education/monitoring, assistance with transfers and toileting, encouraged pt participation as able with ADLs, fall prevention, encouragement to attend group, provided distraction, direction, positive reinforcement, and maintained Q15 minute safety checks. Response: Patient is pleasant and cooperative with care; compliant with medication. PRNs Tramadol, Trazodone and Benadryl provided. Nicotine patch removed. No negative behaviors and letting staff know when needs to be met. Patient watched football game in the community room and provided HS snack prior to bed; observed sleeping and does not appear to be having difficulty. Plan: Patient requires a safe and supportive environment. Patient is conserved and waiting placement.
[2022-04-24] MEDS: nicotine 7mg patch - 24hr TD SCH (07:44)
[2022-04-24] MEDS: aspirin 81mg, enteric-coated 1 TAB TABLET.DR PO SCH (07:45)
[2022-04-24] MEDS: apixaban 5mg tablet PO SCH ×2 (07:45→20:13)
[2022-04-24] MEDS: pantoprazole 40mg Tablet.DR PO SCH ×2 (07:45→20:13)
[2022-04-24] MEDS: atorvastatin 20mg tablet PO SCH (07:45)
[2022-04-24] MEDS: loratadine 10mg tablet PO SCH (07:45)
[2022-04-24] MEDS: docusate sod 100mg capsule PO SCH ×2 (07:45→20:13)
[2022-04-24] MEDS: cholecalciferol (vitamin D3) 1,000 unit (25mcg) tablet PO SCH (07:45)
[2022-04-24] MEDS: divalproex sod 250mg ER (24-hour) tablet PO SCH ×2 (07:45→20:13)
[2022-04-24 07:46] VITALS: BP 117/54
[2022-04-24] MEDS: calcium carbonate 500mg chew tablet PO SCH ×2 (07:46→20:13)
[2022-04-24] MEDS: lisinopril 20mg tablet PO SCH (07:46)
[2022-04-24] MEDS: diphenhydrAMINE 25mg capsule PO PRN ×2 (07:53→20:13)
--- NOTE | 2022-04-24 11:37 | NUR ---
Contacted [facility] to see if they had heard about placement. They reported they will reach out to Eri at [facility] regarding an admit date. ZACH Das
[2022-04-24] MEDS: traMADol 50MG tablet PO PRN ×2 (14:19→20:15)
--- NOTE | 2022-04-24 16:43 | NUR ---
Nursing Progress Note Problem: Patient admitted on LPS conservatorship from Telemetry. Patient has history of schizoaffective. Interventions: Provide medication administration & medication management; Maintained a safe & supportive environment; Clear & simple instructions; Direction & encouragement regarding performance of ADLs; monitored behaviors & maintained clear boundaries; Patient physical assessment & 1:1 patient interview; Therapeutic conversation & active listening; Patient education & monitoring. Response: Patient woke up and was assisted to the bathroom using the Sit N Stand device to move her from the bed to the toilet. Patient voided and then was returned to the w/c. Patient requested to go to the Community Room and got a cup of coffee to drink. Patient relaxed and watched TV prior to breakfast. Patient took her prescribed medications due at 0800 and ate breakfast. Patient requested to return back to bed at 0845 to rest and slept until they went out to the patio before lunch. Patients appetite has been good and patient reports Im just liking this food way too much. Patient is linear in her conversations with this blog writer and enjoys spending time in the Community Room talking to peers. Patient returned back to bed after lunch and is sleeping at this time. Patient woke up and participated in snack time and then requested to go back to bed at 1600. Patient requested to read her paperwork regarding a shunt and stated "They want me to make a decision but I guess the results are 50/50 successful so I just don't know." Encouraged the patient to take her time and we can write a list of questions if she has any and speak to her physician. Plan: Patient requires a safe and supportive environment. Patient is conserved and waiting placement.
[2022-04-24] MEDS: albuterol 2.5 MG/3 ML nebule NEB PRN (19:11)
[2022-04-24 19:13] VITALS: BP 116/56
[2022-04-24] MEDS: olanzapine 10mg tablet PO SCH (20:13)
[2022-04-24] MEDS: sertraline 50mg tablet PO SCH (20:13)
[2022-04-24] MEDS: traZODone 50mg tablet PO PRN (20:13)
[2022-04-24] MEDS: amLODIPine 5mg tablet PO SCH (20:14)
--- NOTE | 2022-04-25 05:30 | NUR ---
Nursing Progress Note Problem: Pt admitted on LPS conservatorship from Telemetry. Pt is awaiting placement. PT has history of schizoaffective. Interventions: 1:1 assessment, therapeutic conversation, active listening, medication administration/education/monitoring, assistance with transfers and toileting, encouraged pt participation as able with ADLs, fall prevention, encouragement to attend group, provided distraction, direction, positive reinforcement, and maintained Q15 minute safety checks. Response: Patient is pleasant and cooperative with care; compliant with medication. PRNs Tramadol, Trazodone and Benadryl provided. Nicotine patch removed. Patient remains compliant waiting for staff prior to transfers and no negative behaviors presented this shift. She continues to ask about ways to contact her . Patient provided HS snack prior to bed; observed sleeping and does not appear to be having difficulty. Plan: Patient requires a safe and supportive environment. Patient is conserved and waiting placement.
[2022-04-25 08:00] VITALS: BP 128/78
[2022-04-25] MEDS: nicotine 7mg patch - 24hr TD SCH (08:22)
[2022-04-25] MEDS: aspirin 81mg, enteric-coated 1 TAB TABLET.DR PO SCH (08:23)
[2022-04-25] MEDS: docusate sod 100mg capsule PO SCH ×2 (08:23→20:12)
[2022-04-25] MEDS: divalproex sod 250mg ER (24-hour) tablet PO SCH ×2 (08:23→20:12)
[2022-04-25] MEDS: pantoprazole 40mg Tablet.DR PO SCH ×2 (08:23→20:11)
[2022-04-25] MEDS: loratadine 10mg tablet PO SCH (08:23)
[2022-04-25] MEDS: lisinopril 20mg tablet PO SCH (08:24)
[2022-04-25] MEDS: apixaban 5mg tablet PO SCH ×2 (08:24→20:12)
[2022-04-25] MEDS: cholecalciferol (vitamin D3) 1,000 unit (25mcg) tablet PO SCH (08:24)
[2022-04-25] MEDS: calcium carbonate 500mg chew tablet PO SCH ×2 (08:24→20:11)
[2022-04-25] MEDS: atorvastatin 20mg tablet PO SCH (08:24)
--- NOTE | 2022-04-25 08:46 | NUR ---
Reassessment: Pt continues eating well, documented with mostly 75-100% PO intake though does occasionally go down to 50% PO intake of meals. Overall pt continues meeting estimated nutrient needs. [facility] 04/23, receiving routine bowel care. No nutrition intervention implemented at this time. Will continue to follow. Recommendations: 1. Continue regular diet 2. Routine bowel care 3. Weekly scaled wts Addendum: 04/25/22 at [address] Amended: Links added.
[2022-04-25] MEDS: traMADol 50MG tablet PO PRN (09:52)
[2022-04-25] MEDS: tizanidine 4mg tablet PO PRN (09:53)
--- NOTE | 2022-04-25 16:12 | NUR ---
Nursing Progress Note Problem: Patient admitted on LPS conservatorship from Telemetry. Patient has history of schizoaffective. Interventions: Provide medication administration & medication management; Maintained a safe & supportive environment; Clear & simple instructions; Direction & encouragement regarding performance of ADLs; monitored behaviors & maintained clear boundaries; Patient physical assessment & 1:1 patient interview; Therapeutic conversation & active listening; Patient education & monitoring. Response: Patient woke up at approximately 0745 and was toileted using the Sit to Stand then assisted in getting dressed and wheeled down to the Community Room for breakfast. Patient ate breakfast and requested to return back to bed after breakfast. Dr. Valdivia made rounds and spoke to the patient at approximately 0945 when she said I want [place], I want [place]. Dr. Valdivia spoke with the patient and then gave this Garment Sewer Hand a verbal order for Zanaflex 2mg po now. Order was written as a one-time order. Per Dr. Valdivia, this Garment Sewer Hand was instructed to give the patient her Ultram 25mg po and Zanaflex 2mg po now at 0952. Patient c/o pain rated at 6 of aching and throbbing of her bilateral shoulders. Patient fell asleep soon after taking her medications and slept until lunchtime. Patient then received assistance from Trang Nurse Aide, who assisted patient back to bed after lunch. Ev reported that the patient was weak and required more than normal assistance getting back to bed following the administration of the muscle relaxer earlier today. Patient has been sleeping since 1330. Plan: Patient requires a safe and supportive environment. Patient is conserved and waiting placement.
[2022-04-25 20:00] VITALS: BP 116/69
[2022-04-25] MEDS: olanzapine 10mg tablet PO SCH (20:11)
[2022-04-25] MEDS: amLODIPine 5mg tablet PO SCH (20:11)
[2022-04-25] MEDS: traZODone 50mg tablet PO PRN (20:11)
[2022-04-25] MEDS: sertraline 50mg tablet PO SCH (20:12)
[2022-04-25] MEDS: diphenhydrAMINE 25mg capsule PO PRN (20:24)
[2022-04-25] MEDS: acetaminophen 325mg tablet PO PRN (20:26)
--- NOTE | 2022-04-26 00:37 | NUR ---
Nursing Progress Note Problem: Pt admitted on LPS conservatorship from Telemetry. Pt is awaiting placement. PT has history of schizoaffective. Interventions: 1:1 assessment, therapeutic conversation, active listening, medication administration/education/monitoring, assistance with transfers and toileting, encouraged pt participation as able with ADLs, fall prevention, encouragement to attend group, provided distraction, direction, positive reinforcement, and maintained Q15 minute safety checks. Response: Patient awake sitting in wheelchair at shift change. Appears to be in a good mood. She is pleasant and cooperative. Patient toileted and back in bed shortly after. Compliant with medications. Complaints of pain and headache. PRN Tylenol , Trazodone and Benadryl provided. Nicotine patch removed. Bedtime snack provided in room. Continues to use call hilario for assistance. Appears to be sleeping without difficulty. No negative behaviors noted on this shift. Plan: Patient requires a safe and supportive environment. Patient is conserved and waiting placement.
[2022-04-26 07:39] VITALS: BP 127/60
[2022-04-26] MEDS: calcium carbonate 500mg chew tablet PO SCH ×2 (08:00→20:22)
[2022-04-26] MEDS: docusate sod 100mg capsule PO SCH ×2 (08:21→20:22)
[2022-04-26] MEDS: divalproex sod 250mg ER (24-hour) tablet PO SCH ×2 (08:21→20:22)
[2022-04-26] MEDS: loratadine 10mg tablet PO SCH (08:21)
[2022-04-26] MEDS: aspirin 81mg, enteric-coated 1 TAB TABLET.DR PO SCH (08:21)
[2022-04-26] MEDS: apixaban 5mg tablet PO SCH ×2 (08:21→20:22)
[2022-04-26] MEDS: cholecalciferol (vitamin D3) 1,000 unit (25mcg) tablet PO SCH (08:22)
[2022-04-26] MEDS: atorvastatin 20mg tablet PO SCH (08:22)
[2022-04-26] MEDS: pantoprazole 40mg Tablet.DR PO SCH ×2 (08:22→20:22)
[2022-04-26] MEDS: nicotine 7mg patch - 24hr TD SCH (08:23)
[2022-04-26] MEDS: lisinopril 20mg tablet PO SCH (08:23)
[2022-04-26] MEDS: diphenhydrAMINE 25mg capsule PO PRN ×2 (10:14→16:17)
[2022-04-26] MEDS: traMADol 50MG tablet PO PRN (10:14)
--- NOTE | 2022-04-26 17:29 | NUR ---
Nursing Progress Note: Tamara Problem: Pt admitted on LPS conservatorship from Telemetry. Pt is awaiting placement. PT has history of schizoaffective. Interventions: Medication administration, 1:1 MH assessment, maintained a safe and supportive environment, provided clear and simple instructions, provided encouragement regarding performance of ADLs, monitored behaviors and maintained clear boundaries, maintained Q15 minute safety checks. Response: Pt. received asleep and awoke to attend breakfast. Compliant with medication administration. Pt expressed to this ASSOCIATE PROFESSOR OF ENGINEERING during 1:1 SI/HI, -AV/H, denies all mental health diagnoses. Pt disheveled with poor hygiene. She continues to require assistance with ADLs and transfers, she has been continent of bowel and both continent/incontinent of bladder this shift. Pt. has poor safety awareness and is reeducated on the importance using call light and not attempting to self-transfer. Pt reports overall sense of not feeling well, unable to give specifics as to what is the specific complaints. She ate all meals in the community room and participated in snacks. Plan: Patient requires a safe and supportive environment. No viable plan for discharge at this time; patient is conserved.
[2022-04-26] MEDS: traZODone 50mg tablet PO PRN (20:20)
[2022-04-26] MEDS: sertraline 50mg tablet PO SCH (20:20)
[2022-04-26] MEDS: olanzapine 10mg tablet PO SCH (20:20)
[2022-04-26] MEDS: amLODIPine 5mg tablet PO SCH (20:21)
[2022-04-26 20:35] VITALS: BP 134/71
[2022-04-26] MEDS: albuterol 2.5 MG/3 ML nebule NEB PRN (20:48)
--- NOTE | 2022-04-27 01:28 | NUR ---
Nursing Progress Note Problem: Pt admitted on LPS conservatorship from Telemetry. Pt is awaiting placement. PT has history of schizoaffective. Interventions: 1:1 assessment, therapeutic conversation, active listening, medication administration/education/monitoring, assistance with transfers and toileting, encouraged pt participation as able with ADLs, fall prevention, encouragement to attend group, provided distraction, direction, positive reinforcement, and maintained Q15 minute safety checks. Response: Patient in [address] smiling , socializing with staff at shift change. She was helped back into bed where she remained for the night. Patient received breathing treatment provided by RT. Compliant with medication and tolerated well. PRN Trazodone was provided. Nicotine patch removed. No depression/anxiety reported. Bedtime snack provided in bed. Continues using call hilario appropriately. Patient appears to be asleep without difficultly. Plan: Patient requires a safe and supportive environment. Patient is conserved and waiting placement.
[2022-04-27 08:00] VITALS: BP 129/60
[2022-04-27] MEDS: atorvastatin 20mg tablet PO SCH (08:23)
[2022-04-27] MEDS: divalproex sod 250mg ER (24-hour) tablet PO SCH ×2 (08:23→20:06)
[2022-04-27] MEDS: cholecalciferol (vitamin D3) 1,000 unit (25mcg) tablet PO SCH (08:23)
[2022-04-27] MEDS: aspirin 81mg, enteric-coated 1 TAB TABLET.DR PO SCH (08:23)
[2022-04-27] MEDS: apixaban 5mg tablet PO SCH ×2 (08:23→20:05)
[2022-04-27] MEDS: calcium carbonate 500mg chew tablet PO SCH ×2 (08:24→20:07)
[2022-04-27] MEDS: loratadine 10mg tablet PO SCH (08:24)
[2022-04-27] MEDS: docusate sod 100mg capsule PO SCH ×2 (08:24→20:04)
[2022-04-27] MEDS: lisinopril 20mg tablet PO SCH (08:24)
[2022-04-27] MEDS: pantoprazole 40mg Tablet.DR PO SCH ×2 (08:24→20:07)
[2022-04-27] MEDS: acetaminophen 325mg tablet PO PRN (08:24)
[2022-04-27] MEDS: nicotine 7mg patch - 24hr TD SCH (08:30)
[2022-04-27] MEDS: albuterol 2.5 MG/3 ML nebule NEB PRN (08:54)
--- NOTE | 2022-04-27 12:49 | NUR ---
Therapeutic group Client attended group today. Todays group focused on our unique ways of self-soothing: sensory (taste, smell), verbal, visual, tactile, all? Exercise included drawing and talking, while having the Center's scheduled snack. Thought content was linear and WNL. Client was dressed neatly in, hygiene WNL and client is excited about gettnig a showing this afternoon. Client interacted with material, peers, and this copy writer: In this copy writer's experience, client likes verbal interaction/processing. Client's demeanor was calm, context appropriate, and pleasant to work with.
--- NOTE | 2022-04-27 13:26 | NUR ---
Nursing Progress Note Problem: Pt admitted on LPS conservatorship from Telemetry. Pt is awaiting placement. PT has history of schizoaffective. Interventions: 1:1 assessment, therapeutic conversation, active listening, medication administration/education/monitoring, assistance with transfers and toileting, encouraged pt participation as able with ADLs, fall prevention, encouragement to attend group, provided distraction, direction, positive reinforcement, and maintained Q15 minute safety checks. Response: Pt was up for breakfast. Pt was pleasant and cooperative with her medications. Pt does not appear to be responding to internal stimuli. Pt did not make any delusional statements. Pt waits for staff to assist her with transfers and toileting. Plan: Patient requires a safe and supportive environment. Patient is conserved and waiting placement.
--- NOTE | 2022-04-27 15:32 | NUR ---
Chanel from [facility] (ph# [phone]) called regarding placement. She asked to speak to Tamara's nurse and to Tamara to determine what level of care she needs. Gave her the nurses station # to call to speak to the nurse. ZACH Das
[2022-04-27] MEDS: traMADol 50MG tablet PO PRN (16:17)
[2022-04-27 20:00] VITALS: BP 132/86
[2022-04-27] MEDS: olanzapine 10mg tablet PO SCH (20:04)
[2022-04-27] MEDS: sertraline 50mg tablet PO SCH (20:05)
[2022-04-27] MEDS: amLODIPine 5mg tablet PO SCH (20:07)
[2022-04-27] MEDS: traZODone 50mg tablet PO PRN (20:07)
[2022-04-27] MEDS: diphenhydrAMINE 25mg capsule PO PRN (21:20)
--- NOTE | 2022-04-28 00:29 | NUR ---
Nursing Progress Note Problem: Pt admitted on LPS conservatorship from Telemetry. Pt is awaiting placement. PT has history of schizoaffective. Interventions: 1:1 assessment, therapeutic conversation, active listening, medication administration/education/monitoring, assistance with transfers and toileting, encouraged pt participation as able with ADLs, fall prevention, encouragement to attend group, provided distraction, direction, positive reinforcement, and maintained Q15 minute safety checks. Response: Received patient awake in room. Showered by staff. Pleasant and cooperative . She was excited about evening snack. Stated "I am going to have snack down in the community room tonight". Denies depression. When asked about AH/VH patient denies and states "thank goodness" Reports the voices seemed to stop after her parents passed. PRN benadryl and trazodone administered per pt. request. Compliant with medications. continues to notify staff for assistance. Appears to be sleeping. Plan: Patient requires a safe and supportive environment. Patient is conserved and waiting placement.
[2022-04-28 08:00] VITALS: BP 125/53
[2022-04-28] MEDS: calcium carbonate 500mg chew tablet PO SCH ×2 (08:00→21:36)
[2022-04-28] MEDS: pantoprazole 40mg Tablet.DR PO SCH ×2 (08:14→21:38)
[2022-04-28] MEDS: apixaban 5mg tablet PO SCH ×2 (08:14→21:36)
[2022-04-28] MEDS: docusate sod 100mg capsule PO SCH ×2 (08:14→21:36)
[2022-04-28] MEDS: divalproex sod 250mg ER (24-hour) tablet PO SCH ×2 (08:14→21:39)
[2022-04-28] MEDS: aspirin 81mg, enteric-coated 1 TAB TABLET.DR PO SCH (08:14)
[2022-04-28] MEDS: atorvastatin 20mg tablet PO SCH (08:14)
[2022-04-28] MEDS: loratadine 10mg tablet PO SCH (08:14)
[2022-04-28] MEDS: lisinopril 20mg tablet PO SCH (08:15)
[2022-04-28] MEDS: nicotine 7mg patch - 24hr TD SCH (08:15)
[2022-04-28] MEDS: cholecalciferol (vitamin D3) 1,000 unit (25mcg) tablet PO SCH (08:15)
[2022-04-28] MEDS: acetaminophen 325mg tablet PO PRN (08:16)
--- NOTE | 2022-04-28 11:09 | NUR ---
Sent updated notes to [facility] (04/21-04/27). ZACH Das
[2022-04-28] MEDS: traMADol 50MG tablet PO PRN ×2 (13:22→21:36)
--- NOTE | 2022-04-28 16:57 | NUR ---
Nursing Progress Note Problem: Pt admitted on LPS conservatorship from Telemetry. Pt is awaiting placement. PT has history of schizoaffective. Interventions: Medication administration, 1:1 MH assessment, maintained a safe and supportive environment, provided clear and simple instructions, provided encouragement regarding performance of ADLs, monitored behaviors and maintained clear boundaries, maintained Q15 minute safety checks. Response: Pt. received asleep and awoke to attend breakfast. Compliant with medication administration. Pt expressed to this SCIENTIST PROPAGATOR during 1:1 SI/HI, -AV/H, denies all mental health diagnoses. Pt with good hygiene in street clothes; received shower 04/27/2022 shift leader. She continues to require assistance with ADLs and transfers, she has been continent of bowel and bladder this shift. Pt. has poor safety awareness and is reeducated on the importance using call light and not attempting to self-transfer. Pt reports overall sense of not feeling well, unable to give specifics as to what is the specific complaints. She ate all meals in the community room and participated in snacks. Plan: Patient requires a safe and supportive environment. No viable plan for discharge at this time; patient is conserved.
[2022-04-28 20:00] VITALS: BP 126/63
[2022-04-28] MEDS: diphenhydrAMINE 25mg capsule PO PRN (21:36)
[2022-04-28] MEDS: traZODone 50mg tablet PO PRN (21:36)
[2022-04-28] MEDS: sertraline 50mg tablet PO SCH (21:37)
[2022-04-28] MEDS: amLODIPine 5mg tablet PO SCH (21:38)
[2022-04-28] MEDS: olanzapine 10mg tablet PO SCH (21:38)
--- NOTE | 2022-04-29 04:05 | NUR ---
Nursing Progress Note Problem: Pt admitted on LPS conservatorship from Telemetry. Pt is awaiting placement. PT has history of schizoaffective. Interventions: Medication administration, 1:1 MH assessment, maintained a safe and supportive environment, provided clear and simple instructions, provided encouragement regarding performance of ADLs, monitored behaviors and maintained clear boundaries, maintained Q15 minute safety checks. Response: Patient was received sitting in wheelchair in bedroom at beginning of shift. Patient was encouraged to not attempt to transfer herself. Patient was assisted to the bathroom and into bed. Patient requested something for upper body and hip pain. Patirnt was given prn tramadol. Patient self isolated in bed refusing to get up for snack. Patient complained of itching and was given prn Benadryl. Patient took all night medications including prn trazodone. Plan: Patient requires a safe and supportive environment. No viable plan for discharge at this time; patient is conserved.
[2022-04-29] MEDS: loratadine 10mg tablet PO SCH (07:25)
[2022-04-29] MEDS: aspirin 81mg, enteric-coated 1 TAB TABLET.DR PO SCH (07:25)
[2022-04-29] MEDS: divalproex sod 250mg ER (24-hour) tablet PO SCH ×2 (07:25→20:38)
[2022-04-29] MEDS: docusate sod 100mg capsule PO SCH ×2 (07:25→20:38)
[2022-04-29] MEDS: cholecalciferol (vitamin D3) 1,000 unit (25mcg) tablet PO SCH (07:26)
[2022-04-29] MEDS: calcium carbonate 500mg chew tablet PO SCH ×2 (07:26→20:37)
[2022-04-29] MEDS: apixaban 5mg tablet PO SCH ×2 (07:26→20:34)
[2022-04-29] MEDS: atorvastatin 20mg tablet PO SCH (07:26)
[2022-04-29] MEDS: pantoprazole 40mg Tablet.DR PO SCH ×2 (07:26→20:38)
[2022-04-29] MEDS: traMADol 50MG tablet PO PRN ×2 (07:27→20:38)
[2022-04-29] MEDS: lisinopril 20mg tablet PO SCH (07:27)
[2022-04-29] MEDS: nicotine 7mg patch - 24hr TD SCH (07:28)
[2022-04-29] MEDS: albuterol 2.5 MG/3 ML nebule NEB PRN (16:52)
--- NOTE | 2022-04-29 17:35 | NUR ---
Nursing Progress Note Problem: Pt admitted on LPS conservatorship from Telemetry. Pt is awaiting placement. PT has history of schizoaffective. Interventions: Medication administration, 1:1 MH assessment, maintained a safe and supportive environment, provided clear and simple instructions, provided encouragement regarding performance of ADLs, monitored behaviors and maintained clear boundaries, maintained Q15 minute safety checks. Response: Pt. received asleep and awoke to attend breakfast. Compliant with medication administration. Pt expressed to this VICE PRESIDENT OF COMMUNICATIONS during 1:1 SI/HI, -AV/H, denies all mental health diagnoses. Pt with good hygiene in street clothes; received shower 04/27/2022 hourly shift. She continues to require assistance with ADLs and transfers, she has been continent of bowel and bladder this shift, however was found at change of shift to have urinated through pull-ups, chux, and bottom sheet. Pt cleaned appropriately. Pt. has poor safety awareness and is reeducated on the importance using call light and not attempting to self-transfer. PRN Ultram given. She ate all meals in the community room and participated in snacks. Plan: Patient requires a safe and supportive environment. No viable plan for discharge at this time; patient is conserved.
[2022-04-29 19:49] VITALS: BP 144/66
[2022-04-29] MEDS: olanzapine 10mg tablet PO SCH (20:36)
[2022-04-29] MEDS: sertraline 50mg tablet PO SCH (20:36)
[2022-04-29] MEDS: amLODIPine 5mg tablet PO SCH (20:37)
[2022-04-29] MEDS: diphenhydrAMINE 25mg capsule PO PRN (20:38)
--- NOTE | 2022-04-30 03:16 | NUR ---
Nursing Progress Note Problem: Pt admitted on LPS conservatorship from Telemetry. Pt is awaiting placement. PT has history of schizoaffective. Interventions: Medication administration, 1:1 MH assessment, maintained a safe and supportive environment, provided clear and simple instructions, provided encouragement regarding performance of ADLs, monitored behaviors and maintained clear boundaries, maintained Q15 minute safety checks. Response: Patient is pleasant and cooperative with care; compliant with medication. PRN Tramadol, Trazodone and Benadryl provided. Nicotine patch removed. No negative behaviors presented and continues to notify staff when she requires transfers; one urinary incontinent episode at this time. Patient provided HS snack prior to bed; observed sleeping and does not appear to be having difficulty. Plan: Patient requires a safe and supportive environment. No viable plan for discharge at this time; patient is conserved.
[2022-04-30 07:55] VITALS: BP 151/89
[2022-04-30] MEDS: aspirin 81mg, enteric-coated 1 TAB TABLET.DR PO SCH (10:08)
[2022-04-30] MEDS: docusate sod 100mg capsule PO SCH ×2 (10:08→19:58)
[2022-04-30] MEDS: cholecalciferol (vitamin D3) 1,000 unit (25mcg) tablet PO SCH (10:08)
[2022-04-30] MEDS: pantoprazole 40mg Tablet.DR PO SCH ×2 (10:08→19:58)
[2022-04-30] MEDS: calcium carbonate 500mg chew tablet PO SCH ×2 (10:08→19:58)
[2022-04-30] MEDS: divalproex sod 250mg ER (24-hour) tablet PO SCH ×2 (10:08→19:59)
[2022-04-30] MEDS: loratadine 10mg tablet PO SCH (10:08)
[2022-04-30] MEDS: atorvastatin 20mg tablet PO SCH (10:09)
[2022-04-30] MEDS: apixaban 5mg tablet PO SCH ×2 (10:09→19:58)
[2022-04-30] MEDS: lisinopril 20mg tablet PO SCH (10:10)
[2022-04-30] MEDS: nicotine 7mg patch - 24hr TD SCH (10:11)
[2022-04-30] MEDS: traMADol 50MG tablet PO PRN (16:16)
--- NOTE | 2022-04-30 16:25 | NUR ---
NURSING PROGRESS NOTE Problem: Pt admitted on LPS conservatorship from Telemetry. Pt is awaiting placement. PT has history of schizoaffective and has had previous admits to [facility]. Interventions: One to one with patient, administered medication as ordered with no adverse side effects, provided safe and supportive environment, encouraged participation in unit activities, monitored behaviors and clear boundaries, Q15 min safety rounds. Response: Received patient sleeping at shift change. Pt woke and was incontinent of urine, she was assisted to the bathroom, cleaned and given new pull-up. Pt continues to be complaint with care and medications. Pt is able to make needs known, and is able to minimal assist staff with ADLs. Pt denies all psychotic symptoms. Denial Management Representative assisted pt to bathroom after breakfast, where she had a med BM. Pt had no impulsive or agitated behavior. Spent most of the day watching football. Plan: Patient is LPS conserved and at baseline. Pt is awaiting placement.
[2022-04-30 19:25] VITALS: BP 144/77
[2022-04-30] MEDS: traZODone 50mg tablet PO PRN (19:59)
[2022-04-30] MEDS: amLODIPine 5mg tablet PO SCH (20:00)
[2022-04-30] MEDS: olanzapine 10mg tablet PO SCH (20:00)
[2022-04-30] MEDS: sertraline 50mg tablet PO SCH (20:00)
[2022-04-30] MEDS: tizanidine 4mg tablet PO PRN (20:37)
--- NOTE | 2022-04-30 22:14 | NUR ---
NURSING PROGRESS NOTE Problem: Pt admitted on LPS conservatorship from Telemetry. Pt is awaiting placement. PT has history of schizoaffective and has had previous admits to [facility]. Interventions: One to one with patient, administered medication as ordered with no adverse side effects, provided safe and supportive environment, encouraged participation in unit activities, monitored behaviors and clear boundaries, Q15 min safety rounds. Response: Pt was in bed at change of shift. Pt requests assistance to use the toilet. Pt is c/o tooth pain stating she wants a dentist that does fillings, not just pulls teeth out. Pt c/o tooth pain and body aches. She requested ultram but had already received that and was offered tylenol. Pt declined tylenol but took PRN muscle relaxer available. Pt had snacks and went to sleep after taking HS meds. Plan: Patient is LPS conserved and at baseline. Pt is awaiting placement.
[2022-05-01 07:57] VITALS: BP 127/82
[2022-05-01] MEDS: loratadine 10mg tablet PO SCH (09:01)
[2022-05-01] MEDS: divalproex sod 250mg ER (24-hour) tablet PO SCH ×2 (09:01→20:09)
[2022-05-01] MEDS: apixaban 5mg tablet PO SCH ×2 (09:01→20:10)
[2022-05-01] MEDS: calcium carbonate 500mg chew tablet PO SCH ×2 (09:01→20:10)
[2022-05-01] MEDS: docusate sod 100mg capsule PO SCH ×2 (09:01→20:09)
[2022-05-01] MEDS: cholecalciferol (vitamin D3) 1,000 unit (25mcg) tablet PO SCH (09:01)
[2022-05-01] MEDS: atorvastatin 20mg tablet PO SCH (09:01)
[2022-05-01] MEDS: pantoprazole 40mg Tablet.DR PO SCH ×2 (09:01→20:09)
[2022-05-01] MEDS: aspirin 81mg, enteric-coated 1 TAB TABLET.DR PO SCH (09:01)
[2022-05-01] MEDS: nicotine 7mg patch - 24hr TD SCH (09:02)
[2022-05-01] MEDS: lisinopril 20mg tablet PO SCH (09:02)
--- NOTE | 2022-05-01 17:31 | NUR ---
NURSING PROGRESS NOTE Problem: Pt admitted on LPS conservatorship from Telemetry. Pt is awaiting placement. Patient has a history of schizoaffective and has had previous admits to [facility]. Interventions: One to one with patient, administered medication as ordered with no adverse side effects, provided safe and supportive environment, encouraged participation in unit activities, monitored behaviors and clear boundaries, Q15 min safety rounds. Response: Received patient sleeping at shift change. Pt woke and was incontinent of urine, she was assisted to the bathroom, cleaned and given new pull-up. Patient is awaiting placement. Pt was visible on unit. Pt received shower today. Pt required minimal redirection r/t self-transfers. Pt had no behaviors and was pleasant and friendly all shift. Pt was persistent about when do I get out of here. Pt is motivated to be independent and has positive self-talk. I can do it. I got this. Plan: Patient is LPS conserved and at baseline. Pt is awaiting placement.
[2022-05-01 19:17] VITALS: BP 127/78
[2022-05-01] MEDS: albuterol 2.5 MG/3 ML nebule NEB PRN (19:59)
[2022-05-01] MEDS: olanzapine 10mg tablet PO SCH (20:09)
[2022-05-01] MEDS: traZODone 50mg tablet PO PRN (20:09)
[2022-05-01] MEDS: diphenhydrAMINE 25mg capsule PO PRN (20:09)
[2022-05-01] MEDS: traMADol 50MG tablet PO PRN (20:09)
[2022-05-01] MEDS: sertraline 50mg tablet PO SCH (20:10)
[2022-05-01] MEDS: amLODIPine 5mg tablet PO SCH (20:10)
--- NOTE | 2022-05-01 21:48 | NUR ---
NURSING PROGRESS NOTE Problem: Pt admitted on LPS conservatorship from Telemetry. Pt is awaiting placement. Patient has a history of schizoaffective and has had previous admits to [facility]. Interventions: One to one with patient, administered medication as ordered with no adverse side effects, provided safe and supportive environment, encouraged participation in unit activities, monitored behaviors and clear boundaries, Q15 min safety rounds. Response: Pt was in bed at change of shift and requested assistance with toileting. Pt c/o feeling "itchy" and requests prn benadryl with HS meds. Pt is in a pleasant mood and had a good day. Pt states she would like a new "inhaler and bronchodilators" Respiratory came up and gave pt a treatment. Pt was complaining of 10/10 pain "all over" and was provided with prn ultram with HS meds. Plan: Patient is LPS conserved and at baseline. Pt is awaiting placement.
[2022-05-02] MEDS: loratadine 10mg tablet PO SCH (09:27)
[2022-05-02] MEDS: divalproex sod 250mg ER (24-hour) tablet PO SCH ×2 (09:27→20:06)
[2022-05-02] MEDS: cholecalciferol (vitamin D3) 1,000 unit (25mcg) tablet PO SCH (09:28)
[2022-05-02] MEDS: pantoprazole 40mg Tablet.DR PO SCH ×2 (09:28→20:07)
[2022-05-02] MEDS: apixaban 5mg tablet PO SCH ×2 (09:29→20:07)
[2022-05-02] MEDS: atorvastatin 20mg tablet PO SCH (09:29)
[2022-05-02] MEDS: calcium carbonate 500mg chew tablet PO SCH ×2 (09:29→20:07)
[2022-05-02] MEDS: docusate sod 100mg capsule PO SCH ×2 (09:29→20:06)
[2022-05-02] MEDS: aspirin 81mg, enteric-coated 1 TAB TABLET.DR PO SCH (09:29)
[2022-05-02] MEDS: nicotine 7mg patch - 24hr TD SCH (09:30)
[2022-05-02] MEDS: lisinopril 20mg tablet PO SCH (09:46)
--- NOTE | 2022-05-02 12:30 | NUR ---
Emailed Tamara's Public Guardian, Florence, regarding placement update and asked if she would like us to persue an appointment with Garry. ZACH Das
--- NOTE | 2022-05-02 15:46 | NUR ---
Therapeutic group Client attended group today. Todays group focused on a breathing and sensory exercise of freeform drawing with breathing, calm music. After this grounding exercise, clients were then asked to proactive add something not random/what they wanted in their drawings. Clients were then asked to explain their choices, with peer encouragement and input. Client's thought content was not linear or related to group content. Client interacted with material as evidenced by creating a drawing, staying for the entirety of group, talking with peers and this writer editor. Client's demeanor was calm, appropriate, and pleasant to work with.
[2022-05-02] MEDS: albuterol 2.5 MG/3 ML nebule NEB PRN (16:52)
--- NOTE | 2022-05-02 18:26 | NUR ---
NURSING PROGRESS NOTE Problem: Pt admitted on LPS conservatorship from Telemetry. Pt is awaiting placement. Patient has a history of schizoaffective and has had previous admits to [facility]. Interventions: Provided 1:1 assessment with therapeutic communication and active listening; medication administration/education/monitoring; provided safe and supportive environment, encouraged participation in unit activities, monitored behaviors and clear boundaries, Q15 min safety rounds. Response: Pt slept until 1030 am then was assisted with getting up and taken too the community room to eat her meal. Pt spent most of the day up watching TV. She was assisted many times to the restroom where rosy care was provided and her clothes were changed at various times throughout the day. Pt is cooperative with staff and most the time is patient when staff are busy and ask her to wait for assistance. Plan: Patient is LPS conserved and at baseline. Pt is awaiting placement.
[2022-05-02 19:38] VITALS: BP 135/77
[2022-05-02] MEDS: olanzapine 10mg tablet PO SCH (20:06)
[2022-05-02] MEDS: traMADol 50MG tablet PO PRN (20:07)
[2022-05-02] MEDS: traZODone 50mg tablet PO PRN (20:07)
[2022-05-02] MEDS: amLODIPine 5mg tablet PO SCH (20:07)
[2022-05-02] MEDS: sertraline 50mg tablet PO SCH (20:08)
[2022-05-02] MEDS: diphenhydrAMINE 25mg capsule PO PRN (21:15)
--- NOTE | 2022-05-02 22:10 | NUR ---
NURSING PROGRESS NOTE Problem: Pt admitted on LPS conservatorship from Telemetry. Pt is awaiting placement. Patient has a history of schizoaffective and has had previous admits to [facility]. Interventions: Provided 1:1 assessment with therapeutic communication and active listening; medication administration/education/monitoring; provided safe and supportive environment, encouraged participation in unit activities, monitored behaviors and clear boundaries, Q15 min safety rounds. Response: Pt was in her room at change of shift, she states she is upset and had a "bad day, everything went wrong today!" Pt explains that the public guardian came from her county and she is worried she will have to have a procedure she doesnt want. Pt states "I dont want anything invasive and they are going to make me do it." Pt was given patients rights information. Advised patient it is a good idea to ask questions about her health talk w/her provider about her concerns. Pt was assisted with toileting and rosy care prn. Pt took HS meds and c/o back pain and was given prn ultram w/good effect. Pt requested prn benadryl for itching before going to sleep. Plan: Patient is LPS conserved and at baseline. Pt is awaiting placement.
[2022-05-03 07:00] VITALS: BP 135/55
[2022-05-03] MEDS: docusate sod 100mg capsule PO SCH ×2 (08:00→19:44)
[2022-05-03] MEDS: calcium carbonate 500mg chew tablet PO SCH ×2 (09:04→19:43)
[2022-05-03] MEDS: nicotine 7mg patch - 24hr TD SCH (09:04)
[2022-05-03] MEDS: loratadine 10mg tablet PO SCH (09:05)
[2022-05-03] MEDS: cholecalciferol (vitamin D3) 1,000 unit (25mcg) tablet PO SCH (09:05)
[2022-05-03] MEDS: lisinopril 20mg tablet PO SCH (09:05)
[2022-05-03] MEDS: apixaban 5mg tablet PO SCH ×2 (09:06→19:44)
[2022-05-03] MEDS: atorvastatin 20mg tablet PO SCH (09:06)
[2022-05-03] MEDS: pantoprazole 40mg Tablet.DR PO SCH ×2 (09:06→19:44)
[2022-05-03] MEDS: divalproex sod 250mg ER (24-hour) tablet PO SCH ×2 (09:06→19:45)
[2022-05-03] MEDS: traMADol 50MG tablet PO PRN ×2 (09:07→19:50)
[2022-05-03] MEDS: aspirin 81mg, enteric-coated 1 TAB TABLET.DR PO SCH (09:07)
--- NOTE | 2022-05-03 15:44 | NUR ---
Therapeutic group Client attended group today. Todays group focused on a breathing and sensory exercise of freeform drawing with breathing, calm music. After this grounding exercise, clients were then asked to proactive add something not random/what they wanted in their drawings. Clients were then asked to explain their choices, with peer encouragement and input. Client's content was linear and WNL. Client was dressed neatly, hygiene WNL. Client interacted with material as evidenced by completing a drawing, sharing it with the group, talking with peers and this remote mortgage underwriter. Client stated she "felt a little down". Client's demeanor was calm and pleasant to work with.
[2022-05-03] MEDS: diphenhydrAMINE 25mg capsule PO PRN (16:27)
--- NOTE | 2022-05-03 17:35 | NUR ---
NURSING PROGRESS NOTE Problem: Pt admitted on LPS conservatorship from Telemetry. Pt is awaiting placement. Patient has a history of schizoaffective and has had previous admits to [facility]. Interventions: Provided 1:1 assessment with therapeutic communication and active listening; medication administration/education/monitoring; provided safe and supportive environment, encouraged participation in unit activities, monitored behaviors and clear boundaries, Q15 min safety rounds. Response: Patient slept late and came to the dining room to eat breakfast. Patient is medication compliant. Patient needs assistance transferring from bed to wheelchair and to the toilette periodically throughout the day. An RN named Chanel Richter called from [facility] to find out what assistance that the patient will need to be placed and what equipment she will need at a new placement. Explained her condition and needs and she is going to start working on placement. Patient was eating chocolate in her room, and said I am celebrating Valentines Day early. Patient did state that her birthday is [birth year]. Patient has been in a good mood today. Plan: Patient is LPS conserved and at baseline. Pt is awaiting placement.
[2022-05-03 19:00] VITALS: BP 156/66
[2022-05-03] MEDS: albuterol 2.5 MG/3 ML nebule NEB PRN (19:34)
[2022-05-03] MEDS: traZODone 50mg tablet PO PRN (19:44)
[2022-05-03] MEDS: amLODIPine 5mg tablet PO SCH (19:45)
[2022-05-03] MEDS: olanzapine 10mg tablet PO SCH (19:45)
[2022-05-03] MEDS: sertraline 50mg tablet PO SCH (19:45)
--- NOTE | 2022-05-04 04:23 | NUR ---
NURSING PROGRESS NOTE Problem: Pt admitted on LPS conservatorship from Telemetry. Pt is awaiting placement. Patient has a history of schizoaffective and has had previous admits to [facility]. Interventions: Provided 1:1 assessment with therapeutic communication and active listening; medication administration/education/monitoring; provided safe and supportive environment, encouraged participation in unit activities, monitored behaviors and clear boundaries, Q15 min safety rounds. Response: Upon turn of shift noted patient up in W/C. Sat near RNs at beginning of shift then requested to be put in bed. Assisted her laying down. Noted patient to be clean and in a good mood. Calm and cooperative with HS medications. C/O pain. Administered Ultram 25 mg x1 and Desyrel 50 mg x 1 PRN. Denies SI, A/H, and V/H. States, I used to. When I did hear voices my mother was alive and it was her voice and her comrades, Im glad shes gone. Slept throughout the night without calling. Placement pending. Plan: Patient is LPS conserved and at baseline. Pt is awaiting placement.
--- NOTE | 2022-05-04 07:32 | NUR ---
F/u 2/2: Pt continues eating well mostly ~75-100% PO meals w/ occasional 50% continues to meet estimated nutrient needs. LBM 05/02, receiving routine bowel care. No nutrition intervention implemented at this time. Will continue to follow. Recommendations: 1. Continue regular diet 2. Routine bowel care 3. Weekly scaled wts Addendum: 05/04/22 at [address] Amended: Links added.
[2022-05-04] MEDS: divalproex sod 250mg ER (24-hour) tablet PO SCH ×2 (07:55→20:46)
[2022-05-04] MEDS: cholecalciferol (vitamin D3) 1,000 unit (25mcg) tablet PO SCH (07:55)
[2022-05-04] MEDS: loratadine 10mg tablet PO SCH (07:55)
[2022-05-04] MEDS: pantoprazole 40mg Tablet.DR PO SCH ×2 (07:55→20:48)
[2022-05-04] MEDS: calcium carbonate 500mg chew tablet PO SCH ×2 (07:55→20:46)
[2022-05-04] MEDS: atorvastatin 20mg tablet PO SCH (07:55)
[2022-05-04] MEDS: aspirin 81mg, enteric-coated 1 TAB TABLET.DR PO SCH (07:55)
[2022-05-04] MEDS: docusate sod 100mg capsule PO SCH ×2 (07:55→20:46)
[2022-05-04] MEDS: lisinopril 20mg tablet PO SCH (07:56)
[2022-05-04] MEDS: apixaban 5mg tablet PO SCH ×2 (07:56→20:46)
[2022-05-04] MEDS: traMADol 50MG tablet PO PRN ×2 (07:58→21:11)
[2022-05-04 08:00] VITALS: BP 124/56
[2022-05-04] MEDS: albuterol 2.5 MG/3 ML nebule NEB PRN ×3 (08:49→20:48)
[2022-05-04] MEDS: diphenhydrAMINE 25mg capsule PO PRN ×2 (14:56→20:46)
--- NOTE | 2022-05-04 17:53 | NUR ---
NURSING PROGRESS NOTE Problem: Pt admitted on LPS conservatorship from Telemetry. Pt is awaiting placement. Patient has a history of schizoaffective and has had previous admits to [facility]. Interventions: Provided 1:1 assessment with therapeutic communication and active listening; medication administration/education/monitoring; provided safe and supportive environment, encouraged participation in unit activities, monitored behaviors and clear boundaries, Q15 min safety rounds. Response: Received patient sleeping in bed at change of shift. Patient is wheeled into the dining room early at 07:15. Patient is drinking coffee, socializing with peers. Patient is medication compliant. RN went into her room in the afternoon and patient was stating that she needed a respiratory treatment and that she couldnt breath, paged for stat respiratory treatment and sat her upright in her wheelchair, respiratory treatment was then delivered. This afternoon, patient wants to take a shower, but there are admissions and this could not be performed today. Patient is complaining of allergy symptoms and requested a Benadryl for her ears itching. Patient was upset with JOVITA Potter, and was making statements that he is ignoring her now, and just walks out when she tries to speak to him and that she guesses because she wont have sex with him, and that he is always flirtatious with her. Patient was able to speak to Dr. Salinas about this situation and that made her feel better. Patient is now sitting in the group room. Plan: Patient is LPS conserved and at baseline. Pt is awaiting placement.
[2022-05-04 19:00] VITALS: BP 136/76
[2022-05-04] MEDS: sertraline 50mg tablet PO SCH (20:45)
[2022-05-04] MEDS: traZODone 50mg tablet PO PRN (20:46)
[2022-05-04] MEDS: amLODIPine 5mg tablet PO SCH (20:46)
[2022-05-04] MEDS: olanzapine 10mg tablet PO SCH (20:46)
--- NOTE | 2022-05-05 04:30 | NUR ---
NURSING PROGRESS NOTE Problem: Pt admitted on LPS conservatorship from Telemetry. Pt is awaiting placement. Patient has a history of schizoaffective and has had previous admits to [facility]. Interventions: Provided 1:1 assessment with therapeutic communication and active listening; medication administration/education/monitoring; provided safe and supportive environment, encouraged participation in unit activities, monitored behaviors and clear boundaries, Q15 min safety rounds. Response: Upon turn of shift noted well-groomed woman with clean hair and appearance lying in bed with eyes open. Upon 1:1 noted her to be pleasant, calm and cooperative. Stayed in bed all night. Noted to be in a good mood. Compliant with HS meds. PRN Ultram, Benadryl and Desyrel. Denies SI, AH and V/H. Speech is clear and answers questions appropriately. No delusional comments this evening. Requested RT tx this evening which she received. No nicotine patch removal as it was not applied on yesterday dayshift. Able to make needs known. Slept well this shift and last several days. Plan: Patient is LPS conserved and at baseline. Pt is awaiting placement.
[2022-05-05] MEDS: divalproex sod 250mg ER (24-hour) tablet PO SCH ×2 (07:29→20:52)
[2022-05-05] MEDS: lisinopril 20mg tablet PO SCH (07:29)
[2022-05-05] MEDS: docusate sod 100mg capsule PO SCH ×2 (07:29→20:52)
[2022-05-05] MEDS: apixaban 5mg tablet PO SCH ×2 (07:30→20:52)
[2022-05-05] MEDS: cholecalciferol (vitamin D3) 1,000 unit (25mcg) tablet PO SCH (07:30)
[2022-05-05] MEDS: pantoprazole 40mg Tablet.DR PO SCH ×2 (07:30→20:52)
[2022-05-05] MEDS: nicotine 7mg patch - 24hr TD SCH (07:30)
[2022-05-05] MEDS: loratadine 10mg tablet PO SCH (07:30)
[2022-05-05] MEDS: atorvastatin 20mg tablet PO SCH (07:30)
[2022-05-05] MEDS: aspirin 81mg, enteric-coated 1 TAB TABLET.DR PO SCH (07:30)
[2022-05-05 08:00] VITALS: BP 124/65
[2022-05-05] MEDS: calcium carbonate 500mg chew tablet PO SCH ×2 (08:00→20:52)
--- NOTE | 2022-05-05 17:06 | NUR ---
Nursing Progress Note: Tamara Problem: Pt admitted on LPS conservatorship from Telemetry. Pt is awaiting placement. PT has history of schizoaffective. Interventions: Medication administration, 1:1 MH assessment, maintained a safe and supportive environment, provided clear and simple instructions, provided encouragement regarding performance of ADLs, monitored behaviors and maintained clear boundaries, maintained Q15 minute safety checks. Response: Pt. received asleep and awoke to eat breakfast. Pt. took her medications without hesitation, and denies SI,HI,AH,VH, no signs of responding to IS. She requires assistance with ADLs and transfers, she has been continent B&B. Pt. has utilized the call light for all her needs, and uses a WC for transportation on the unit. She spent most of the shift OOB and watching tv with cohorts, she appears to enjoy socializing with female cohorts. Pt. was seen by and reported I do not want a shunt She ate all meals in the community room and participated in snacks. Pt. c/o itchiness and was given PRN Benadryl; no rash or raised areas found. Later requested a breathing Tx; respiratory was paged. She has fair hygiene, hair is combed wears street clothes. Plan: Patient requires a safe and supportive environment. No viable plan for discharge at this time; patient is conserved.
[2022-05-05] MEDS: diphenhydrAMINE 25mg capsule PO PRN (17:11)
[2022-05-05] MEDS: albuterol 2.5 MG/3 ML nebule NEB PRN ×2 (17:18→21:23)
[2022-05-05 19:49] VITALS: BP 130/80
[2022-05-05] MEDS: acetaminophen 325mg tablet PO PRN (20:47)
[2022-05-05] MEDS: sertraline 50mg tablet PO SCH (20:48)
[2022-05-05] MEDS: amLODIPine 5mg tablet PO SCH (20:51)
[2022-05-05] MEDS: olanzapine 10mg tablet PO SCH (20:51)
[2022-05-05] MEDS: traMADol 50MG tablet PO PRN (20:51)
--- NOTE | 2022-05-05 23:18 | NUR ---
Nursing Progress Note: Problem: Pt admitted on LPS conservatorship from Telemetry. Pt is awaiting placement. PT has history of schizoaffective. Interventions: Medication administration, 1:1 MH assessment, maintained a safe and supportive environment, provided clear and simple instructions, provided encouragement regarding performance of ADLs, monitored behaviors and maintained clear boundaries, maintained Q15 minute safety checks. Response: Patient is isolating in her room following shift change. She exhibits a flat affect but with conversation her moot elevates. She is linear. Patient tells this copy writer that she still needs assistance when she needs to toilet. Patient ate only part of her dinner as the fish being served to other patients smelled and bothered her. She did eat her salad, bread, and drank her milk, but did not eat her chicken. The patient denies S/I, H/I or any hallucinations. The patient expresses the want to have physical therapy to help her walk. Patient states "I think physical therapy gave up on me." Subjective SOB is present. No JVD is present at a 45 degree angle, no accessary muscle use, lung sinclair are clear/equal and diminished throughout bilaterally. SpO2 was 91 percent. Patient requested and was given PRN Benadryl. A breathing treatment was ordered and given as a PRN. Following Benadryl and breathing treatment this patient gradually fell asleep. Patient was medication compliant and cooperative. Plan: Patient requires a safe and supportive environment. No viable plan for discharge at this time; patient is conserved.
[2022-05-06 08:00] VITALS: BP 136/68
[2022-05-06] MEDS: nicotine 7mg patch - 24hr TD SCH (09:01)
[2022-05-06] MEDS: divalproex sod 250mg ER (24-hour) tablet PO SCH ×2 (09:01→20:28)
[2022-05-06] MEDS: aspirin 81mg, enteric-coated 1 TAB TABLET.DR PO SCH (09:01)
[2022-05-06] MEDS: docusate sod 100mg capsule PO SCH ×2 (09:01→20:28)
[2022-05-06] MEDS: loratadine 10mg tablet PO SCH (09:01)
[2022-05-06] MEDS: pantoprazole 40mg Tablet.DR PO SCH ×2 (09:02→20:28)
[2022-05-06] MEDS: cholecalciferol (vitamin D3) 1,000 unit (25mcg) tablet PO SCH (09:02)
[2022-05-06] MEDS: lisinopril 20mg tablet PO SCH (09:02)
[2022-05-06] MEDS: calcium carbonate 500mg chew tablet PO SCH ×2 (09:02→20:28)
[2022-05-06] MEDS: atorvastatin 20mg tablet PO SCH (09:03)
[2022-05-06] MEDS: apixaban 5mg tablet PO SCH ×2 (09:03→20:28)
[2022-05-06] MEDS: traMADol 50MG tablet PO PRN (16:29)
--- NOTE | 2022-05-06 16:53 | NUR ---
Nursing Progress Note Problem: Pt admitted on LPS conservatorship from Telemetry. Pt is awaiting placement. PT has history of schizoaffective. Interventions: Medication administration, 1:1 MH assessment, maintained a safe and supportive environment, provided clear and simple instructions, provided encouragement regarding performance of ADLs, monitored behaviors and maintained clear boundaries, maintained Q15 minute safety checks. Response: Received Pt in bed sleeping w/o distress at the beginning of the shift. Pt woke and was cooperative with vitals and went to sleep again. Pt woke for breakfast and was wheeled to community room where she ate breakfast and lunch well. Pt napped in AM and was tired throughout the day. Pt c/o neck pain and received Tramadol 25mg with good effect. Pt in street clothes most of the day and watched some TV in afternoon. Pt denies SI, HI and A/VHs. Plan: Patient requires a safe and supportive environment. No viable plan for discharge at this time; patient is conserved.
[2022-05-06 20:00] VITALS: BP 101/62
[2022-05-06] MEDS: amLODIPine 5mg tablet PO SCH (20:29)
[2022-05-06] MEDS: sertraline 50mg tablet PO SCH (20:29)
[2022-05-06] MEDS: olanzapine 10mg tablet PO SCH (20:29)
--- NOTE | 2022-05-06 23:46 | NUR ---
Nursing Progress Note Problem: Pt admitted on LPS conservatorship from Telemetry. Pt is awaiting placement. PT has history of schizoaffective. Interventions: Medication administration, 1:1 MH assessment, maintained a safe and supportive environment, provided clear and simple instructions, provided encouragement regarding performance of ADLs, monitored behaviors and maintained clear boundaries, maintained Q15 minute safety checks. Response: Received Pt in bed resting. Pt enjoyed snack and spoke with this junior copywriter about her family and how she wants to contact her ex with hopes that he knows where her son is. Pt is cautious about brain shunt surgery and wants to know where her loved ones are before going under the knife. Pt denies MH symptoms and was pleasant and cooperative. Pt cooperative with vitals and took PM meds w/o issue. Pt sleeping w/o distress. Plan: Patient requires a safe and supportive environment. No viable plan for discharge at this time; patient is conserved.
[2022-05-07 07:00] VITALS: BP 130/54
[2022-05-07] MEDS: nicotine 7mg patch - 24hr TD SCH (08:00)
[2022-05-07] MEDS: cholecalciferol (vitamin D3) 1,000 unit (25mcg) tablet PO SCH (09:27)
[2022-05-07] MEDS: pantoprazole 40mg Tablet.DR PO SCH ×2 (09:28→20:32)
[2022-05-07] MEDS: docusate sod 100mg capsule PO SCH ×2 (09:28→20:32)
[2022-05-07] MEDS: lisinopril 20mg tablet PO SCH (09:29)
[2022-05-07] MEDS: loratadine 10mg tablet PO SCH (09:29)
[2022-05-07] MEDS: aspirin 81mg, enteric-coated 1 TAB TABLET.DR PO SCH (09:30)
[2022-05-07] MEDS: atorvastatin 20mg tablet PO SCH (09:30)
[2022-05-07] MEDS: divalproex sod 250mg ER (24-hour) tablet PO SCH ×2 (09:30→20:32)
[2022-05-07] MEDS: calcium carbonate 500mg chew tablet PO SCH ×2 (09:31→20:32)
[2022-05-07] MEDS: apixaban 5mg tablet PO SCH ×2 (09:31→20:32)
[2022-05-07] MEDS: traMADol 50MG tablet PO PRN ×2 (09:31→20:33)
[2022-05-07] MEDS: diphenhydrAMINE 25mg capsule PO PRN ×2 (10:27→20:32)
[2022-05-07] MEDS: acetaminophen 325mg tablet PO PRN (17:09)
--- NOTE | 2022-05-07 17:50 | NUR ---
Nursing Progress Note Problem: Pt admitted on LPS conservatorship from Telemetry. Pt is awaiting placement. PT has history of schizoaffective. Interventions: Medication administration, 1:1 MH assessment, maintained a safe and supportive environment, provided clear and simple instructions, provided encouragement regarding performance of ADLs, monitored behaviors and maintained clear boundaries, maintained Q15 minute safety checks. Response: Received patient sleeping in bed at shift change. Patient slept late and awakened and was wheeled into the dining room for a late breakfast. Patient takes medications readily. Patient stays up until snack and then goes back to bed for a nap. Patient gets up at lunch time and stays up until about 3:30, then patient states that she doesnt feel good. She does not think that she is sick, but just feels very exhausted, and wanted to go back to bed for an afternoon nap. Patient had an Ultram with morning medications and then requested Tylenol in the afternoon for neck pain. Plan: Patient requires a safe and supportive environment. No viable plan for discharge at this time; patient is conserved
[2022-05-07 19:58] VITALS: BP 108/69
[2022-05-07] MEDS: olanzapine 10mg tablet PO SCH (20:32)
[2022-05-07] MEDS: traZODone 50mg tablet PO PRN (20:32)
[2022-05-07] MEDS: sertraline 50mg tablet PO SCH (20:32)
[2022-05-07] MEDS: amLODIPine 5mg tablet PO SCH (20:39)
--- NOTE | 2022-05-08 04:30 | NUR ---
Nursing Progress Note Problem: Pt admitted on LPS conservatorship from Telemetry. Pt is awaiting placement. PT has history of schizoaffective. Interventions: Medication administration, 1:1 MH assessment, maintained a safe and supportive environment, provided clear and simple instructions, provided encouragement regarding performance of ADLs, monitored behaviors and maintained clear boundaries, maintained Q15 minute safety checks. Response: Patient is pleasant and cooperative with care; compliant with medication. PRN Tramadol, Trazodone and Benadryl provided. No negative behaviors presented. Patient appears to be struggling more with urinary urgencies; three incontinent episodes this shift. Patient remained in her room this shift. She was provided HS snack and observed sleeping with no apparent difficulties. Plan: Patient requires a safe and supportive environment. No viable plan for discharge at this time; patient is conserved.
[2022-05-08 07:30] VITALS: BP 135/65
[2022-05-08] MEDS: calcium carbonate 500mg chew tablet PO SCH ×2 (08:00→20:29)
[2022-05-08] MEDS: aspirin 81mg, enteric-coated 1 TAB TABLET.DR PO SCH (08:25)
[2022-05-08] MEDS: apixaban 5mg tablet PO SCH ×2 (08:30→20:29)
[2022-05-08] MEDS: loratadine 10mg tablet PO SCH (08:30)
[2022-05-08] MEDS: divalproex sod 250mg ER (24-hour) tablet PO SCH ×2 (08:30→20:29)
[2022-05-08] MEDS: pantoprazole 40mg Tablet.DR PO SCH ×2 (08:30→20:29)
[2022-05-08] MEDS: atorvastatin 20mg tablet PO SCH (08:30)
[2022-05-08] MEDS: docusate sod 100mg capsule PO SCH ×2 (08:30→20:29)
[2022-05-08] MEDS: cholecalciferol (vitamin D3) 1,000 unit (25mcg) tablet PO SCH (08:30)
[2022-05-08] MEDS: lisinopril 20mg tablet PO SCH (08:31)
[2022-05-08] MEDS: nicotine 7mg patch - 24hr TD SCH (08:46)
[2022-05-08] MEDS: traMADol 50MG tablet PO PRN ×2 (09:33→16:24)
--- NOTE | 2022-05-08 11:22 | NUR ---
Spoke to Tamara's conservator, Florence (ph# [phone]), and informed her that a nurse to nurse was done last Wed. She reported she will follow up with placement regarding this. ZACH Das
[2022-05-08] MEDS: albuterol 2.5 MG/3 ML nebule NEB PRN ×2 (16:44→20:41)
--- NOTE | 2022-05-08 17:44 | NUR ---
Nursing Progress Note Problem: Pt admitted on LPS conservatorship from Telemetry. Pt is awaiting placement. PT has history of schizoaffective. Interventions: Medication administration, 1:1 MH assessment, maintained a safe and supportive environment, provided clear and simple instructions, provided encouragement regarding performance of ADLs, monitored behaviors and maintained clear boundaries, maintained Q15 minute safety checks. Response: RN received pt. asleep in bed at start of shift. Pt. awoke and found to be incontinent of urine. Pt. changed and dressed for breakfast. Pt. ate her breakfast and took all medications. Pt. went back to her room and had a normal BM and slept another 2 hours, pt. awoke for lunch. 1:1 done at bedside, pt,. denies SI/HI, A/V hallucinations. Pt. repots she feels pretty good today, but is concerned about he placement. Pt. c/o of neck ache and received Ultram 25mg po with good effect. In the evening pt. was shaved and she again c/o of neck ache and received Ultram 25mg with good effect. Pt. is social with peers and staff. Pt. was shaved by female staff. Plan: Patient requires a safe and supportive environment. No viable plan for discharge at this time; patient is conserved
[2022-05-08 19:35] VITALS: BP 142/74
[2022-05-08] MEDS: traZODone 50mg tablet PO PRN (20:29)
[2022-05-08] MEDS: sertraline 50mg tablet PO SCH (20:29)
[2022-05-08] MEDS: olanzapine 10mg tablet PO SCH (20:29)
[2022-05-08] MEDS: diphenhydrAMINE 25mg capsule PO PRN (20:29)
[2022-05-08] MEDS: amLODIPine 5mg tablet PO SCH (20:29)
--- NOTE | 2022-05-09 05:12 | NUR ---
Nursing Progress Note Problem: Pt admitted on LPS conservatorship from Telemetry. Pt is awaiting placement. PT has history of schizoaffective. Interventions: Medication administration, 1:1 MH assessment, maintained a safe and supportive environment, provided clear and simple instructions, provided encouragement regarding performance of ADLs, monitored behaviors and maintained clear boundaries, maintained Q15 minute safety checks. Response: Patient is pleasant and cooperative with care; compliant with medication. PRN Trazodone (for sleep) and Benadryl (c/o "itchiness all over") provided per patient's request. No negative behaviors and no urinary incontinent episodes this shift. Patient social with staff and provided HS snack; observed sleeping and does not appear to be having difficulty. Plan: Patient requires a safe and supportive environment. No viable plan for discharge at this time; patient is conserved.
[2022-05-09 07:30] VITALS: BP 137/70
[2022-05-09] MEDS: calcium carbonate 500mg chew tablet PO SCH ×2 (08:00→20:23)
[2022-05-09] MEDS: nicotine 7mg patch - 24hr TD SCH (08:00)
[2022-05-09] MEDS: aspirin 81mg, enteric-coated 1 TAB TABLET.DR PO SCH (08:07)
[2022-05-09] MEDS: docusate sod 100mg capsule PO SCH ×2 (08:07→20:23)
[2022-05-09] MEDS: cholecalciferol (vitamin D3) 1,000 unit (25mcg) tablet PO SCH (08:08)
[2022-05-09] MEDS: atorvastatin 20mg tablet PO SCH (08:08)
[2022-05-09] MEDS: lisinopril 20mg tablet PO SCH (08:08)
[2022-05-09] MEDS: divalproex sod 250mg ER (24-hour) tablet PO SCH ×2 (08:08→20:23)
[2022-05-09] MEDS: pantoprazole 40mg Tablet.DR PO SCH ×2 (08:08→20:24)
[2022-05-09] MEDS: loratadine 10mg tablet PO SCH (08:08)
[2022-05-09] MEDS: apixaban 5mg tablet PO SCH ×2 (08:08→20:23)
[2022-05-09] MEDS: traMADol 50MG tablet PO PRN ×2 (08:38→20:23)
[2022-05-09] MEDS: albuterol 2.5 MG/3 ML nebule NEB PRN (16:14)
--- NOTE | 2022-05-09 17:42 | NUR ---
Nursing Progress Note Problem: Pt admitted on LPS conservatorship from Telemetry. Pt is awaiting placement. PT has history of schizoaffective. Interventions: Medication administration, 1:1 MH assessment, maintained a safe and supportive environment, provided clear and simple instructions, provided encouragement regarding performance of ADLs, monitored behaviors and maintained clear boundaries, maintained Q15 minute safety checks. Response: RN received pt. asleep in bed at start of shift. Pt. awoke and found to be incontinent of urine. Pt. changed and dressed for breakfast. Pt. ate her breakfast and took all medications. Pt. went back to her room and had a normal BM and slept until noon. Pt. again found to be incontinent and changed. 1:1 done at bedside, pt. denies all psych symptoms and is concerned about her discharge plan. Pt. ate lunch and asked to go back to her bed, sleeping from 1400 to approx. 16:30. Pt. asked to get up to watch TV. Pt. had no further incontinence episodes for the remainder of the shift. Plan: Patient requires a safe and supportive environment. No viable plan for discharge at this time; patient is conserved
[2022-05-09 19:21] VITALS: BP 110/48
[2022-05-09] MEDS: diphenhydrAMINE 25mg capsule PO PRN (20:23)
[2022-05-09] MEDS: traZODone 50mg tablet PO PRN (20:23)
[2022-05-09] MEDS: olanzapine 10mg tablet PO SCH (20:23)
[2022-05-09] MEDS: amLODIPine 5mg tablet PO SCH (20:23)
[2022-05-09] MEDS: sertraline 50mg tablet PO SCH (20:24)
--- NOTE | 2022-05-10 05:14 | NUR ---
Nursing Progress Note Problem: Pt admitted on LPS conservatorship from Telemetry. Pt is awaiting placement. PT has history of schizoaffective. Interventions: Medication administration, 1:1 MH assessment, maintained a safe and supportive environment, provided clear and simple instructions, provided encouragement regarding performance of ADLs, monitored behaviors and maintained clear boundaries, maintained Q15 minute safety checks. Response: Patient is pleasant and cooperative with care; compliant with medication. PRN Tramadol for c/o "all-over" pain, Benadryl for c/o "itchiness" and Trazodone for sleep provided per patient's request. No negative behaviors presented and no episodes of urinary incontinence at this time. Patient social with staff and provided HS snack prior to bed; observed sleeping and does not appear to be having difficulty. Plan: Patient requires a safe and supportive environment. No viable plan for discharge at this time; patient is conserved.
[2022-05-10 08:00] VITALS: BP 124/67
[2022-05-10] MEDS: calcium carbonate 500mg chew tablet PO SCH ×2 (08:00→20:51)
[2022-05-10] MEDS: nicotine 7mg patch - 24hr TD SCH (08:00)
[2022-05-10] MEDS: divalproex sod 250mg ER (24-hour) tablet PO SCH ×2 (08:24→20:53)
[2022-05-10] MEDS: atorvastatin 20mg tablet PO SCH (08:24)
[2022-05-10] MEDS: apixaban 5mg tablet PO SCH ×2 (08:24→20:53)
[2022-05-10] MEDS: aspirin 81mg, enteric-coated 1 TAB TABLET.DR PO SCH (08:24)
[2022-05-10] MEDS: loratadine 10mg tablet PO SCH (08:24)
[2022-05-10] MEDS: cholecalciferol (vitamin D3) 1,000 unit (25mcg) tablet PO SCH (08:24)
[2022-05-10] MEDS: pantoprazole 40mg Tablet.DR PO SCH ×2 (08:24→20:51)
[2022-05-10] MEDS: docusate sod 100mg capsule PO SCH ×2 (08:24→20:52)
[2022-05-10] MEDS: lisinopril 20mg tablet PO SCH (08:25)
[2022-05-10] MEDS: traMADol 50MG tablet PO PRN (08:37)
--- NOTE | 2022-05-10 17:48 | NUR ---
Nursing Progress Note Problem: Pt admitted on LPS conservatorship from Telemetry. Pt is awaiting placement. PT has history of schizoaffective. Interventions: Medication administration, 1:1 MH assessment, maintained a safe and supportive environment, provided clear and simple instructions, provided encouragement regarding performance of ADLs, monitored behaviors and maintained clear boundaries, maintained Q15 minute safety checks. Response: RN received pt. asleep in bed at start of shift. Pt. awoke and changed as pt. was incontinent of urine. Pt. ate breakfast in dining room and asked to go back to her room to sleep. Pt. had x2 BMs today. Pt. awoke mid-morning and requested to sit in the dining room. Pt. ate lunch and requested to go back to her room. Pt. took a short nap in the afternoon and requested to go back to the dining room, however, after eating a snack pt. requested to go back to her room. When pt. was told that she spent too much time in bed pt. became agitated and swore at this RN stating, Youre good for nothing!. Pt. was able to calm herself down. Pt. went out to the patio and said she felt better. Pt. waited in the dining room for dinner. Pt. c/o neck pain and received Tramadol 25mg with good effect. Plan: Patient requires a safe and supportive environment. No viable plan for discharge at this time; patient is conserved
[2022-05-10 19:00] VITALS: BP 117/67
[2022-05-10] MEDS: albuterol 2.5 MG/3 ML nebule NEB PRN (19:09)
[2022-05-10] MEDS: sertraline 50mg tablet PO SCH (20:51)
[2022-05-10] MEDS: olanzapine 10mg tablet PO SCH (20:52)
[2022-05-10] MEDS: amLODIPine 5mg tablet PO SCH (20:52)
[2022-05-10] MEDS: traZODone 50mg tablet PO PRN (20:52)
[2022-05-10] MEDS: diphenhydrAMINE 25mg capsule PO PRN (20:53)
--- NOTE | 2022-05-11 05:53 | NUR ---
Nursing Progress Note Problem: Pt admitted on LPS conservatorship from Telemetry. Pt is awaiting placement. PT has history of schizoaffective. Interventions: Medication administration, 1:1 MH assessment, maintained a safe and supportive environment, provided clear and simple instructions, provided encouragement regarding performance of ADLs, monitored behaviors and maintained clear boundaries, maintained Q15 minute safety checks. Response: Patient was received laying in bed at beginning of shift. Patient was cooperative and social. Patient was assisted to the bathroom by tech and retuned to bed. Patient requested Benadryl do to her R side and eyes itching. Patient participated in snack and was readjusted due to complaint of pain on L side. Patient took all night medications without issue including prn trazodone to help her sleep. Plan: Patient requires a safe and supportive environment. No viable plan for discharge at this time; patient is conserved
[2022-05-11] MEDS: calcium carbonate 500mg chew tablet PO SCH ×2 (08:00→20:48)
[2022-05-11 08:25] VITALS: BP 125/50
[2022-05-11] MEDS: loratadine 10mg tablet PO SCH (08:38)
[2022-05-11] MEDS: docusate sod 100mg capsule PO SCH ×2 (08:38→20:49)
[2022-05-11] MEDS: atorvastatin 20mg tablet PO SCH (08:39)
[2022-05-11] MEDS: apixaban 5mg tablet PO SCH ×2 (08:39→20:50)
[2022-05-11] MEDS: pantoprazole 40mg Tablet.DR PO SCH ×2 (08:39→20:50)
[2022-05-11] MEDS: aspirin 81mg, enteric-coated 1 TAB TABLET.DR PO SCH (08:39)
[2022-05-11] MEDS: cholecalciferol (vitamin D3) 1,000 unit (25mcg) tablet PO SCH (08:39)
[2022-05-11] MEDS: divalproex sod 250mg ER (24-hour) tablet PO SCH ×2 (08:39→20:49)
[2022-05-11] MEDS: traMADol 50MG tablet PO PRN ×2 (08:40→20:51)
[2022-05-11] MEDS: lisinopril 20mg tablet PO SCH (08:40)
[2022-05-11] MEDS: nicotine 7mg patch - 24hr TD SCH (08:42)
[2022-05-11] MEDS: albuterol 2.5 MG/3 ML nebule NEB PRN (09:38)
--- NOTE | 2022-05-11 17:34 | NUR ---
Nursing Progress Note: Tamara Problem: Pt admitted on LPS conservatorship from Telemetry. Pt is awaiting placement. PT has history of schizoaffective. Interventions: Medication administration, 1:1 MH assessment, maintained a safe and supportive environment, provided clear and simple instructions, provided encouragement regarding performance of ADLs, monitored behaviors and maintained clear boundaries, maintained Q15 minute safety checks. Response: Pt. received asleep and had breakfast in bed. Compliant with medication administration. Pt expressed to this YARN WRAPPER during 1:1 SI/HI, -AV/H, denies all mental health diagnoses. Pt appears well groomed and with fair hygiene. She continues to require assistance with ADLs and transfers, she has been continent of bowel and both continent/incontinent of bladder this shift. Pt. has poor safety awareness and is reeducated on the importance using call light and not attempting to self-transfer. She ate all meals in the community room and participated in snacks. PRN tramadol given for neck pain. Plan: Patient requires a safe and supportive environment. No viable plan for discharge at this time; patient is conserved.
[2022-05-11 19:00] VITALS: BP 118/79
[2022-05-11] MEDS: olanzapine 10mg tablet PO SCH (20:47)
[2022-05-11] MEDS: amLODIPine 5mg tablet PO SCH (20:48)
[2022-05-11] MEDS: sertraline 50mg tablet PO SCH (20:48)
[2022-05-11] MEDS: traZODone 50mg tablet PO PRN (20:49)
[2022-05-11] MEDS: diphenhydrAMINE 25mg capsule PO PRN (20:49)
--- NOTE | 2022-05-12 05:19 | NUR ---
Nursing Progress Note: Tamara Problem: Pt admitted on LPS conservatorship from Telemetry. Pt is awaiting placement. PT has history of schizoaffective. Interventions: Medication administration, 1:1 MH assessment, maintained a safe and supportive environment, provided clear and simple instructions, provided encouragement regarding performance of ADLs, monitored behaviors and maintained clear boundaries, maintained Q15 minute safety checks. Response: Patient was observed sitting in the middle of the hallway saying hello to everyone who passed by at change of shift. Patient was assisted to the bathroom and placed in bed. Patient began to repeatedly push call light asking for random things and medications. Patient requested prn Ultram for neck pain and Benadryl for itch y eyes and l hip. Patient was assisted to the bathroom again where she had a Medium bm. Patient took all night medications including prns. Patient was also given prn trazodone to help her sleep. Plan: Patient requires a safe and supportive environment. No viable plan for discharge at this time; patient is conserved.
[2022-05-12 07:00] VITALS: BP 114/60
[2022-05-12] MEDS: calcium carbonate 500mg chew tablet PO SCH ×2 (08:00→20:46)
[2022-05-12] MEDS: aspirin 81mg, enteric-coated 1 TAB TABLET.DR PO SCH (08:04)
[2022-05-12] MEDS: apixaban 5mg tablet PO SCH ×2 (08:04→20:45)
[2022-05-12] MEDS: docusate sod 100mg capsule PO SCH ×2 (08:04→20:46)
[2022-05-12] MEDS: loratadine 10mg tablet PO SCH (08:04)
[2022-05-12] MEDS: divalproex sod 250mg ER (24-hour) tablet PO SCH ×2 (08:04→20:44)
[2022-05-12] MEDS: lisinopril 20mg tablet PO SCH (08:05)
[2022-05-12] MEDS: pantoprazole 40mg Tablet.DR PO SCH ×2 (08:05→20:43)
[2022-05-12] MEDS: atorvastatin 20mg tablet PO SCH (08:05)
[2022-05-12] MEDS: cholecalciferol (vitamin D3) 1,000 unit (25mcg) tablet PO SCH (08:06)
[2022-05-12] MEDS: nicotine 7mg patch - 24hr TD SCH (08:06)
[2022-05-12] MEDS: traMADol 50MG tablet PO PRN (08:07)
--- NOTE | 2022-05-12 11:38 | NUR ---
Sent updated notes to [facility] (04/28-05/11). ZACH Das
--- NOTE | 2022-05-12 17:35 | NUR ---
Nursing Progress Note: Tamara Problem: Pt admitted on LPS conservatorship from Telemetry. Pt is awaiting placement. PT has history of schizoaffective. Interventions: Medication administration, 1:1 MH assessment, maintained a safe and supportive environment, provided clear and simple instructions, provided encouragement regarding performance of ADLs, monitored behaviors and maintained clear boundaries, maintained Q15 minute safety checks. Response: Pt. received asleep and had breakfast in bed. Compliant with medication administration. Pt expressed to this FAMILY THERAPIST during 1:1 SI/HI, -AV/H, denies all mental health diagnoses. Pt appears disheveled, wearing street clothes, poor hygiene. She continues to require assistance with ADLs and transfers, she has been continent of bowel and both continent/incontinent of bladder this shift. Pt showered and lotion applied. Pt. has poor safety awareness and is reeducated on the importance using call light and not attempting to self-transfer. She ate all meals in the community room and participated in snacks. PRN tramadol given for neck pain. Plan: Patient requires a safe and supportive environment. No viable plan for discharge at this time; patient is conserved.
[2022-05-12 20:00] VITALS: BP 132/72
[2022-05-12] MEDS: sertraline 50mg tablet PO SCH (20:44)
[2022-05-12] MEDS: acetaminophen 325mg tablet PO PRN (20:44)
[2022-05-12] MEDS: olanzapine 10mg tablet PO SCH (20:45)
[2022-05-12] MEDS: amLODIPine 5mg tablet PO SCH (20:45)
[2022-05-12] MEDS: traZODone 50mg tablet PO PRN (20:46)
[2022-05-12] MEDS: diphenhydrAMINE 25mg capsule PO PRN (20:46)
--- NOTE | 2022-05-13 05:31 | NUR ---
Nursing Progress Note: Tamara Problem: Pt admitted on LPS conservatorship from Telemetry. Pt is awaiting placement. PT has history of schizoaffective. Interventions: Medication administration, 1:1 MH assessment, maintained a safe and supportive environment, provided clear and simple instructions, provided encouragement regarding performance of ADLs, monitored behaviors and maintained clear boundaries, maintained Q15 minute safety checks. Response: Patient was found sitting in door way at change of shift. Patient was assisted into bed after going to the bathroom. Patient continued to complain about neck pain and was given prn tylenol. Patient later asked for Benadryl for her itchy eyes. Patient continued to stay in bed until going to sleep after taking night medications. Plan: Patient requires a safe and supportive environment. No viable plan for discharge at this time; patient is conserved.
[2022-05-13] MEDS: docusate sod 100mg capsule PO SCH ×2 (07:40→20:13)
[2022-05-13] MEDS: atorvastatin 20mg tablet PO SCH (07:41)
[2022-05-13] MEDS: cholecalciferol (vitamin D3) 1,000 unit (25mcg) tablet PO SCH (07:41)
[2022-05-13] MEDS: calcium carbonate 500mg chew tablet PO SCH ×2 (07:41→20:12)
[2022-05-13] MEDS: pantoprazole 40mg Tablet.DR PO SCH ×2 (07:41→20:13)
[2022-05-13] MEDS: loratadine 10mg tablet PO SCH (07:41)
[2022-05-13] MEDS: lisinopril 20mg tablet PO SCH (07:41)
[2022-05-13] MEDS: apixaban 5mg tablet PO SCH ×2 (07:41→20:13)
[2022-05-13] MEDS: divalproex sod 250mg ER (24-hour) tablet PO SCH ×2 (07:41→20:13)
[2022-05-13] MEDS: aspirin 81mg, enteric-coated 1 TAB TABLET.DR PO SCH (07:41)
[2022-05-13] MEDS: nicotine 7mg patch - 24hr TD SCH (07:42)
[2022-05-13 08:00] VITALS: BP 127/77
--- NOTE | 2022-05-13 11:45 | NUR ---
Reassessment: Pt continues eating well with mostly 75-100% PO intake of meals meeting estimated nutrient needs. [facility] 05/11, receiving routine bowel care. No nutrition intervention implemented at this time. Will continue to follow. Recommendations: 1. Continue regular diet 2. Routine bowel care 3. Weekly scaled wts Addendum: 05/13/22 at [address] Amended: Links added.
[2022-05-13] MEDS ORDERED: OLANZapine 5mg rapidly disint. tablet PO ONE (16:45)
--- NOTE | 2022-05-13 17:15 | NUR ---
Nursing Progress Note: Tamara Problem: Pt admitted on LPS conservatorship from Telemetry. Pt is awaiting placement. PT has history of schizoaffective. Interventions: Medication administration, 1:1 MH assessment, maintained a safe and supportive environment, provided clear and simple instructions, provided encouragement regarding performance of ADLs, monitored behaviors and maintained clear boundaries, maintained Q15 minute safety checks. Response: Pt. received asleep and awoke to have breakfast. Pt. took her medications without hesitation, and continues to denies SI, HI, AH,VH. She continues to require assistance with ADLs and transfers, she has been continent Utilized the call light for all needs, and uses a WC for transportation on the unit. She spent most of the shift OOB and watching tv with cohorts, and enjoys socializing with female cohorts. Pt. had one episode of tearfulness reporting I cant watch [place], reminds me of my son She refused needing PRN but accepted chocolate and coffee. She interacts appropriately and presents as clean, well groomed, and wears street clothes. Plan: Patient requires a safe and supportive environment. No viable plan for discharge at this time; patient is conserved.
[2022-05-13 19:47] VITALS: BP 128/67
[2022-05-13] MEDS: diphenhydrAMINE 25mg capsule PO PRN (20:12)
[2022-05-13] MEDS: olanzapine 10mg tablet PO SCH (20:13)
[2022-05-13] MEDS: amLODIPine 5mg tablet PO SCH (20:13)
[2022-05-13] MEDS: traZODone 50mg tablet PO PRN (20:13)
[2022-05-13] MEDS: sertraline 50mg tablet PO SCH (20:14)
[2022-05-13] MEDS: albuterol 2.5 MG/3 ML nebule NEB PRN (20:17)
--- NOTE | 2022-05-13 22:20 | NUR ---
Nursing Progress Note: Tamara Problem: Pt admitted on LPS conservatorship from Telemetry. Pt is awaiting placement. PT has history of schizoaffective. Interventions: Medication administration, 1:1 MH assessment, maintained a safe and supportive environment, provided clear and simple instructions, provided encouragement regarding performance of ADLs, monitored behaviors and maintained clear boundaries, maintained Q15 minute safety checks. Response: Pt was in bed at change of shift. Pt denies s/i, uses call light for assistance prn. Pt requested to get into her wheel chair and then made a phone call to her sister prior to going to bed. Pt had a snack in her room. Pt is in a pleasant mood and is hopeful she can watch the super bowl tomorrow. Pt took HS meds and requested prn benadryl and trazodone before going to sleep. Plan: Patient requires a safe and supportive environment. No viable plan for discharge at this time; patient is conserved.
[2022-05-14] MEDS: apixaban 5mg tablet PO SCH ×2 (07:48→20:18)
[2022-05-14] MEDS: atorvastatin 20mg tablet PO SCH (07:48)
[2022-05-14] MEDS: loratadine 10mg tablet PO SCH (07:48)
[2022-05-14] MEDS: aspirin 81mg, enteric-coated 1 TAB TABLET.DR PO SCH (07:48)
[2022-05-14] MEDS: divalproex sod 250mg ER (24-hour) tablet PO SCH ×2 (07:48→20:18)
[2022-05-14] MEDS: docusate sod 100mg capsule PO SCH ×2 (07:48→20:18)
[2022-05-14] MEDS: pantoprazole 40mg Tablet.DR PO SCH ×2 (07:48→20:18)
[2022-05-14] MEDS: cholecalciferol (vitamin D3) 1,000 unit (25mcg) tablet PO SCH (07:49)
[2022-05-14] MEDS: calcium carbonate 500mg chew tablet PO SCH ×2 (07:49→20:18)
[2022-05-14] MEDS: lisinopril 20mg tablet PO SCH (07:50)
[2022-05-14] MEDS: nicotine 7mg patch - 24hr TD SCH (07:51)
[2022-05-14 08:00] VITALS: BP 156/56
--- NOTE | 2022-05-14 15:59 | NUR ---
NURSING PROGRESS NOTE Problem: Pt admitted on LPS conservatorship from Telemetry. Pt is awaiting placement. Patient has history of schizoaffective. Interventions: One to one with pt to assess mood, administered medication as ordered with no adverse side effects, encouraged involvement with ADLs, monitored behavior and need for intervention, maintained safe and supportive environment, Q15 min safety rounds. Response: Received patient sleeping at shift change. Pt woke was assisted to bathroom and wheeled to group room. Pt was compliant with mediation. Pt was pleasant and bright. Pt was excited about the Super Bowl. Pt is able to make needs known. Pt spent most of the shift up in the group room. She is social with peers who sit next to her and she passes in the halls. No PRNs required. Plan: Patient is conserved and awaiting placement. Pt requires a safe and supportive environment.
[2022-05-14 20:17] VITALS: BP 129/53
[2022-05-14] MEDS: olanzapine 10mg tablet PO SCH (20:18)
[2022-05-14] MEDS: sertraline 50mg tablet PO SCH (20:18)
[2022-05-14] MEDS: amLODIPine 5mg tablet PO SCH (20:18)
[2022-05-14] MEDS: traMADol 50MG tablet PO PRN (20:43)
[2022-05-14] MEDS: diphenhydrAMINE 25mg capsule PO PRN (20:49)
--- NOTE | 2022-05-15 03:55 | NUR ---
NURSING PROGRESS NOTE Problem: Pt admitted on LPS conservatorship from Telemetry. Pt is awaiting placement. Patient has history of schizoaffective. Interventions: One to one with pt to assess mood, administered medication as ordered with no adverse side effects, encouraged involvement with ADLs, monitored behavior and need for intervention, maintained safe and supportive environment, Q15 min safety rounds. Response: Received patient in bed at shift change. Pt spent her up watching the Super Bowl. Pt states I am worn out. Pt was compliant with her medication. Pt requested PRN Tylenol for neck pain. Pt also c/o itching and asked for her PRN Benadryl. Patient was assisted to bathroom then went back to bed. No other complaints recorded. Plan: Patient is conserved and awaiting placement. Pt requires a safe and supportive environment. Addendum: 05/15/22 at 0549 by Zara Lange RN Patient checked and was dry.
[2022-05-15 07:30] VITALS: BP 133/63
[2022-05-15] MEDS: calcium carbonate 500mg chew tablet PO SCH ×2 (08:00→19:56)
[2022-05-15] MEDS: loratadine 10mg tablet PO SCH (08:49)
[2022-05-15] MEDS: divalproex sod 250mg ER (24-hour) tablet PO SCH ×2 (08:49→19:55)
[2022-05-15] MEDS: pantoprazole 40mg Tablet.DR PO SCH ×2 (08:55→19:56)
[2022-05-15] MEDS: cholecalciferol (vitamin D3) 1,000 unit (25mcg) tablet PO SCH (08:55)
[2022-05-15] MEDS: aspirin 81mg, enteric-coated 1 TAB TABLET.DR PO SCH (08:55)
[2022-05-15] MEDS: lisinopril 20mg tablet PO SCH (08:55)
[2022-05-15] MEDS: atorvastatin 20mg tablet PO SCH (08:55)
[2022-05-15] MEDS: docusate sod 100mg capsule PO SCH ×2 (08:55→19:55)
[2022-05-15] MEDS: apixaban 5mg tablet PO SCH ×2 (08:56→19:56)
[2022-05-15] MEDS: nicotine 7mg patch - 24hr TD SCH (09:04)
[2022-05-15] MEDS ORDERED: tizanidine 4mg tablet PO PRN (12:15)
[2022-05-15] MEDS: tizanidine 4mg tablet PO PRN (13:58)
[2022-05-15] MEDS: albuterol 2.5 MG/3 ML nebule NEB PRN (14:26)
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
[2022-05-15] MEDS: traMADol 50MG tablet PO PRN (18:55)
[2022-05-15] MEDS: diphenhydrAMINE 25mg capsule PO PRN (18:55)
[2022-05-15] MEDS: olanzapine 10mg tablet PO SCH (19:58)
[2022-05-15] MEDS: sertraline 50mg tablet PO SCH (19:58)
[2022-05-15] MEDS: amLODIPine 5mg tablet PO SCH (19:59)
[2022-05-15 20:00] VITALS: BP 96/63
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
[2022-05-16] MEDS: divalproex sod 250mg ER (24-hour) tablet PO SCH ×2 (07:43→20:45)
[2022-05-16] MEDS: aspirin 81mg, enteric-coated 1 TAB TABLET.DR PO SCH (07:43)
[2022-05-16] MEDS: atorvastatin 20mg tablet PO SCH (07:43)
[2022-05-16] MEDS: pantoprazole 40mg Tablet.DR PO SCH ×2 (07:43→20:46)
[2022-05-16] MEDS: apixaban 5mg tablet PO SCH ×2 (07:43→20:45)
[2022-05-16] MEDS: loratadine 10mg tablet PO SCH (07:43)
[2022-05-16] MEDS: cholecalciferol (vitamin D3) 1,000 unit (25mcg) tablet PO SCH (07:43)
[2022-05-16] MEDS: docusate sod 100mg capsule PO SCH ×2 (07:43→20:45)
[2022-05-16] MEDS: lisinopril 20mg tablet PO SCH (07:44)
[2022-05-16] MEDS: nicotine 7mg patch - 24hr TD SCH (07:46)
[2022-05-16 07:49] VITALS: BP 132/62
[2022-05-16] MEDS: calcium carbonate 500mg chew tablet PO SCH ×2 (08:00→20:45)
[2022-05-16] MEDS: traMADol 50MG tablet PO PRN (13:50)
[2022-05-16] MEDS: tizanidine 4mg tablet PO PRN (13:50)
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
[2022-05-16] MEDS: albuterol 2.5 MG/3 ML nebule NEB PRN (18:55)
--- NOTE | 2022-05-16 19:31 | NUR ---
Nicotine patch removed
[2022-05-16 20:00] VITALS: BP 106/61
[2022-05-16] MEDS: sertraline 50mg tablet PO SCH (20:45)
[2022-05-16] MEDS: traZODone 50mg tablet PO PRN (20:45)
[2022-05-16] MEDS: diphenhydrAMINE 25mg capsule PO PRN (20:45)
[2022-05-16] MEDS: amLODIPine 5mg tablet PO SCH (20:45)
[2022-05-16] MEDS: olanzapine 10mg tablet PO SCH (20:45)
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
[2022-05-17 08:00] VITALS: BP 115/70
[2022-05-17] MEDS: aspirin 81mg, enteric-coated 1 TAB TABLET.DR PO SCH (08:03)
[2022-05-17] MEDS: cholecalciferol (vitamin D3) 1,000 unit (25mcg) tablet PO SCH (08:03)
[2022-05-17] MEDS: docusate sod 100mg capsule PO SCH ×2 (08:03→20:58)
[2022-05-17] MEDS: loratadine 10mg tablet PO SCH (08:03)
[2022-05-17] MEDS: atorvastatin 20mg tablet PO SCH (08:04)
[2022-05-17] MEDS: divalproex sod 250mg ER (24-hour) tablet PO SCH ×2 (08:04→20:58)
[2022-05-17] MEDS: calcium carbonate 500mg chew tablet PO SCH ×2 (08:04→20:58)
[2022-05-17] MEDS: apixaban 5mg tablet PO SCH ×2 (08:04→20:58)
[2022-05-17] MEDS: pantoprazole 40mg Tablet.DR PO SCH ×2 (08:04→20:58)
[2022-05-17] MEDS: nicotine 7mg patch - 24hr TD SCH (08:05)
[2022-05-17] MEDS: lisinopril 20mg tablet PO SCH (08:05)
--- NOTE | 2022-05-17 16:20 | NUR ---
Nursing Progress Note Problem: Pt admitted on LPS conservatorship from Telemetry. Pt is awaiting placement. PT has history of schizoaffective. Interventions: Medication administration, 1:1 MH assessment, maintained a safe and supportive environment, provided clear and simple instructions, provided encouragement regarding performance of ADLs, monitored behaviors and maintained clear boundaries, maintained Q15 minute safety checks. Response: Received Pt in bed sleeping w/o distress at the beginning of the shift. Pt woke and was cooperative with vitals and got up early today and was in community room waiting for breakfast. She took meds w/o issue this AM and ate well. Pt napped in AM and was in phillips in wheel chair interacting appropriately. Pt made phone calls and was joking with staff at times. Pt denies SI, HI and A/VHs at this time. Plan: Patient requires a safe and supportive environment. No viable plan for discharge at this time; patient is conserved.
[2022-05-17] MEDS: albuterol 2.5 MG/3 ML nebule NEB PRN (19:54)
[2022-05-17 20:00] VITALS: BP 108/72
[2022-05-17] MEDS: olanzapine 10mg tablet PO SCH (20:59)
[2022-05-17] MEDS: sertraline 50mg tablet PO SCH (20:59)
[2022-05-17] MEDS: amLODIPine 5mg tablet PO SCH (21:00)
[2022-05-17] MEDS: traMADol 50MG tablet PO PRN (21:06)
--- NOTE | 2022-05-18 05:10 | NUR ---
Nursing Progress Note Problem: Pt admitted on LPS conservatorship from Telemetry. Pt is awaiting placement. PT has history of schizoaffective. Interventions: Medication administration, 1:1 MH assessment, maintained a safe and supportive environment, provided clear and simple instructions, provided encouragement regarding performance of ADLs, monitored behaviors and maintained clear boundaries, maintained Q15 minute safety checks. Response: Received Pt in hallway in wheel chair talking with staff and others and in pleasant mood. Pt assisted back to bed where she was cooperative with assessments and enjoyed snack. Pt took HS meds along with PRN for pain with good effect, and fell asleep. Pt woke about 3am and was taken to toilet and was changed along with bedding which was wet with urine. Pt returned to bed and fell asleep again. Plan: Patient requires a safe and supportive environment. No viable plan for discharge at this time; patient is conserved.
[2022-05-18 07:25] VITALS: BP 121/63
[2022-05-18] MEDS: apixaban 5mg tablet PO SCH ×2 (07:46→20:38)
[2022-05-18] MEDS: docusate sod 100mg capsule PO SCH ×2 (07:46→20:36)
[2022-05-18] MEDS: pantoprazole 40mg Tablet.DR PO SCH ×2 (07:46→20:36)
[2022-05-18] MEDS: aspirin 81mg, enteric-coated 1 TAB TABLET.DR PO SCH (07:46)
[2022-05-18] MEDS: divalproex sod 250mg ER (24-hour) tablet PO SCH ×2 (07:46→20:29)
[2022-05-18] MEDS: loratadine 10mg tablet PO SCH (07:46)
[2022-05-18] MEDS: cholecalciferol (vitamin D3) 1,000 unit (25mcg) tablet PO SCH (07:46)
[2022-05-18] MEDS: nicotine 7mg patch - 24hr TD SCH (07:46)
[2022-05-18] MEDS: lisinopril 20mg tablet PO SCH (07:47)
[2022-05-18] MEDS: calcium carbonate 500mg chew tablet PO SCH ×2 (08:00→20:37)
[2022-05-18] MEDS: atorvastatin 20mg tablet PO SCH (08:15)
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
[2022-05-18 19:00] VITALS: BP 121/75
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
[2022-05-18] MEDS: tizanidine 4mg tablet PO PRN (20:29)
[2022-05-18] MEDS: diphenhydrAMINE 25mg capsule PO PRN (20:30)
[2022-05-18] MEDS: traZODone 50mg tablet PO PRN (20:30)
[2022-05-18] MEDS: amLODIPine 5mg tablet PO SCH (20:33)
[2022-05-18] MEDS: traMADol 50MG tablet PO PRN ×3 (20:36→21:08)
[2022-05-18] MEDS: sertraline 50mg tablet PO SCH (21:04)
[2022-05-18] MEDS: olanzapine 10mg tablet PO SCH (21:04)
[2022-05-19 07:31] VITALS: BP 145/70
[2022-05-19] MEDS: nicotine 7mg patch - 24hr TD SCH (07:35)
[2022-05-19] MEDS: calcium carbonate 500mg chew tablet PO SCH ×2 (07:36→20:12)
[2022-05-19] MEDS: apixaban 5mg tablet PO SCH ×2 (07:36→20:12)
[2022-05-19] MEDS: pantoprazole 40mg Tablet.DR PO SCH ×2 (07:36→20:11)
[2022-05-19] MEDS: divalproex sod 250mg ER (24-hour) tablet PO SCH ×2 (07:36→20:12)
[2022-05-19] MEDS: cholecalciferol (vitamin D3) 1,000 unit (25mcg) tablet PO SCH (07:36)
[2022-05-19] MEDS: docusate sod 100mg capsule PO SCH ×2 (07:36→20:12)
[2022-05-19] MEDS: atorvastatin 20mg tablet PO SCH (07:36)
[2022-05-19] MEDS: aspirin 81mg, enteric-coated 1 TAB TABLET.DR PO SCH (07:36)
[2022-05-19] MEDS: loratadine 10mg tablet PO SCH (07:36)
[2022-05-19] MEDS: lisinopril 20mg tablet PO SCH (07:37)
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
[2022-05-19] MEDS: traMADol 50MG tablet PO PRN (18:26)
[2022-05-19] MEDS: tizanidine 4mg tablet PO PRN (18:26)
[2022-05-19 19:00] VITALS: BP 130/68
[2022-05-19] MEDS: amLODIPine 5mg tablet PO SCH (20:11)
[2022-05-19] MEDS: olanzapine 10mg tablet PO SCH (20:11)
[2022-05-19] MEDS: sertraline 50mg tablet PO SCH (20:11)
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
[2022-05-20] MEDS: divalproex sod 250mg ER (24-hour) tablet PO SCH ×2 (07:22→20:09)
[2022-05-20] MEDS: docusate sod 100mg capsule PO SCH ×2 (07:22→20:09)
[2022-05-20] MEDS: loratadine 10mg tablet PO SCH (07:22)
[2022-05-20] MEDS: nicotine 7mg patch - 24hr TD SCH (07:22)
[2022-05-20] MEDS: aspirin 81mg, enteric-coated 1 TAB TABLET.DR PO SCH (07:23)
[2022-05-20] MEDS: cholecalciferol (vitamin D3) 1,000 unit (25mcg) tablet PO SCH (07:23)
[2022-05-20] MEDS: pantoprazole 40mg Tablet.DR PO SCH ×2 (07:23→20:09)
[2022-05-20] MEDS: lisinopril 20mg tablet PO SCH (07:23)
[2022-05-20] MEDS: apixaban 5mg tablet PO SCH ×2 (07:23→20:09)
[2022-05-20] MEDS: atorvastatin 20mg tablet PO SCH (07:23)
[2022-05-20] MEDS: calcium carbonate 500mg chew tablet PO SCH ×2 (07:24→20:00)
[2022-05-20 08:00] VITALS: BP 145/73
[2022-05-20] MEDS: traMADol 50MG tablet PO PRN ×3 (08:59→21:27)
--- NOTE | 2022-05-20 17:46 | NUR ---
Nursing Progress Note: Tamara Problem: Pt admitted on LPS conservatorship from Telemetry. Pt is awaiting placement. PT has history of schizoaffective. Interventions: Medication administration, 1:1 MH assessment, maintained a safe and supportive environment, provided clear and simple instructions, provided encouragement regarding performance of ADLs, monitored behaviors and maintained clear boundaries, maintained Q15 minute safety checks. Response: Pt. received asleep and had breakfast in bed. Compliant with medication administration. Pt expressed to this PRODUCE FIELD MERCHANDISER during 1:1 SI/HI, -AV/H, denies all mental health diagnoses. Pt appears disheveled, wearing street clothes, poor hygiene. She continues to require assistance with ADLs and transfers, she has been continent of bowel and both continent/incontinent of bladder this shift. Pt. has poor safety awareness and is reeducated on the importance using call light and not attempting to self-transfer. She ate all meals in the community room and participated in snacks. PRN tramadol given for neck pain. Plan: Patient requires a safe and supportive environment. No viable plan for discharge at this time; patient is conserved.
[2022-05-20 20:00] VITALS: BP 116/71
[2022-05-20] MEDS: amLODIPine 5mg tablet PO SCH (20:10)
[2022-05-20] MEDS: traZODone 50mg tablet PO PRN (20:10)
[2022-05-20] MEDS: olanzapine 10mg tablet PO SCH (20:10)
[2022-05-20] MEDS: sertraline 50mg tablet PO SCH (20:10)
--- NOTE | 2022-05-21 05:28 | NUR ---
Nursing Progress Note: Tamara Problem: Pt admitted on LPS conservatorship from Telemetry. Pt is awaiting placement. PT has history of schizoaffective. Interventions: Medication administration, 1:1 MH assessment, maintained a safe and supportive environment, provided clear and simple instructions, provided encouragement regarding performance of ADLs, monitored behaviors and maintained clear boundaries, maintained Q15 minute safety checks. Response: Pt. received awake in community room. Compliant with medication administration. Pt expressed to this WOODS OVERSEER during 1:1 SI/HI, -AV/H, denies all mental health diagnoses. Pt appears disheveled, wearing street clothes, poor hygiene. She continues to require assistance with ADLs and transfers, she has been continent of bowel and both continent/incontinent of bladder this shift. Pt. has poor safety awareness and is reeducated on the importance using call light and not attempting to self-transfer. Declined snack, but had coffee in room. Pt requested her face to be shaved. Medium BM. PRN Ultram and Trazodone given. Plan: Patient requires a safe and supportive environment. No viable plan for discharge at this time; patient is conserved.
[2022-05-21 07:55] VITALS: BP 162/53
[2022-05-21] MEDS: loratadine 10mg tablet PO SCH (08:44)
[2022-05-21] MEDS: apixaban 5mg tablet PO SCH ×2 (08:44→20:08)
[2022-05-21] MEDS: docusate sod 100mg capsule PO SCH ×2 (08:44→20:07)
[2022-05-21] MEDS: aspirin 81mg, enteric-coated 1 TAB TABLET.DR PO SCH (08:44)
[2022-05-21] MEDS: calcium carbonate 500mg chew tablet PO SCH ×2 (08:44→20:09)
[2022-05-21] MEDS: divalproex sod 250mg ER (24-hour) tablet PO SCH ×2 (08:44→20:08)
[2022-05-21] MEDS: cholecalciferol (vitamin D3) 1,000 unit (25mcg) tablet PO SCH (08:44)
[2022-05-21] MEDS: pantoprazole 40mg Tablet.DR PO SCH ×2 (08:44→20:08)
[2022-05-21] MEDS: atorvastatin 20mg tablet PO SCH (08:45)
[2022-05-21] MEDS: lisinopril 20mg tablet PO SCH (08:45)
[2022-05-21] MEDS: nicotine 7mg patch - 24hr TD SCH (08:47)
--- NOTE | 2022-05-21 18:01 | NUR ---
NURSING PROGRESS NOTE Problem: Pt admitted on LPS conservatorship from Telemetry. Pt is awaiting placement. PT has history of schizoaffective. Interventions: Medication administration, 1:1 MH assessment, maintained a safe and supportive environment, provided clear and simple instructions, provided encouragement regarding performance of ADLs, monitored behaviors and maintained clear boundaries, maintained Q15 minute safety checks. Response: Received patient sleeping at shift change. Pt woke and came to community room for lunch. Pt was assisted to bathroom to void. Pt was slightly irritable this morning telling functional tester typewriters you make me irritable. Pt took a two hour nap this morning. Pt was complaint with medication. No complaint of pain. Continued education on the importance of call light usage. Pt was pleasant in the afternoon, visble on unit, social with peers. Plan: Patient requires a safe and supportive environment. No viable plan for discharge at this time; patient is conserved and awaiting placement.
[2022-05-21 19:16] VITALS: BP 133/70
[2022-05-21] MEDS: traZODone 50mg tablet PO PRN (20:08)
[2022-05-21] MEDS: olanzapine 10mg tablet PO SCH (20:08)
[2022-05-21] MEDS: amLODIPine 5mg tablet PO SCH (20:08)
[2022-05-21] MEDS: sertraline 50mg tablet PO SCH (20:09)
--- NOTE | 2022-05-21 21:07 | NUR ---
Q15 minute safety checks. Response: Pt was in the hallway in her wheelchair at change of shift. Pt is pleasant and smiling, states she had a good day. pt requested to lay down in bed and was taken to her room. Pt talks about going to placement in "[place] going to [place] soon." and seems to be happy about this. Pt took off nicotine patch and had snacks in her room. Pt took HS meds and went to sleep. Plan: Patient requires a safe and supportive environment. No viable plan for discharge at this time; patient is conserved and awaiting placement.
[2022-05-22 08:00] VITALS: BP 106/56
[2022-05-22] MEDS: lisinopril 20mg tablet PO SCH (08:00)
[2022-05-22] MEDS: divalproex sod 250mg ER (24-hour) tablet PO SCH ×2 (09:39→20:25)
[2022-05-22] MEDS: apixaban 5mg tablet PO SCH ×2 (09:39→20:24)
[2022-05-22] MEDS: docusate sod 100mg capsule PO SCH ×2 (09:39→20:24)
[2022-05-22] MEDS: calcium carbonate 500mg chew tablet PO SCH ×2 (09:39→20:25)
[2022-05-22] MEDS: atorvastatin 20mg tablet PO SCH (09:39)
[2022-05-22] MEDS: loratadine 10mg tablet PO SCH (09:43)
[2022-05-22] MEDS: pantoprazole 40mg Tablet.DR PO SCH ×2 (09:43→20:25)
[2022-05-22] MEDS: cholecalciferol (vitamin D3) 1,000 unit (25mcg) tablet PO SCH (09:43)
[2022-05-22] MEDS: aspirin 81mg, enteric-coated 1 TAB TABLET.DR PO SCH (09:44)
[2022-05-22] MEDS: nicotine 7mg patch - 24hr TD SCH (09:45)
--- NOTE | 2022-05-22 12:14 | NUR ---
Reassessment: Pt continues eating well with mostly 75-100% PO intake of meals meeting estimated nutrient needs. [facility] 05/21, receiving routine bowel care. No nutrition intervention implemented at this time. Will continue to follow. Recommendations: 1. Continue regular diet 2. Routine bowel care 3. Weekly scaled wts Addendum: 05/22/22 at [address] Amended: Links added.
--- NOTE | 2022-05-22 18:01 | NUR ---
NURSING PROGRESS NOTE: Tamara Problem: Pt admitted on LPS conservatorship from Telemetry. Pt is awaiting placement. PT has history of schizoaffective. Interventions: Established rapport, provided 1:1 assessment, provided encouragement regarding performance of ADLs, medication administration/education/monitoring, positive reinforcement, and Q15 minute safety checks; provided safe and supportive environment. Response: Received patient sleeping in bed at shift change. She joined in the community room with peers for breakfast. Patient was receptive to 1:1 assessment and scheduled medication. She retreated back to her room after breakfast and was noted resting in bed. She continues using a wheel chair for transportation. Patient endorsed to this mortgage or loan underwriter that she is really tired and just needs to rest. She was noted sleeping on and off throughout the morning. Patient received a shower on this shift with assistance from two staff members. She was dressed in clean clothing with clean linen applied to bed. Continued education on importance of call light usage. She was continent/ incontinent of urine and continent of bowels. Patient was observed sitting in the community room with peers on and off throughout the day. She was also noted napping in her room periodically. Patient denies all MH symptoms. She joined for all meal and snack times with peers. Plan: Patient requires a safe and supportive environment. No viable plan for discharge at this time; patient is conserved and awaiting placement.
[2022-05-22 19:32] VITALS: BP 136/75
[2022-05-22] MEDS: olanzapine 10mg tablet PO SCH (20:24)
[2022-05-22] MEDS: amLODIPine 5mg tablet PO SCH (20:25)
[2022-05-22] MEDS: traZODone 50mg tablet PO PRN (20:25)
[2022-05-22] MEDS: sertraline 50mg tablet PO SCH (20:26)
[2022-05-22] MEDS: albuterol 2.5 MG/3 ML nebule NEB PRN (22:03)
--- NOTE | 2022-05-22 23:18 | NUR ---
NURSING PROGRESS NOTE: Tamara Problem: Pt admitted on LPS conservatorship from Telemetry. Pt is awaiting placement. PT has history of schizoaffective. Interventions: Established rapport, provided 1:1 assessment, provided encouragement regarding performance of ADLs, medication administration/education/monitoring, positive reinforcement, and Q15 minute safety checks; provided safe and supportive environment. Response: Pt was in the phillips at change of shift sitting in her wheelchair. Pt requested to go to bed as she was feeling tired. Pt states her mood is "fair." Pt spent time sitting in bed and had a snack. Pt requested to walk to the toilet and was assisted with walking to the toilet. Pt takes very small steps and becomes winded but states "I need to try to walk more because when I go to the place in [place] they might want me to walk there." Respiratory was paged at patients request. Pt went to sleep shortly after returning to bed. Plan: Patient requires a safe and supportive environment. No viable plan for discharge at this time; patient is conserved and awaiting placement.
[2022-05-23 08:00] VITALS: BP 135/78
[2022-05-23] MEDS: docusate sod 100mg capsule PO SCH ×2 (08:18→20:18)
[2022-05-23] MEDS: cholecalciferol (vitamin D3) 1,000 unit (25mcg) tablet PO SCH (08:18)
[2022-05-23] MEDS: loratadine 10mg tablet PO SCH (08:18)
[2022-05-23] MEDS: divalproex sod 250mg ER (24-hour) tablet PO SCH ×2 (08:18→20:19)
[2022-05-23] MEDS: atorvastatin 20mg tablet PO SCH (08:18)
[2022-05-23] MEDS: apixaban 5mg tablet PO SCH ×2 (08:18→20:19)
[2022-05-23] MEDS: pantoprazole 40mg Tablet.DR PO SCH ×2 (08:18→20:19)
[2022-05-23] MEDS: aspirin 81mg, enteric-coated 1 TAB TABLET.DR PO SCH (08:18)
[2022-05-23] MEDS: calcium carbonate 500mg chew tablet PO SCH ×2 (08:18→20:00)
[2022-05-23] MEDS: lisinopril 20mg tablet PO SCH (08:22)
[2022-05-23] MEDS: nicotine 7mg patch - 24hr TD SCH (08:23)
[2022-05-23] MEDS: albuterol 2.5 MG/3 ML nebule NEB PRN (09:17)
--- NOTE | 2022-05-23 17:50 | NUR ---
NURSING PROGRESS NOTE: Tamara Problem: Pt admitted on LPS conservatorship from Telemetry. Pt is awaiting placement. PT has history of schizoaffective. Interventions: Provided 1:1 assessment, provided encouragement regarding performance of ADLs, medication administration/education/monitoring, positive reinforcement, and Q15 minute safety checks; provided safe and supportive environment. Response: Patient received sleeping in bed at change of shift. She joined for breakfast with peers in the community room. Patient continues using a wheel chair for transportation and requires staff assistance for ADLs. She was continent/ incontinent of urine and continent of bowels. Patient was receptive to 1:1 assessment and scheduled medication. Patient continues to deny all MH symptoms. She was observed participating in the community room with peers periodically throughout the day. Patient noted napping on and off throughout the shift. Continued education on importance of call light usage. Patient c/o SOB later in the day and was given a PRN breathing tx with effectiveness. She joined for all meal and snack times with peers. Plan: Patient requires a safe and supportive environment. No viable plan for discharge at this time; patient is conserved and awaiting placement.
[2022-05-23 20:00] VITALS: BP 134/67
[2022-05-23] MEDS: sertraline 50mg tablet PO SCH (20:19)
[2022-05-23] MEDS: olanzapine 10mg tablet PO SCH (20:19)
[2022-05-23] MEDS: amLODIPine 5mg tablet PO SCH (20:19)
[2022-05-23] MEDS: traZODone 50mg tablet PO PRN (20:20)
--- NOTE | 2022-05-24 05:09 | NUR ---
Nursing Progress Note: Tamara Problem: Pt admitted on LPS conservatorship from Telemetry. Pt is awaiting placement. PT has history of schizoaffective. Interventions: Medication administration, 1:1 MH assessment, maintained a safe and supportive environment, provided clear and simple instructions, provided encouragement regarding performance of ADLs, monitored behaviors and maintained clear boundaries, maintained Q15 minute safety checks. Response: Pt. received awake in community room. Compliant with medication administration. Pt expressed to this WEARING APPAREL ASSEMBLER during 1:1 SI/HI, -AV/H, denies all mental health diagnoses. Pt appears disheveled, wearing street clothes, poor hygiene. She continues to require assistance with ADLs and transfers, she has been continent of bowel and both continent/incontinent of bladder this shift. Pt. has poor safety awareness and is reeducated on the importance using call light and not attempting to self-transfer. Received snack in bedroom. PRN Trazodone given. Pt slept throughout shift. Plan: Patient requires a safe and supportive environment. No viable plan for discharge at this time; patient is conserved.
[2022-05-24] MEDS: pantoprazole 40mg Tablet.DR PO SCH ×2 (07:13→20:14)
[2022-05-24] MEDS: docusate sod 100mg capsule PO SCH ×2 (07:13→20:14)
[2022-05-24] MEDS: lisinopril 20mg tablet PO SCH (07:13)
[2022-05-24] MEDS: divalproex sod 250mg ER (24-hour) tablet PO SCH ×2 (07:13→20:16)
[2022-05-24] MEDS: apixaban 5mg tablet PO SCH ×2 (07:14→20:14)
[2022-05-24] MEDS: calcium carbonate 500mg chew tablet PO SCH ×2 (07:14→20:00)
[2022-05-24] MEDS: nicotine 7mg patch - 24hr TD SCH (07:14)
[2022-05-24] MEDS: aspirin 81mg, enteric-coated 1 TAB TABLET.DR PO SCH (07:14)
[2022-05-24] MEDS: cholecalciferol (vitamin D3) 1,000 unit (25mcg) tablet PO SCH (07:14)
[2022-05-24] MEDS: atorvastatin 20mg tablet PO SCH (07:14)
[2022-05-24] MEDS: loratadine 10mg tablet PO SCH (07:14)
[2022-05-24 08:00] VITALS: BP 136/64
[2022-05-24] MEDS: traMADol 50MG tablet PO PRN (15:00)
--- NOTE | 2022-05-24 16:10 | NUR ---
Nursing Progress Note: Tamara Problem: Pt admitted on LPS conservatorship from Telemetry. Pt is awaiting placement. PT has history of schizoaffective. Interventions: Medication administration, 1:1 MH assessment, maintained a safe and supportive environment, provided clear and simple instructions, provided encouragement regarding performance of ADLs, monitored behaviors and maintained clear boundaries, maintained Q15 minute safety checks. Response: Pt. received asleep and awoke to have breakfast. She denies SI, HI, AH,VH and reports feeling nervous about where Im going She continues to require assistance with ADLs and transfers, and uses a WC for mobility on the unit. She has remained continent of B&B this shift. She ate all meals in the dining area with cohorts, and socialized at length. Pt. attended group today, and interacts appropriately. She appears well-groomed and wears street clothes. Pt. c/o neck pain and received PRN Tramadol with good results. Pt. received CXR as requested by new facility for placement. No date on transfer discussed. Plan: Patient requires a safe and supportive environment. Patient is conserved.
--- NOTE | 2022-05-24 17:11 | NUR ---
METAL STAMPING MACHINE OPERATOR documentation: I have reviewed and agree with all interventions and assessments performed and documented by Jie Rodriguez.
[2022-05-24 19:00] VITALS: BP 123/65
[2022-05-24] MEDS: olanzapine 10mg tablet PO SCH (20:14)
[2022-05-24] MEDS: sertraline 50mg tablet PO SCH (20:14)
[2022-05-24] MEDS: amLODIPine 5mg tablet PO SCH (20:15)
[2022-05-24] MEDS: traZODone 50mg tablet PO PRN (20:17)
--- NOTE | 2022-05-25 04:51 | NUR ---
Nursing Progress Note: Tamara Problem: Pt admitted on LPS conservatorship from Telemetry. Pt is awaiting placement. PT has history of schizoaffective. Interventions: Medication administration, 1:1 MH assessment, maintained a safe and supportive environment, provided clear and simple instructions, provided encouragement regarding performance of ADLs, monitored behaviors and maintained clear boundaries, maintained Q15 minute safety checks. Response: Pt. received awake in community room. Compliant with medication administration. Pt expressed to this RECYCLING WORKER during 1:1 SI/HI, -AV/H, denies all mental health diagnoses. Pt appears disheveled, wearing street clothes, poor hygiene. She continues to require assistance with ADLs and transfers, she has been continent of bowel and both continent/incontinent of bladder this shift. Pt. has poor safety awareness and is reeducated on the importance using call light and not attempting to self-transfer. Received snack in bedroom. PRN Trazodone and Zanaflex given. Pt slept throughout shift. Plan: Patient requires a safe and supportive environment. No viable plan for discharge at this time; patient is conserved. Addendum: 05/25/22 at 0528 by Aure Maharaj RN Reviewed by Aure Lake RN
[2022-05-25 07:35] VITALS: BP 105/80
[2022-05-25] MEDS: divalproex sod 250mg ER (24-hour) tablet PO SCH ×2 (07:39→20:55)
[2022-05-25] MEDS: loratadine 10mg tablet PO SCH (07:39)
[2022-05-25] MEDS: docusate sod 100mg capsule PO SCH ×2 (07:39→20:55)
[2022-05-25] MEDS: apixaban 5mg tablet PO SCH ×2 (07:40→20:55)
[2022-05-25] MEDS: aspirin 81mg, enteric-coated 1 TAB TABLET.DR PO SCH (07:40)
[2022-05-25] MEDS: cholecalciferol (vitamin D3) 1,000 unit (25mcg) tablet PO SCH (07:40)
[2022-05-25] MEDS: calcium carbonate 500mg chew tablet PO SCH ×3 (07:40→20:00)
[2022-05-25] MEDS: atorvastatin 20mg tablet PO SCH (07:40)
[2022-05-25] MEDS: pantoprazole 40mg Tablet.DR PO SCH ×2 (07:40→20:55)
[2022-05-25] MEDS: lisinopril 20mg tablet PO SCH (07:41)
[2022-05-25] MEDS: nicotine 7mg patch - 24hr TD SCH (07:46)
--- NOTE | 2022-05-25 13:45 | NUR ---
Nursing Progress Note: Problem : Pt admitted on LPS conservatorship from Telemetry. Pt is awaiting placement. PT has history of schizoaffective. Interventions : Maintained a safe and supportive environment, ensured contract for safety, provided clear and simple instructions, provided needed assistance with ADLs and maintained fall precautions, and maintained Q 15min safety checks. Response : Received pt. sleeping in bed at the beginning of the shift, she awoke and was cooperative and pleasant with care. Pt. continues to require assistance with transfers and toileting r/t generalized weakness. She is able to use the [id number] with assistance from staff to pull herself to a standing position. No delusional statements were made, and pt. does not appear to be internally preoccupied. Pt. napped intermittently during the shift as is her routine, and attended group. She is observed to be interacting appropriately with others. Plan : Pt. continues to require a safe and supportive environment.
[2022-05-25 19:00] VITALS: BP 149/72
[2022-05-25] MEDS: traZODone 50mg tablet PO PRN (20:55)
[2022-05-25] MEDS: sertraline 50mg tablet PO SCH (20:55)
[2022-05-25] MEDS: olanzapine 10mg tablet PO SCH (20:55)
[2022-05-25] MEDS: amLODIPine 5mg tablet PO SCH (20:56)
[2022-05-25] MEDS: traMADol 50MG tablet PO PRN (21:04)
--- NOTE | 2022-05-26 04:39 | NUR ---
Nursing Progress Note: Problem: Pt admitted on LPS conservatorship from Telemetry. Pt is awaiting placement. PT has history of schizoaffective. Interventions: Maintained a safe and supportive environment, ensured contract for safety, provided clear and simple instructions, provided needed assistance with ADLs and maintained fall precautions, and maintained Q 15min safety checks. Response: Patient is pleasant and cooperative with care; compliant with medication. Nicotine patch removed. PRN Tramadol for c/o neck pain and Trazodone for sleep per patient request was provided with positive effect. Patient is making needs known with use of call light and no episodes of incontinence at this time. No negative behaviors presented. Patient provided HS snack prior to bed; observed sleeping and does not appear to be having difficulty. Plan: Pt. continues to require a safe and supportive environment.
--- NOTE | 2022-05-26 05:43 | NUR ---
STOCKROOM WORKER documentation: I have reviewed all interventions, assessments performed and documented by Jen HAIDER.
[2022-05-26] MEDS: atorvastatin 20mg tablet PO SCH (07:57)
[2022-05-26] MEDS: cholecalciferol (vitamin D3) 1,000 unit (25mcg) tablet PO SCH (07:57)
[2022-05-26] MEDS: apixaban 5mg tablet PO SCH ×2 (07:57→20:53)
[2022-05-26] MEDS: lisinopril 20mg tablet PO SCH (07:58)
[2022-05-26] MEDS: loratadine 10mg tablet PO SCH (07:58)
[2022-05-26] MEDS: docusate sod 100mg capsule PO SCH ×2 (07:59→20:53)
[2022-05-26] MEDS: divalproex sod 250mg ER (24-hour) tablet PO SCH ×2 (07:59→20:53)
[2022-05-26 08:00] VITALS: BP 106/64
[2022-05-26] MEDS: pantoprazole 40mg Tablet.DR PO SCH ×2 (08:00→20:53)
[2022-05-26] MEDS: aspirin 81mg, enteric-coated 1 TAB TABLET.DR PO SCH (08:00)
[2022-05-26] MEDS: calcium carbonate 500mg chew tablet PO SCH ×2 (08:00→20:53)
[2022-05-26] MEDS: nicotine 7mg patch - 24hr TD SCH (08:01)
[2022-05-26] MEDS: traMADol 50MG tablet PO PRN (08:10)
--- NOTE | 2022-05-26 16:57 | NUR ---
Nursing Progress Note: Tamara Problem: Pt admitted on LPS conservatorship from Telemetry. Pt is awaiting placement. PT has history of schizoaffective. Interventions: Medication administration, 1:1 MH assessment, maintained a safe and supportive environment, provided clear and simple instructions, provided encouragement regarding performance of ADLs, monitored behaviors and maintained clear boundaries, maintained Q15 minute safety checks. Response: Pt. received asleep and awoke to have breakfast. She took her medications without hesitation, and c/o pain of the LUE; PRN Tramadol given with good results. She denies SI, HI, AH,VH and a possible DC date around 05/31/22. She continues to require assistance with all ADLs and transfers, and uses a WC for mobility on the unit. She has been both continent and incontinent of B&B this shift. She ate all meals in the dining area with cohorts, participated in Bingo, and celebrated her birthday. She appears well-groomed and wears street clothes. Plan: Patient requires a safe and supportive environment. Patient is conserved.
--- NOTE | 2022-05-26 17:23 | NUR ---
MELIZA documentation: I have reviewed and agree with all interventions, assessments performed and documented by Jie Cote LVN.
[2022-05-26 19:56] VITALS: BP 120/78
[2022-05-26] MEDS: olanzapine 10mg tablet PO SCH (20:53)
[2022-05-26] MEDS: diphenhydrAMINE 25mg capsule PO PRN (20:53)
[2022-05-26] MEDS: sertraline 50mg tablet PO SCH (20:53)
[2022-05-26] MEDS: traZODone 50mg tablet PO PRN (20:53)
[2022-05-26] MEDS: amLODIPine 5mg tablet PO SCH (20:54)
--- NOTE | 2022-05-27 03:31 | NUR ---
LEAD NET SOFTWARE DEVELOPER documentation: I have reviewed and agree with all interventions, assessments performed and documented by River Christiansen
--- NOTE | 2022-05-27 04:08 | NUR ---
Nursing Progress Note: Problem: Pt admitted on LPS conservatorship from Telemetry. Pt is awaiting placement. PT has history of schizoaffective. Interventions: Maintained a safe and supportive environment, ensured contract for safety, provided clear and simple instructions, provided needed assistance with ADLs and maintained fall precautions, and maintained Q 15min safety checks. Response: Patient is pleasant and cooperative with care; compliant with medication. PRN Trazodone for sleep and Benadryl for c/o "itchiness all over" provided per patient's request. Nicotine patch removed. No negative behaviors presented. She was social with peers prior to bed. HS snack provided; observed sleeping and does not appear to be having difficulty. Incontinent of urine d/t urgency x1. Plan: Pt. continues to require a safe and supportive environment.
[2022-05-27] MEDS: pantoprazole 40mg Tablet.DR PO SCH ×2 (07:43→20:24)
[2022-05-27] MEDS: atorvastatin 20mg tablet PO SCH (07:43)
[2022-05-27] MEDS: calcium carbonate 500mg chew tablet PO SCH ×2 (07:43→20:24)
[2022-05-27] MEDS: docusate sod 100mg capsule PO SCH ×2 (07:43→20:24)
[2022-05-27] MEDS: divalproex sod 250mg ER (24-hour) tablet PO SCH ×2 (07:43→20:24)
[2022-05-27] MEDS: apixaban 5mg tablet PO SCH ×2 (07:43→20:24)
[2022-05-27] MEDS: aspirin 81mg, enteric-coated 1 TAB TABLET.DR PO SCH (07:43)
[2022-05-27] MEDS: loratadine 10mg tablet PO SCH (07:43)
[2022-05-27] MEDS: cholecalciferol (vitamin D3) 1,000 unit (25mcg) tablet PO SCH (07:44)
[2022-05-27] MEDS: nicotine 7mg patch - 24hr TD SCH (07:44)
[2022-05-27] MEDS: lisinopril 20mg tablet PO SCH (07:47)
[2022-05-27 08:00] VITALS: BP 116/66
[2022-05-27] MEDS: diphenhydrAMINE 25mg capsule PO PRN (13:43)
--- NOTE | 2022-05-27 16:39 | NUR ---
Nursing Progress Note: Problem : Pt admitted on LPS conservatorship from Telemetry. Pt is awaiting placement. PT has history of schizoaffective. Interventions : Maintained a safe and supportive environment, ensured contract for safety, provided clear and simple instructions, provided needed assistance with ADLs and maintained fall precautions, provided active listening and positive encouragement, and maintained Q 15min safety checks. Response : Received pt. sleeping in bed at the beginning of the shift, she awoke with an incontinent episode and required assistance from staff to change into dry clothing and attend breakfast in the Group Room. Pt. continues to require assistance with transfers and toileting r/t generalized weakness. She is able to use the [id number] with assistance from staff to pull herself to a standing position. Pt. reports some anxiety r/t to her desire to discharge, she did not make any delusional statements and does not appear to be internally preoccupied. Pt. napped intermittently during the shift as is her routine. She reported some pruritus in the area of her buttocks. Area was cleaned, barrier cream was applied, and pt. was administered PRN Benadryl with effectiveness. Upon assessment, no rashes or open areas were noted by this commercial real estate underwriter, will continue to monitor closely. In the afternoon, pt. exhibited some restlessness AEB making multiple requests to get up and down out of bed. Pt. was provided with redirection and was encouraged to socialize with others which she did. Plan : Pt. continues to require a safe and supportive environment.
[2022-05-27 19:43] VITALS: BP 149/76
[2022-05-27] MEDS: traZODone 50mg tablet PO PRN (20:24)
[2022-05-27] MEDS: olanzapine 10mg tablet PO SCH (20:24)
[2022-05-27] MEDS: sertraline 50mg tablet PO SCH (20:24)
[2022-05-27] MEDS: amLODIPine 5mg tablet PO SCH (20:24)
--- NOTE | 2022-05-28 03:34 | NUR ---
Nursing Progress Note: Problem: Pt admitted on LPS conservatorship from Telemetry. Pt is awaiting placement. PT has history of schizoaffective. Interventions: Maintained a safe and supportive environment, ensured contract for safety, provided clear and simple instructions, provided needed assistance with ADLs and maintained fall precautions, and maintained Q 15min safety checks. Response: Patient is pleasant and cooperative with care; compliant with medication. PRN Trazodone for sleep provided per patient request. Nicotine patch removed. No negative behaviors and using call light for needs to be met. Patient appeared happy she was able to contact a family member she's not spoken to in a long time. She was provided HS snack and social with staff prior to bed; observed sleeping and does not appear to be having difficulty. No incontinent episodes at this time. Plan: Pt. continues to require a safe and supportive environment.
--- NOTE | 2022-05-28 04:02 | NUR ---
GOVERNMENT MINISTER documentation: I have reviewed and agree with all interventions, assessments performed and documented by Jen Alves LVN.
[2022-05-28] MEDS: nicotine 7mg patch - 24hr TD SCH (07:48)
[2022-05-28] MEDS: aspirin 81mg, enteric-coated 1 TAB TABLET.DR PO SCH (07:49)
[2022-05-28] MEDS: lisinopril 20mg tablet PO SCH (07:49)
[2022-05-28] MEDS: atorvastatin 20mg tablet PO SCH (07:49)
[2022-05-28] MEDS: calcium carbonate 500mg chew tablet PO SCH ×2 (07:50→20:36)
[2022-05-28] MEDS: apixaban 5mg tablet PO SCH ×2 (07:50→20:35)
[2022-05-28] MEDS: cholecalciferol (vitamin D3) 1,000 unit (25mcg) tablet PO SCH (07:50)
[2022-05-28] MEDS: pantoprazole 40mg Tablet.DR PO SCH ×2 (07:50→20:36)
[2022-05-28] MEDS: divalproex sod 250mg ER (24-hour) tablet PO SCH ×2 (07:50→20:36)
[2022-05-28] MEDS: loratadine 10mg tablet PO SCH (07:50)
[2022-05-28] MEDS: docusate sod 100mg capsule PO SCH ×2 (07:50→20:35)
[2022-05-28 08:00] VITALS: BP 122/69
--- NOTE | 2022-05-28 17:32 | NUR ---
Nursing Progress Note: Tamara Problem : Pt admitted on LPS conservatorship from Telemetry. Pt is awaiting placement. PT has history of schizoaffective. Interventions : Maintained a safe and supportive environment, ensured contract for safety, provided clear and simple instructions, provided needed assistance with ADLs and maintained fall precautions, provided active listening and positive encouragement, and maintained Q 15min safety checks. Response : Patient received sleeping in her room at change of shift. She awoke and was noted to be incontinent of urine, requiring assistance from staff to be changed. Patient observed sitting in the community room drinking coffee shortly after. She was assisted to the restroom with staff assist and noted to have a large BM. Patient receptive to 1:1 assessment and scheduled medication. She continues using a wheel chair for transportation and requires staff assistance for ADLs. Patient denies SI/HI, AH or VH. Does not appear to be responding to IS. She was continent/ incontinent of urine and continent of bowels on this shift. Continued education on importance of call light usage. Patient was active on the unit throughout the day, noted sitting in the community room with peers. Patient was provided with a small birthday constitution party today with other peers in the community room. She was observed to have a positive demeanor and large grin on her face. She took a few short naps throughout the day and joined for all meal and snack times with peers. Plan : Pt. continues to require a safe and supportive environment.
--- NOTE | 2022-05-28 17:54 | NUR ---
CONSERVATION SPECIALIST documentation: I have reviewed and agree with all interventions, assessments performed and documented by MELIZA Bejarano.
[2022-05-28 19:54] VITALS: BP 119/80
[2022-05-28] MEDS: traZODone 50mg tablet PO PRN (20:35)
[2022-05-28] MEDS: olanzapine 10mg tablet PO SCH (20:35)
[2022-05-28] MEDS: sertraline 50mg tablet PO SCH (20:35)
[2022-05-28] MEDS: amLODIPine 5mg tablet PO SCH (20:36)
--- NOTE | 2022-05-29 02:07 | NUR ---
Nursing Progress Note: Problem: Pt admitted on LPS conservatorship from Telemetry. Pt is awaiting placement. PT has history of schizoaffective. Interventions: Maintained a safe and supportive environment, ensured contract for safety, provided clear and simple instructions, provided needed assistance with ADLs and maintained fall precautions, and maintained Q 15min safety checks. Response: Patient is pleasant and cooperative with care; compliant with medication. PRN Trazodone provided for sleep per patient request. Nicotine patch removed. Patient participated in HS snack and showered this shift. Patient has two reddened areas of concern on each side of buttocks; patient being repositioned by staff q2-3hrs and barrier cream applied. No negative behaviors. No incontinent episodes at this time; making needs known with call light. Patient observed sleeping and does not appear to be having difficulty. Plan: Pt. continues to require a safe and supportive environment.
--- NOTE | 2022-05-29 03:32 | NUR ---
NEW ACCOUNTS BANKING REPRESENTATIVE documentation: I have reviewed and agree with all interventions, assessments performed and documented by Qi Parks LVN.
[2022-05-29 08:00] VITALS: BP 104/50
[2022-05-29] MEDS: calcium carbonate 500mg chew tablet PO SCH ×2 (08:00→20:47)
[2022-05-29] MEDS: atorvastatin 20mg tablet PO SCH (09:03)
[2022-05-29] MEDS: apixaban 5mg tablet PO SCH ×2 (09:03→20:47)
[2022-05-29] MEDS: docusate sod 100mg capsule PO SCH ×2 (09:03→20:47)
[2022-05-29] MEDS: pantoprazole 40mg Tablet.DR PO SCH ×2 (09:03→20:47)
[2022-05-29] MEDS: loratadine 10mg tablet PO SCH (09:03)
[2022-05-29] MEDS: aspirin 81mg, enteric-coated 1 TAB TABLET.DR PO SCH (09:03)
[2022-05-29] MEDS: cholecalciferol (vitamin D3) 1,000 unit (25mcg) tablet PO SCH (09:03)
[2022-05-29] MEDS: divalproex sod 250mg ER (24-hour) tablet PO SCH ×2 (09:04→20:47)
[2022-05-29] MEDS: lisinopril 20mg tablet PO SCH (09:04)
[2022-05-29] MEDS: nicotine 7mg patch - 24hr TD SCH (09:05)
--- NOTE | 2022-05-29 17:44 | NUR ---
Nursing Progress Note: Tamara Problem : Pt admitted on LPS conservatorship from Telemetry. Pt is awaiting placement. PT has history of schizoaffective. Interventions : Maintained a safe and supportive environment, ensured contract for safety, provided clear and simple instructions, provided needed assistance with ADLs and maintained fall precautions, provided active listening and positive encouragement, and maintained Q 15min safety checks. Response : Patient received sleeping in her room at shift change. She was awoken for breakfast and joined in the community room with peers. Patient refused her scheduled Tums this morning endorsing that she doesnt have stomach issues. She was receptive to 1:1 assessment. Patient denies SI/HI, AH or VH. Does not appear to be responding to IS. She was continent/ incontinent of urine and continent of bowels on this shift. Patient continues using a wheel chair for transportation and requires staff assistance for ADLs. Continued education on importance of call light usage. She napped on and off in her room throughout the shift. Patient was observed sitting in the community room with peers throughout the day. She continues to present as pleasant, calm, and cooperative with care. Plan : Pt. continues to require a safe and supportive environment.
--- NOTE | 2022-05-29 17:47 | NUR ---
PRECISION LENS TECHNICIAN documentation: I have reviewed and agree with all interventions, assessments performed and documented by Carlee Menendez LVN.
[2022-05-29 19:00] VITALS: BP 133/64
[2022-05-29] MEDS: olanzapine 10mg tablet PO SCH (20:47)
[2022-05-29] MEDS: traZODone 50mg tablet PO PRN (20:47)
[2022-05-29] MEDS: amLODIPine 5mg tablet PO SCH (20:48)
[2022-05-29] MEDS: sertraline 50mg tablet PO SCH (20:49)
--- NOTE | 2022-05-30 01:54 | NUR ---
Nursing Progress Note: Problem: Pt admitted on LPS conservatorship from Telemetry. Pt is awaiting placement. PT has history of schizoaffective. Interventions: Maintained a safe and supportive environment, ensured contract for safety, provided clear and simple instructions, provided needed assistance with ADLs and maintained fall precautions, and maintained Q 15min safety checks. Response: Patient is pleasant and cooperative with care; compliant with medication. PRN Trazodone provided for sleep per patient request. Nicotine patch removed. No negative behaviors presented and no incontinent episodes at this time. Patient is social with staff and roommate; provided HS snack. Observed sleeping and does not appear to be having difficulty. Plan: Pt. continues to require a safe and supportive environment.
--- NOTE | 2022-05-30 04:00 | NUR ---
MANAGER TERMINAL documentation: I have reviewed and agree with all interventions, assessments performed and documented by Qi Parks LVN.
[2022-05-30] MEDS: docusate sod 100mg capsule PO SCH ×2 (07:38→20:23)
[2022-05-30] MEDS: loratadine 10mg tablet PO SCH (07:38)
[2022-05-30] MEDS: divalproex sod 250mg ER (24-hour) tablet PO SCH ×2 (07:38→20:24)
[2022-05-30] MEDS: cholecalciferol (vitamin D3) 1,000 unit (25mcg) tablet PO SCH (07:38)
[2022-05-30] MEDS: aspirin 81mg, enteric-coated 1 TAB TABLET.DR PO SCH (07:38)
[2022-05-30] MEDS: atorvastatin 20mg tablet PO SCH (07:38)
[2022-05-30] MEDS: pantoprazole 40mg Tablet.DR PO SCH ×2 (07:38→20:24)
[2022-05-30] MEDS: apixaban 5mg tablet PO SCH ×2 (07:38→20:24)
[2022-05-30] MEDS: nicotine 7mg patch - 24hr TD SCH (07:39)
[2022-05-30] MEDS: lisinopril 20mg tablet PO SCH (07:41)
[2022-05-30] MEDS: calcium carbonate 500mg chew tablet PO SCH ×2 (07:43→20:24)
[2022-05-30 08:00] VITALS: BP 135/75
[2022-05-30] MEDS: albuterol 2.5 MG/3 ML nebule NEB PRN ×2 (13:39→20:52)
--- NOTE | 2022-05-30 17:47 | NUR ---
Nursing Progress Note: Tamara Problem : Pt admitted on LPS conservatorship from Telemetry. Pt is awaiting placement. PT has history of schizoaffective. Interventions : Maintained a safe and supportive environment, ensured contract for safety, provided clear and simple instructions, provided needed assistance with ADLs and maintained fall precautions, provided active listening and positive encouragement, and maintained Q 15min safety checks. Response : Patient received sleeping in bed at change of shift. She awoke and was assisted by staff to the community room for breakfast. Patient observed sitting in the community room with peers throughout the morning. She was receptive to scheduled medication and 1:1 assessment. Patient retreated back to her room for a nap between meal and snack time. She continues to deny all MH symptoms. Does not appear to be responding to IS. She was continent/ incontinent of urine on this shift. She continues using a wheel chair for transportation and requires staff assistance for ADLs. Patient encouraged to participate on the unit and engage in group therapy today. She joined for the first few minutes of group then requested to go back to her room. She was noted attempting to get out of bed on her own several times today requiring frequent reorientation to the call light. Patient had an episode of urinary incontinence toward the end of the shift. She was dressed in clean clothing. Patient joined for all meal and snack times in the community room today. Plan : Pt. continues to require a safe and supportive environment.
[2022-05-30 19:00] VITALS: BP 124/70
[2022-05-30] MEDS: olanzapine 10mg tablet PO SCH (20:23)
[2022-05-30] MEDS: sertraline 50mg tablet PO SCH (20:24)
[2022-05-30] MEDS: traZODone 50mg tablet PO PRN (20:24)
[2022-05-30] MEDS: amLODIPine 5mg tablet PO SCH (20:26)
[2022-05-30] MEDS: diphenhydrAMINE 25mg capsule PO PRN (22:08)
--- NOTE | 2022-05-31 02:14 | NUR ---
Nursing Progress Note: Problem: Pt admitted on LPS conservatorship from Telemetry. Pt is awaiting placement. PT has history of schizoaffective. Interventions: Maintained a safe and supportive environment, ensured contract for safety, provided clear and simple instructions, provided needed assistance with ADLs and maintained fall precautions, and maintained Q 15min safety checks. Response: Patient is pleasant and cooperative with care; compliant with medication. PRN Trazodone for sleep and Benadryl for c/o itchiness provided. Nicotine patch removed. No negative behaviors presented; patient had one incontinent episode d/t urgency. Patient social with staff and her roommate. Provided HS snack; observed sleeping and does not appear to be having difficulty. Plan: Pt. continues to require a safe and supportive environment.
--- NOTE | 2022-05-31 05:11 | NUR ---
BILLING ASSOCIATE documentation: I have reviewed and agree with all interventions, assessments performed and documented by Qi Parks LVN.
[2022-05-31] MEDS: aspirin 81mg, enteric-coated 1 TAB TABLET.DR PO SCH (07:54)
[2022-05-31] MEDS: docusate sod 100mg capsule PO SCH ×2 (07:54→20:39)
[2022-05-31] MEDS: loratadine 10mg tablet PO SCH (07:54)
[2022-05-31] MEDS: atorvastatin 20mg tablet PO SCH (07:54)
[2022-05-31] MEDS: divalproex sod 250mg ER (24-hour) tablet PO SCH ×2 (07:54→20:39)
[2022-05-31] MEDS: apixaban 5mg tablet PO SCH ×2 (07:54→20:39)
[2022-05-31] MEDS: cholecalciferol (vitamin D3) 1,000 unit (25mcg) tablet PO SCH (07:55)
[2022-05-31] MEDS: pantoprazole 40mg Tablet.DR PO SCH ×2 (07:55→20:39)
[2022-05-31] MEDS: lisinopril 20mg tablet PO SCH (07:56)
[2022-05-31] MEDS: nicotine 7mg patch - 24hr TD SCH (07:57)
[2022-05-31 08:00] VITALS: BP 119/66
[2022-05-31] MEDS: traMADol 50MG tablet PO PRN ×2 (08:00→20:54)
[2022-05-31] MEDS: calcium carbonate 500mg chew tablet PO SCH ×2 (08:00→20:39)
--- NOTE | 2022-05-31 13:56 | NUR ---
Nursing Progress Note: Problem : Pt admitted on LPS conservatorship from Telemetry. Pt is awaiting placement. PT has history of schizoaffective. Interventions : Maintained a safe and supportive environment, ensured contract for safety, provided clear and simple instructions, provided needed assistance with ADLs and maintained fall precautions, provided active listening and positive encouragement, and maintained Q 15min safety checks. Response : Received pt. up in her wheel chair interacting appropriately with others at the beginning of the shift, she attend breakfast in the Group Room. Pt. refused her scheduled Tums reporting she did not feel she needed it. She complained of neck pain and requested PRN Tramadol, this medication was administered with effectiveness. Pt. continues to require assistance with transfers and toileting r/t generalized weakness. She is able to use the [id number] with assistance from staff to pull herself to a standing position. Pt. returned to bed to rest after meals as is her routine. 1:1 was completed at bedside, and pt. denies all MH s/s and reports she is looking forward to her upcoming discharge. She states, "My goal is to be able to do things for myself by my next birthday." Plan : Pt. continues to require a safe and supportive environment while awaiting placement.
[2022-05-31] MEDS: albuterol 2.5 MG/3 ML nebule NEB PRN (16:22)
[2022-05-31 20:00] VITALS: BP 104/65
[2022-05-31] MEDS ORDERED: HALLS - SOOTHE MENTHOL 1.8 MG cough drop LOZENGE MM PRN (20:20)
[2022-05-31] MEDS: sertraline 50mg tablet PO SCH (20:38)
[2022-05-31] MEDS: amLODIPine 5mg tablet PO SCH (20:38)
[2022-05-31] MEDS: olanzapine 10mg tablet PO SCH (20:39)
[2022-05-31] MEDS: traZODone 50mg tablet PO PRN (20:46)
[2022-05-31] MEDS: diphenhydrAMINE 25mg capsule PO PRN (20:46)
--- NOTE | 2022-06-01 05:29 | NUR ---
Nursing Progress Note: Problem : Pt admitted on LPS conservatorship from Telemetry. Pt is awaiting placement. PT has history of schizoaffective. Interventions : Maintained a safe and supportive environment, ensured contract for safety, provided clear and simple instructions, provided needed assistance with ADLs and maintained fall precautions, provided active listening and positive encouragement, and maintained Q 15min safety checks. Response : Upon turn of shift noted patient up to BR. Seen in a good mood conversing with roommate. Denies SI, HI, AH, and VH. Appears to be well-groomed wearing clean [facility] scrubs. Mood is happy. Speech is clear and thoughts are linear. Reports that shell be discharging next week. Compliant with HS meds. PRN Benadryl, Desyrel, and Ultram given. Removed nicotine patch. Slept well this shift. Will continue to monitor. Plan : Pt. continues to require a safe and supportive environment while awaiting placement.
[2022-06-01 07:33] VITALS: BP 143/65
[2022-06-01] MEDS: nicotine 7mg patch - 24hr TD SCH (07:40)
[2022-06-01] MEDS: loratadine 10mg tablet PO SCH (07:41)
[2022-06-01] MEDS: docusate sod 100mg capsule PO SCH ×2 (07:41→21:01)
[2022-06-01] MEDS: aspirin 81mg, enteric-coated 1 TAB TABLET.DR PO SCH (07:41)
[2022-06-01] MEDS: atorvastatin 20mg tablet PO SCH (07:41)
[2022-06-01] MEDS: apixaban 5mg tablet PO SCH ×2 (07:41→21:00)
[2022-06-01] MEDS: divalproex sod 250mg ER (24-hour) tablet PO SCH ×2 (07:41→21:00)
[2022-06-01] MEDS: cholecalciferol (vitamin D3) 1,000 unit (25mcg) tablet PO SCH (07:42)
[2022-06-01] MEDS: pantoprazole 40mg Tablet.DR PO SCH ×2 (07:42→21:01)
[2022-06-01] MEDS: lisinopril 20mg tablet PO SCH (07:42)
[2022-06-01] MEDS: calcium carbonate 500mg chew tablet PO SCH ×2 (08:00→21:00)
--- NOTE | 2022-06-01 08:08 | NUR ---
F/u 3/: Pt continues eating well with mostly ~100% avg regular meals meeting estimated nutrient needs. LBM 05/31 per EMR. No nutrition intervention implemented at this time. Will continue to follow. Recommendations: 1. Continue regular diet 2. Routine bowel care 3. Weekly scaled wts Addendum: 06/01/22 at [address] Amended: Links added.
--- NOTE | 2022-06-01 13:58 | NUR ---
Nursing Progress Note: Problem : Pt admitted on LPS conservatorship from Telemetry. Pt is awaiting placement. PT has history of schizoaffective. Interventions : Maintained a safe and supportive environment, ensured contract for safety, provided clear and simple instructions, provided needed assistance with ADLs and maintained fall precautions, provided active listening and positive encouragement, and maintained Q 15min safety checks. Response : Received pt. sleeping in bed at the beginning of the shift, she awoke and attend breakfast in the Group Room. Pt. again refused her scheduled Tums. Pt. continues to require assistance with transfers and toileting r/t generalized weakness. She is able to use the [id number] with assistance from staff to pull herself to a standing position. Pt. continues to return to bed after meals to rest, however was observed to be more present on the unit this shift and attended the patio with others. Pt. continues to deny any mental health s/s and is looking forward to discharge. Plan : Pt. continues to require a safe and supportive environment while awaiting placement.
[2022-06-01] MEDS: albuterol 2.5 MG/3 ML nebule NEB PRN (19:37)
[2022-06-01 20:00] VITALS: BP 141/113
[2022-06-01] MEDS: traZODone 50mg tablet PO PRN (20:59)
[2022-06-01] MEDS: sertraline 50mg tablet PO SCH (20:59)
[2022-06-01] MEDS: olanzapine 10mg tablet PO SCH (21:00)
[2022-06-01] MEDS: amLODIPine 5mg tablet PO SCH (21:02)
--- NOTE | 2022-06-02 04:45 | NUR ---
Nursing Progress Note: Problem : Pt admitted on LPS conservatorship from Telemetry. Pt is awaiting placement. PT has history of schizoaffective. Interventions : Maintained a safe and supportive environment, ensured contract for safety, provided clear and simple instructions, provided needed assistance with ADLs and maintained fall precautions, provided active listening and positive encouragement, and maintained Q 15min safety checks. Response : Received patient in bed at change of shift. Pleasant and cooperative. Smiling and laughing, socializing with room mate. Breathing treatment provided by respiratory. Patient reports the breathing treatment helped. Compliant with all bedtime medications. PRN trazodone provided. Nicotine patch removed. Patient continues needing assistance from staff to get out of bed and uses call light appropriately. Denies SI/HI,AH/VH. No negative behaviors noted on this shift. Observed and appears to be sleeping with HOB elevated. Plan : Pt. continues to require a safe and supportive environment while awaiting placement. Addendum: 06/03/22 at 0426 by Aure Maharaj RN MELIZA documentation: I have reviewed interventions and assessments performed and documented by Lakisha Montero LVN.
[2022-06-02 08:00] VITALS: BP 136/70
[2022-06-02] MEDS: cholecalciferol (vitamin D3) 1,000 unit (25mcg) tablet PO SCH (08:51)
[2022-06-02] MEDS: loratadine 10mg tablet PO SCH (08:51)
[2022-06-02] MEDS: calcium carbonate 500mg chew tablet PO SCH ×2 (08:51→20:04)
[2022-06-02] MEDS: pantoprazole 40mg Tablet.DR PO SCH ×2 (08:51→20:05)
[2022-06-02] MEDS: apixaban 5mg tablet PO SCH ×2 (08:52→20:05)
[2022-06-02] MEDS: divalproex sod 250mg ER (24-hour) tablet PO SCH ×2 (08:52→20:05)
[2022-06-02] MEDS: aspirin 81mg, enteric-coated 1 TAB TABLET.DR PO SCH (08:52)
[2022-06-02] MEDS: nicotine 7mg patch - 24hr TD SCH (08:53)
[2022-06-02] MEDS: docusate sod 100mg capsule PO SCH ×2 (08:53→20:05)
[2022-06-02] MEDS: atorvastatin 20mg tablet PO SCH (08:53)
[2022-06-02] MEDS: lisinopril 20mg tablet PO SCH (09:46)
--- NOTE | 2022-06-02 17:26 | NUR ---
Nursing Progress Note: Problem: Pt admitted on LPS conservatorship from Telemetry. Pt is awaiting placement. PT has history of schizoaffective. Interventions: 1:1 assessment with therapeutic communication and active listening; medication administration/education/monitoring; maintained a safe and supportive environment; ensured contract for safety; provided needed assistance with ADLs and maintained fall precautions; changed linens and washed laundry as needed; monitored and maintained Q 15min safety checks. Response: Received pt. sleeping in bed at the beginning of the shift. Pt up for all meals and snacks. Pt is compliant with medications and treatment. Pt c/o her neck hurting and wanting to lay down because of it numerous times. Pt reports being angry at the doctors here for giving her the medicine that "caused my stroke." Pt unable to assist with the [id number] and required two nurses to assist her up into it to transfer her. Pt went to the outside patio today. She denies MH issues. She is looking forward to leaving, "soon." Plan: Pt. continues to require a safe and supportive environment while awaiting placement.
[2022-06-02] MEDS: traMADol 50MG tablet PO PRN (18:54)
[2022-06-02 19:00] VITALS: BP 124/70
[2022-06-02] MEDS: albuterol 2.5 MG/3 ML nebule NEB PRN (19:18)
[2022-06-02] MEDS: diphenhydrAMINE 25mg capsule PO PRN (20:03)
[2022-06-02] MEDS: olanzapine 10mg tablet PO SCH (20:04)
[2022-06-02] MEDS: sertraline 50mg tablet PO SCH (20:04)
[2022-06-02] MEDS: amLODIPine 5mg tablet PO SCH (20:05)
--- NOTE | 2022-06-03 02:57 | NUR ---
Nursing Progress Note: Problem : Pt admitted on LPS conservatorship from Telemetry. Pt is awaiting placement. PT has history of schizoaffective. Interventions : Maintained a safe and supportive environment, ensured contract for safety, provided clear and simple instructions, provided needed assistance with ADLs and maintained fall precautions, provided active listening and positive encouragement, and maintained Q 15min safety checks. Response : Received patient in bed at change of shift. Patient requested breathing treatment at the start of shift change. PRN breathing treatment provided by respiratory. Pt. later c/o 9/10 neck pain and requested pain medication. Tramadol 25mg provided w/some relief. PRN Benadryl provided for c/o itching. Compliant with all bed time medications. Continues using call hilario appropriately and staff assistance for getting out of bed. Nicotine patch removed. Snack provided to pt. in room. Pt. socialized with room mate and staff before going to sleep. Pt observed and appears to be sleeping. Plan : Pt. continues to require a safe and supportive environment while awaiting placement. Addendum: 06/03/22 at 0426 by Aure Maharaj RN MELIZA documentation: I have reviewed interventions and assessments performed and documented by Lakisha Montero LVN.
[2022-06-03 08:00] VITALS: BP 147/71
[2022-06-03] MEDS: aspirin 81mg, enteric-coated 1 TAB TABLET.DR PO SCH (08:49)
[2022-06-03] MEDS: calcium carbonate 500mg chew tablet PO SCH ×2 (08:49→21:28)
[2022-06-03] MEDS: pantoprazole 40mg Tablet.DR PO SCH ×2 (08:49→21:28)
[2022-06-03] MEDS: loratadine 10mg tablet PO SCH (08:49)
[2022-06-03] MEDS: cholecalciferol (vitamin D3) 1,000 unit (25mcg) tablet PO SCH (08:49)
[2022-06-03] MEDS: apixaban 5mg tablet PO SCH ×2 (08:49→21:24)
[2022-06-03] MEDS: lisinopril 20mg tablet PO SCH (08:50)
[2022-06-03] MEDS: divalproex sod 250mg ER (24-hour) tablet PO SCH ×2 (08:50→20:00)
[2022-06-03] MEDS: docusate sod 100mg capsule PO SCH ×2 (08:50→21:23)
[2022-06-03] MEDS: atorvastatin 20mg tablet PO SCH (08:50)
[2022-06-03] MEDS: nicotine 7mg patch - 24hr TD SCH (08:51)
--- NOTE | 2022-06-03 13:13 | NUR ---
pt states "leave me alone, I want to rest, stop bothering me". Refused care. The aid on the floor will call me when she helps with toileting and will apply barrier with me then. Addendum: 06/03/22 at 1320 by Anne Burks RN Amended: Links added.
--- NOTE | 2022-06-03 16:13 | NUR ---
Nursing Progress Note: Tamara Del Angely[facility] [address] Problem: Pt admitted on LPS conservatorship from Telemetry. Pt is awaiting placement. PT has history of schizoaffective. Interventions: Maintained a safe and supportive environment, ensured contract for safety, provided clear and simple instructions, provided needed assistance with ADLs and maintained fall precautions, provided active listening and positive encouragement, and maintained Q 15min safety checks. Response: Received patient in bed at change of shift. Patient requested breathing treatment after breakfast at the start of shift change. PRN breathing treatment provided by respiratory. Compliant with all AM medications. Continues using call hilario appropriately and staff assistance for getting out of bed and toileting. Nicotine patch applied this am. Snack provided midday. Pt. socialized with roommate and staff. Pt observed and appears to be sleeping on her back. Plan: Pt. continues to require a safe and supportive environment while awaiting placement.
[2022-06-03] MEDS: albuterol 2.5 MG/3 ML nebule NEB PRN (19:02)
[2022-06-03 19:40] VITALS: BP 128/72
[2022-06-03] MEDS: diphenhydrAMINE 25mg capsule PO PRN (21:28)
[2022-06-03] MEDS: sertraline 50mg tablet PO SCH (21:28)
[2022-06-03] MEDS: olanzapine 10mg tablet PO SCH (21:28)
[2022-06-03] MEDS: amLODIPine 5mg tablet PO SCH (21:30)
--- NOTE | 2022-06-04 03:03 | NUR ---
Nursing Progress Note: Problem: Pt admitted on LPS conservatorship from Telemetry. Pt is awaiting placement. PT has history of schizoaffective. Interventions: 1:1 assessment with therapeutic communication and active listening; medication administration/education/monitoring; maintained a safe and supportive environment; ensured contract for safety; provided needed assistance with ADLs and maintained fall precautions; changed linens and washed laundry as needed; monitored and maintained Q 15min safety checks. Response: Received pt. in bed at change of shift. Respiratory paged for breathing treatment per pts. request at the start of shift. Snack provided to pt. in bed. Socializes with room mate and staff. Compliant with medications. Denies MH symptoms. PRN Benadryl provided w/good effect. Nicotine patch removed. Continues to use call light appropriately. Requires assistance from staff for transferring. No behaviors on this shift. Pt. appears to be sleeping at this time. Plan: Pt. continues to require a safe and supportive environment while awaiting placement.
--- NOTE | 2022-06-04 04:16 | NUR ---
PHARMACEUTICAL SALESPERSON documentation: I have reviewed and agree with interventions, assessments performed and documented by Lakisha HAIDER.
[2022-06-04] MEDS: docusate sod 100mg capsule PO SCH ×2 (07:54→20:01)
[2022-06-04] MEDS: atorvastatin 20mg tablet PO SCH (07:54)
[2022-06-04] MEDS: apixaban 5mg tablet PO SCH ×2 (07:55→20:01)
[2022-06-04] MEDS: divalproex sod 250mg ER (24-hour) tablet PO SCH ×2 (07:58→20:01)
[2022-06-04] MEDS: loratadine 10mg tablet PO SCH (07:58)
[2022-06-04] MEDS: lisinopril 20mg tablet PO SCH (07:58)
[2022-06-04] MEDS: pantoprazole 40mg Tablet.DR PO SCH ×2 (07:58→20:01)
[2022-06-04] MEDS: aspirin 81mg, enteric-coated 1 TAB TABLET.DR PO SCH (07:59)
[2022-06-04] MEDS: cholecalciferol (vitamin D3) 1,000 unit (25mcg) tablet PO SCH (07:59)
[2022-06-04 08:00] VITALS: BP 117/66
[2022-06-04] MEDS: nicotine 7mg patch - 24hr TD SCH (08:00)
[2022-06-04] MEDS: calcium carbonate 500mg chew tablet PO SCH ×2 (08:00→20:00)
[2022-06-04] MEDS: albuterol 2.5 MG/3 ML nebule NEB PRN (16:26)
--- NOTE | 2022-06-04 17:01 | NUR ---
Per Dr. Marie, during assessment pt. c/o some shortness or breath and bilateral lung sounds exhibited some wheezing. PRN breathing was administered with effectiveness, and will continue to monitor pt. closely.
--- NOTE | 2022-06-04 18:01 | NUR ---
Nursing Progress Note: Tamara Steele [address] Problem: Pt admitted on LPS conservatorship from Telemetry. Pt is awaiting placement. PT has history of schizoaffective. Interventions: Establish rapport and therapeutic communication. Ensured contract for safety, provided clear and simple instructions. Medication administration, education and monitoring. Provide needed assistance with ADLs and maintain fall precautions, remove clutter and keep room well lite to prevent falls. Provide active listening, positive encouragement and maintain Q 15min safety checks. Response: Patient up in wheel chair at start of shift. She states she had a good nights sleep. Denies suicidal/homicidal thoughts. Denies auditory/visual hallucinations. Josey needs assistants with her ADLs and getting out of bed and when using the wheel chair. She had a BM today and is voiding well. She reports having a good appetite. Eating all meals in dining room. RT gave her a breathing treatment with good results, O2sat 99% after treatment. Lungs are clear but diminished in lower lobes. She is medication compliant except for Tums this morning. At approximately 1530 Josey c/o shortness of breath, RT here to give her a breathing treatment with good results, O2sat 96% after treatment. She rested in bed afterwards. Plan: Pt. continues to require a safe and supportive environment while awaiting placement.
[2022-06-04] MEDS: diphenhydrAMINE 25mg capsule PO PRN (19:14)
[2022-06-04] MEDS: traZODone 50mg tablet PO PRN (20:02)
[2022-06-04] MEDS: olanzapine 10mg tablet PO SCH (20:02)
[2022-06-04] MEDS: sertraline 50mg tablet PO SCH (20:02)
[2022-06-04] MEDS: amLODIPine 5mg tablet PO SCH (20:02)
[2022-06-04] MEDS: traMADol 50MG tablet PO PRN (20:03)
[2022-06-04 20:20] VITALS: BP 140/75
--- NOTE | 2022-06-05 03:00 | NUR ---
MELIZA documentation: I have reviewed and agree with all interventions, assessments performed and documented by Lul HAIDER
[2022-06-05] MEDS: traMADol 50MG tablet PO PRN (03:15)
--- NOTE | 2022-06-05 03:27 | NUR ---
Nursing Progress Note: Tamara Problem: Pt admitted on LPS conservatorship from Telemetry. Pt is awaiting placement. PT has history of schizoaffective. Interventions: Medication administration, 1:1 MH assessment, maintained a safe and supportive environment, provided clear and simple instructions, provided encouragement regarding performance of ADLs, monitored behaviors and maintained clear boundaries, maintained Q15 minute safety checks. Response: Pt. received awake in community room. Compliant with medication administration. Pt expressed to this EMAIL MARKETING MANAGER during 1:1 SI/HI, -AV/H, denies all mental health diagnoses. Pt appears disheveled, wearing street clothes, poor hygiene. She continues to require assistance with ADLs and transfers, she has been continent of bowel and both continent/incontinent of bladder this shift. Pt. has poor safety awareness and is reeducated on the importance using call light and not attempting to self-transfer. Received snack in bedroom. PRN Trazodone given. Pt slept throughout shift. Tech notified this EMAIL MARKETING MANAGER that pt buttock was red, additional cream applied, pt placed in side-lying position. Repositioned Q2 hours. Plan: Patient requires a safe and supportive environment. Possible DC 06/08/2022; patient is conserved.
[2022-06-05 08:00] VITALS: BP 123/72
[2022-06-05] MEDS: lisinopril 20mg tablet PO SCH (08:01)
[2022-06-05] MEDS: docusate sod 100mg capsule PO SCH ×2 (08:01→21:13)
[2022-06-05] MEDS: calcium carbonate 500mg chew tablet PO SCH ×2 (08:01→21:13)
[2022-06-05] MEDS: aspirin 81mg, enteric-coated 1 TAB TABLET.DR PO SCH (08:01)
[2022-06-05] MEDS: loratadine 10mg tablet PO SCH (08:01)
[2022-06-05] MEDS: apixaban 5mg tablet PO SCH ×2 (08:01→21:13)
[2022-06-05] MEDS: nicotine 7mg patch - 24hr TD SCH (08:01)
[2022-06-05] MEDS: cholecalciferol (vitamin D3) 1,000 unit (25mcg) tablet PO SCH (08:01)
[2022-06-05] MEDS: atorvastatin 20mg tablet PO SCH (08:01)
[2022-06-05] MEDS: divalproex sod 250mg ER (24-hour) tablet PO SCH ×2 (08:01→21:13)
[2022-06-05] MEDS: pantoprazole 40mg Tablet.DR PO SCH ×2 (08:01→21:13)
--- NOTE | 2022-06-05 16:35 | NUR ---
Nursing Progress Note: Tamara Problem: Pt admitted on LPS conservatorship from Telemetry. Pt is awaiting placement. PT has history of schizoaffective. Interventions: Medication administration, 1:1 MH assessment, maintained a safe and supportive environment, provided clear and simple instructions, provided encouragement regarding performance of ADLs, monitored behaviors and maintained clear boundaries, maintained Q15 minute safety checks. Response: Pt awake in bed this am on shift change. Agreeable and pleasant during medication administration. Pt required consistent help with transfers and most ADLs, remaining continent of bowel and bladder during entire day shift. Pt constantly educated on fall precautions and importance of staff assistance with transfers. Pt buttock is less red today, cream applications seem to be affective. Boundaries enforced and reminded throughout shift and patient remained pleasant to this nurse. Plan: Patient requires a safe and supportive environment. Possible DC 06/08/2022; patient is conserved.
[2022-06-05 20:00] VITALS: BP 106/67
[2022-06-05] MEDS: traZODone 50mg tablet PO PRN (21:13)
[2022-06-05] MEDS: sertraline 50mg tablet PO SCH (21:13)
[2022-06-05] MEDS: olanzapine 10mg tablet PO SCH (21:13)
[2022-06-05] MEDS: amLODIPine 5mg tablet PO SCH (21:14)
[2022-06-05] MEDS: diphenhydrAMINE 25mg capsule PO PRN (21:22)
--- NOTE | 2022-06-06 04:25 | NUR ---
Nursing Progress Note: Tamara Problem: Pt admitted on LPS conservatorship from Telemetry. Pt is awaiting placement. PT has history of schizoaffective. Interventions: Medication administration, 1:1 MH assessment, maintained a safe and supportive environment, provided clear and simple instructions, provided encouragement regarding performance of ADLs, monitored behaviors and maintained clear boundaries, maintained Q15 minute safety checks. Response: Patient is pleasant and cooperative with care; compliant with medication. PRN Benadryl provided for c/o itchiness and Trazodone for sleep per patient request. Nicotine patch removed. No negative behaviors and using call light to make needs known. Patient had one incontinent episode d/t urgency this shift. She was provided HS snack and made phone calls prior to bed; observed sleeping and does not appear to be having difficulty. Plan: Patient requires a safe and supportive environment. Possible DC 06/08/2022; patient is conserved.
--- NOTE | 2022-06-06 04:55 | NUR ---
TOOL GRINDER OPERATOR EXTERNAL documentation: I have reviewed and agree with all interventions, assessments performed and documented by Qi Parks LVN.
[2022-06-06 08:00] VITALS: BP 122/67
[2022-06-06] MEDS: docusate sod 100mg capsule PO SCH ×2 (08:19→20:02)
[2022-06-06] MEDS: divalproex sod 250mg ER (24-hour) tablet PO SCH ×2 (08:19→20:03)
[2022-06-06] MEDS: apixaban 5mg tablet PO SCH ×2 (08:19→20:02)
[2022-06-06] MEDS: aspirin 81mg, enteric-coated 1 TAB TABLET.DR PO SCH (08:19)
[2022-06-06] MEDS: loratadine 10mg tablet PO SCH (08:19)
[2022-06-06] MEDS: pantoprazole 40mg Tablet.DR PO SCH ×2 (08:20→20:03)
[2022-06-06] MEDS: atorvastatin 20mg tablet PO SCH (08:20)
[2022-06-06] MEDS: calcium carbonate 500mg chew tablet PO SCH ×2 (08:20→20:02)
[2022-06-06] MEDS: cholecalciferol (vitamin D3) 1,000 unit (25mcg) tablet PO SCH (08:20)
[2022-06-06] MEDS: lisinopril 20mg tablet PO SCH (08:21)
[2022-06-06] MEDS: nicotine 7mg patch - 24hr TD SCH (08:23)
[2022-06-06] MEDS: traMADol 50MG tablet PO PRN ×2 (14:34→20:02)
--- NOTE | 2022-06-06 17:23 | NUR ---
[address] [facility] Nursing Progress Note: Tamara Problem: Pt admitted on LPS conservatorship from Telemetry. Pt is awaiting placement. PT has history of schizoaffective. Interventions: Introduced self and established rapport, 1:1 Mental health assessment with therapeutic communication and active listening; medication administration/education/monitoring; maintained a safe and supportive environment; ensured contract for safety; provided needed assistance with ADLs and maintained fall precautions; changed linens and washed laundry as needed; monitored and maintained Q 15min safety checks. Response: At the beginning of my shift, patient was lying in bed resting with eyes closed. Patient had a BM that was large formed. During medication pass, patient was up in the group room finishing breakfast, I introduced myself and patient states "I dont need a nurse names Dixie. Matter of fact I dont need to keep having a new nurse every day. Patient was encouraged to be polite and cooperative with care. Nicotine patch removed and a new one was placed. Patient was observed sleeping after breakfast. Patient was woke up for lunch ate lunch in the group room. Patient wanted to go back to bed but was encouraged to stay up for a while. Patient was not very happy about this and stated you are weird. At the end of the day patient apologized for being mean today. Patient denies having any SI/HI & AH/VH Plan: Patient requires a safe and supportive environment. Possible DC 06/08/2022; patient is conserved.
[2022-06-06 19:34] VITALS: BP 119/82
[2022-06-06] MEDS: traZODone 50mg tablet PO PRN (20:02)
[2022-06-06] MEDS: olanzapine 10mg tablet PO SCH (20:03)
[2022-06-06] MEDS: sertraline 50mg tablet PO SCH (20:04)
[2022-06-06] MEDS: amLODIPine 5mg tablet PO SCH (20:04)
--- NOTE | 2022-06-07 01:15 | NUR ---
Nursing Progress Note: Tamara Problem: Pt admitted on LPS conservatorship from Telemetry. Pt is awaiting placement. PT has history of schizoaffective. Interventions: Medication administration, 1:1 MH assessment, maintained a safe and supportive environment, provided clear and simple instructions, provided encouragement regarding performance of ADLs, monitored behaviors and maintained clear boundaries, maintained Q15 minute safety checks. Response: Patient is pleasant and cooperative with care; required lots of attention this shift. Compliant with medication; PRNs Tramadol (c/o 9/10 neck pain), Trazodone (for sleep) and Benadryl (c/o itchiness all over) provided this shift. Nicotine patch removed. No negative behaviors presented this shift; provided HS snack and observed sleeping without difficulty. Plan: Patient requires a safe and supportive environment. Possible DC 06/08/2022; patient is conserved.
--- NOTE | 2022-06-07 04:36 | NUR ---
BILLET HEADER documentation: I have reviewed and agree with all interventions, assessments performed and documented by Qi HAIDER.
[2022-06-07 08:00] VITALS: BP 117/69
[2022-06-07] MEDS: divalproex sod 250mg ER (24-hour) tablet PO SCH ×2 (08:14→20:09)
[2022-06-07] MEDS: docusate sod 100mg capsule PO SCH ×2 (08:14→20:09)
[2022-06-07] MEDS: aspirin 81mg, enteric-coated 1 TAB TABLET.DR PO SCH (08:15)
[2022-06-07] MEDS: loratadine 10mg tablet PO SCH (08:15)
[2022-06-07] MEDS: calcium carbonate 500mg chew tablet PO SCH ×2 (08:15→20:08)
[2022-06-07] MEDS: nicotine 7mg patch - 24hr TD SCH (08:15)
[2022-06-07] MEDS: pantoprazole 40mg Tablet.DR PO SCH ×2 (08:15→20:08)
[2022-06-07] MEDS: lisinopril 20mg tablet PO SCH (08:15)
[2022-06-07] MEDS: cholecalciferol (vitamin D3) 1,000 unit (25mcg) tablet PO SCH (08:15)
[2022-06-07] MEDS: atorvastatin 20mg tablet PO SCH (08:15)
[2022-06-07] MEDS: apixaban 5mg tablet PO SCH ×2 (08:15→20:08)
[2022-06-07 13:00] VITALS: BP 117/69
--- NOTE | 2022-06-07 17:19 | NUR ---
Nursing Progress Note: Tamara Problem: Pt admitted on LPS conservatorship from Telemetry. Pt is awaiting placement. PT has history of schizoaffective. Interventions: Medication administration, 1:1 MH assessment, maintained a safe and supportive environment, provided clear and simple instructions, provided encouragement regarding performance of ADLs, monitored behaviors and maintained clear boundaries, maintained Q15 minute safety checks. Response: Pt. received awake and sitting in her WC. Pt. denies SI, HI, AH, VH, and took her medications without hesitation. She presents as fatigued, refused to have her labs drawn, stating is this for [place], I dont even care if I go She stayed up in her WC for part of the morning. And returned for a nap before lunch. Pt. continues to require assistance with all transfers and set up. She has been continent this shift, and utilized the call light for assistance. She ate all meals in the main dining room and socializes with cohorts as well. Pt. is dependent for all hygiene care, hair neatly brushed and wears street clothes. Plan: Patient requires a safe and supportive environment. Patient is conserved.
--- NOTE | 2022-06-07 17:40 | NUR ---
CONTEMPORARY OR MODERN DANCER documentation: I have reviewed and agree with all interventions, assessments performed and documented by Marga Rodriguez LVN.
--- NOTE | 2022-06-07 18:22 | NUR ---
Late entry: Lg Bm this shift
[2022-06-07 19:15] VITALS: BP 122/75
[2022-06-07] MEDS: diphenhydrAMINE 25mg capsule PO PRN (20:08)
[2022-06-07] MEDS: amLODIPine 5mg tablet PO SCH (20:08)
[2022-06-07] MEDS: olanzapine 10mg tablet PO SCH (20:09)
[2022-06-07] MEDS: sertraline 50mg tablet PO SCH (20:09)
[2022-06-07] MEDS: traZODone 50mg tablet PO PRN (20:09)
[2022-06-07] MEDS: albuterol 2.5 MG/3 ML nebule NEB PRN (21:12)
--- NOTE | 2022-06-08 04:00 | NUR ---
Nursing Progress Note: Tamara Problem: Pt admitted on LPS conservatorship from Telemetry. Pt is awaiting placement. PT has history of schizoaffective. Interventions: Medication administration, 1:1 MH assessment, maintained a safe and supportive environment, provided clear and simple instructions, provided encouragement regarding performance of ADLs, monitored behaviors and maintained clear boundaries, maintained Q15 minute safety checks. Response: Patient is pleasant and cooperative with care; compliant with medication. PRN Benadryl provided for c/o itchiness and Trazodone provided for sleep per patient requests. Improvement Leader was unable to locate Nicotine patch. No negative behaviors presented this shift; continues to require lots of attention (appears slightly anxious r/t discharge plans). Patient has some redness on her buttocks and she is repositioned as much as she can tolerate but patient is resistive to one side being propped with a pillow. HS snack provided; observed sleeping and does not appear to be having difficulty. Plan: Patient requires a safe and supportive environment. Possible DC 06/08/2022; patient is conserved.
[2022-06-08 08:00] VITALS: BP 122/60
[2022-06-08] MEDS: calcium carbonate 500mg chew tablet PO SCH ×2 (08:38→20:00)
[2022-06-08] MEDS: pantoprazole 40mg Tablet.DR PO SCH ×2 (08:38→20:10)
[2022-06-08] MEDS: atorvastatin 20mg tablet PO SCH (08:38)
[2022-06-08] MEDS: lisinopril 20mg tablet PO SCH (08:38)
[2022-06-08] MEDS: loratadine 10mg tablet PO SCH (08:38)
[2022-06-08] MEDS: docusate sod 100mg capsule PO SCH ×2 (08:38→20:11)
[2022-06-08] MEDS: divalproex sod 250mg ER (24-hour) tablet PO SCH ×2 (08:38→20:10)
[2022-06-08] MEDS: aspirin 81mg, enteric-coated 1 TAB TABLET.DR PO SCH (08:38)
[2022-06-08] MEDS: apixaban 5mg tablet PO SCH ×2 (08:38→20:11)
[2022-06-08] MEDS: cholecalciferol (vitamin D3) 1,000 unit (25mcg) tablet PO SCH (08:38)
[2022-06-08] MEDS: nicotine 7mg patch - 24hr TD SCH (08:39)
[2022-06-08] MEDS: albuterol 2.5 MG/3 ML nebule NEB PRN ×2 (15:34→20:02)
--- NOTE | 2022-06-08 17:38 | NUR ---
Nursing Progress Note: Problem: Pt admitted on LPS conservatorship from Telemetry. Pt is awaiting placement. PT has history of schizoaffective. Interventions: Medication administration, 1:1 MH assessment, maintained a safe and supportive environment, provided clear and simple instructions, provided encouragement regarding performance of ADLs, monitored behaviors and maintained clear boundaries, maintained Q15 minute safety checks. Response: Patient is pleasant and cooperative with care; compliant with medication. Patient up in chair this shift interacting with peers well. Patient stood with assist from RN and transferred to toilet x1 this shift. Used sit to stand for transfers rest of the shift. Patient refused cream this shift and states it doesnt work for her itchy spot on bottom. Will continue to monitor. Patient shaved with staff assist this evening. Plan: Patient requires a safe and supportive environment. Possible d/dc 06/08/2022. patient is conserved.
[2022-06-08] MEDS: traMADol 50MG tablet PO PRN (18:56)
[2022-06-08] MEDS: diphenhydrAMINE 25mg capsule PO PRN (18:56)
[2022-06-08 19:17] VITALS: BP 112/72
[2022-06-08] MEDS: sertraline 50mg tablet PO SCH (20:10)
[2022-06-08] MEDS: traZODone 50mg tablet PO PRN (20:11)
[2022-06-08] MEDS: amLODIPine 5mg tablet PO SCH (20:11)
[2022-06-08] MEDS: olanzapine 10mg tablet PO SCH (20:12)
[2022-06-08] MEDS: tizanidine 4mg tablet PO PRN (21:28)
--- NOTE | 2022-06-09 02:10 | NUR ---
Nursing Progress Note: Tamara Problem: Pt admitted on LPS conservatorship from Telemetry. Pt is awaiting placement. PT has history of schizoaffective. Interventions: Medication administration, 1:1 MH assessment, maintained a safe and supportive environment, provided clear and simple instructions, provided encouragement regarding performance of ADLs, monitored behaviors and maintained clear boundaries, maintained Q15 minute safety checks. Response: Pt. received awake in community room. Compliant with medication administration. Pt expressed to this DOLLY DRIVER during 1:1 SI/HI, -AV/H, denies all mental health diagnoses. Pt appears disheveled, wearing street clothes, poor hygiene. She continues to require assistance with ADLs and transfers, she has been continent of bowel and both continent/incontinent of bladder this shift. Pt. has poor safety awareness and is reeducated on the importance using call light and not attempting to self-transfer. Received snack in bedroom. PRN Trazodone, Benadryl and Zanaflex given. Pt slept throughout shift. Pt placed in side-lying position. Repositioned Q2 hours. Plan: Patient requires a safe and supportive environment. DC delayed d/t weather.Patient is conserved.
[2022-06-09] MEDS: docusate sod 100mg capsule PO SCH ×2 (07:28→20:50)
[2022-06-09] MEDS: loratadine 10mg tablet PO SCH (07:28)
[2022-06-09] MEDS: pantoprazole 40mg Tablet.DR PO SCH ×2 (07:29→20:51)
[2022-06-09] MEDS: divalproex sod 250mg ER (24-hour) tablet PO SCH ×2 (07:29→20:51)
[2022-06-09] MEDS: aspirin 81mg, enteric-coated 1 TAB TABLET.DR PO SCH (07:29)
[2022-06-09] MEDS: atorvastatin 20mg tablet PO SCH (07:29)
[2022-06-09] MEDS: calcium carbonate 500mg chew tablet PO SCH ×2 (07:29→20:50)
[2022-06-09] MEDS: cholecalciferol (vitamin D3) 1,000 unit (25mcg) tablet PO SCH (07:29)
[2022-06-09] MEDS: apixaban 5mg tablet PO SCH ×2 (07:29→20:51)
[2022-06-09] MEDS: lisinopril 20mg tablet PO SCH (07:30)
[2022-06-09] MEDS: nicotine 7mg patch - 24hr TD SCH (07:32)
[2022-06-09 08:37] VITALS: BP 113/76
--- NOTE | 2022-06-09 15:23 | NUR ---
DISCHARGE PLAN Tamara is expected to discharge on 06/15/22. The facility she is going to is requiring a 30 day supply of medications. 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 If she does not have her medications here she will not be able to discharge. ZACH Das
--- NOTE | 2022-06-09 16:26 | NUR ---
Nursing Progress Note: Tamara Problem: Pt admitted on LPS conservatorship from Telemetry. Pt is awaiting placement. PT has history of schizoaffective. Interventions: Medication administration, 1:1 MH assessment, maintained a safe and supportive environment, provided clear and simple instructions, provided encouragement regarding performance of ADLs, monitored behaviors and maintained clear boundaries, maintained Q15 minute safety checks. Response: Pt. received asleep and awoke to participate in coffee break. Pt. stayed up most of the morning and attended group with cohorts. She denies SI, HI, AH, VH and awaits DC date. Pt. takes her medications without hesitation and has no ASE reported. She attended an outing to the patio, and returned for a nap before lunch. Pt. continues to require assistance with all transfers and set up. She has been continent this shift, and utilized the call light for assistance. She ate all meals in the main dining room and socializes with cohorts as well. Pt. is dependent for all hygiene care, hair neatly brushed and wears street clothes. Pt. repositioned Q2hr for skin integrity. Plan: Patient requires a safe and supportive environment. Patient is conserved.
[2022-06-09] MEDS ORDERED: ATOR40TA71 PO (17:37)
[2022-06-09] MEDS ORDERED: TRAM50TA2 PO (17:37)
[2022-06-09] MEDS ORDERED: LORA10TA65 PO (17:37)
[2022-06-09] MEDS ORDERED: DIPH-423 PO (17:37)
[2022-06-09] MEDS ORDERED: MENT5.8L12 MM (17:37)
[2022-06-09] MEDS ORDERED: PANT-47 PO (17:37)
[2022-06-09] MEDS ORDERED: SERT150C PO (17:37)
[2022-06-09] MEDS ORDERED: OLAN10TA73 PO (17:37)
[2022-06-09] MEDS ORDERED: APIX5TAB3 PO (17:37)
[2022-06-09] MEDS ORDERED: ASPI-1071 PO (17:37)
[2022-06-09] MEDS ORDERED: CHOL100046 PO (17:37)
[2022-06-09] MEDS ORDERED: TRAZ-251 PO (17:37)
[2022-06-09] MEDS ORDERED: CALC-492 PO (17:37)
[2022-06-09] MEDS ORDERED: TIZA-205 PO (17:37)
[2022-06-09] MEDS ORDERED: DIVA-74 PO (17:37)
[2022-06-09] MEDS ORDERED: AMLO10TA PO (17:37)
[2022-06-09] MEDS ORDERED: DOCU100C40 PO (17:37)
[2022-06-09] MEDS ORDERED: LISI40TA13 PO (17:37)
[2022-06-09] MEDS ORDERED: ALBU6.7H14 INH (17:37)
[2022-06-09 19:00] VITALS: BP 114/56
[2022-06-09] MEDS: albuterol 2.5 MG/3 ML nebule NEB PRN (19:48)
[2022-06-09] MEDS: olanzapine 10mg tablet PO SCH (20:50)
[2022-06-09] MEDS: sertraline 50mg tablet PO SCH (20:51)
[2022-06-09] MEDS: amLODIPine 5mg tablet PO SCH (20:52)
--- NOTE | 2022-06-10 03:31 | NUR ---
Nursing Progress Note: Tamara Problem: Pt admitted on LPS conservatorship from Telemetry. Pt is awaiting placement. PT has history of schizoaffective. Interventions: Medication administration, 1:1 MH assessment, maintained a safe and supportive environment, provided clear and simple instructions, provided encouragement regarding performance of ADLs, monitored behaviors and maintained clear boundaries, maintained Q15 minute safety checks. Response: Recieved patient in the hallway with peers at change of shift. Shortly after shift change pt. was back in bed where she remained for the rest of the night. Pleasant and cooperative. PRN breathing treatment provided to pt. by RT w/effectiveness. Amlodipine was held this evening d/t BP. All other bed time medications were given and tolerated well. Snack provided in room. Denies SI/HI, AH/VH. Requires assistance for transferring. Nicotine patch removed. Pt. repositioned throughout the night. Observed and appears to be sleeping . Plan: Patient requires a safe and supportive environment. Patient is conserved.
[2022-06-10 08:00] VITALS: BP 113/50
[2022-06-10 08:30] VITALS: BP 115/60
[2022-06-10] MEDS: nicotine 7mg patch - 24hr TD SCH (08:42)
[2022-06-10] MEDS: loratadine 10mg tablet PO SCH (08:42)
[2022-06-10] MEDS: apixaban 5mg tablet PO SCH ×2 (08:43→21:02)
[2022-06-10] MEDS: docusate sod 100mg capsule PO SCH ×2 (08:43→21:02)
[2022-06-10] MEDS: atorvastatin 20mg tablet PO SCH (08:43)
[2022-06-10] MEDS: calcium carbonate 500mg chew tablet PO SCH ×2 (08:43→21:03)
[2022-06-10] MEDS: aspirin 81mg, enteric-coated 1 TAB TABLET.DR PO SCH (08:43)
[2022-06-10] MEDS: divalproex sod 250mg ER (24-hour) tablet PO SCH ×2 (08:43→21:02)
[2022-06-10] MEDS: pantoprazole 40mg Tablet.DR PO SCH ×2 (08:43→21:02)
[2022-06-10] MEDS: cholecalciferol (vitamin D3) 1,000 unit (25mcg) tablet PO SCH (08:44)
[2022-06-10] MEDS: lisinopril 20mg tablet PO SCH (08:44)
[2022-06-10] MEDS: acetaminophen 325mg tablet PO PRN (09:19)
--- NOTE | 2022-06-10 11:54 | NUR ---
Reassessment: Pt continues eating well documented with mostly 75-100% PO intake on regular diet meeting estimated nutrient needs. LBM 06/08 per EMR, receiving routine bowel care. No nutrition intervention implemented at this time. Will continue to follow. Recommendations: 1. Continue regular diet 2. Routine bowel care 3. Weekly scaled wts Addendum: 06/10/22 at [address] Amended: Links added.
[2022-06-10] MEDS: traMADol 50MG tablet PO PRN (15:22)
--- NOTE | 2022-06-10 15:24 | NUR ---
Nursing Progress Note: Problem : Pt admitted on LPS conservatorship from Telemetry. Pt is awaiting placement. PT has history of schizoaffective. Interventions : Maintained a safe and supportive environment, ensured contract for safety, provided clear and simple instructions, provided needed assistance with ADLs and maintained fall precautions, provided active listening and positive encouragement, and maintained Q 15min safety checks. Response : Received pt. sleeping in bed at the beginning of the shift, she was awoken by staff to attend breakfast in the Group Room. Pt. was incontinent during sleep and required assistance from this caption writer to change her clothes. Pt. continues to require assistance with transfers and toileting r/t generalized weakness. She is able to use the [id number] with assistance from staff to pull herself to a standing position. Pt. denies all mental health signs and symptoms and no delusional statements were made. She continues to anxiously await discharge when is planned from some time next week. Pt. complained of a headache and chronic neck pain and PRN Tylenol and Ultram was administered with effectiveness. She continues to lay down in bed after meals, however sat up in the Group Room in the afternoon watching TV and interacting appropriately with others. Plan : Pt. continues to require a safe and supportive environment while awaiting placement.
[2022-06-10] MEDS ORDERED: NICO-630 TD (15:43)
[2022-06-10 20:00] VITALS: BP 102/61
[2022-06-10] MEDS: amLODIPine 5mg tablet PO SCH (21:00)
[2022-06-10] MEDS: sertraline 50mg tablet PO SCH (21:04)
[2022-06-10] MEDS: olanzapine 10mg tablet PO SCH (21:04)
--- NOTE | 2022-06-11 03:43 | NUR ---
Nursing Progress Note: Problem : Pt admitted on LPS conservatorship from Telemetry. Pt is awaiting placement. PT has history of schizoaffective. Interventions : Maintained a safe and supportive environment, ensured contract for safety, provided clear and simple instructions, provided needed assistance with ADLs and maintained fall precautions, provided active listening and positive encouragement, and maintained Q 15min safety checks. Response : Pt. in community room at change of shift and returned back to room shortly after . Pt. had evening snack in room. Amlodipine was held d/t low systolic of 102. Compliant with all other medications. Denies SI/HI, AH/VH. States she's ready to leave and it's making her really anxious. Nicotine patch removed. Continue repositioning throughout the night. Pt. continues to require assistance from staff to transfer using the lift to stand. Observed and appears to be sleeping at this time. Plan : Pt. continues to require a safe and supportive environment while awaiting placement.
[2022-06-11 08:00] VITALS: BP 122/73
[2022-06-11] MEDS: calcium carbonate 500mg chew tablet PO SCH ×2 (08:00→21:20)
[2022-06-11] MEDS: aspirin 81mg, enteric-coated 1 TAB TABLET.DR PO SCH (08:33)
[2022-06-11] MEDS: divalproex sod 250mg ER (24-hour) tablet PO SCH ×2 (08:33→21:20)
[2022-06-11] MEDS: cholecalciferol (vitamin D3) 1,000 unit (25mcg) tablet PO SCH (08:33)
[2022-06-11] MEDS: docusate sod 100mg capsule PO SCH ×2 (08:33→21:19)
[2022-06-11] MEDS: atorvastatin 20mg tablet PO SCH (08:33)
[2022-06-11] MEDS: apixaban 5mg tablet PO SCH ×2 (08:33→21:20)
[2022-06-11] MEDS: loratadine 10mg tablet PO SCH (08:33)
[2022-06-11] MEDS: nicotine 7mg patch - 24hr TD SCH (08:34)
[2022-06-11] MEDS: lisinopril 20mg tablet PO SCH (08:34)
[2022-06-11] MEDS: pantoprazole 40mg Tablet.DR PO SCH ×2 (08:39→21:20)
--- NOTE | 2022-06-11 14:36 | NUR ---
Nursing Progress Note: Problem : Pt admitted on LPS conservatorship from Telemetry. Pt is awaiting placement. PT has history of schizoaffective. Interventions : Maintained a safe and supportive environment, ensured contract for safety, provided clear and simple instructions, provided needed assistance with ADLs and maintained fall precautions, provided active listening and positive encouragement, and maintained Q 15min safety checks. Response : Received pt. sleeping in bed at the beginning of the shift, she was again awoken by staff to attend breakfast in the Group Room. Pt. continues to require assistance with transfers and toileting r/t generalized weakness. She is able to use the [id number] with assistance from staff to pull herself to a standing position. Pt. continues to anxiously await her upcoming discharge which is planned for next week. She exhibits some restlessness regarding this as evidenced by asking staff to frequently help her change into different clothing and get her up and down out of bed. Pt. denies any pain this shift. No delusional statements were made and pt. does not appear to be internally preoccupied. Plan : Pt. continues to require a safe and supportive environment while awaiting placement.
[2022-06-11 20:00] VITALS: BP 138/83
[2022-06-11] MEDS: sertraline 50mg tablet PO SCH (21:21)
[2022-06-11] MEDS: olanzapine 10mg tablet PO SCH (21:21)
[2022-06-11] MEDS: amLODIPine 5mg tablet PO SCH (21:21)
--- NOTE | 2022-06-12 01:59 | NUR ---
Nursing Progress Note: Problem : Pt admitted on LPS conservatorship from Telemetry. Pt is awaiting placement. PT has history of schizoaffective. Interventions : Maintained a safe and supportive environment, ensured contract for safety, provided clear and simple instructions, provided needed assistance with ADLs and maintained fall precautions, provided active listening and positive encouragement, and maintained Q 15min safety checks. Response : Received pt. in bed at change of shift. Pt. appears cheerful and in a great mood. Later observed having snack in the community room. Compliant with meds. Denies SI/HI, AH/VH. Reports that she had a root beer float today and a really good day. States she's excited but nervous about her new transition. Nicotine patch removed. Continues to require staff assistance for transferring. Repositioning throughout the night. No negative behaviors noted on this shift. Observed and appears to be sleeping without difficulty. Plan : Pt. continues to require a safe and supportive environment while awaiting placement.
--- NOTE | 2022-06-12 05:01 | NUR ---
TILE AND MARBLE SETTER documentation: I have reviewed and agree with all interventions, assessments performed and documented by Lakisha CAVANAUGHN.
[2022-06-12 07:49] VITALS: BP 124/52
[2022-06-12] MEDS: atorvastatin 20mg tablet PO SCH (08:28)
[2022-06-12] MEDS: divalproex sod 250mg ER (24-hour) tablet PO SCH ×2 (08:28→20:46)
[2022-06-12] MEDS: pantoprazole 40mg Tablet.DR PO SCH ×2 (08:28→20:46)
[2022-06-12] MEDS: loratadine 10mg tablet PO SCH (08:28)
[2022-06-12] MEDS: docusate sod 100mg capsule PO SCH ×2 (08:28→20:45)
[2022-06-12] MEDS: lisinopril 20mg tablet PO SCH (08:28)
[2022-06-12] MEDS: cholecalciferol (vitamin D3) 1,000 unit (25mcg) tablet PO SCH (08:28)
[2022-06-12] MEDS: apixaban 5mg tablet PO SCH ×2 (08:28→20:46)
[2022-06-12] MEDS: calcium carbonate 500mg chew tablet PO SCH ×2 (08:29→20:46)
[2022-06-12] MEDS: aspirin 81mg, enteric-coated 1 TAB TABLET.DR PO SCH (08:29)
[2022-06-12] MEDS: nicotine 7mg patch - 24hr TD SCH (08:32)
--- NOTE | 2022-06-12 17:13 | NUR ---
Nursing Progress Note: Tamara Problem : Pt admitted on [facility] conservatorship from Telemetry. Pt is awaiting placement. PT has history of schizoaffective. Interventions : Provided 1:1 assessment, provided clear and simple instructions, medication administration/education/monitoring, maintained fall precautions, encouraged to participate on the unit, behavior monitoring and intervention as needed; provided distraction, direction, reality orientation, positive reinforcement, provided needed assistance with ADLs, maintained a safe and supportive environment, and Q15 minute safety checks. Response : Patient noted to be incontinent of urine at change of shift. She was assisted to the bathroom and provided with clean clothing and clean linen on her bed. Pt continues to require assistance with transfers and toileting r/t generalized weakness. She joined with peers in the group room for breakfast. Patient is receptive to scheduled medication and 1:1 assessment. She was tearful when talking to this commercial loan underwriter about desire to discharge and to get off of her conservatorship. Patient denies SI/HI, AH or VH. Does not appear to be responding to IS. Patient endorsing that she is ready to leave later this week, noted asking questions r/t discharge. She was noted yelling at staff later in the day while demanding to be taken back to her room. Patient is able to be easily redirected. She joined in the group room for all meal and snack times today. Patient observed watching a movie with peers toward the end of this shift. Plan : Pt. continues to require a safe and supportive environment while awaiting placement.
--- NOTE | 2022-06-12 17:43 | NUR ---
CRITICAL POWER TECHNICIAN documentation: I have reviewed and agree with all interventions, assessments performed and documented by Carlee Menendez LVN.
[2022-06-12] MEDS: traMADol 50MG tablet PO PRN (19:20)
[2022-06-12] MEDS: diphenhydrAMINE 25mg capsule PO PRN (19:20)
[2022-06-12 20:00] VITALS: BP 115/77
[2022-06-12] MEDS: amLODIPine 5mg tablet PO SCH (20:45)
[2022-06-12] MEDS: sertraline 50mg tablet PO SCH (20:46)
[2022-06-12] MEDS: olanzapine 10mg tablet PO SCH (20:46)
[2022-06-12] MEDS: traZODone 50mg tablet PO PRN (21:43)
--- NOTE | 2022-06-13 00:26 | NUR ---
Nursing Progress Note: Problem : Pt admitted on LPS conservatorship from Telemetry. Pt is awaiting placement. PT has history of schizoaffective. Interventions : Provided 1:1 assessment, provided clear and simple instructions, medication administration/education/monitoring, maintained fall precautions, encouraged to participate on the unit, behavior monitoring and intervention as needed; provided distraction, direction, reality orientation, positive reinforcement, provided needed assistance with ADLs, maintained a safe and supportive environment, and Q15 minute safety checks. Response : Pt requesting to be put to bed as soon as shift change occured. No significant changes with patient, mood was good, no agitation. Pt requested PRN Benadryl for c/o itching from allergies, and Ultram for neck pain. Continues to require assistance with ADL's and toileting. Trazadone PRN given as patient was having trouble falling asleep. Plan : Pt. continues to require a safe and supportive environment while awaiting placement.
[2022-06-13 08:00] VITALS: BP 118/70
[2022-06-13] MEDS: atorvastatin 20mg tablet PO SCH (08:09)
[2022-06-13] MEDS: docusate sod 100mg capsule PO SCH ×2 (08:09→20:06)
[2022-06-13] MEDS: loratadine 10mg tablet PO SCH (08:09)
[2022-06-13] MEDS: calcium carbonate 500mg chew tablet PO SCH ×2 (08:09→20:07)
[2022-06-13] MEDS: apixaban 5mg tablet PO SCH ×2 (08:09→20:07)
[2022-06-13] MEDS: pantoprazole 40mg Tablet.DR PO SCH ×2 (08:09→20:07)
[2022-06-13] MEDS: aspirin 81mg, enteric-coated 1 TAB TABLET.DR PO SCH (08:09)
[2022-06-13] MEDS: divalproex sod 250mg ER (24-hour) tablet PO SCH ×2 (08:09→20:07)
[2022-06-13] MEDS: cholecalciferol (vitamin D3) 1,000 unit (25mcg) tablet PO SCH (08:10)
[2022-06-13] MEDS: lisinopril 20mg tablet PO SCH (08:13)
[2022-06-13] MEDS: nicotine 7mg patch - 24hr TD SCH (08:13)
[2022-06-13] MEDS ORDERED: albuterol 2.5 MG/3 ML nebule NEB PRN (14:35)
--- NOTE | 2022-06-13 15:48 | NUR ---
Nursing Progress Note: Tamara Problem : Pt admitted on LPS conservatorship from Telemetry. Pt is awaiting placement. PT has history of schizoaffective. Interventions : Provided 1:1 assessment, provided clear and simple instructions, medication administration/education/monitoring, maintained fall precautions, encouraged to participate on the unit, behavior monitoring and intervention as needed; provided distraction, direction, reality orientation, positive reinforcement, provided needed assistance with ADLs, maintained a safe and supportive environment, and Q15 minute safety checks. Response : Patient received sleeping in her room at shift change. She was awoke and joined in the group room for breakfast with peers. She was receptive to scheduled medication. Pt noted sitting and watching television in the group room most of the morning. She is pleasant, social, and cooperative with care. Pt retreated back to her room later in the morning to take a nap. She was receptive to 1:1 assessment. Pt denies all MH symptoms. Does not appear to be responding to IS. Patient noted asking about her discharge plans with hopes of leaving sometime this week. No outbursts or aggressive behaviors noted on this shift. Patient was active on the unit on and off throughout the shift. She napped intermittently in her room between meals. Plan : Pt. continues to require a safe and supportive environment while awaiting placement.
[2022-06-13 19:00] VITALS: BP 116/56
[2022-06-13] MEDS: olanzapine 10mg tablet PO SCH (20:06)
[2022-06-13] MEDS: sertraline 50mg tablet PO SCH (20:07)
[2022-06-13] MEDS: traZODone 50mg tablet PO PRN (20:07)
[2022-06-13] MEDS: amLODIPine 5mg tablet PO SCH (20:08)
--- NOTE | 2022-06-14 03:01 | NUR ---
Nursing Progress Note: Tamara Problem : Pt admitted on [facility] conservatorship from Telemetry. Pt is awaiting placement. PT has history of schizoaffective. Interventions : Provided 1:1 assessment, provided clear and simple instructions, medication administration/education/monitoring, maintained fall precautions, encouraged to participate on the unit, behavior monitoring and intervention as needed; provided distraction, direction, reality orientation, positive reinforcement, provided needed assistance with ADLs, maintained a safe and supportive environment, and Q15 minute safety checks. Response : Patient is pleasant and cooperative with care; compliant with medication. PRN Trazodone provided per patient request for sleep. Nicotine patch removed. No negative behaviors presented and making needs known with use of call light. No incontinent episodes at this time. Patient reported anxiousness for upcoming discharge but remains in good spirits. Patient was social with roommate and staff and provided HS snack prior to bed; observed sleeping and does not appear to be having difficulty. Plan : Pt. continues to require a safe and supportive environment while awaiting placement.
[2022-06-14] MEDS ORDERED: LORazepam 1 MG tablet PO ONE ×2 (04:00→19:15)
[2022-06-14 07:30] VITALS: BP 105/47
[2022-06-14] MEDS: calcium carbonate 500mg chew tablet PO SCH ×2 (08:00→20:15)
[2022-06-14] MEDS ORDERED: nicotine 7mg patch - 24hr TD SCH (08:00)
[2022-06-14] MEDS: loratadine 10mg tablet PO SCH (08:27)
[2022-06-14] MEDS: apixaban 5mg tablet PO SCH ×2 (08:27→20:16)
[2022-06-14] MEDS: docusate sod 100mg capsule PO SCH ×2 (08:27→20:15)
[2022-06-14] MEDS: divalproex sod 250mg ER (24-hour) tablet PO SCH ×2 (08:27→20:15)
[2022-06-14] MEDS: pantoprazole 40mg Tablet.DR PO SCH ×2 (08:27→20:16)
[2022-06-14] MEDS: lisinopril 20mg tablet PO SCH (08:27)
[2022-06-14] MEDS: aspirin 81mg, enteric-coated 1 TAB TABLET.DR PO SCH (08:27)
[2022-06-14] MEDS: cholecalciferol (vitamin D3) 1,000 unit (25mcg) tablet PO SCH (08:27)
[2022-06-14] MEDS: atorvastatin 20mg tablet PO SCH (08:28)
[2022-06-14] MEDS: traMADol 50MG tablet PO PRN (10:55)
--- NOTE | 2022-06-14 11:17 | NUR ---
DISCHARGE TH06/15/22 5 AM Tamara is scheduled to get picked up at 5 AM tomorrow to go to [facility] for placement. Her medications are in the omni-cell and need to go with her. Please provide her with snacks and a sack lunch for the ride. ZACH Das
[2022-06-14] MEDS: tizanidine 4mg tablet PO PRN (12:17)
--- NOTE | 2022-06-14 17:58 | NUR ---
Nursing Progress Note: Problem : Pt admitted on LPS conservatorship from Telemetry. Pt is awaiting placement. PT has history of schizoaffective. Interventions : Provided 1:1 assessment, provided clear and simple instructions, medication administration/education/monitoring, maintained fall precautions, encouraged to participate on the unit, behavior monitoring and intervention as needed; provided distraction, direction, reality orientation, positive reinforcement, provided needed assistance with ADLs, maintained a safe and supportive environment, and Q15 minute safety checks. Response : RN received pt. asleep in bed. Pt. awoke for breakfast and took all medication. Pt. toileted after breakfast and asked to be put back in bed to sleep. Pt. napped approx. 1.5 hrs and asked to get up. Pt. placed in the community room and watching TV. 1:1 done at bedside, pt. denies SI/HI, A/V hallucinations. Pt. reports she is excited and nervous to be leaving tomorrow for a skilled facility in [place]. Pt.s clothes washed and bag lunches ordered for pt.s trip tomorrow. Pt. is being picked up at 5AM tomorrow. Pt. had one episode of urinary incontinence today. Pt. is social with peers and staff. Plan : Pt. continues to require a safe and supportive environment while awaiting placement.
[2022-06-14 19:32] VITALS: BP 122/70
[2022-06-14] MEDS: diphenhydrAMINE 25mg capsule PO PRN (20:15)
[2022-06-14] MEDS: traZODone 50mg tablet PO PRN (20:15)
[2022-06-14] MEDS: amLODIPine 5mg tablet PO SCH (20:16)
[2022-06-14] MEDS: olanzapine 10mg tablet PO SCH (20:16)
[2022-06-14] MEDS: sertraline 50mg tablet PO SCH (20:17)
[2022-06-15] MEDS ORDERED: LORazepam 1 MG tablet PO ONE (04:00)
[2022-06-15 04:40] VITALS: BP 120/70
[2022-06-15] MEDS: aspirin 81mg, enteric-coated 1 TAB TABLET.DR PO SCH (04:45)
[2022-06-15] MEDS: traMADol 50MG tablet PO PRN (04:45)
[2022-06-15] MEDS: amLODIPine 5mg tablet PO SCH (04:46)
[2022-06-15] MEDS: docusate sod 100mg capsule PO SCH (04:46)
[2022-06-15] MEDS: atorvastatin 20mg tablet PO SCH (04:46)
[2022-06-15] MEDS: cholecalciferol (vitamin D3) 1,000 unit (25mcg) tablet PO SCH (04:46)
[2022-06-15 04:47] VITALS: BP_SYST 120
[2022-06-15] MEDS: lisinopril 20mg tablet PO SCH (04:47)
[2022-06-15] MEDS: divalproex sod 250mg ER (24-hour) tablet PO SCH (04:47)
[2022-06-15] MEDS: apixaban 5mg tablet PO SCH (04:47)
[2022-06-15] MEDS: loratadine 10mg tablet PO SCH (04:54)
[2022-06-15] MEDS: pantoprazole 40mg Tablet.DR PO SCH (04:54)
--- NOTE | 2022-06-15 05:05 | NUR ---
DISCHARGE NOTE: Pt. discharged to [facility] picked up by [facility] cryogenic transport driver. Pt. discharged with all valuables and belongings. Pt. given AM medications early. Pt. discharged with sack lunches and snacks, extra briefs, and 30 day supply of medications. Pt. understands discharge destination and drive time (about 8 hours). Pt. denies SI/HI, A/V hallucinations. Pt. is A&Ox4 and in no apparent distress.
== END 2022-06-15 05:05 | DRG 750 ==
LOC: ADULT MH 12:05
PROVIDERS: ADMIT Psychiatry & Neurology Psychiatry; ATTEND Psychiatry & Neurology Psychiatry
DX: F25.0 Schizoaffective disorder, bipolar type (principal); G91.2 (Idiopathic) normal pressure hydrocephalus; E78.5 Hyperlipidemia, unspecified; F17.210 Nicotine dependence, cigarettes, uncomplicated; F41.9 Anxiety disorder, unspecified; I10 Essential (primary) hypertension; I25.10 Atherosclerotic heart disease of native coronary artery without angina pectoris; I48.0 Paroxysmal atrial fibrillation; J44.9 Chronic obstructive pulmonary disease, unspecified; K21.9 Gastro-esophageal reflux disease without esophagitis; K59.00 Constipation, unspecified; R13.10 Dysphagia, unspecified; Z78.9 Other specified health status; Z79.01 Long term (current) use of anticoagulants; Z79.82 Long term (current) use of aspirin; Z79.899 Other long term (current) drug therapy; Z86.16 Personal history of COVID-19; Z87.01 Personal history of pneumonia (recurrent); Z90.710 Acquired absence of both cervix and uterus; Z91.81 History of falling; Z99.3 Dependence on wheelchair
CPT/HCPCS: 36415; 71045; 73030; 80164; 81001; 87081; 93005; 93971; 94640; 94760; 97110; 97116; 97161; 97530; A6250; A6258; C2617; Q0163